=== PATIENT | female | born 1970 | race Caucasian/White ===

== ENCOUNTER → 2020-07-20 09:09 | Outpatient (BNVA) | payer MEDICARE, MEDICAID, SELFPAY | PROVIDERS: PCP Internal Medicine; Referring Provider Internal Medicine; Visit Provider Internal Medicine Gastroenterology | DX: K58.0 Irritable bowel syndrome with diarrhea (principal); F80.4 Speech and language development delay due to hearing loss; Z79.899 Other long term (current) drug therapy | CPT/HCPCS: 99212; 99215 ==

== ENCOUNTER 2020-10-12 03:42 | Emergency (ER) | payer MEDICARE, MEDICAID, SELFPAY ==
[2020-10-12 04:07] VITALS: BP 161/82; PULSE 84; RESP 15; TEMP 37.2; O2SAT 98; BMI 19.5
--- NOTE | 2020-10-12 04:34 | PC.NURSE ---
at bedside for evaluation.
--- NOTE | 2020-10-12 04:44 | ED.ABDPAIN ---
HPI - Abdominal Pain General Chief Complaint: Abdominal Pain Stated Complaint: Constipated Time Seen by Provider: 10/12/20 04:28 Source: patient and american sign language interpreter Mode of arrival: ambulatory History of Present Illness HPI narrative: This is a 50-year-old female who presents with acute onset of abdominal discomfort approximately 2:00 a.m. this morning that she associated with likely constipation and states that this typically is resolved with Jell-O mixed with water, however when she looked she realized she was out of the Jell-O and so her and her decided to pursue ED to the emergency department for further evaluation. She states that since she has arrived she has had a large bowel movement and is no longer having abdominal discomfort. She states that the pain that she was having earlier as continue to happen frequently and she typically treats with Jell-O, but she was out. Otherwise, these have not been associated with any fevers, chills, nausea, vomiting, rectal bleeding. Patient reports that she did have a gynecologic procedure last week for vaginal bleeding, but states that she did not get started on any pain medication at that time. Related Data Home Medications Medication Instructions Recorded Confirmed [id number] 1 tab PO Q6H PRN 07/20/20 10/12/20 50 mg-325 mg-40 mg tablet hydroxyzine HCl 10 mg tablet 10 mg PO Q8H PRN 07/20/20 10/12/20 ketorolac 10 mg tablet 10 mg PO Q8H PRN 07/20/20 10/12/20 lorazepam 0.5 mg tablet 0.5 mg PO DAILY PRN 07/20/20 10/12/20 medroxyprogesterone 10 mg tablet 20 mg PO DAILY 07/20/20 10/12/20 montelukast 10 mg tablet 10 mg PO DAILY 07/20/20 10/12/20 famotidine 1 tab PO BEDTIME PRN 10/12/20 10/12/20 Allergies Allergy/AdvReac Type Severity Reaction Status Date / Time morphine [MORPHINE] Allergy Severe HEART RATE Unverified 06/11/20 15:27 ST WITH PALPATIONS AND RASH. acetaminophen [Tylenol] Allergy Unknown Verified 01/05/17 00:00 albuterol [Ventolin HFA] Allergy Unknown Verified 03/19/20 00:00 alprazolam Allergy Unknown Verified 03/19/20 00:00 aspirin [ASPIRIN] Allergy Unknown HOT IN BODY Unverified 06/11/20 15:27 atenolol [ATENOLOL] Allergy Unknown UNKNOWN Unverified 06/11/20 15:27 azithromycin [AZITHROMYCIN] Allergy Unknown DIZZY Unverified 06/11/20 15:27 caffeine [CAFFEINE] Allergy Unknown UNKNOWN Unverified 06/11/20 15:27 ciprofloxacin Allergy Unknown Verified 03/19/20 00:00 codeine [CODEINE] Allergy Unknown UNKNOWN Unverified 06/11/20 15:27 hydrochlorothiazide Allergy Unknown hypertensio Verified 01/05/17 00:00 n ibuprofen [From ADVIL] Allergy Unknown HOT INSIDE Unverified 06/11/20 15:27 BODY lisinopril [LISINOPRIL] Allergy Unknown HEART Unverified 06/11/20 15:27 POUNDING, palpitations Lonox Allergy Unknown Unverified 03/19/20 00:00 metoprolol Allergy Unknown Verified 03/19/20 00:00 naproxen [From ALEVE] Allergy Unknown HOT INSIDE Unverified 06/11/20 15:27 BODY oxycodone [OXYCODONE] Allergy Unknown HOT AND Unverified 06/11/20 15:27 DIZZY penicillin V Allergy Unknown Unverified 03/19/20 00:00 Penicillins [PENICILLINS] Allergy Unknown ITCHING Unverified 06/11/20 15:27 RASH prednisone Allergy Unknown Verified 03/19/20 00:00 prochlorperazine Allergy Unknown UNKNOWN Unverified 06/11/20 15:27 [From COMPAZINE] sumatriptan Allergy Unknown Verified 03/19/20 00:00 tramadol [TRAMADOL] Allergy Unknown DIZZINESS Unverified 06/11/20 15:27 Codeine Allergy Unknown Uncoded 01/05/17 00:00 Diphenoxylate-Atropine Allergy Unknown Uncoded 03/19/20 00:00 From LOMOTIL Allergy Unknown UNKNOWN Uncoded 06/11/20 15:27 garlic Allergy Unknown Uncoded 01/05/17 00:00 Metoprolol Succinate Allergy Unknown dizziness Uncoded 01/05/17 00:00 onion Allergy Unknown Uncoded 01/05/17 00:00 pepper Allergy Unknown Uncoded 01/05/17 00:00 Q-Tussin Allergy Unknown Uncoded 03/19/20 00:00 Review of Systems Review of Systems Pertinent positives and negatives as stated in HPI 10 point review of systems is otherwise negative. Physical Exam Vital Signs: Vital Signs: Last Vital Signs Temp 98.9 F 10/12/20 04:07 Pulse 92 10/12/20 06:00 Resp 15 10/12/20 06:00 BP 156/84 H 10/12/20 06:00 Pulse Ox 96 10/12/20 06:00 Body Mass Index 19.5 VITAL SIGNS: Reviewed. GENERAL: Well developed, well nourished, in no acute distress. NOSE: Nares patent bilateral OROPHARYNX: no oral lesions noted, posterior pharynx clear and non-erythematous without noted tonsillar enlargement/erythema/exudates NECK: Supple, no adenopathy LUNGS: Normal breath sounds. No adventitious sounds or accessory muscle use. SpO2<98> CARDIOVASCULAR: Regular rate and rhythm without noted murmurs, ABDOMEN: Soft, non-tender, non-distended with bowel sounds. NEUROLOGIC: Alert and oriented x 4. Strength and sensation to light touch were grossly intact x 4. Course Course Course Narrative: This is a 50-year-old female with history and clinical presentation consistent with likely constipation that has resolved as patient is asymptomatic at this time. However, will get labs and KUB to evaluate further. All investigations were reviewed with evidence of hypo kalemia which was likely contributing to patient's difficulty with constipation which was further demonstrated by a KUB that shows a large amount of stool in the left hemicolon. There is no evidence of infectious etiologies and patient will have potassium repleted with oral pills and given instructions for a bowel regimen other than Jell-O. MDM - Abdominal Pain Lab Data Result diagrams: 10/12/20 05:08 10/12/20 05:08 Labs: Lab Results 10/12/20 10/12/20 10/12/20 Range/Units 05:08 05:08 05:37 WBC 10.1 (4.8-10.8) X10*3/uL RBC 4.52 (4.20-5.50) X10*6/uL Hgb 12.7 (12.0-16.0) g/dl Hct 38.1 (37-47) % MCV 84.3 (80-98) fL MCH 28.1 (27.0-33.0) pg MCHC 33.3 (31.0-35.0) g/dl RDW 13.5 (11.0-16.0) % Plt Count 247 (160-400) X10*3/uL MPV 10.2 (9.4-12.3) fL Immature Gran % (Auto) 0.2 (0.0-0.4) % Neut % (Auto) 78.8 H (45-73) % Lymph % (Auto) 12.2 L (20-40) % Menard % (Auto) 7.7 (2-11) % Eos % (Auto) 0.4 (0-4) % Baso % (Auto) 0.7 (0-2) % Lymph # (Auto) 1.2 (1.2-4.9) X10*3/uL Menard # (Auto) 0.8 (0.1-1.2) X10*3/uL Eos # (Auto) 0.0 (0.0-0.4) X10*3/uL Baso # (Auto) 0.1 (0.0-0.2) X10*3/uL Abs Immat Gran (auto) 0.02 (0.00-0.03) X10*3/uL Absolute Neuts (auto) 7.9 (2.0-8.3) X10*3/uL Absolute Nucleated RBC 0.000 (0.0-0.012) X10*3/uL Nucleated RBC % (auto) 0.0 (0.0-0.2) /100WBC Sodium 136 (135-145) mmol/L Potassium 2.9 L (3.3-5.1) mmol/l Chloride 98 (96-108) mmol/L Carbon Dioxide 29 (22-29) mmol/L Anion Gap 12 (12-20) BUN 13 (9-16) mg/dL Creatinine 0.79 (0.5-1.4) mg/dL Estim Creat Clear Calc 59.6 Estimated GFR > 60 Random Glucose 96 (60-115) mg/dL Calcium 8.1 L (8.4-10.2) mg/dL Total Bilirubin 0.2 (0.0-1.0) mg/dL AST 22 (5-31) U/L ALT 12 (0-31) U/L Alkaline Phosphatase 51 (39-117) U/L Total Protein 7.5 (6.5-8.0) g/dL Albumin 3.8 (3.5-5.0) g/dL Urine Color STRAW Urine Appearance CLEAR Urine pH 6.5 (5.0-8.0) Ur Specific [place] 1.010 (1.005-1.025) Urine Protein NEG (NEG-TRACE) MG/DL Urine Glucose (UA) NEG (NEG) MG/DL Urine Ketones NEG (NEG) MG/DL Urine Blood 1+ H (NEG) Urine Nitrite NEG (NEG) Ur Leukocyte Esterase NEG (NEG) Urine RBC 0-2 (0) /HPF Urine WBC 0-2 (0-4) /HPF Ur Squamous Epith Cells 1+ /LPF Urine Bacteria NONE /LPF Discharge Plan Discharge Clinical Impression: Hypokalemia Constipation Qualifiers: Constipation type: unspecified constipation type Qualified Code(s): K59.00 - Constipation, unspecified Patient Disposition: Home, Self-Care Instructions: Constipation (ED), High Fiber Diet (ED), Irritable Bowel Syndrome (ED), Fleet Enema (ED), Hypokalemia (ED) Additional Instructions: 1. Having a low potassium level can contribute to constipation symptoms. 2. To assist in constipation symptoms: Increase fluid hydration especially with water, increase fresh fruits and vegetables, [id number] MiraLax as directed on the outside packaging, and follow-up with your primary care provider for re-evaluation and outpatient management should your constipation persist. You may also consider a Fleet's enema, these are available over the counter as well. 3. Please resume all home medications as prescribed. Return to the emergency department should you experience any acute worsening of her symptoms. Prescriptions: No Action famotidine 20 mg tablet 1 tab PO BEDTIME PRN (Reason: Gastric Reflux) RF: 0 PMFSH Past Medical History Source: nursing notes reviewed Medical History IBS (irritable colon syndrome) Screening for colon cancer Speech and language development delay due to hearing loss Surgical History History of esophagogastroduodenoscopy (EGD) (~2018) Hx of colonoscopy (~2018) Family History Family History Mother Breast cancer Maternal Aunt Breast cancer Social History Social History Household Members: Friend(s) Housing: House Alcohol intake: current Alcohol intake frequency: does not drink Smoking Status: Never smoker Use of substances other than those prescribed or required for medical reasons: No Advance Directives: No Advance Directives Information Provided: No
--- NOTE | 2020-10-12 04:48 | XR_ITS ---
EXAMINATION: XR ABDOMEN KUB CLINICAL INDICATION: Question constipation. COMPARISON: None TECHNIQUE: AP view of the abdomen. FINDINGS: A moderate to large volume of fecal material is present in the colon, primarily transverse, descending, and sigmoid colon. Nondilated bowel gas pattern. No pathologic calcifications. No air-fluid levels. Osseous structures are unremarkable. XR/XR KUB IMPRESSION: Moderate to large volume of fecal material in the left hemicolon.
[2020-10-12 05:13] LABS: Basophils Absolute Auto 0.1 X10*3/uL (0.0-0.2); Basophils Percent Auto 0.7 % (0-2); Eosinophils Percent Auto 0.4 % (0-4); Hematocrit 38.1 % (37-47); Hemoglobin 12.7 g/dl (12.0-16.0); Imm Gran Abs Auto 0.02 X10*3/uL (0.00-0.03); Imm Gran Pct Auto 0.2 % (0.0-0.4); Lymphocytes Absolute Auto 1.2 X10*3/uL (1.2-4.9); Lymphocytes Percent Auto 12.2 % (20-40); MANUAL DIFF FLAG NO; Mean Corpuscular HGB Conc 33.3 g/dl (31.0-35.0); Mean Corpuscular Hemoglobin 28.1 pg (27.0-33.0); Mean Corpuscular Volume 84.3 fL (80-98); Mean Platelet Volume 10.2 fL (9.4-12.3); Monocytes Absolute Auto 0.8 X10*3/uL (0.1-1.2); Monocytes Percent Auto 7.7 % (2-11); Neutrophils Absolute Auto 7.9 X10*3/uL (2.0-8.3); Neutrophils Percent Auto 78.8 % (45-73); Platelet Count 247 X10*3/uL (160-400); Red Blood Count 4.52 X10*6/uL (4.20-5.50); Red Cell Distribution Width 13.5 % (11.0-16.0); White Blood Count 10.1 X10*3/uL (4.8-10.8)
[2020-10-12 05:43] LABS: Glucose Urine UA NEG (NEG); Leukocyte Esterase Urine NEG (NEG); Nitrite Urine NEG (NEG); PH 6.5 (5.0-8.0); Urine Blood 1+ (NEG); Urine Ketones NEG (NEG); Urine Protein NEG (NEG-TRACE)
[2020-10-12 05:45] LABS: Appearance Urine CLEAR; Color Urine STRAW
[2020-10-12 05:52] LABS: RBC Urine 0-2 /HPF (0); Squamous Epithelial Cell Urine 1+ /LPF; WBC Urine 0-2 /HPF (0-4)
[2020-10-12 05:54] LABS: Alanine Aminotransferase 12 U/L (0-31); Albumin Level 3.8 g/dL (3.5-5.0); Alkaline Phosphatase 51 U/L (39-117); Anion Gap 12 (12-20); Aspartate Amino Transferase 22 U/L (5-31); Bilirubin Total 0.2 mg/dL (0.0-1.0); Blood Urea Nitrogen 13 mg/dL (9-16); Calcium 8.1 mg/dL (8.4-10.2); Carbon Dioxide 29 mmol/L (22-29); Chloride 98 mmol/L (96-108); Creatinine Clr Calc Pharmacy 59.6; Estimated Glomerular Filt Rate > 60; Glucose Random 96 mg/dL (60-115); Potassium 2.9 mmol/l (3.3-5.1); Sodium 136 mmol/L (135-145); Total Protein 7.5 g/dL (6.5-8.0)
[2020-10-12 06:00] VITALS: BP 156/84; PULSE 92; RESP 15; O2SAT 96
[2020-10-12] MEDS: Potassium Chloride ER 20 MEQ TAB.ER.PRT 60 MEQ PO (07:16)
== END 2020-10-12 07:17 | disposition home or self-care (01) ==
PROVIDERS: Emergency Provider Student in an Organized Health Care Education/Training Program
DX: E87.6 Hypokalemia (principal); K59.00 Constipation, unspecified
CPT/HCPCS: 36415; 74018; 80053; 81001; 85025; 99283; 99284

== ENCOUNTER → 2020-12-02 13:08 | Outpatient (BNVA) | payer MEDICARE, MEDICAID, SELFPAY | PROVIDERS: PCP Internal Medicine; Visit Provider Surgery | DX: K64.8 Other hemorrhoids (principal) | CPT/HCPCS: 46600; 99212 ==

== ENCOUNTER → 2020-12-30 13:38 | Outpatient (BNVA) | payer MEDICARE, MEDICAID, SELFPAY | PROVIDERS: PCP Internal Medicine; Referring Provider Internal Medicine; Visit Provider Student in an Organized Health Care Education/Training Program | DX: M54.2 Cervicalgia (principal); Z79.899 Other long term (current) drug therapy | CPT/HCPCS: 99212 ==

== ENCOUNTER 2021-01-15 13:54 | Outpatient (REF) | payer MEDICARE, MEDICAID, SELFPAY ==
[2021-01-15 14:25] LABS: MANUAL DIFF FLAG NO
[2021-01-15 14:27] LABS: Basophils Absolute Auto 0.1 X10*3/uL (0.0-0.2); Basophils Percent Auto 0.8 % (0-2); Eosinophils Absolute Auto 0.1 X10*3/uL (0.0-0.4); Eosinophils Percent Auto 1.1 % (0-4); Hematocrit 39.7 % (37-47); Hemoglobin 12.8 g/dl (12.0-16.0); Imm Gran Abs Auto 0.02 X10*3/uL (0.00-0.03); Imm Gran Pct Auto 0.3 % (0.0-0.4); Lymphocytes Absolute Auto 2.6 X10*3/uL (1.2-4.9); Lymphocytes Percent Auto 35.8 % (20-40); Mean Corpuscular HGB Conc 32.2 g/dl (31.0-35.0); Mean Corpuscular Hemoglobin 27.6 pg (27.0-33.0); Mean Corpuscular Volume 85.6 fL (80-98); Mean Platelet Volume 9.8 fL (9.4-12.3); Monocytes Absolute Auto 0.7 X10*3/uL (0.1-1.2); Monocytes Percent Auto 10.1 % (2-11); Neutrophils Absolute Auto 3.8 X10*3/uL (2.0-8.3); Neutrophils Percent Auto 51.9 % (45-73); Platelet Count 255 X10*3/uL (160-400); Red Blood Count 4.64 X10*6/uL (4.20-5.50); Red Cell Distribution Width 13.4 % (11.0-16.0); White Blood Count 7.4 X10*3/uL (4.8-10.8)
[2021-01-15 15:00] LABS: Alanine Aminotransferase 6 U/L (0-31); Albumin Level 3.8 g/dL (3.5-5.0); Alkaline Phosphatase 56 U/L (39-117); Anion Gap 10 (12-20); Aspartate Amino Transferase 18 U/L (5-31); Bilirubin Total 0.5 mg/dL (0.0-1.0); Blood Urea Nitrogen 11 mg/dL (9-16); C Reactive Protein 0.04 mg/dL (< or = 0.50); Calcium 8.6 mg/dL (8.4-10.2); Carbon Dioxide 28 mmol/L (22-29); Chloride 104 mmol/L (96-108); Estimated Glomerular Filt Rate > 60; Glucose Random 110 mg/dL (60-115); Potassium 3.4 mmol/L (3.3-5.1); Sodium 139 mmol/L (135-145); Total Protein 7.5 g/dL (6.5-8.0)
[2021-01-15 15:22] LABS: TSH reflex Free T4 1.17 uIU/mL (0.32-4.0); Vitamin D 25-OH Total 19.5 ng/mL (>30)
== END 2021-01-15 13:55 | disposition home or self-care (01) ==
LOC: HO.LAB 13:54
PROVIDERS: PCP Internal Medicine; Visit Provider Internal Medicine Gastroenterology
DX: Z00.00 Encounter for general adult medical examination without abnormal findings (principal)
CPT/HCPCS: 36415; 80053; 82306; 84443; 85025; 86140

== ENCOUNTER → 2021-01-18 11:11 | Outpatient (BNVA) | payer MEDICARE, MEDICAID, SELFPAY | PROVIDERS: PCP Internal Medicine; Visit Provider Internal Medicine Gastroenterology | DX: K58.0 Irritable bowel syndrome with diarrhea (principal); R79.89 Other specified abnormal findings of blood chemistry; R10.9 Unspecified abdominal pain | CPT/HCPCS: 99212 ==

== ENCOUNTER 2021-01-26 14:59 | Outpatient (REF) | payer MEDICARE, MEDICAID, SELFPAY ==
--- NOTE | ~2021-01-26 | CT_ITS ---
EXAMINATION: CT ABDOMEN AND PELVIS WITHOUT CONTRAST CLINICAL INFORMATION: Irritable bowel syndrome with diarrhea and abdominal pain. COMPARISON: Previous CT colonography August 2011. TECHNIQUE: Multidetector volumetric imaging was performed from the superior aspect of the liver through the pubic symphysis. Sagittal and coronal reformatted images were obtained on the technologist's workstation. This CT examination was performed using dose optimization techniques as appropriate, variously including the following: *Automated exposure control *Adjustment of mA and/or kV according to patient size (this includes techniques or standardized protocols for targeted exams where dose is matched to indication/reason for exam; i.e. extremities or head) *Use of iterative reconstruction technique DLP: 215 mGy-cm FINDINGS: LUNG BASES: There is a new subsolid or ground-glass attenuation area seen in the right middle lobe measuring 1.3 cm (axial image 4, series 3). The lung bases are otherwise clear. LIVER, GALLBLADDER, AND BILIARY TREE: The liver is normal in size, shape, and attenuation. No focal hepatic lesion or biliary ductal dilatation is present. The gallbladder is unremarkable with no evidence of radiopaque gallstones, gallbladder wall thickening, or obvious pericholecystic inflammatory changes. PANCREAS: Unremarkable. SPLEEN: Unremarkable. ADRENAL GLANDS: Unremarkable. KIDNEYS AND URETERS: Evaluation of the kidneys is limited due to motion artifact. There are several small left lower pole renal stones. BLADDER: Unremarkable. GASTROINTESTINAL TRACT: There is stool throughout the colon suggestive of constipation. The small and large bowel is otherwise unremarkable. The appendix is unremarkable. The stomach is unremarkable. ABDOMINAL WALL: No significant hernia is appreciated. LYMPH NODES: Normal. VASCULAR: Unremarkable. PELVIC VISCERA: Unremarkable. OSSEOUS STRUCTURES: There is ddegenerative disc disease at L5-S1. CT/CT abdomen pelvis wo con IMPRESSION: Left renal stones. Constipation. New 1.3 cm semisolid or groundglass attenuation right lower lobe nodule. This is a nonspecific finding. The patient is high risk i.e. smoking or known malignancy, chest CT follow-up should be considered.
== END 2021-01-26 15:00 | disposition home or self-care (01) ==
LOC: HO.CT 14:59
PROVIDERS: Visit Provider Internal Medicine Gastroenterology
DX: R10.9 Unspecified abdominal pain (principal); R19.7 Diarrhea, unspecified; K58.0 Irritable bowel syndrome with diarrhea
CPT/HCPCS: 74176

== ENCOUNTER 2021-02-23 10:22 | Outpatient (REF) | payer MEDICARE, MEDICAID, SELFPAY ==
[2021-02-23 12:29] LABS: MANUAL DIFF FLAG NO
[2021-02-23 12:39] LABS: Basophils Percent Auto 0.5 % (0-2); Eosinophils Absolute Auto 0.1 X10*3/uL (0.0-0.4); Eosinophils Percent Auto 0.7 % (0-4); Hematocrit 40.7 % (37-47); Imm Gran Abs Auto 0.03 X10*3/uL (0.00-0.03); Imm Gran Pct Auto 0.4 % (0.0-0.4); Lymphocytes Absolute Auto 2.1 X10*3/uL (1.2-4.9); Lymphocytes Percent Auto 25.5 % (20-40); Mean Corpuscular HGB Conc 31.9 g/dl (31.0-35.0); Mean Corpuscular Hemoglobin 27.7 pg (27.0-33.0); Mean Corpuscular Volume 86.6 fL (80-98); Mean Platelet Volume 9.7 fL (9.4-12.3); Monocytes Absolute Auto 0.6 X10*3/uL (0.1-1.2); Monocytes Percent Auto 7.2 % (2-11); Neutrophils Absolute Auto 5.5 X10*3/uL (2.0-8.3); Neutrophils Percent Auto 65.7 % (45-73); Platelet Count 338 X10*3/uL (160-400); Red Cell Distribution Width 13.6 % (11.0-16.0); White Blood Count 8.3 X10*3/uL (4.8-10.8)
[2021-02-23 13:22] LABS: Alanine Aminotransferase 16 U/L (0-31); Albumin Level 3.9 g/dL (3.5-5.0); Alkaline Phosphatase 58 U/L (39-117); Anion Gap 11 (12-20); Aspartate Amino Transferase 21 U/L (5-31); Bilirubin Total 0.4 mg/dL (0.0-1.0); Blood Urea Nitrogen 8 mg/dL (9-16); C Reactive Protein 0.06 mg/dL (< or = 0.50); Carbon Dioxide 31 mmol/L (22-29); Chloride 101 mmol/L (96-108); Estimated Glomerular Filt Rate > 60; Glucose Random 84 mg/dL (60-115); Potassium 3.1 mmol/L (3.3-5.1); Sodium 140 mmol/L (135-145); Total Protein 7.6 g/dL (6.5-8.0)
[2021-02-23 13:35] LABS: TSH reflex Free T4 0.73 uIU/mL (0.32-4.0)
== END 2021-02-23 10:23 | disposition home or self-care (01) ==
LOC: HO.LAB 10:22
PROVIDERS: Internal Medicine Gastroenterology; PCP Internal Medicine; Visit Provider Nurse Practitioner Family
DX: R79.89 Other specified abnormal findings of blood chemistry (principal); K58.0 Irritable bowel syndrome with diarrhea; K58.1 Irritable bowel syndrome with constipation
CPT/HCPCS: 36415; 80053; 82306; 84443; 85025; 86140; 99212

== ENCOUNTER 2021-02-24 14:53 | Emergency (ER) | payer MEDICARE, MEDICAID, SELFPAY ==
--- NOTE | ~2021-02-24 | US_ITS ---
EXAMINATION: US RETROPERITONEAL LIMITED CLINICAL INFORMATION: Question stones question hydronephrosis. COMPARISON: CT abdomen pelvis 01/26/2021 TECHNIQUE: Ultrasound of the kidneys was performed along with the bladder FINDINGS: RIGHT KIDNEY: 10.3 x 4.7 x 4.7 cm (SAG x AP x TRV). The kidney is normal in size, contour, and echogenicity. Renal cortical thickness is normal. No calculi or focal parenchymal lesions. No hydronephrosis. LEFT KIDNEY: 10.6 x 5.5 x 5.2 cm (SAG x AP x TRV). The kidney is normal in size, contour, and echogenicity. Renal cortical thickness is normal. Left-sided hydronephrosis is present which is new when compared to prior studies. 2 lower pole nonobstructing calculi present measuring 3 to 4 mm in size. These could be seen on the prior CT scan BLADDER: The bladder appeared unremarkable. Bilateral ureteral jets were noted. US/US renal BI IMPRESSION: New left-sided hydronephrosis with nonobstructing intrarenal left calculi. Possibly a ureteral stone is causing the obstruction, but this is not visualized. Bilateral ureteral jets were seen.
[2021-02-24 15:44] VITALS: BP 155/82; PULSE 85; RESP 16; TEMP 36.9; O2SAT 97; BMI 18.9
[2021-02-24 16:33] LABS: MANUAL DIFF FLAG NO
[2021-02-24 16:36] LABS: Basophils Absolute Auto 0.1 X10*3/uL (0.0-0.2); Basophils Percent Auto 0.6 % (0-2); Eosinophils Absolute Auto 0.1 X10*3/uL (0.0-0.4); Eosinophils Percent Auto 0.5 % (0-4); Glucose Urine UA NEG (NEG); Hemoglobin 12.3 g/dl (12.0-16.0); Imm Gran Abs Auto 0.03 X10*3/uL (0.00-0.03); Imm Gran Pct Auto 0.3 % (0.0-0.4); Leukocyte Esterase Urine NEG (NEG); Lymphocytes Absolute Auto 2.3 X10*3/uL (1.2-4.9); Lymphocytes Percent Auto 21.5 % (20-40); Mean Corpuscular HGB Conc 33.2 g/dl (31.0-35.0); Mean Corpuscular Volume 84.1 fL (80-98); Mean Platelet Volume 9.2 fL (9.4-12.3); Monocytes Absolute Auto 0.8 X10*3/uL (0.1-1.2); Monocytes Percent Auto 7.6 % (2-11); Neutrophils Absolute Auto 7.5 X10*3/uL (2.0-8.3); Neutrophils Percent Auto 69.5 % (45-73); Nitrite Urine NEG (NEG); Platelet Count 311 X10*3/uL (160-400); Red Cell Distribution Width 13.7 % (11.0-16.0); Urine Blood TRACE (NEG); Urine Ketones NEG (NEG); Urine Protein NEG (NEG-TRACE); White Blood Count 10.8 X10*3/uL (4.8-10.8)
[2021-02-24 16:37] LABS: Appearance Urine CLEAR; Color Urine YELLOW
[2021-02-24 16:38] LABS: UPreg QC Valid YES; Urine Pregnancy NEGATIVE (NEGATIVE)
[2021-02-24 16:49] LABS: Bacteria Urine TRACE /LPF; Squamous Epithelial Cell Urine 1+ /LPF; WBC Urine 0 /HPF (0-4)
[2021-02-24 17:07] LABS: Anion Gap 13 (12-20); Blood Urea Nitrogen 10 mg/dL (9-16); Calcium 8.6 mg/dL (8.4-10.2); Carbon Dioxide 28 mmol/L (22-29); Chloride 97 mmol/L (96-108); Creatinine Clr Calc Pharmacy 63.9; Estimated Glomerular Filt Rate > 60; Glucose Random 88 mg/dL (60-115); Potassium 3.3 mmol/L (3.3-5.1); Sodium 135 mmol/L (135-145)
--- NOTE | 2021-02-24 17:18 | ED_ITS ---
HPI - Abdominal Pain General Chief Complaint: Abdominal Pain Stated Complaint: Kidney Stones Time Seen by Provider: 02/24/21 17:09 Source: patient and family Limitations: language barrier (pt is deaf, mom is mozambican speaking, interpretor used) History of Present Illness HPI narrative: Patient is a 50 year old hearing impaired female with a past medical history of IBS, low vitamin-D, headaches and kidney stones with lithotripsy 7 yrs ago who presents with 2-3 weeks of left-sided flank pain. She states she is having subjective fevers, denies chills nausea vomiting or diarrhea. She was diagnosed with kidney stones approximately a month ago and thinks she passed those and these are new ones. She states her doctor told her to drink lots of water with lemon in it which she has been doing. She is also taking Fioricet for the pain but states it is not working. Pt is concerned about her elevated blood pressure, she states she does not have a diagnosis of hypertension and does not take hypertensive medications. Likely white coat s yndrome for her mother as it always goes up when she comes to the hospital and it always comes down when she takes Ativan. Abdominal CT scan from January 26 shows here are several small left lower pole renal stones. Related Data Home Medications Medication Instructions Recorded Confirmed ijokfsddab-ssbdwkczxjbvo-lmtfyroq 1 tab PO Q6H PRN 07/20/20 01/18/21 50 mg-325 mg-40 mg tablet hydroxyzine HCl 10 mg tablet 10 mg PO Q8H PRN 07/20/20 01/18/21 ketorolac 10 mg tablet 10 mg PO Q8H PRN 07/20/20 01/18/21 lorazepam 0.5 mg tablet 0.5 mg PO DAILY PRN 07/20/20 01/18/21 montelukast 10 mg tablet 10 mg PO DAILY 07/20/20 01/18/21 Previous Rx's Medication Instructions Recorded hydrocortisone 2.5 % topical cream 1 appl LA BID PRN #30 g 12/04/20 with perineal applicator hydrocortisone acetate 25 mg 25 mg LA BID PRN #24 ea 12/04/20 rectal suppository hydrocortisone 2.5 % topical cream 1 appl LA BID-QID PRN #30 g 12/31/20 with perineal applicator cholecalciferol (vitamin D3) 1,250 1,250 mcg PO QWEEK 28 Days #4 cap 01/18/21 mcg (50,000 unit) capsule cholecalciferol (vitamin D3) 50 50 mcg PO DAILY #30 cap 02/23/21 mcg (2,000 unit) capsule hydrocortisone acetate 25 mg 25 mg LA DAILY #24 ea 02/23/21 rectal suppository tamsulosin [Flomax] 0.4 mg PO DAILY #5 cap 02/24/21 Allergies Allergy/AdvReac Type Severity Reaction Status Date / Time morphine [MORPHINE] Allergy Severe HEART RATE Verified 02/24/21 18:38 ST WITH PALPATIONS AND RASH. acetaminophen [Tylenol] Allergy Unknown Unknown Verified 02/24/21 18:38 albuterol [Ventolin HFA] Allergy Unknown Unknown Verified 02/24/21 18:38 alprazolam Allergy Unknown Unknown Verified 02/24/21 18:38 aspirin [ASPIRIN] Allergy Unknown HOT IN BODY Verified 02/24/21 18:38 atenolol [ATENOLOL] Allergy Unknown UNKNOWN Verified 02/24/21 18:38 azithromycin [AZITHROMYCIN] Allergy Unknown DIZZY Verified 02/24/21 18:38 caffeine [CAFFEINE] Allergy Unknown UNKNOWN Verified 02/24/21 18:38 ciprofloxacin Allergy Unknown Unknown Verified 02/24/21 18:38 codeine [CODEINE] Allergy Unknown UNKNOWN Verified 02/24/21 18:38 hydrochlorothiazide Allergy Unknown hypertensio Verified 02/24/21 18:38 n lisinopril [LISINOPRIL] Allergy Unknown HEART Verified 02/24/21 18:38 POUNDING, palpitations Lonox Allergy Unknown Unknown Verified 02/24/21 18:38 metoprolol Allergy Unknown Unknown Verified 02/24/21 18:38 oxycodone [OXYCODONE] Allergy Unknown HOT AND Verified 02/24/21 18:38 DIZZY penicillin V Allergy Unknown Unknown Verified 02/24/21 18:38 Penicillins [PENICILLINS] Allergy Unknown ITCHING Verified 02/24/21 18:38 RASH prednisone Allergy Unknown Unknown Verified 02/24/21 18:38 prochlorperazine Allergy Unknown UNKNOWN Verified 02/24/21 18:38 [From COMPAZINE] sumatriptan Allergy Unknown Unknown Verified 02/24/21 18:38 tramadol [TRAMADOL] Allergy Unknown DIZZINESS Verified 02/24/21 18:38 ibuprofen [From ADVIL] AdvReac Unknown HOT INSIDE Verified 02/24/21 18:38 BODY naproxen [From ALEVE] AdvReac Unknown HOT INSIDE Verified 02/24/21 18:38 BODY Codeine Allergy Unknown Unknown Uncoded 02/24/21 18:37 Diphenoxylate-Atropine Allergy Unknown Unknown Uncoded 02/24/21 18:37 From LOMOTIL Allergy Unknown UNKNOWN Uncoded 06/11/20 15:27 garlic Allergy Unknown Unknown Uncoded 02/24/21 18:37 Metoprolol Succinate Allergy Unknown dizziness Uncoded 01/05/17 00:00 onion Allergy Unknown Unknown Uncoded 02/24/21 18:37 pepper Allergy Unknown Unknown Uncoded 02/24/21 18:37 Q-Tussin Allergy Unknown Unknown Uncoded 02/24/21 18:37 Review of Systems Review of Systems Yes all other systems are reviewed and are negative Physical Exam Vital Signs: Vital Signs: Last Vital Signs Temp 98.4 F 02/24/21 15:44 Pulse 96 02/24/21 18:22 Resp 18 02/24/21 18:22 BP 173/83 H 02/24/21 18:22 Pulse Ox 95 02/24/21 18:22 Body Mass Index 18.9 Const: General: cooperative, healthy appearing, comfortable, no acute distress and well developed Orientation/consciousness: patient oriented x3 Limitations: no limitations HENMT: Head: Yes normal to inspection Eyes: General: appearance normal, both eyes and all related structures Neck: Neck: Yes normal visual inspection and Yes full ROM Resp: Effort & Inspection: normal respiratory effort and able to speak in complete sentences Auscultation: clear to auscultation bilaterally Cardio: Rate: regular rate Rhythm: regular rhythm Heart sounds: normal S1 and S2 GI: Inspection: Yes normal to inspection Palpation (GI): Soft to palpation and nontender : General: Yes CVA tenderness (left side) Back/Spine/Pelvis: Back: CVA tenderness (left side) Skin: General skin exam: no rashes or lesions noted Neuro: General: patient oriented x3 Extrem: General: Yes normal to inspection Course Course Course Narrative: Patient is a 50 year old hearing impaired female with a past medical history of IBS, low vitamin-D and kidney stones who presents with 2 days of left-sided flank pain wtih fevers. VSS sans slightly elevated BP at 155/82, PE revealed left side +CVA. As patient just had a CT scan, I will get ultrasound to check for stones plus or minus hydronephrosis. Will give morphine for pain. Reevaluation(s) Reevaluation #1: Patient US showed left kidney normal, left-sided hydronephrosis with to lower pole nonobstructing calculi measuring 3-[address] [place], he advised Flomax and he will see in office in 2 days. Other labs WNL. Time: 19:08 MDM - Abdominal Pain Lab Data Result diagrams: 02/24/21 16:27 02/24/21 16:27 Labs: Lab Results 02/24/21 02/24/21 02/24/21 Range/Units 16:27 16:27 16:27 WBC 10.8 (4.8-10.8) X10*3/uL RBC 4.40 (4.20-5.50) X10*6/uL Hgb 12.3 (12.0-16.0) g/dl Hct 37.0 (37-47) % MCV 84.1 (80-98) fL MCH 28.0 (27.0-33.0) pg MCHC 33.2 (31.0-35.0) g/dl RDW 13.7 (11.0-16.0) % Plt Count 311 (160-400) X10*3/uL MPV 9.2 L (9.4-12.3) fL Immature Gran % (Auto) 0.3 (0.0-0.4) % Neut % (Auto) 69.5 (45-73) % Lymph % (Auto) 21.5 (20-40) % Lewis % (Auto) 7.6 (2-11) % Eos % (Auto) 0.5 (0-4) % Baso % (Auto) 0.6 (0-2) % Lymph # (Auto) 2.3 (1.2-4.9) X10*3/uL Lewis # (Auto) 0.8 (0.1-1.2) X10*3/uL Eos # (Auto) 0.1 (0.0-0.4) X10*3/uL Baso # (Auto) 0.1 (0.0-0.2) X10*3/uL Abs Immat Gran (auto) 0.03 (0.00-0.03) X10*3/uL Absolute Neuts (auto) 7.5 (2.0-8.3) X10*3/uL Absolute Nucleated RBC 0.000 (0.0-0.012) X10*3/uL Nucleated RBC % (auto) 0.0 (0.0-0.2) /100WBC Sodium 135 (135-145) mmol/L Potassium 3.3 (3.3-5.1) mmol/L Chloride 97 (96-108) mmol/L Carbon Dioxide 28 (22-29) mmol/L Anion Gap 13 (12-20) BUN 10 (9-16) mg/dL Creatinine 0.84 (0.5-1.4) mg/dL Estim Creat Clear Calc 63.9 Estimated GFR > 60 Random Glucose 88 (60-115) mg/dL Calcium 8.6 (8.4-10.2) mg/dL Urine Color YELLOW Urine Appearance CLEAR Urine pH 6.0 (5.0-8.0) Ur Specific [place] 1.020 (1.005-1.025) Urine Protein NEG (NEG-TRACE) MG/DL Urine Glucose (UA) NEG (NEG) MG/DL Urine Ketones NEG (NEG) MG/DL Urine Blood TRACE (NEG) Urine Nitrite NEG (NEG) Ur Leukocyte Esterase NEG (NEG) Urine RBC 1-4 (0) /HPF Urine WBC 0 (0-4) /HPF Ur Squamous Epith Cells 1+ /LPF Urine Bacteria TRACE /LPF Urine Test (NEGATIVE) 02/24/21 Range/Units 16:27 WBC (4.8-10.8) X10*3/uL RBC (4.20-5.50) X10*6/uL Hgb (12.0-16.0) g/dl Hct (37-47) % MCV (80-98) fL MCH (27.0-33.0) pg MCHC (31.0-35.0) g/dl RDW (11.0-16.0) % Plt Count (160-400) X10*3/uL MPV (9.4-12.3) fL Immature Gran % (Auto) (0.0-0.4) % Neut % (Auto) (45-73) % Lymph % (Auto) (20-40) % Lewis % (Auto) (2-11) % Eos % (Auto) (0-4) % Baso % (Auto) (0-2) % Lymph # (Auto) (1.2-4.9) X10*3/uL Lewis # (Auto) (0.1-1.2) X10*3/uL Eos # (Auto) (0.0-0.4) X10*3/uL Baso # (Auto) (0.0-0.2) X10*3/uL Abs Immat Gran (auto) (0.00-0.03) X10*3/uL Absolute Neuts (auto) (2.0-8.3) X10*3/uL Absolute Nucleated RBC (0.0-0.012) X10*3/uL Nucleated RBC % (auto) (0.0-0.2) /100WBC Sodium (135-145) mmol/L Potassium (3.3-5.1) mmol/L Chloride (96-108) mmol/L Carbon Dioxide (22-29) mmol/L Anion Gap (12-20) BUN (9-16) mg/dL Creatinine (0.5-1.4) mg/dL Estim Creat Clear Calc Estimated GFR Random Glucose (60-115) mg/dL Calcium (8.4-10.2) mg/dL Urine Color Urine Appearance Urine pH (5.0-8.0) Ur Specific [place] (1.005-1.025) Urine Protein (NEG-TRACE) MG/DL Urine Glucose (UA) (NEG) MG/DL Urine Ketones (NEG) MG/DL Urine Blood (NEG) Urine Nitrite (NEG) Ur Leukocyte Esterase (NEG) Urine RBC (0) /HPF Urine WBC (0-4) /HPF Ur Squamous Epith Cells /LPF Urine Bacteria /LPF Urine Test NEGATIVE (NEGATIVE) Imaging Data US renal: Attestation: I personally reviewed and interpreted this imaging study as follows: Radiologist's impression: [address] [id number] ReportSigned Patient: Bob SantosHiwotR#: [id number]: [id number]:[id number]/Sex: 50 / FADM Date: 02/24/21Loc: HO.EDAttending Dr: Ordering Physician: Luana Correa PA-C Date of Service: 02/24/21 Procedure(s): US renal BI Accession Number(s): [id number] cc: Luana Correa PA-C~ EXAMINATION: US RETROPERITONEAL LIMITED CLINICAL INFORMATION: Question stones question hydronephrosis. COMPARISON: CT abdomen pelvis 01/26/2021 TECHNIQUE: Ultrasound of the kidneys was performed along with the bladder FINDINGS: RIGHT KIDNEY: 10.3 x 4.7 x 4.7 cm (SAG x AP x TRV). The kidney is normal in size, contour, and echogenicity. Renal cortical thickness is normal. No calculi or focal parenchymal lesions. No hydronephrosis. LEFT KIDNEY: 10.6 x 5.5 x 5.2 cm (SAG x AP x TRV). The kidney is normal in size, contour, and echogenicity. Renal cortical thickness is normal. Left-sided hydronephrosis is present which is new when compared to prior studies. 2 lower pole nonobstructing calculi present measuring 3 to 4 mm in size. These could be seen on the prior CT scan BLADDER: The bladder appeared unremarkable. Bilateral ureteral jets were noted. US/US renal BI IMPRESSION: New left-sided hydronephrosis with nonobstructing intrarenal left calculi. Possibly a ureteral stone is causing the obstruction, but this is not visualized. Bilateral ureteral jets were seen. Dictated By:JESSICA RUIZ MDSigned By:<Electronically signed by JESSICA RUIZ MD in OV>02/24/21 1820 DD/ 1719TD/TT: [employer]ader: Discharge Plan Discharge Clinical Impression: Elevated BP without diagnosis of hypertension, Kidney stone on left side Patient Disposition: Home, Self-Care Instructions: Kidney Stones (ED), Hypertension (ED) Prescriptions: New tamsulosin [Flomax] 0.4 mg capsule 0.4 mg PO DAILY Qty: 5 RF: 0 No Action hydrocortisone 2.5 % cream with perineal applicator 1 appl LA BID PRN (Reason: hemorrhoids) Qty: 30 RF: 0 hydrocortisone [Anusol-HC] 2.5 % cream with perineal applicator 1 appl LA BID-QID PRN (Reason: hemorrhoids) Qty: 30 RF: 2 hydrocortisone acetate [Anusol-HC] 25 mg suppository 25 mg LA DAILY Qty: 24 RF: 2 hydroxyzine HCl 10 mg tablet 10 mg PO Q8H PRN (Reason: Itching) RF: 0 lorazepam 0.5 mg tablet 0.5 mg PO DAILY PRN (Reason: anxiety) RF: 0 montelukast 10 mg tablet 10 mg PO DAILY RF: 0 bydlcebwkq-fliidikyeejcg-gbwp 50-325-40 mg tablet 1 tab PO Q6H PRN (Reason: Pain (Scale Score 4-6)) RF: 0 ketorolac 10 mg tablet 10 mg PO Q8H PRN (Reason: Pain) RF: 0 cholecalciferol (vitamin D3) 1,250 mcg (50,000 unit) capsule 1,250 mcg PO QWEEK 28 Days Qty: 4 RF: 2 hydrocortisone acetate [Anusol-HC] 25 mg suppository 25 mg LA BID PRN (Reason: hemorrhoids) Qty: 24 RF: 3 cholecalciferol (vitamin D3) 50 mcg (2,000 unit) capsule 50 mcg PO DAILY Qty: 30 RF: 5 Referrals: Everton Rinaldi MD [Physician] - 2 days [facility] Past Medical History Medical History Abdominal pain IBS (irritable colon syndrome) Internal and external prolapsed hemorrhoids Low vitamin D level Screening for colon cancer Speech and language development delay due to hearing loss Surgical History History of esophagogastroduodenoscopy (EGD) (~2018) Hx of colonoscopy (~2018) Family History Family History Mother Breast cancer Maternal Aunt Breast cancer Social History Social History Household Members: Friend(s) Housing: House Are you a primary palliative care specialist to a significant other at home: No Alcohol intake: current Alcohol intake frequency: does not drink Advance Directives: No Advance Directives Information Provided: Yes Patient : No Current occupational status: retired
[2021-02-24 18:22] VITALS: BP 173/83; PULSE 96; RESP 18; O2SAT 95
--- NOTE | 2021-02-24 18:38 | PC.NURSE ---
Megha JOHNSTON spoke with pt about allergies and educated pt on alergy vs adverse reactio as well as the risks vs benefits of taking Toradol. The patient has never had toradol in the past. Pt agrees to try the medication to help with her abdominal pain.
[2021-02-24] MEDS: Ketorolac Tromethamine 30 MG/ML VIAL IM (18:44)
[2021-02-24] MEDS: Tamsulosin HCL 0.4 MG CAPSULE 0.8 MG PO (19:33)
== END 2021-02-24 19:37 | disposition home or self-care (01) ==
PROVIDERS: Emergency Provider Internal Medicine
DX: N13.2 Hydronephrosis with renal and ureteral calculous obstruction (principal); R03.0 Elevated blood-pressure reading, without diagnosis of hypertension; R10.9 Unspecified abdominal pain
CPT/HCPCS: 36415; 76775; 80048; 81001; 81025; 85025; 96372; 99284; J1885

== ENCOUNTER → 2021-03-02 14:16 | Outpatient (BNVA) | payer MEDICARE, MEDICAID, SELFPAY | PROVIDERS: Visit Provider Urology | DX: R10.9 Unspecified abdominal pain (principal); K58.9 Irritable bowel syndrome, unspecified; K64.8 Other hemorrhoids; E55.9 Vitamin D deficiency, unspecified; Z88.6 Allergy status to analgesic agent; Z88.5 Allergy status to narcotic agent; Z88.0 Allergy status to penicillin; Z88.8 Allergy status to other drugs, medicaments and biological substances; Z91.018 Allergy to other foods | CPT/HCPCS: 99202 ==

== ENCOUNTER 2021-03-11 15:03 | Outpatient (REF) | payer MEDICARE, MEDICAID, SELFPAY ==
[2021-03-11 15:46] LABS: Glucose Urine UA NEG (NEG); Leukocyte Esterase Urine 1+ (NEG); Nitrite Urine NEG (NEG); Specific Gravity - Urine >= 1.030 (1.005-1.025); Urine Blood 3+ (NEG); Urine Ketones NEG (NEG); Urine Protein TRACE MG/DL (NEG-TRACE)
[2021-03-11 15:55] LABS: Appearance Urine HAZY; Color Urine YELLOW
[2021-03-11 16:20] LABS: Bacteria Urine 2+ /LPF; Calcium Oxalate Crystals Urine 3+ /LPF; Squamous Epithelial Cell Urine 3+ /LPF
== END 2021-03-11 15:04 | disposition home or self-care (01) ==
LOC: HO.LAB 15:03
PROVIDERS: PCP Nurse Practitioner Family; Visit Provider Urology
DX: N39.0 Urinary tract infection, site not specified (principal)
CPT/HCPCS: 81001; 87086

== ENCOUNTER 2021-03-17 14:20 | Outpatient (REF) | payer MEDICARE, MEDICAID, SELFPAY ==
[2021-03-17 15:10] LABS: Appearance Urine HAZY; Color Urine YELLOW; Glucose Urine UA NEG (NEG); Leukocyte Esterase Urine 1+ (NEG); Nitrite Urine NEG (NEG); Specific Gravity - Urine 1.015 (1.005-1.025); Urine Blood NEG (NEG); Urine Ketones NEG (NEG); Urine Protein TRACE MG/DL (NEG-TRACE)
[2021-03-17 15:17] LABS: Bacteria Urine 1+ /LPF; Calcium Oxalate Crystals Urine 2+ /LPF; RBC Urine 0 /HPF (0); Squamous Epithelial Cell Urine 1+ /LPF; WBC Urine 0-2 /HPF (0-4)
== END 2021-03-17 14:21 | disposition home or self-care (01) ==
LOC: HO.LAB 14:20
PROVIDERS: PCP Internal Medicine; Visit Provider Urology
DX: N39.0 Urinary tract infection, site not specified (principal)
CPT/HCPCS: 81001; 87086

== ENCOUNTER 2021-03-31 07:32 | Day surgery (SDC) | payer MEDICARE, MEDICAID, SELFPAY ==
--- NOTE | 2021-03-30 09:17 | HO.ANESPROP2 ---
Documented by User: Mami Barrientos 03/30/21 09:20 HPI - Anesthesia Eval Consult details Narrative: 50yo F for Left ESWL Multiple Med Allergies Last ESWL on record 2008 chronic ketorolac PMFSH Active Problems Active Problems: All Active Problems (Updated 03/24/21 @ 11:56 by Mckenzie Rios) Neck pain (Acute) UTI (urinary tract infection) (Acute) Low vitamin D level (Acute) Abdominal pain (Acute) Internal and external prolapsed hemorrhoids (Acute) Speech and language development delay due to hearing loss (Acute) Screening for colon cancer (Acute) IBS (irritable colon syndrome) (Acute) Past Medical History Medical History Abdominal pain Asthma IBS (irritable colon syndrome) Internal and external prolapsed hemorrhoids Kidney stones Low vitamin D level Screening for colon cancer Speech and language development delay due to hearing loss Family History Family History Mother Breast cancer Maternal Aunt Breast cancer Surgical History Surgical History History of esophagogastroduodenoscopy (EGD) (~2018) History of lithotripsy Hx of colonoscopy (~2018) Social History Social History Household Members: Friend(s) Housing: House Are you a primary urgent care physician to a significant other at home: No Alcohol intake: current Alcohol intake frequency: does not drink Patient Tobacco Use Status: Never used Tobacco Use of substances other than those prescribed or required for medical reasons: No Are you DNR?: No Advance Directives: No Advance Directives Information Provided: Yes Current occupational status: retired Meds Allergies Allergy/AdvReac Type Severity Reaction Status Date / Time morphine [MORPHINE] Allergy Severe HEART RATE Verified 02/24/21 18:38 ST WITH PALPATIONS AND RASH. acetaminophen [Tylenol] Allergy Mild Fever Verified 03/31/21 08:18 alprazolam Allergy Unknown Cough, SOB Verified 03/31/21 08:18 aspirin [ASPIRIN] Allergy Unknown HOT IN BODY Verified 02/24/21 18:38 atenolol [ATENOLOL] Allergy Unknown Dizziness Verified 03/31/21 08:18 azithromycin [AZITHROMYCIN] Allergy Unknown DIZZY Verified 02/24/21 18:38 ciprofloxacin Allergy Unknown Dizziness Verified 03/31/21 08:18 codeine [CODEINE] Allergy Unknown UNKNOWN Verified 02/24/21 18:38 hydrochlorothiazide Allergy Unknown hypertensio Verified 02/24/21 18:38 n lisinopril [LISINOPRIL] Allergy Unknown HEART Verified 02/24/21 18:38 POUNDING, palpitations Lonox Allergy Unknown hot flash Verified 03/31/21 08:18 metoprolol Allergy Unknown Dizziness Verified 03/31/21 08:18 oxycodone [OXYCODONE] Allergy Unknown HOT AND Verified 02/24/21 18:38 DIZZY Penicillins [PENICILLINS] Allergy Unknown ITCHING Verified 02/24/21 18:38 RASH prednisone Allergy Unknown Headache Verified 03/31/21 08:18 prochlorperazine Allergy Unknown UNKNOWN Verified 02/24/21 18:38 [From COMPAZINE] sumatriptan Allergy Unknown Dizziness Verified 03/31/21 08:18 tramadol [TRAMADOL] Allergy Unknown DIZZINESS Verified 02/24/21 18:38 cyclobenzaprine Allergy increased Verified 03/31/21 08:18 BP barrett Allergy Unknown Verified 03/31/21 08:18 orange Allergy Unknown Verified 03/31/21 08:18 pantoprazole Allergy Diarrhea Verified 03/31/21 08:18 albuterol [Ventolin HFA] AdvReac Mild hot feeling Verified 03/31/21 09:24 ibuprofen [From ADVIL] AdvReac Unknown HOT INSIDE Verified 02/24/21 18:38 BODY naproxen [From ALEVE] AdvReac Unknown HOT INSIDE Verified 02/24/21 18:38 BODY Diphenoxylate-Atropine Allergy Unknown Unknown Uncoded 02/24/21 18:37 From LOMOTIL Allergy Unknown UNKNOWN Uncoded 06/11/20 15:27 garlic Allergy Unknown Unknown Uncoded 02/24/21 18:37 onion Allergy Unknown Unknown Uncoded 02/24/21 18:37 pepper Allergy Unknown Unknown Uncoded 02/24/21 18:37 Q-Tussin Allergy Unknown increased Uncoded 03/31/21 08:18 BP salt Allergy Unknown Uncoded 03/31/21 08:18 Home Medications Medication Instructions Recorded Confirmed Last Taken Type mivalmaplk-xftuhapvxswio-wyltnkjc 1 tab PO Q6H PRN 07/20/20 03/24/21 Unknown History 50 mg-325 mg-40 mg tablet hydroxyzine HCl 10 mg tablet 10 mg PO Q8H PRN 07/20/20 03/24/21 Unknown History ketorolac 10 mg tablet 10 mg PO Q8H PRN 07/20/20 03/24/21 Unknown History lorazepam 0.5 mg tablet 0.5 mg PO DAILY PRN 07/20/20 03/24/21 Unknown History montelukast 10 mg tablet 10 mg PO DAILY 07/20/20 03/24/21 Unknown History Exam Exam Date and Time: March 30, [id number] Pertinent Lab Results Pertinent Lab Results: Laboratory Tests 02/24/21 02/24/21 16:27 16:27 WBC 10.8 Hgb 12.3 Hct 37.0 Plt Count 311 Sodium 135 Potassium 3.3 Chloride 97 Carbon Dioxide 28 BUN 10 Creatinine 0.84 Assessment and Plan Assessment Anesthesia Assessment: Chart Reviewed Documented by User: Janet Nelson 03/31/21 09:33 PMFSH Past Medical History Medical History Abdominal pain Asthma IBS (irritable colon syndrome) Internal and external prolapsed hemorrhoids Kidney stones Low vitamin D level Screening for colon cancer Speech and language development delay due to hearing loss Family History Family History Mother Breast cancer Maternal Aunt Breast cancer Surgical History Surgical History History of esophagogastroduodenoscopy (EGD) (~2017) History of lithotripsy Hx of colonoscopy (~2018) Social History Social History Household Members: Friend(s) Housing: House Are you a primary urgent care physician to a significant other at home: No Alcohol intake: current Alcohol intake frequency: does not drink Patient Tobacco Use Status: Never used Tobacco Use of substances other than those prescribed or required for medical reasons: No Are you DNR?: No Advance Directives: No Advance Directives Information Provided: Yes Current occupational status: retired Meds Allergies Allergy/AdvReac Type Severity Reaction Status Date / Time morphine [MORPHINE] Allergy Severe HEART RATE Verified 02/24/21 18:38 ST WITH PALPATIONS AND RASH. acetaminophen [Tylenol] Allergy Mild Fever Verified 03/31/21 08:18 alprazolam Allergy Unknown Cough, SOB Verified 03/31/21 08:18 aspirin [ASPIRIN] Allergy Unknown HOT IN BODY Verified 02/24/21 18:38 atenolol [ATENOLOL] Allergy Unknown Dizziness Verified 03/31/21 08:18 azithromycin [AZITHROMYCIN] Allergy Unknown DIZZY Verified 02/24/21 18:38 ciprofloxacin Allergy Unknown Dizziness Verified 03/31/21 08:18 codeine [CODEINE] Allergy Unknown UNKNOWN Verified 02/24/21 18:38 hydrochlorothiazide Allergy Unknown hypertensio Verified 02/24/21 18:38 n lisinopril [LISINOPRIL] Allergy Unknown HEART Verified 02/24/21 18:38 POUNDING, palpitations Lonox Allergy Unknown hot flash Verified 03/31/21 08:18 metoprolol Allergy Unknown Dizziness Verified 03/31/21 08:18 oxycodone [OXYCODONE] Allergy Unknown HOT AND Verified 02/24/21 18:38 DIZZY Penicillins [PENICILLINS] Allergy Unknown ITCHING Verified 02/24/21 18:38 RASH prednisone Allergy Unknown Headache Verified 03/31/21 08:18 prochlorperazine Allergy Unknown UNKNOWN Verified 02/24/21 18:38 [From COMPAZINE] sumatriptan Allergy Unknown Dizziness Verified 03/31/21 08:18 tramadol [TRAMADOL] Allergy Unknown DIZZINESS Verified 02/24/21 18:38 cyclobenzaprine Allergy increased Verified 03/31/21 08:18 BP barrett Allergy Unknown Verified 03/31/21 08:18 orange Allergy Unknown Verified 03/31/21 08:18 pantoprazole Allergy Diarrhea Verified 03/31/21 08:18 albuterol [Ventolin HFA] AdvReac Mild hot feeling Verified 03/31/21 09:24 ibuprofen [From ADVIL] AdvReac Unknown HOT INSIDE Verified 02/24/21 18:38 BODY naproxen [From ALEVE] AdvReac Unknown HOT INSIDE Verified 02/24/21 18:38 BODY Diphenoxylate-Atropine Allergy Unknown Unknown Uncoded 02/24/21 18:37 From LOMOTIL Allergy Unknown UNKNOWN Uncoded 06/11/20 15:27 garlic Allergy Unknown Unknown Uncoded 02/24/21 18:37 onion Allergy Unknown Unknown Uncoded 02/24/21 18:37 pepper Allergy Unknown Unknown Uncoded 02/24/21 18:37 Q-Tussin Allergy Unknown increased Uncoded 03/31/21 08:18 BP salt Allergy Unknown Uncoded 03/31/21 08:18 Home Medications Medication Instructions Recorded Confirmed Last Taken Type pbnwfvhlfs-twikgfnzvifqj-wsydfhbf 1 tab PO Q6H PRN 07/20/20 03/24/21 Unknown History 50 mg-325 mg-40 mg tablet hydroxyzine HCl 10 mg tablet 10 mg PO Q8H PRN 07/20/20 03/24/21 Unknown History ketorolac 10 mg tablet 10 mg PO Q8H PRN 07/20/20 03/24/21 Unknown History lorazepam 0.5 mg tablet 0.5 mg PO DAILY PRN 07/20/20 03/24/21 Unknown History montelukast 10 mg tablet 10 mg PO DAILY 07/20/20 03/24/21 Unknown History Exam Airway Mallampati Class: II TM Dist: >3cm Neck ROM: Full Loose/Missing/Broken Teeth: No Heart: RRR Lungs: CTA Assessment and Plan Assessment Anesthesia Assessment: Anesthesia Plan Discussed and Chart Reviewed Final Anesthetic Review NPO: Yes ASA Class: II Final Preanesthetic Review: Meds/Allgs Chart Reviewed, Consent Obtained/Reviewed and Anes Risks/Benef Reviewed Patient Risk: Intermediate Procedure Risk: Low Anesthetic Plan Anesthetic Plan: MAC: Disposition: Standard PACU
--- NOTE | ~2021-03-31 | XR_ITS ---
EXAMINATION: XR ABDOMEN KUB CLINICAL INDICATION: Left renal stones COMPARISON: January 26, 2021 CT TECHNIQUE: AP view of the abdomen. FINDINGS: The bowel gas pattern is normal with no evidence of ileus or obstruction. About the lateral aspect location lower pole of the left kidney there is a 2 mm calcification seen. Psoas margins intact. No calcification seen along the expected path of the left ureter. The bones are unremarkable. XR/XR KUB IMPRESSION: 2 mm calculus overlying the lower pole of the left kidney.
[2021-03-31 08:22] VITALS: BP 144/72; PULSE 93; RESP 18; TEMP 37.1; O2SAT 97; BMI 17.8
--- NOTE | 2021-03-31 09:07 | PC.NURSE ---
Patient history of allergy to Tylenol. Spikes high fever & increased blood pressure. Ordered by Dr Rinaldi for ESWL procedures, discussed with Anesthesia Anti- patient not to be administered Tylenol.
[2021-03-31] MEDS: Albuterol/Iprat 2.5/0.5MG 3 ML AMPUL.NEB INHALE (09:30)
[2021-03-31 09:35] VITALS: PULSE 97
--- NOTE | 2021-03-31 09:39 | P.CONAN_ITS ---
[facility] Active Problems Active Problems: All Active Problems (Updated 03/31/21 @ 09:19 by Janet Nelson) Asthma (Acute) Nephrolithiasis (Acute) Neck pain (Acute) UTI (urinary tract infection) (Acute) Low vitamin D level (Acute) Abdominal pain (Acute) Internal and external prolapsed hemorrhoids (Acute) Speech and language development delay due to hearing loss (Acute) Screening for colon cancer (Acute) IBS (irritable colon syndrome) (Acute) Past Medical History Medical History Abdominal pain Asthma IBS (irritable colon syndrome) Internal and external prolapsed hemorrhoids Kidney stones Low vitamin D level Screening for colon cancer Speech and language development delay due to hearing loss Family History Family History Mother Breast cancer Maternal Aunt Breast cancer Surgical History Surgical History History of esophagogastroduodenoscopy (EGD) (~2017) History of lithotripsy Hx of colonoscopy (~2017) Social History Social History Household Members: Friend(s) Housing: House Are you a primary career services assistant to a significant other at home: No Alcohol intake: current Alcohol intake frequency: does not drink Patient Tobacco Use Status: Never used Tobacco Use of substances other than those prescribed or required for medical reasons: No Are you DNR?: No Advance Directives: No Advance Directives Information Provided: Yes Current occupational status: retired Meds Allergies Allergy/AdvReac Type Severity Reaction Status Date / Time morphine [MORPHINE] Allergy Severe HEART RATE Verified 02/24/21 18:38 ST WITH PALPATIONS AND RASH. acetaminophen [Tylenol] Allergy Mild Fever Verified 03/31/21 08:18 alprazolam Allergy Unknown Cough, SOB Verified 03/31/21 08:18 aspirin [ASPIRIN] Allergy Unknown HOT IN BODY Verified 02/24/21 18:38 atenolol [ATENOLOL] Allergy Unknown Dizziness Verified 03/31/21 08:18 azithromycin [AZITHROMYCIN] Allergy Unknown DIZZY Verified 02/24/21 18:38 ciprofloxacin Allergy Unknown Dizziness Verified 03/31/21 08:18 codeine [CODEINE] Allergy Unknown UNKNOWN Verified 02/24/21 18:38 hydrochlorothiazide Allergy Unknown hypertensio Verified 02/24/21 18:38 n lisinopril [LISINOPRIL] Allergy Unknown HEART Verified 02/24/21 18:38 POUNDING, palpitations Lonox Allergy Unknown hot flash Verified 03/31/21 08:18 metoprolol Allergy Unknown Dizziness Verified 03/31/21 08:18 oxycodone [OXYCODONE] Allergy Unknown HOT AND Verified 02/24/21 18:38 DIZZY Penicillins [PENICILLINS] Allergy Unknown ITCHING Verified 02/24/21 18:38 RASH prednisone Allergy Unknown Headache Verified 03/31/21 08:18 prochlorperazine Allergy Unknown UNKNOWN Verified 02/24/21 18:38 [From COMPAZINE] sumatriptan Allergy Unknown Dizziness Verified 03/31/21 08:18 tramadol [TRAMADOL] Allergy Unknown DIZZINESS Verified 02/24/21 18:38 cyclobenzaprine Allergy increased Verified 03/31/21 08:18 BP barrett Allergy Unknown Verified 03/31/21 08:18 orange Allergy Unknown Verified 03/31/21 08:18 pantoprazole Allergy Diarrhea Verified 03/31/21 08:18 albuterol [Ventolin HFA] AdvReac Mild hot feeling Verified 03/31/21 09:24 ibuprofen [From ADVIL] AdvReac Unknown HOT INSIDE Verified 02/24/21 18:38 BODY naproxen [From ALEVE] AdvReac Unknown HOT INSIDE Verified 02/24/21 18:38 BODY Diphenoxylate-Atropine Allergy Unknown Unknown Uncoded 02/24/21 18:37 From LOMOTIL Allergy Unknown UNKNOWN Uncoded 06/11/20 15:27 garlic Allergy Unknown Unknown Uncoded 02/24/21 18:37 onion Allergy Unknown Unknown Uncoded 02/24/21 18:37 pepper Allergy Unknown Unknown Uncoded 02/24/21 18:37 Q-Tussin Allergy Unknown increased Uncoded 03/31/21 08:18 BP salt Allergy Unknown Uncoded 03/31/21 08:18 Active Medications: Current Medications Generic Name Dose Route Start Last Admin Trade Name Freq PRN Reason Stop Dose Admin Lactated Ringer's 1,000 mls @ 100 mls/hr 03/31/21 06:00 Lr IVCONT .Q10H LYNDA Home Medications Medication Instructions Recorded Confirmed Last Taken Type iwurzwcaxx-kdrfqsfxitqcs-gydyrspj 1 tab PO Q6H PRN 07/20/20 03/24/21 Unknown History 50 mg-325 mg-40 mg tablet hydroxyzine HCl 10 mg tablet 10 mg PO Q8H PRN 07/20/20 03/24/21 Unknown History ketorolac 10 mg tablet 10 mg PO Q8H PRN 07/20/20 03/24/21 Unknown History lorazepam 0.5 mg tablet 0.5 mg PO DAILY PRN 07/20/20 03/24/21 Unknown History montelukast 10 mg tablet 10 mg PO DAILY 07/20/20 03/24/21 Unknown History Exam Exam Date and Time: March 31, 2021 0939 Height,Weight and Vital Signs: Height 5 ft 5 in Weight 48.534 kg Last Vital Signs Temp 98.7 F 03/31/21 08:22 Pulse 93 03/31/21 08:22 Resp 18 03/31/21 08:22 BP 144/72 H 03/31/21 08:22 Pulse Ox 97 03/31/21 08:22 Assessment and Plan Assessment Anesthesia Assessment: Anesthesia Plan Discussed and Chart Reviewed Final Anesthetic Review NPO: Yes
--- NOTE | 2021-03-31 09:51 | P.HPSUR_ITS ---
Pre-Procedural Eval Section A Date of Service: 03/31/21 Section B Chief Complaint: kidney stone Details of Present Illness: left renal stones Relevant Family History (Specify if Yes): No Relevant Social History: None Present Medications: see Short Stay Collaborative assessment Medical History: Significant History History of Previous Operations: No relevant previous surgery Allergies: Allergies Allergy/AdvReac Type Severity Reaction Status Date / Time morphine [MORPHINE] Allergy Severe HEART RATE Verified 02/24/21 18:38 ST WITH PALPATIONS AND RASH. acetaminophen [Tylenol] Allergy Mild Fever Verified 03/31/21 08:18 alprazolam Allergy Unknown Cough, SOB Verified 03/31/21 08:18 aspirin [ASPIRIN] Allergy Unknown HOT IN BODY Verified 02/24/21 18:38 atenolol [ATENOLOL] Allergy Unknown Dizziness Verified 03/31/21 08:18 azithromycin [AZITHROMYCIN] Allergy Unknown DIZZY Verified 02/24/21 18:38 ciprofloxacin Allergy Unknown Dizziness Verified 03/31/21 08:18 codeine [CODEINE] Allergy Unknown UNKNOWN Verified 02/24/21 18:38 hydrochlorothiazide Allergy Unknown hypertensio Verified 02/24/21 18:38 n lisinopril [LISINOPRIL] Allergy Unknown HEART Verified 02/24/21 18:38 POUNDING, palpitations Lonox Allergy Unknown hot flash Verified 03/31/21 08:18 metoprolol Allergy Unknown Dizziness Verified 03/31/21 08:18 oxycodone [OXYCODONE] Allergy Unknown HOT AND Verified 02/24/21 18:38 DIZZY Penicillins [PENICILLINS] Allergy Unknown ITCHING Verified 02/24/21 18:38 RASH prednisone Allergy Unknown Headache Verified 03/31/21 08:18 prochlorperazine Allergy Unknown UNKNOWN Verified 02/24/21 18:38 [From COMPAZINE] sumatriptan Allergy Unknown Dizziness Verified 03/31/21 08:18 tramadol [TRAMADOL] Allergy Unknown DIZZINESS Verified 02/24/21 18:38 cyclobenzaprine Allergy increased Verified 03/31/21 08:18 BP barrett Allergy Unknown Verified 03/31/21 08:18 orange Allergy Unknown Verified 03/31/21 08:18 pantoprazole Allergy Diarrhea Verified 03/31/21 08:18 albuterol [Ventolin HFA] AdvReac Mild hot feeling Verified 03/31/21 09:24 ibuprofen [From ADVIL] AdvReac Unknown HOT INSIDE Verified 02/24/21 18:38 BODY naproxen [From ALEVE] AdvReac Unknown HOT INSIDE Verified 02/24/21 18:38 BODY Diphenoxylate-Atropine Allergy Unknown Unknown Uncoded 02/24/21 18:37 From LOMOTIL Allergy Unknown UNKNOWN Uncoded 06/11/20 15:27 garlic Allergy Unknown Unknown Uncoded 02/24/21 18:37 onion Allergy Unknown Unknown Uncoded 02/24/21 18:37 pepper Allergy Unknown Unknown Uncoded 02/24/21 18:37 Q-Tussin Allergy Unknown increased Uncoded 03/31/21 08:18 BP salt Allergy Unknown Uncoded 03/31/21 08:18 Review of Systems Sugical H&P ROS: Negative: Constitution, Cardiovascular, Respiratory, Neur ological, Psychiatric, Hem-Onc, Allergic/Immunologic, Gastrointestinal, Genitourinary, Musculoskeletal, Integumentary, Endocrine and Eyes/Ears/Nose/Throat Exam Surgical H&P Exam: Normal: HEENT, Normal: Heart, Normal: Lungs, Normal: Extremities, Normal: Abdomen, Normal: Skin and Normal: Neurological Plan Diagnosis/Plan: Unchanged (left eswl) I have reviewed the history and physical and performed a pertinent physical examination on my patient. No changes have occurred unless specified.
--- NOTE | 2021-03-31 09:59 | W.PM.OPN ---
Operative Note Operative Note Date of Service: 03/31/21 Narrative: PreOperative Diagnosis: left stones Post Operative Diagnosis: Renal stones Procedure: left ESWL Surgeon: Dr Everton Rinaldi Anesthesia: mac/sedation Indications for procedure: They understand ESWL may be a staged procedure and subsequent intervention may be required based on imaging after ESWL. They also understand there is a risk of bleeding, infection, damage to adjacent organs. Procedure: After informed consent was verified the patient was brought to the operating room and placed in a supine position. Anesthesia was performed per protocol. Safety pause time-out was performed. Imaging was in the room and laterality confirmed. - left lower pole 5mm x 2 ESWL was performed. The 1st 500 shocks were performed at 60 hertz. These were performed with increasing power. Once maximum power was reached the rate was increased to 180 hertz. A total of 2500 shocks were given. Fluoroscopy showed stone disintegration. They tolerated procedure well and was transferred to the recovery area upon completion.
[2021-03-31 10:27] VITALS: BP 111/63; PULSE 86; RESP 12; TEMP 36.7; O2SAT 96
[2021-03-31 10:42] VITALS: BP 126/75; PULSE 96; RESP 18; O2SAT 96
[2021-03-31 10:52] VITALS: BP 129/74; PULSE 82; RESP 18; O2SAT 96
== END 2021-03-31 11:35 | disposition home or self-care (01) ==
PROVIDERS: PCP Internal Medicine; Visit Provider Urology
PROC: (CPT 50590; principal; 2021-03-31 09:40)
DX: N20.0 Calculus of kidney (principal); Z87.442 Personal history of urinary calculi; K58.9 Irritable bowel syndrome, unspecified; E55.9 Vitamin D deficiency, unspecified; F80.9 Developmental disorder of speech and language, unspecified; H91.90 Unspecified hearing loss, unspecified ear; Z79.899 Other long term (current) drug therapy; Z88.0 Allergy status to penicillin; Z88.8 Allergy status to other drugs, medicaments and biological substances
CPT/HCPCS: 50590; 74018; 94640; J1885; J2250; J2405; J3010

== ENCOUNTER → 2021-05-06 14:48 | Outpatient (BNVA) | payer MEDICARE, MEDICAID, SELFPAY | PROVIDERS: PCP Internal Medicine | DX: N20.0 Calculus of kidney (principal) | CPT/HCPCS: 99212 ==

== ENCOUNTER 2021-06-07 13:59 | Outpatient (REF) | payer MEDICARE, MEDICAID, SELFPAY ==
--- NOTE | ~2021-06-07 | US_ITS ---
EXAMINATION: US RETROPERITONEAL LIMITED (RENAL ONLY) CLINICAL INFORMATION: Calculus of kidney. COMPARISON: KUB dated 03/31/2021 and 10/12/2020. Bilateral renal ultrasound dated 02/24/2021. CT abdomen and pelvis without contrast dated 01/26/2021. Renals only ultrasound dated 11/13/2015. TECHNIQUE: Real-time imaging of the kidneys. FINDINGS: RIGHT KIDNEY: 10.2 x 4.5 x 4.9 cm (SAG x AP x TRV). The kidney is normal in size, contour, and echogenicity. Renal cortical thickness is normal. There is a 3 mm stone in the midpole. No focal parenchymal lesions or hydronephrosis. LEFT KIDNEY: 10.0 x 4.5 x 4.0 cm (SAG x AP x TRV). The kidney is normal in size, contour, and echogenicity. Renal cortical thickness is normal. There are small millimeter in size echogenic foci in the left kidney questionable for tiny stones. There is a 3 mm stone in the lower pole. No focal parenchymal lesions or hydronephrosis. US/US renal BI IMPRESSION: Small bilateral renal stones.
== END 2021-06-07 14:00 | disposition home or self-care (01) ==
LOC: HO.US 13:59
PROVIDERS: Visit Provider Urology
DX: N20.0 Calculus of kidney (principal)
CPT/HCPCS: 76775

== ENCOUNTER 2021-10-12 16:00 | Outpatient (REF) | payer MEDICARE, MEDICAID, SELFPAY ==
--- NOTE | ~2021-10-12 | US_ITS ---
EXAMINATION: US RETROPERITONEAL LIMITED (RENAL ONLY) CLINICAL INFORMATION: Calculus of kidney. COMPARISON: Renal ultrasound 06/07/2021 and 02/24/2021. X-ray KUB 03/31/2021 and 10/12/2020. CT abdomen and pelvis without contrast 01/26/2021. TECHNIQUE: Real-time imaging of the kidneys. FINDINGS: RIGHT KIDNEY: 10.3 x 4.6 x 4.8 cm (SAG x AP x TRV). The kidney is normal in size, contour, and echogenicity. Renal cortical thickness is normal. No focal parenchymal lesions or hydronephrosis. There is an echogenic stone in the mid pole measuring 0.3 x 0.2 cm. There are multiple punctate calcifications seen throughout the kidney cortex. LEFT KIDNEY: 9.0 x 4.5 x 3.9 cm (SAG x AP x TRV). The kidney is normal in size, contour, and echogenicity. Renal cortical thickness is normal. No focal parenchymal lesions or hydronephrosis. There are several echogenic stones; a 0.3 x 0.3 cm mid pole, 0.3 x 0.2 cm lower pole, 0.5 x 0.3 cm lower pole, 0.5 x 0.4 cm lower pole, 0.4 x 0.4 cm lower pole. In addition, there are multiple punctate echogenic calcifications. No caliectasis is seen. US/US renal BI IMPRESSION: Multiple nonobstructive echogenic bilateral renal calculi without caliectasis. In addition, there are multiple echogenic punctate calcifications throughout the kidney cortices bilaterally. There is no hydronephrosis.
== END 2021-10-12 16:01 | disposition home or self-care (01) ==
LOC: HO.US 16:00
PROVIDERS: Visit Provider Urology
DX: N20.0 Calculus of kidney (principal)
CPT/HCPCS: 76775

== ENCOUNTER → 2021-11-05 14:58 | Outpatient (BNVA) | payer OTHER, SELFPAY | PROVIDERS: PCP Internal Medicine; Visit Provider Urology | DX: N20.0 Calculus of kidney (principal) | CPT/HCPCS: 99212 ==

== ENCOUNTER → 2021-11-23 13:14 | Outpatient (BNVA) | payer OTHER, SELFPAY | PROVIDERS: PCP Internal Medicine; Referring Provider Internal Medicine; Visit Provider Nurse Practitioner Family | DX: Z12.11 Encounter for screening for malignant neoplasm of colon (principal); K58.0 Irritable bowel syndrome with diarrhea | CPT/HCPCS: 99212 ==

== ENCOUNTER → 2022-03-07 14:01 | Outpatient (BNVA) | payer OTHER, SELFPAY | PROVIDERS: PCP Internal Medicine; Visit Provider Surgery | DX: K64.8 Other hemorrhoids (principal); K64.4 Residual hemorrhoidal skin tags | CPT/HCPCS: 99212 ==

== ENCOUNTER 2022-04-11 15:23 | Outpatient (REF) | payer OTHER, SELFPAY ==
--- NOTE | ~2022-04-11 | US_ITS ---
EXAMINATION: US RETROPERITONEAL LIMITED (RENAL ONLY) CLINICAL INFORMATION: Calculus of kidney. COMPARISON: Ultrasound renal 10/12/2021 and 06/07/2021. X-ray KUB 03/31/2021. CT abdomen pelvis 01/26/2021. TECHNIQUE: Real-time imaging of the kidneys. FINDINGS: RIGHT KIDNEY: 9.3 x 4.9 x 4.7 cm (SAG x AP x TRV). The kidney is normal in size, contour, and echogenicity. Renal cortical thickness is normal. No focal parenchymal lesions or hydronephrosis. Redemonstration of multiple sub-3 mm echogenic foci. LEFT KIDNEY: 10.0 x 4.9 x 4.9 cm (SAG x AP x TRV). The kidney is normal in size, contour, and echogenicity. Renal cortical thickness is normal. No focal parenchymal lesions or hydronephrosis. Redemonstration of multiple sub-3 mm echogenic foci. US/US renal BI IMPRESSION: Redemonstration of multiple sub-3 mm bilateral renal calculi. No hydronephrosis.
== END 2022-04-11 15:24 | disposition home or self-care (01) ==
LOC: HO.US 15:23
PROVIDERS: Visit Provider Urology
DX: N20.0 Calculus of kidney (principal)
CPT/HCPCS: 76775

== ENCOUNTER → 2022-05-04 14:42 | Outpatient (BNVA) | payer OTHER, SELFPAY | PROVIDERS: PCP Internal Medicine; Visit Provider Urology | DX: N20.0 Calculus of kidney (principal) | CPT/HCPCS: 99212 ==

== ENCOUNTER 2022-09-30 16:25 | Outpatient (REF) | payer OTHER, SELFPAY ==
--- NOTE | ~2022-09-30 | US_ITS ---
EXAMINATION: US RETROPERITONEAL LIMITED (RENAL ONLY) CLINICAL INFORMATION: Calculus of kidney. COMPARISON: Renal ultrasound 04/11/2022 TECHNIQUE: Real-time imaging of the kidneys. FINDINGS: RIGHT KIDNEY: 9.8 x 5.1 x 4.0 cm (SAG x AP x TRV). The kidney is normal in size, contour, and echogenicity. Renal cortical thickness is normal. No calculi or focal parenchymal lesions. No hydronephrosis. LEFT KIDNEY: 9.7 x 4.6 x 4.5 cm (SAG x AP x TRV). The kidney is normal in size, contour, and echogenicity. Renal cortical thickness is normal. No focal parenchymal lesions or hydronephrosis. Multiple nonobstructing renal stones appear overall increased in size and number from prior measuring up to 0.8 cm, previously 0.3 cm or less. US/US renal BI IMPRESSION: Nonobstructing right renal stones appear increased in size and number from prior measuring up to 0.8 cm..
== END 2022-09-30 16:26 | disposition home or self-care (01) ==
LOC: HO.US 16:25
PROVIDERS: Visit Provider Urology
DX: N20.0 Calculus of kidney (principal)
CPT/HCPCS: 76775

== ENCOUNTER → 2022-11-30 14:48 | Outpatient (BNVA) | payer OTHER, SELFPAY | PROVIDERS: PCP Internal Medicine; Visit Provider Urology | DX: N20.0 Calculus of kidney (principal) | CPT/HCPCS: 99212 ==

== ENCOUNTER 2023-01-29 03:12 | Emergency (ER) | payer OTHER, SELFPAY ==
--- NOTE | ~2023-01-29 | XR_ITS ---
EXAMINATION: XR CHEST CLINICAL INFORMATION: Fever, rule out pneumonia COMPARISON: None available. TECHNIQUE: 2 views of the chest were obtained. FINDINGS: The lungs are clear with no focal consolidation. No evidence of pneumothorax, pulmonary edema, or pleural effusions. The cardiomediastinal silhouette is unremarkable. No acute osseous findings. XR/XR chest 2V IMPRESSION: No acute cardiopulmonary findings.
--- NOTE | ~2023-01-29 | CT_ITS ---
EXAMINATION: CT ABDOMEN AND PELVIS WITHOUT CONTRAST CLINICAL INFORMATION: Bilateral flank pain, rule out pyelonephritis COMPARISON: 01/26/2021 TECHNIQUE: Multidetector volumetric imaging was performed from the superior aspect of the liver through the pubic symphysis. Sagittal and coronal reformatted images were obtained on the technologist's workstation. This CT examination was performed using dose optimization techniques as appropriate, variously including the following: *Automated exposure control *Adjustment of mA and/or kV according to patient size (this includes techniques or standardized protocols for targeted exams where dose is matched to indication/reason for exam; i.e. extremities or head) *Use of iterative reconstruction technique DLP: 443 mGy-cm FINDINGS: Limited evaluation in some regions due to motion artifact. LUNG BASES: The visualized lung bases are unremarkable. LIVER, GALLBLADDER, AND BILIARY TREE: The liver is normal in size, shape, and attenuation. Lateral left hepatic lobe cyst redemonstrated. No biliary ductal dilatation is present. The gallbladder is unremarkable. PANCREAS: Unremarkable. SPLEEN: Unremarkable. ADRENAL GLANDS: Unremarkable. KIDNEYS AND URETERS: No hydronephrosis or obstructing calculus bilaterally. A few small calculi are noted in the lower left kidney. Small mid left renal cyst is suspected; no follow-up recommended. There is inadequate assessment of the renal parenchyma without intravenous contrast. No significant perinephric stranding. BLADDER: Mildly distended and grossly unremarkable. GASTROINTESTINAL TRACT: No evidence of bowel obstruction or significant wall thickening. The appendix is unremarkable. No free fluid or free air is seen. ABDOMINAL WALL: No significant hernia is appreciated. LYMPH NODES: Normal. VASCULAR: Unremarkable. PELVIC VISCERA: Unremarkable. OSSEOUS STRUCTURES: Unremarkable. CT/CT abdomen pelvis wo IV con IMPRESSION: Significantly limited assessment of the renal parenchyma for pyelonephritis without intravenous contrast. No hydronephrosis or obstructing calculus identified. Few small left lower pole renal calculi.
[2023-01-29 03:15] VITALS: BP 179/84; PULSE 137; RESP 19; TEMP 38.3; O2SAT 98; BMI 21.5
[2023-01-29 03:56] LABS: Basophils Percent Auto 0.5 % (0-2); Eosinophils Absolute Auto 0.2 X10*3/uL (0.0-0.4); Eosinophils Percent Auto 2.5 % (0-4); Hematocrit 39.1 % (37.0-47.0); Hemoglobin 12.6 g/dl (12.0-16.0); Imm Gran Abs Auto 0.02 X10*3/uL (0.00-0.03); Imm Gran Pct Auto 0.3 % (0.0-0.4); Lymphocytes Absolute Auto 0.6 X10*3/uL (1.2-4.9); Lymphocytes Percent Auto 9.7 % (20-40); MANUAL DIFF FLAG NO; Mean Corpuscular HGB Conc 32.2 g/dl (31.0-35.0); Mean Corpuscular Hemoglobin 26.8 pg (27.0-33.0); Monocytes Absolute Auto 0.9 X10*3/uL (0.1-1.2); Monocytes Percent Auto 13.3 % (2-11); Neutrophils Absolute Auto 4.7 x10*3/uL (2.0-8.3); Neutrophils Percent Auto 73.7 % (45-73); Platelet Count 248 X10*3/uL (160-400); Red Blood Count 4.71 X10*6/uL (4.20-5.50); Red Cell Distribution Width 13.8 % (11.0-16.0); White Blood Count 6.4 X10*3/uL (4.8-10.8)
[2023-01-29 04:05] LABS: Lactic Acid 0.7 mmol/L (0.5-2.0)
[2023-01-29 04:08] LABS: Anion Gap 13 (12-20); Blood Urea Nitrogen 10 mg/dL (9-16); Calcium 8.9 mg/dL (8.4-10.2); Carbon Dioxide 22 mmol/L (22-29); Chloride 103 mmol/L (96-108); Creatinine Clr Calc Pharmacy 62.9; Estimated Glomerular Filt Rate > 60; Glucose Random 108 mg/dL (60-115); Potassium 3.3 mmol/L (3.3-5.1); Sodium 135 mmol/L (135-145)
--- NOTE | 2023-01-29 04:10 | ED_ITS ---
HPI - General Adult General Chief complaint: General Medical Stated complaint: Swollen face? irritation/redness Time Seen by Provider: 01/29/23 04:09 Source: patient Mode of arrival: ambulatory Limitations: language barrier (Patient is deaf, she can read lips, steam meter reader used on the iPad) History of Present Illness HPI narrative: 52-year-old female who presents emergency department for evaluation facial flushing, bilateral lower extremity pain and bilateral lower flank pain. Patient states that she woke up at 01:00 in her face was flushed. She felt hot and cold. She states that she then developed pain in both sides of her flank. She denied dysuria but did note urinary frequency. She denied nausea or vomiting. She denied change in her bowel movements. Related Data Home Medications Medication Instructions Recorded Confirmed txyoxwrlrh-vkqnhumwtlydl-gvpvczdy 1 tab PO Q6H PRN Pain (Scale Score 07/20/20 50 mg-325 mg-40 mg tablet 4-6) hydroxyzine HCl 10 mg tablet 10 mg PO Q8H PRN Itching 07/20/20 03/24/21 ketorolac 10 mg tablet 10 mg PO Q8H PRN Pain 07/20/20 03/24/21 lorazepam 0.5 mg tablet 0.5 mg PO DAILY PRN anxiety 07/20/20 03/24/21 montelukast 10 mg tablet 10 mg PO DAILY 07/20/20 03/24/21 cholecalciferol (vitamin D3) 1,250 1,250 mcg PO QWEEK 11/05/21 mcg (50,000 unit) capsule Previous Rx's Medication Instructions Recorded hydrocortisone 2.5 % topical cream 1 appl WI BID-QID PRN hemorrhoids 12/31/20 with perineal applicator #30 grams (Anusol-HC) ascorbic acid (vitamin C) 1,000 mg 1 g PO DAILY 90 days #90 tabs 03/23/21 tablet doxazosin 2 mg tablet 2 mg PO BEDTIME 2 weeks #14 tabs 04/26/21 dicyclomine 10 mg capsule 10 mg PO TID 30 days #90 caps 09/08/21 cholecalciferol (vitamin D3) 50 50 mcg PO DAILY #30 caps 05/20/22 mcg (2,000 unit) capsule (Vitamin D3) pyridoxine (vitamin B6) 50 mg 50 mg PO DAILY 90 days #90 tabs 11/30/22 tablet methenamine hippurate 1 gram tablet 1 g PO DAILY 90 days #90 tabs 12/29/22 hydrocortisone acetate 25 mg 25 mg WI BID PRN hemorrhoids #24 ea 01/10/23 rectal suppository (Anusol-HC) ketorolac 10 mg tablet 10 mg PO Q6H PRN pain 5 days #20 01/29/23 tabs Allergies Allergy/AdvReac Type Severity Reaction Status Date / Time morphine [MORPHINE] Allergy Severe HEART RATE Verified 01/29/23 03:36 ST WITH PALPATIONS AND RASH. acetaminophen [From Tylenol] Allergy Mild Fever Verified 01/29/23 03:36 alprazolam Allergy Unknown Cough, SOB Verified 01/29/23 03:36 aspirin [ASPIRIN] Allergy Unknown HOT IN BODY Verified 01/29/23 03:36 atenolol [ATENOLOL] Allergy Unknown Dizziness Verified 01/29/23 03:36 atropine [From Lomotil] Allergy Unknown Unknown Verified 01/29/23 03:36 azithromycin [AZITHROMYCIN] Allergy Unknown DIZZY Verified 01/29/23 03:36 ciprofloxacin Allergy Unknown Dizziness Verified 01/29/23 03:36 codeine [CODEINE] Allergy Unknown UNKNOWN Verified 01/29/23 03:36 diphenoxylate [From Lomotil] Allergy Unknown Unknown Verified 01/29/23 03:36 garlic Allergy Unknown Unknown Verified 01/29/23 03:36 hydrochlorothiazide Allergy Unknown hypertensio Verified 01/29/23 03:36 n lisinopril [LISINOPRIL] Allergy Unknown HEART Verified 01/29/23 03:36 POUNDING, palpitations Lonox Allergy Unknown hot flash Verified 01/29/23 03:36 metoprolol Allergy Unknown Dizziness Verified 01/29/23 03:36 onion Allergy Unknown Unknown Verified 01/29/23 03:36 oxycodone [OXYCODONE] Allergy Unknown HOT AND Verified 01/29/23 03:36 DIZZY Penicillins [PENICILLINS] Allergy Unknown ITCHING Verified 01/29/23 03:36 RASH pepper (genus Capsicum) Allergy Unknown Unknown Verified 01/29/23 03:36 prednisone Allergy Unknown Headache Verified 01/29/23 03:36 prochlorperazine Allergy Unknown Unknown Verified 01/29/23 03:36 [From Compazine] sumatriptan Allergy Unknown Dizziness Verified 01/29/23 03:36 tramadol [TRAMADOL] Allergy Unknown DIZZINESS Verified 01/29/23 03:36 cyclobenzaprine Allergy increased Verified 01/29/23 03:36 BP barrett Allergy Unknown Verified 01/29/23 03:36 orange Allergy Unknown Verified 01/29/23 03:36 pantoprazole Allergy Diarrhea Verified 01/29/23 03:36 albuterol [From Ventolin HFA] AdvReac Mild Hot feeling Verified 01/29/23 03:36 ibuprofen [From Advil] AdvReac Unknown Hot inside Verified 01/29/23 03:36 body naproxen [From Aleve] AdvReac Unknown Hot inside Verified 01/29/23 03:36 body Diphenoxylate-Atropine Allergy Unknown Unknown Uncoded 11/30/22 15:35 Q-Tussin Allergy Unknown increased Uncoded 11/30/22 15:35 BP salt Allergy Unknown Uncoded 11/30/22 15:35 Review of Systems Review of Systems: Yes all other systems are reviewed and are negative PMFSH Past Medical History Medical History Abdominal pain Asthma IBS (irritable colon syndrome) Internal and external prolapsed hemorrhoids Kidney stones Low vitamin D level Screening for colon cancer Speech and language development delay due to hearing loss Surgical History History of esophagogastroduodenoscopy (EGD) (~2018) History of lithotripsy Hx of colonoscopy (~2018) Family History Family History Mother Breast cancer Maternal Aunt Breast cancer Social History Social History Household Members: Friend(s) Housing: House Are you a primary care information associate to a significant other at home: No Alcohol intake: never Patient Tobacco Use Status: Never used Tobacco Smoked in Last 30 Days: No Use of substances other than those prescribed or required for medical reasons: No Any prior treatment program specific to substance use: No Advance Directives: No Advance Directives Information Provided: Yes Patient : No Current occupational status: retired Physical Exam ED Vital Signs: Vital Signs - 24 hr 01/29/23 03:15 01/29/23 07:23 Temperature 100.9 F H 98.7 F Pulse Rate 137 H 111 H Respiratory Rate 19 18 Blood Pressure 179/84 H 132/76 Pulse Oximetry 98 95 Oxygen Delivery Method Room Air Room Air BMI result Body Mass Index 21.5 Vital signs revealed fever , elevated heart rate, elevated blood pressure General: Awake, alert, female patient, pleasant, cooperative does not appear to be in distress HEENT: Head was normal cephalic and atraumatic pupils were equal round reactive light, sclera contact however normal, mouth revealed moist membranes. Neck: Supple, no adenopathy Lungs: Clear to auscultation breath sounds symmetric bilateral Heart: Regular rate rhythm, normal S1-S2, no murmurs rubs or gallops Abdomen: Soft, nontender, nondistended with normoactive bowel sounds Back: Bilateral CVA tenderness Extremities: No erythema increased warmth to the lower extremities, no tenderness palpation of the muscles of her lower extremities, no lower extremities are intact Neuro: Nonfocal Medications Administered Discontinued Medications Generic Name Dose Route Start Last Admin Trade Name Freq PRN Reason Stop Dose Admin Sodium Chloride 1,000 mls @ 999 mls/hr 01/29/23 04:45 01/29/23 06:08 Ns IV 01/29/23 05:45 999 mls/hr .Q1H1M STA Administration Ketorolac Tromethamine 15 mg 01/29/23 04:45 01/29/23 06:07 Ketorolac Tromethamine 15 Mg/Ml Vial IVPUSH 01/29/23 04:46 15 mg ONCE STA Administration Medical Decision Making Medical Decision Making MDM Narrative: 52-year-old female with history of deafness, asthma, kidney stones, irritable bowel syndrome with multiple drug sensitivities who presents emergency department for evaluation of fever, bilateral flank pain and lower extremity pain that began at 01:00 hours. Patient did have a fever of 100.9 degrees F, elevated heart rate of 137 beats per minute an elevated blood pressure of 179/85. Patient's exam did reveal bilateral flank tenderness. Laboratory evaluation was ordered including CBC, BMP, liver panel, lipase, urinalysis, COVID-19 influenza. I ordered a two view chest x-ray and CT scan of the abdomen pelvis without IV contrast. 0456: CBC was normal. BMP was normal. LFTs were normal. Lipase was normal. COVID-19 influenza were negative. Urinalysis revealed trace leukocyte esterase. Microscopic revealed 0-2 RBCs, 0-5 WBCs, 0-2 squamous cells and no bacteria. 0757: CT scan of the abdomen pelvis without contrast revealed no obstructive process or kidney stone, limited and determining if the patient has pyelonephritis however the urinalysis is negative. The patient is feeling better after receiving the IV Toradol and IV fluid. Patient most likely has a viral syndrome. I did discuss this with her using the steam meter reader on the iPad. The patient will be started on Toradol 10 mg every 6 hours as needed for pain or fever. She will be discharged home with printed instructions. Differential Diagnosis Differential diagnosis includes was not limited to renal colic, pyelonephritis, urinary tract infection, viral syndrome, pancreatitis, gastritis Admission/Observation Consideration of admission/observation: Escalation of care including admission/observation considered Lab Data [facility] Lab Attestation statement: I reviewed the patient's lab results. See [facility] 01/29/23 03:46 01/29/23 03:46 Labs: Lab Results 01/29/23 01/29/23 01/29/23 Range/Units 03:46 03:46 03:46 WBC 6.4 (4.8-10.8) X10*3/uL RBC 4.71 (4.20-5.50) X10*6/uL Hgb 12.6 (12.0-16.0) g/dl Hct 39.1 (37.0-47.0) % MCV 83.0 (80.0-98.0) fL MCH 26.8 L (27.0-33.0) pg MCHC 32.2 (31.0-35.0) g/dl RDW 13.8 (11.0-16.0) % Plt Count 248 (160-400) X10*3/uL MPV 10.0 (9.4-12.3) fL Immature Gran % (Auto) 0.3 (0.0-0.4) % Neut % (Auto) 73.7 H (45-73) % Lymph % (Auto) 9.7 L (20-40) % [place] % (Auto) 13.3 H (2-11) % Eos % (Auto) 2.5 (0-4) % Baso % (Auto) 0.5 (0-2) % Lymph # (Auto) 0.6 L (1.2-4.9) X10*3/uL [place] # (Auto) 0.9 (0.1-1.2) X10*3/uL Eos # (Auto) 0.2 (0.0-0.4) X10*3/uL Baso # (Auto) 0.0 (0.0-0.2) X10*3/uL Abs Immat Gran (auto) 0.02 (0.00-0.03) X10*3/uL Absolute Neuts (auto) 4.7 (2.0-8.3) x10*3/uL Absolute Nucleated RBC 0.000 (0.0-0.012) X10*3/uL Nucleated RBC % (auto) 0.0 (0.0-0.2) /100WBC Sodium 135 (135-145) mmol/L Potassium 3.3 (3.3-5.1) mmol/L Chloride 103 (96-108) mmol/L Carbon Dioxide 22 (22-29) mmol/L Anion Gap 13 (12-20) BUN 10 (9-16) mg/dL Creatinine 0.92 (0.5-1.4) mg/dL Estim Creat Clear Calc 62.9 Estimated GFR > 60 Random Glucose 108 (60-115) mg/dL Lactic Acid 0.7 (0.5-2.0) mmol/L Calcium 8.9 (8.4-10.2) mg/dL Total Bilirubin 0.3 (0.0-1.0) mg/dL Direct Bilirubin 0.1 (0.0-0.5) mg/dL AST 21 (5-31) U/L ALT 14 (0-31) U/L Alkaline Phosphatase 44 (39-117) U/L Total Protein 7.2 (6.5-8.0) g/dL Albumin 3.9 (3.5-5.0) g/dL Lipase 10 (8-78) U/L Urine Color Urine Appearance Urine pH (5.0-9.0) Ur Specific [place] (1.005-1.025) Urine Protein (Neg-Trace) mg/dL Urine Glucose (UA) (Negative) mg/dL Urine Ketones (Negative) mg/dL Urine Blood (Negative) Urine Nitrite (Negative) Ur Leukocyte Esterase (Negative) Urine RBC (0-2) /HPF Urine WBC (0-5) /HPF Ur Squamous Epith Cells (0-2) /HPF Urine Bacteria (None Seen) Hyaline Casts (0-2) /LPF COVID-19 ([facility]A) (Negative) COVID-19 Clin Com Influenza Type A (DAPHNE) (Negative) Influenza Type B (DAPHNE) (Negative) Influenza A & B Note 01/29/23 01/29/23 01/29/23 Range/Units 03:46 03:46 05:28 WBC (4.8-10.8) X10*3/uL RBC (4.20-5.50) X10*6/uL Hgb (12.0-16.0) g/dl Hct (37.0-47.0) % MCV (80.0-98.0) fL MCH (27.0-33.0) pg MCHC (31.0-35.0) g/dl RDW (11.0-16.0) % Plt Count (160-400) X10*3/uL MPV (9.4-12.3) fL Immature Gran % (Auto) (0.0-0.4) % Neut % (Auto) (45-73) % Lymph % (Auto) (20-40) % [place] % (Auto) (2-11) % Eos % (Auto) (0-4) % Baso % (Auto) (0-2) % Lymph # (Auto) (1.2-4.9) X10*3/uL [place] # (Auto) (0.1-1.2) X10*3/uL Eos # (Auto) (0.0-0.4) X10*3/uL Baso # (Auto) (0.0-0.2) X10*3/uL Abs Immat Gran (auto) (0.00-0.03) X10*3/uL Absolute Neuts (auto) (2.0-8.3) x10*3/uL Absolute Nucleated RBC (0.0-0.012) X10*3/uL Nucleated RBC % (auto) (0.0-0.2) /100WBC Sodium (135-145) mmol/L Potassium (3.3-5.1) mmol/L Chloride (96-108) mmol/L Carbon Dioxide (22-29) mmol/L Anion Gap (12-20) BUN (9-16) mg/dL Creatinine (0.5-1.4) mg/dL Estim Creat Clear Calc Estimated GFR Random Glucose (60-115) mg/dL Lactic Acid (0.5-2.0) mmol/L Calcium (8.4-10.2) mg/dL Total Bilirubin (0.0-1.0) mg/dL Direct Bilirubin (0.0-0.5) mg/dL AST (5-31) U/L ALT (0-31) U/L Alkaline Phosphatase (39-117) U/L Total Protein (6.5-8.0) g/dL Albumin (3.5-5.0) g/dL Lipase (8-78) U/L Urine Color Yellow Urine Appearance Clear Urine pH 8.0 (5.0-9.0) Ur Specific [place] 1.010 (1.005-1.025) Urine Protein Negative (Neg-Trace) mg/dL Urine Glucose (UA) Negative (Negative) mg/dL Urine Ketones 15 (Negative) mg/dL Urine Blood Negative (Negative) Urine Nitrite Negative (Negative) Ur Leukocyte Esterase Trace H (Negative) Urine RBC 0-2 (0-2) /HPF Urine WBC 0-5 (0-5) /HPF Ur Squamous Epith Cells 0-2 (0-2) /HPF Urine Bacteria None Seen (None Seen) Hyaline Casts 0-2 (0-2) /LPF COVID-19 ([facility]A) Negative (Negative) COVID-19 Clin Com See Note Influenza Type A (DAPHNE) Negative (Negative) Influenza Type B (DAPHNE) Negative (Negative) Influenza A & B Note See Note Radiology Impression Discussion of test interpretation with radiology: I have reviewed the radiologist's reading. Radiologist Impression: CT abdomen pelvis wo IV con IMPRESSION: Significantly limited assessment of the renal parenchyma for pyelonephritis without intravenous contrast. No hydronephrosis or obstructing calculus identified. Few small left lower pole renal calculi. Dictated By:rBaeden Briggs MD Discharge Plan Discharge Clinical Impression: Fever, Abdominal pain Patient Disposition: Home, Self-Care Instructions: Viral Syndrome (ED) Additional Instructions: Your blood work was normal. Your kidney function was normal. Your urine was normal with no sign of a urine infection. The CT scan of your abdomen pelvis with IV contrast did not reveal a clear cause for your pain. Your symptoms are most likely caused by a viral infection You received Toradol (ketorolac) here in the emergency department for your pain and fever and you tolerated this medication. Therefore I am prescribing Toradol (ketorolac) 10 mg pills, you can take 1 pill every 6 hours as needed for pain or fever. Follow-up with your doctor in 2 days. Please return to the emergency department if your symptoms get worse or if you develop any symptoms that are concerning to you. Follow-up with your doctor in 2 days. Please return to the emergency department if your symptoms get worse or if you develop any symptoms that are concerning to you. Prescriptions: New ketorolac 10 mg tablet 10 mg PO Q6H PRN (Reason: pain) 5 Days Qty: 20 0RF No Action hydrocortisone [Anusol-HC] 2.5 % cream with perineal applicator 1 appl WI BID-QID PRN (Reason: hemorrhoids) Qty: 30 2RF ascorbic acid (vitamin C) 1,000 mg tablet 1 g PO DAILY 90 Days Qty: 90 1RF doxazosin 2 mg tablet 2 mg PO BEDTIME 14 Days Qty: 14 0RF dicyclomine 10 mg capsule 10 mg PO TID 30 Days Qty: 90 4RF Rx Instructions: Take one capsule by mouth three times a day cholecalciferol (vitamin D3) [Vitamin D3] 50 mcg (2,000 unit) capsule 50 mcg PO DAILY Qty: 30 5RF methenamine hippurate 1 gram tablet 1 g PO DAILY 90 Days Qty: 90 1RF hydrocortisone acetate [Anusol-HC] 25 mg suppository 25 mg WI BID PRN (Reason: hemorrhoids) Qty: 24 3RF hydroxyzine HCl 10 mg tablet 10 mg PO Q8H PRN (Reason: Itching) lorazepam 0.5 mg tablet 0.5 mg PO DAILY PRN (Reason: anxiety) montelukast 10 mg tablet 10 mg PO DAILY axubuwseer-kfwntabmvwhoe-hmbd 50-325-40 mg tablet 1 tab PO Q6H PRN (Reason: Pain (Scale Score 4-6)) ketorolac 10 mg tablet 10 mg PO Q8H PRN (Reason: Pain) cholecalciferol (vitamin D3) 1,250 mcg (50,000 unit) capsule 1,250 mcg PO QWEEK pyridoxine (vitamin B6) 50 mg tablet 50 mg PO DAILY 90 Days Qty: 90 1RF
[2023-01-29 04:12] LABS: COVID-19 Test Negative (Negative); IDNOW Serial# 08D9AD1C; IDNOW Serial# BCCEAD1C; Influenza A Negative (Negative); Influenza B2 Negative (Negative)
[2023-01-29 04:34] LABS: Alanine Aminotransferase 14 U/L (0-31); Albumin Level 3.9 g/dL (3.5-5.0); Alkaline Phosphatase 44 U/L (39-117); Aspartate Amino Transferase 21 U/L (5-31); Bilirubin Direct 0.1 mg/dL (0.0-0.5); Bilirubin Total 0.3 mg/dL (0.0-1.0); Lipase 10 U/L (8-78); Total Protein 7.2 g/dL (6.5-8.0)
[2023-01-29 05:35] LABS: Appearance Urine Clear; Color Urine Yellow; Glucose Urine UA Negative (Negative); Leukocyte Esterase Urine Trace (Negative); Nitrite Urine Negative (Negative); UMIC TRIGGER UACC YES; Urine Blood Negative (Negative); Urine Ketones 15 mg/dL (Negative); Urine Protein Negative (Neg-Trace)
[2023-01-29 05:40] LABS: Bacteria Urine None Seen (None Seen); Hyaline Casts Urine 0-2 /LPF (0-2); RBC Urine 0-2 /HPF (0-2); Squamous Epithelial Cell Urine 0-2 /HPF (0-2); WBC Urine 0-5 /HPF (0-5)
[2023-01-29] MEDS: Ketorolac Tromethamine 15 MG/ML VIAL IVPUSH (06:07)
[2023-01-29] MEDS: 0.9 % Sodium Chloride 1,000 ML 999 ML IV (06:08)
[2023-01-29 07:23] VITALS: BP 132/76; PULSE 111; RESP 18; TEMP 37.1; O2SAT 95
--- NOTE | 2023-01-29 08:13 | PC.NURSE ---
assumed care of this pt at 0700. iv fluid infusing at time of assuming care. pt denies pain at this time. vss.
--- NOTE | 2023-01-29 08:40 | PC.NURSE ---
pt cleared for discharge. 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 iv removed, pt's escorted to waiting room, boyfriend will pick her up.
== END 2023-01-29 08:30 | disposition home or self-care (01) ==
PROVIDERS: Emergency Provider Emergency Medicine Emergency Medical Services
DX: R50.9 Fever, unspecified (principal); R10.30 Lower abdominal pain, unspecified; R60.0 Localized edema; Z20.822 Contact with and (suspected) exposure to COVID-19; Z20.828 Contact with and (suspected) exposure to other viral communicable diseases; Z79.899 Other long term (current) drug therapy
CPT/HCPCS: 36415; 71046; 74176; 80048; 80076; 81001; 83605; 83690; 85025; 87040; 87502; 87635; 96361; 96374; 99284; 99285; J1885

== ENCOUNTER 2023-01-31 04:55 | Emergency (ER) | payer OTHER, SELFPAY ==
[2023-01-31 05:02] VITALS: BP 150/82; PULSE 123; RESP 18; TEMP 37.9; O2SAT 99; BMI 22.3
[2023-01-31 05:24] LABS: Basophils Percent Auto 0.2 % (0-2); Eosinophils Absolute Auto 0.3 X10*3/uL (0.0-0.4); Eosinophils Percent Auto 5.5 % (0-4); Hematocrit 37.4 % (37.0-47.0); Hemoglobin 12.4 g/dl (12.0-16.0); Imm Gran Abs Auto 0.04 X10*3/uL (0.00-0.03); Imm Gran Pct Auto 0.8 % (0.0-0.4); Lymphocytes Absolute Auto 0.4 X10*3/uL (1.2-4.9); Lymphocytes Percent Auto 8.5 % (20-40); MANUAL DIFF FLAG NO; Mean Corpuscular HGB Conc 33.2 g/dl (31.0-35.0); Mean Corpuscular Hemoglobin 27.5 pg (27.0-33.0); Mean Corpuscular Volume 82.9 fL (80.0-98.0); Monocytes Absolute Auto 0.7 X10*3/uL (0.1-1.2); Monocytes Percent Auto 13.7 % (2-11); Neutrophils Absolute Auto 3.5 x10*3/uL (2.0-8.3); Neutrophils Percent Auto 71.3 % (45-73); Platelet Count 182 X10*3/uL (160-400); Red Blood Count 4.51 X10*6/uL (4.20-5.50); Red Cell Distribution Width 13.9 % (11.0-16.0)
[2023-01-31 05:30] LABS: Appearance Urine Clear; Color Urine Yellow; Glucose Urine UA Negative (Negative); Leukocyte Esterase Urine Small (1+) (Negative); Nitrite Urine Negative (Negative); PH 5.5 (5.0-9.0); Specific Gravity - Urine 1.015 (1.005-1.025); UMIC TRIGGER UACC YES; Urine Blood Small (1+) (Negative); Urine Ketones 15 mg/dL (Negative); Urine Protein Trace mg/dL (Neg-Trace)
[2023-01-31 05:46] LABS: Bacteria Urine None Seen (None Seen); Calcium Oxalate Crystals Urine Present; Hyaline Casts Urine 0-2 /LPF (0-2); UACC Culture Trigger YES; WBC Urine 0-5 /HPF (0-5)
[2023-01-31 05:46] LABS: Alanine Aminotransferase 15 U/L (0-31); Albumin Level 3.8 g/dL (3.5-5.0); Alkaline Phosphatase 33 U/L (39-117); Anion Gap 11 (12-20); Aspartate Amino Transferase 24 U/L (5-31); Bilirubin Direct < 0.2 mg/dL (0.0-0.5); Bilirubin Total 0.2 mg/dL (0.0-1.0); Blood Urea Nitrogen 12 mg/dL (9-16); Calcium 8.5 mg/dL (8.4-10.2); Carbon Dioxide 26 mmol/L (22-29); Chloride 104 mmol/L (96-108); Estimated Glomerular Filt Rate 58; Glucose Random 109 mg/dL (60-115); Lipase 9 U/L (8-78); Potassium 3.5 mmol/L (3.3-5.1); Sodium 137 mmol/L (135-145); Total Protein 6.9 g/dL (6.5-8.0)
[2023-01-31 06:01] LABS: Influenza A PCR NEGATIVE (Negative); Influenza B PCR NEGATIVE (Negative); Resp Syncy Virus RNA Qual PCR NEGATIVE (Negative); SARS COV2 PCR INHOUSE NEGATIVE (Negative)
[2023-01-31 06:08] VITALS: BP 141/82; PULSE 110; RESP 17; TEMP 37.7; O2SAT 96
--- NOTE | 2023-01-31 06:11 | MHC.EDTECH ---
pt is relaxing vitals were taken and entered she was put on heart monitor
--- NOTE | 2023-01-31 06:39 | ED.GENADULT ---
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 Patient states that she has had this for 2 days and doesn't seem to be getting better. Patient states that she has not been taking her temperature at home. Patient denies any dizziness, lightheadedness, abdominal pain, nausea, vomiting, blurry vision, double vision, loss of vision, chest pain, difficulty breathing, shortness of breath, back pain, night sweats, pain with urination, increased urinary frequency, increased urinary urgency, blood in her urine or stool, syncope or a near syncopal episode, recent trauma or falls, bowel incontinence, bladder incontinence, bowel retention, bladder retention, or any other complaints at this time. Onset (ago): day(s) (2) Severity: mild Relieving factors: none Exacerbating factors: none Associated symptoms: fever/chills Treatments prior to arrival: none Related Data Home Medications Medication Instructions Recorded Confirmed [id number]-[id number]-rnoxlrui 1 tab PO Q6H PRN Pain (Scale Score 07/20/20 03/24/21 50 mg-325 mg-40 mg tablet 4-6) hydroxyzine HCl 10 mg tablet 10 mg PO Q8H PRN Itching 07/20/20 03/24/21 ketorolac 10 mg tablet 10 mg PO Q8H PRN Pain 07/20/20 03/24/21 lorazepam 0.5 mg tablet 0.5 mg PO DAILY PRN anxiety 07/20/20 03/24/21 montelukast 10 mg tablet 10 mg PO DAILY 07/20/20 03/24/21 cholecalciferol (vitamin D3) 1,250 1,250 mcg PO QWEEK 11/05/21 mcg (50,000 unit) capsule Previous Rx's Medication Instructions Recorded hydrocortisone 2.5 % topical cream 1 appl MO BID-QID PRN hemorrhoids 12/31/20 with perineal applicator #30 grams (Anusol-HC) ascorbic acid (vitamin C) 1,000 mg 1 g PO DAILY 90 days #90 tabs 03/23/21 tablet doxazosin 2 mg tablet 2 mg PO BEDTIME 2 weeks #14 tabs 04/26/21 dicyclomine 10 mg capsule 10 mg PO TID 30 days #90 caps 09/08/21 cholecalciferol (vitamin D3) 50 50 mcg PO DAILY #30 caps 05/20/22 mcg (2,000 unit) capsule (Vitamin D3) pyridoxine (vitamin B6) 50 mg 50 mg PO DAILY 90 days #90 tabs 11/30/22 tablet methenamine hippurate 1 gram tablet 1 g PO DAILY 90 days #90 tabs 12/29/22 hydrocortisone acetate 25 mg 25 mg MO BID PRN hemorrhoids #24 ea 01/10/23 rectal suppository (Anusol-HC) ketorolac 10 mg tablet 10 mg PO Q6H PRN pain 5 days #20 01/29/23 tabs acetaminophen 500 mg tablet 500 mg PO Q4-6H PRN fever #30 tabs 01/31/23 (Tylenol Extra Strength) Allergies Allergy/AdvReac Type Severity Reaction Status Date / Time morphine [MORPHINE] Allergy Severe HEART RATE Verified 01/29/23 03:36 ST WITH PALPATIONS AND RASH. alprazolam Allergy Unknown Cough, SOB Verified 01/29/23 03:36 aspirin [ASPIRIN] Allergy Unknown HOT IN BODY Verified 01/29/23 03:36 atenolol [ATENOLOL] Allergy Unknown Dizziness Verified 01/29/23 03:36 atropine [From Lomotil] Allergy Unknown Unknown Verified 01/29/23 03:36 azithromycin [AZITHROMYCIN] Allergy Unknown DIZZY Verified 01/29/23 03:36 ciprofloxacin Allergy Unknown Dizziness Verified 01/29/23 03:36 codeine [CODEINE] Allergy Unknown UNKNOWN Verified 01/29/23 03:36 diphenoxylate [From Lomotil] Allergy Unknown Unknown Verified 01/29/23 03:36 garlic Allergy Unknown Unknown Verified 01/29/23 03:36 hydrochlorothiazide Allergy Unknown hypertensio Verified 01/29/23 03:36 n lisinopril [LISINOPRIL] Allergy Unknown HEART Verified 01/29/23 03:36 POUNDING, palpitations Lonox Allergy Unknown hot flash Verified 01/29/23 03:36 metoprolol Allergy Unknown Dizziness Verified 01/29/23 03:36 onion Allergy Unknown Unknown Verified 01/29/23 03:36 oxycodone [OXYCODONE] Allergy Unknown HOT AND Verified 01/29/23 03:36 DIZZY Penicillins [PENICILLINS] Allergy Unknown ITCHING Verified 01/29/23 03:36 RASH pepper (genus Capsicum) Allergy Unknown Unknown Verified 01/29/23 03:36 prednisone Allergy Unknown Headache Verified 01/29/23 03:36 prochlorperazine Allergy Unknown Unknown Verified 01/29/23 03:36 [From Compazine] sumatriptan Allergy Unknown Dizziness Verified 01/29/23 03:36 tramadol [TRAMADOL] Allergy Unknown DIZZINESS Verified 01/29/23 03:36 cyclobenzaprine Allergy increased Verified 01/29/23 03:36 BP barrett Allergy Unknown Verified 01/29/23 03:36 orange Allergy Unknown Verified 01/29/23 03:36 pantoprazole Allergy Diarrhea Verified 01/29/23 03:36 albuterol [From Ventolin HFA] AdvReac Mild Hot feeling Verified 01/29/23 03:36 ibuprofen [From Advil] AdvReac Unknown Hot inside Verified 01/29/23 03:36 body naproxen [From Aleve] AdvReac Unknown Hot inside Verified 01/29/23 03:36 body Diphenoxylate-Atropine Allergy Unknown Unknown Uncoded 11/30/22 15:35 Q-Tussin Allergy Unknown increased Uncoded 11/30/22 15:35 BP salt Allergy Unknown Uncoded 11/30/22 15:35 Review of Systems Constitutional: Constitutional: Reports no additional constitutional complaints, Reports chills, Reports fever(s) and Denies night sweats Eyes: Eyes: Reports no additional eye complaints, Denies blurry vision, Denies change in vision, Denies diplopia, Denies eye discharge, Denies loss of vision and Denies eye pain ENT: Denies dizziness Cardiovascular: Cardiovascular: Reports no additional cardiovascular complaints, Denies chest pain, Denies lightheadedness, Denies Loss of Consciousness and Denies dyspnea Respiratory: Respiratory: Reports no additional respiratory complaints and Denies dyspnea Gastrointestinal: Gastrointestinal: Reports no additional gastrointestinal complaints, Denies abdominal pain, Denies melena, Denies hematochezia, Denies change in bowel habits and Denies change in stool character Genitourinary: Genitourinary: Denies hematuria, Denies urinary frequency, Denies dysuria, Denies urinary incontinence, Denies urinary hesitancy and Denies urinary urgency Musculoskeletal: Musculoskeletal: Reports no additional musculoskeletal complaints, Denies numbness and Denies tingling Neurologic: Denies dizziness, Denies loss of vision, Denies numbness and Denies tingling Psychiatric: Psychiatric: Reports no additional psychiatric complaints Endocrine: Endocrine: Reports no additional endocrine complaints Hematologic/Lymphatic: Hematologic/Lymphatic: Reports no additional hematologic/lymphatic complaints Allergic/Immunologic: Allergic/Immunologic: Reports no additional allergic/immunologic complaints PMFSH Past Medical History Attestation statement: The following information was validated with the patient. Source: old records reviewed and nursing notes reviewed Medical History Abdominal pain Asthma IBS (irritable colon syndrome) Internal and external prolapsed hemorrhoids Kidney stones Low vitamin D level Screening for colon cancer Speech and language development delay due to hearing loss Surgical History History of esophagogastroduodenoscopy (EGD) (~2017) History of lithotripsy Hx of colonoscopy (~2017) Family History Family History Mother Breast cancer Maternal Aunt Breast cancer Social History Social History Household Members: Friend(s) Housing: House Are you a primary customer care coordinator to a significant other at home: No Alcohol intake: never Patient Tobacco Use Status: Never used Tobacco Advance Directives: No Advance Directives Information Provided: Yes Current occupational status: retired Physical Exam ED Vital Signs: Vital Signs - 24 hr 01/31/23 05:02 01/31/23 06:08 01/31/23 07:01 Temperature 100.2 F 99.9 F Pulse Rate 123 H 110 H 111 H Respiratory Rate 18 17 13 Blood Pressure 150/82 H 141/82 H 147/78 H Pulse Oximetry 99 96 95 Oxygen Delivery Method Room Air Room Air Room Air BMI result Body Mass Index 22.3 Const General: cooperative, no acute distress, alert and awake Nutritional Appearance: well nourished Orientation/consciousness: patient oriented x3 Limitations: no limitations HENMT Head: Yes normal to inspection and Yes atraumatic Ears: hearing grossly normal bilaterally and external ears normal General nose exam: Normal external nose present, no nasal discharge noted and no epistaxis Face and sinus: Yes normal facial exam, No abrasion and No laceration Mouth: Normal oral and palatal mucosa present, no drooling and no muffled voice Eyes General: appearance normal, both eyes and all related structures Periorbital: periorbital findings normal Eyelids: Yes eyelids normal Conjunctivae: conjunctivae normal Pupils: Equal, round and reactive pupils present EOM: EOMs intact bilaterally Neck Neck: Yes normal visual inspection, Yes full ROM and Yes no lymphadenopathy Chest Chest palpation & inspection: normal inspection of the chest Resp Effort & Inspection: normal respiratory effort and able to speak in complete sentences Auscultation: clear to auscultation bilaterally Cardio Rate: tachycardic Rhythm: regular rhythm GI Inspection: Yes normal to inspection Neuro General: patient oriented x3 and moves all extremities Cranial nerves: Yes Equal, round and reactive pupils present Cognition (Neuro): normal cognition Motor exam (neuro): 5/5 motor strength present throughout Sensory Exam: Normal double simultaneous stimulation for sensation Coordination: [id number] test normal Extrem General: Yes normal to inspection, Yes full ROM and Yes capillary refill normal Psych Appearance: grossly normal Mental Status: mental status grossly normal Affect: normal affect Attitude: cooperative Thought process: Normal thought process present Thought content: Normal thought content present Insight: Good insight present (Psych) Medications Administered Generic Name Dose Route Start Last Admin Trade Name Freq PRN Reason Stop Dose Admin Sodium Chloride 1,000 mls @ 999 mls/hr 01/31/23 07:00 01/31/23 07:20 Ns IV 01/31/23 08:00 999 mls/hr .Q1H1M LYNDA Administration Discontinued Medications Generic Name Dose Route Start Last Admin Trade Name Freq PRN Reason Stop Dose Admin Acetaminophen 650 mg 01/31/23 06:58 01/31/23 07:19 Acetaminophen 325 Mg Tablet PO 01/31/23 06:59 650 mg ONCE ONE Administration Medical Decision Making Medical Decision Making MDM Narrative: Patient is a 52 year old assigned female at with a history of IBS presenting to the emergency department today with fever and chills. Patient's physical exam showed initial tachycardia however, that improved with fluids and tylenol. Patient's blood work was unremarkable. Patient's urine showed no acute process. Patient's abdomen/pelvis CT from 01/29/2023 showed no acute process. Patient's clinical presentation today is most consistent with a viral illness and lack of febrile control at home. I explained my physical exam findings as well as all test results to the patient. I answered all questions asked by the patient. Patient received IV fluids and PO Tylenol which she stated helped her symptoms significantly. I stressed the importance of the patient taking her medication as prescribed. I stressed the importance of the patient following up with her primary care provider. I stressed the importance of the patient returning to the emergency department immediately if her symptoms were to worsen or if she were to develop any dizziness, shortness of breath, difficulty breathing, chest pain, blurry vision, loss of vision, nausea, vomiting, abdominal pain, fever, chills, back pain, or any other complaints. Patient verbalized agreement and understanding with this treatment plan and discharge. Differential Diagnosis Differential Diagnoses: The differential diagnosis associated with the presentation includes fever, viral illness Lab Data MDM Lab Attestation statement: I reviewed the patient's lab results. 01/31/23 05:20 01/31/23 05:20 Labs: Lab Results 01/31/23 01/31/23 01/31/23 Range/Units 05:20 05:20 05:20 WBC 5.0 (4.8-10.8) X10*3/uL RBC 4.51 (4.20-5.50) X10*6/uL Hgb 12.4 (12.0-16.0) g/dl Hct 37.4 (37.0-47.0) % MCV 82.9 (80.0-98.0) fL MCH 27.5 (27.0-33.0) pg MCHC 33.2 (31.0-35.0) g/dl RDW 13.9 (11.0-16.0) % Plt Count 182 D (160-400) X10*3/uL MPV 10.0 (9.4-12.3) fL Immature Gran % (Auto) 0.8 H (0.0-0.4) % Neut % (Auto) 71.3 (45-73) % Lymph % (Auto) 8.5 L (20-40) % [place] % (Auto) 13.7 H (2-11) % Eos % (Auto) 5.5 H (0-4) % Baso % (Auto) 0.2 (0-2) % Lymph # (Auto) 0.4 L (1.2-4.9) X10*3/uL [place] # (Auto) 0.7 (0.1-1.2) X10*3/uL Eos # (Auto) 0.3 (0.0-0.4) X10*3/uL Baso # (Auto) 0.0 (0.0-0.2) X10*3/uL Abs Immat Gran (auto) 0.04 H (0.00-0.03) X10*3/uL Absolute Neuts (auto) 3.5 (2.0-8.3) x10*3/uL Absolute Nucleated RBC 0.000 (0.0-0.012) X10*3/uL Nucleated RBC % (auto) 0.0 (0.0-0.2) /100WBC Sodium 137 (135-145) mmol/L Potassium 3.5 (3.3-5.1) mmol/L Chloride 104 (96-108) mmol/L Carbon Dioxide 26 (22-29) mmol/L Anion Gap 11 L (12-20) BUN 12 (9-16) mg/dL Creatinine 0.99 (0.5-1.4) mg/dL Estim Creat Clear Calc 56.0 Estimated GFR 58 Random Glucose 109 (60-115) mg/dL Calcium 8.5 (8.4-10.2) mg/dL Total Bilirubin 0.2 (0.0-1.0) mg/dL Direct Bilirubin < 0.2 (0.0-0.5) mg/dL AST 24 (5-31) U/L ALT 15 (0-31) U/L Alkaline Phosphatase 33 L (39-117) U/L Total Protein 6.9 (6.5-8.0) g/dL Albumin 3.8 (3.5-5.0) g/dL Lipase 9 (8-78) U/L Urine Color Urine Appearance Urine pH (5.0-9.0) Ur Specific [place] (1.005-1.025) Urine Protein (Neg-Trace) mg/dL Urine Glucose (UA) (Negative) mg/dL Urine Ketones (Negative) mg/dL Urine Blood (Negative) Urine Nitrite (Negative) Ur Leukocyte Esterase (Negative) Urine RBC (0-2) /HPF Urine WBC (0-5) /HPF Ur Squamous Epith Cells (0-2) /HPF Calcium Oxalate Crystal Urine Bacteria (None Seen) Hyaline Casts (0-2) /LPF Influenza Type A (PCR) NEGATIVE (Negative) Influenza Type B (PCR) NEGATIVE (Negative) RSV RNA Qual (PCR) NEGATIVE (Negative) SARS-CoV-2 RNA (RT-PCR) NEGATIVE (Negative) 01/31/23 Range/Units 05:24 WBC (4.8-10.8) X10*3/uL RBC (4.20-5.50) X10*6/uL Hgb (12.0-16.0) g/dl Hct (37.0-47.0) % MCV (80.0-98.0) fL MCH (27.0-33.0) pg MCHC (31.0-35.0) g/dl RDW (11.0-16.0) % Plt Count (160-400) X10*3/uL MPV (9.4-12.3) fL Immature Gran % (Auto) (0.0-0.4) % Neut % (Auto) (45-73) % Lymph % (Auto) (20-40) % [place] % (Auto) (2-11) % Eos % (Auto) (0-4) % Baso % (Auto) (0-2) % Lymph # (Auto) (1.2-4.9) X10*3/uL [place] # (Auto) (0.1-1.2) X10*3/uL Eos # (Auto) (0.0-0.4) X10*3/uL Baso # (Auto) (0.0-0.2) X10*3/uL Abs Immat Gran (auto) (0.00-0.03) X10*3/uL Absolute Neuts (auto) (2.0-8.3) x10*3/uL Absolute Nucleated RBC (0.0-0.012) X10*3/uL Nucleated RBC % (auto) (0.0-0.2) /100WBC Sodium (135-145) mmol/L Potassium (3.3-5.1) mmol/L Chloride (96-108) mmol/L Carbon Dioxide (22-29) mmol/L Anion Gap (12-20) BUN (9-16) mg/dL Creatinine (0.5-1.4) mg/dL Estim Creat Clear Calc Estimated GFR Random Glucose (60-115) mg/dL Calcium (8.4-10.2) mg/dL Total Bilirubin (0.0-1.0) mg/dL Direct Bilirubin (0.0-0.5) mg/dL AST (5-31) U/L ALT (0-31) U/L Alkaline Phosphatase (39-117) U/L Total Protein (6.5-8.0) g/dL Albumin (3.5-5.0) g/dL Lipase (8-78) U/L Urine Color Yellow Urine Appearance Clear Urine pH 5.5 (5.0-9.0) Ur Specific [place] 1.015 (1.005-1.025) Urine Protein Trace (Neg-Trace) mg/dL Urine Glucose (UA) Negative (Negative) mg/dL Urine Ketones 15 (Negative) mg/dL Urine Blood Small (1+) H (Negative) Urine Nitrite Negative (Negative) Ur Leukocyte Esterase Small (1+) H (Negative) Urine RBC 6-10 H (0-2) /HPF Urine WBC 0-5 (0-5) /HPF Ur Squamous Epith Cells 3-5 (0-2) /HPF Calcium Oxalate Crystal Present Urine Bacteria None Seen (None Seen) Hyaline Casts 0-2 (0-2) /LPF Influenza Type A (PCR) (Negative) Influenza Type B (PCR) (Negative) RSV RNA Qual (PCR) (Negative) SARS-CoV-2 RNA (RT-PCR) (Negative) Discharge Plan Discharge Clinical Impression: Viral illness Patient Disposition: Home, Self-Care Instructions: Acetaminophen (By mouth), Ibuprofen (By mouth), Fever in Adults (ED), Viral Syndrome (ED) Additional Instructions: Continue to take Tylenol and Ibuprofen for your fever. Follow up with your primary care provider. Return to the emergency department immediately if your symptoms worsen or if you develop any dizziness, shortness of breath, difficulty breathing, chest pain, blurry vision, loss of vision, nausea, vomiting, abdominal pain, fever, chills, back pain, or any other complaints. Contin?e tomando Tylenol e ibuprofeno para la fiebre. Ashleigh un seguimiento con kidd proveedor de atenci?n primaria. Regrese al departamento de emergencias de inmediato si gay s?ntomas empeoran o si presenta mareos, falta de aire, dificultad para respirar, dolor de pecho, visi?n borrosa, p?rdida de la visi?n, n?useas, v?mitos, dolor abdominal, fiebre, escalofr?os, dolor de espalda o cualquier otras quejas. Prescriptions: New acetaminophen [Tylenol Extra Strength] 500 mg tablet 500 mg PO Q4-6H PRN (Reason: fever) Qty: 30 0RF No Action hydrocortisone [Anusol-HC] 2.5 % cream with perineal applicator 1 appl MO BID-QID PRN (Reason: hemorrhoids) Qty: 30 2RF ascorbic acid (vitamin C) 1,000 mg tablet 1 g PO DAILY 90 Days Qty: 90 1RF doxazosin 2 mg tablet 2 mg PO BEDTIME 14 Days Qty: 14 0RF dicyclomine 10 mg capsule 10 mg PO TID 30 Days Qty: 90 4RF Rx Instructions: Take one capsule by mouth three times a day cholecalciferol (vitamin D3) [Vitamin D3] 50 mcg (2,000 unit) capsule 50 mcg PO DAILY Qty: 30 5RF methenamine hippurate 1 gram tablet 1 g PO DAILY 90 Days Qty: 90 1RF hydrocortisone acetate [Anusol-HC] 25 mg suppository 25 mg MO BID PRN (Reason: hemorrhoids) Qty: 24 3RF ketorolac 10 mg tablet 10 mg PO Q6H PRN (Reason: pain) 5 Days Qty: 20 0RF hydroxyzine HCl 10 mg tablet 10 mg PO Q8H PRN (Reason: Itching) lorazepam 0.5 mg tablet 0.5 mg PO DAILY PRN (Reason: anxiety) montelukast 10 mg tablet 10 mg PO DAILY uuwjcwhomg-bqvtfqbbsewlf-[id number] 50-325-40 mg tablet 1 tab PO Q6H PRN (Reason: Pain (Scale Score 4-6)) ketorolac 10 mg tablet 10 mg PO Q8H PRN (Reason: Pain) cholecalciferol (vitamin D3) 1,250 mcg (50,000 unit) capsule 1,250 mcg PO QWEEK pyridoxine (vitamin B6) 50 mg tablet 50 mg PO DAILY 90 Days Qty: 90 1RF Referrals: [facility] Family Medicine [Provider Group] (Call to establish and follow up with a primary care provider. If you already have a primary care provider, please follow up with them. Llame para establecer y hacer un seguimiento con un proveedor de atenci?n primaria. Si ya tiene un proveedor de atenci?n primaria, ashleigh un seguimiento con ?l.) [facility] Primary Care, [place] [Provider Group] (Call to establish and follow up with a primary care provider. If you already have a primary care provider, please follow up with them. Llame para establecer y hacer un seguimiento con un proveedor de atenci?n primaria. Si ya tiene un proveedor de atenci?n primaria, ashleigh un seguimiento con ?l.) [facility] Primary CareI[facility] [Provider Group] (Call to establish and follow up with a primary care provider. If you already have a primary care provider, please follow up with them. Llame para establecer y hacer un seguimiento con un proveedor de atenci?n primaria. Si ya tiene un proveedor de atenci?n primaria, ashleigh un seguimiento con ?l.) Stand Alone Forms: Work/School Release Print Language: Swedish
[2023-01-31 07:01] VITALS: BP 147/78; PULSE 111; RESP 13; O2SAT 95
[2023-01-31] MEDS: Acetaminophen 325 MG TABLET 650 MG PO (07:19)
[2023-01-31] MEDS: 0.9 % Sodium Chloride 1,000 ML 999 ML IV (07:20)
== END 2023-01-31 08:11 | disposition home or self-care (01) ==
PROVIDERS: Emergency Provider Emergency Medicine Emergency Medical Services; PCP Neurological Surgery
DX: B34.9 Viral infection, unspecified (principal); R50.9 Fever, unspecified; R00.0 Tachycardia, unspecified; Z20.822 Contact with and (suspected) exposure to COVID-19; Z20.828 Contact with and (suspected) exposure to other viral communicable diseases; Z79.899 Other long term (current) drug therapy
CPT/HCPCS: 0241U; 36415; 80048; 80076; 81001; 83690; 85025; 87086; 99284

== ENCOUNTER → 2023-03-29 14:18 | Outpatient (BNVA) | payer OTHER, SELFPAY | PROVIDERS: PCP Neurological Surgery; Visit Provider Surgery | DX: K64.8 Other hemorrhoids (principal) | CPT/HCPCS: 46600; 99212 ==

== ENCOUNTER 2023-04-12 14:34 | Outpatient (AMB) | payer OTHER, SELFPAY ==
[2023-04-12 14:56] VITALS: BP 135/66; PULSE 81; BMI 21.0
--- NOTE | 2023-04-12 14:56 | A.OFFVIS_ITS ---
Intake Vital Signs 04/12/23 14:56 Height 5 ft 4 in Weight 122 lb 9.232 oz BMI 21.0 BP 135/66 Blood Pressure Location Lt brachial Position Sitting Pulse 81 Intake Visit Reasons: follow up Intake Note: Fredy presents in office as a est.patient for a f/u for IBS PT CC: pt reports having no concerns pt denies any other GI Issues Allergies morphine [MORPHINE] Allergy (Severe, Verified 04/12/23 14:58) HEART RATE ST WITH PALPATIONS AND RASH. alprazolam Allergy (Unknown, Verified 04/12/23 14:58) Cough, SOB aspirin [ASPIRIN] Allergy (Unknown, Verified 04/12/23 14:58) HOT IN BODY atenolol [ATENOLOL] Allergy (Unknown, Verified 04/12/23 14:58) Dizziness atropine [From Lomotil] Allergy (Unknown, Verified 04/12/23 14:58) Unknown azithromycin [AZITHROMYCIN] Allergy (Unknown, Verified 04/12/23 14:58) DIZZY ciprofloxacin Allergy (Unknown, Verified 04/12/23 14:58) Dizziness codeine [CODEINE] Allergy (Unknown, Verified 04/12/23 14:58) UNKNOWN diphenoxylate [From Lomotil] Allergy (Unknown, Verified 04/12/23 14:58) Unknown garlic Allergy (Unknown, Verified 04/12/23 14:58) Unknown hydrochlorothiazide Allergy (Unknown, Verified 04/12/23 14:58) hypertension lisinopril [LISINOPRIL] Allergy (Unknown, Verified 04/12/23 14:58) HEART POUNDING, palpitations Lonox Allergy (Unknown, Verified 04/12/23 14:58) hot flash metoprolol Allergy (Unknown, Verified 04/12/23 14:58) Dizziness onion Allergy (Unknown, Verified 04/12/23 14:58) Unknown oxycodone [OXYCODONE] Allergy (Unknown, Verified 04/12/23 14:58) HOT AND DIZZY Penicillins [PENICILLINS] Allergy (Unknown, Verified 04/12/23 14:58) ITCHING RASH pepper (genus Capsicum) Allergy (Unknown, Verified 04/12/23 14:58) Unknown prednisone Allergy (Unknown, Verified 04/12/23 14:58) Headache prochlorperazine [From Compazine] Allergy (Unknown, Verified 04/12/23 14:58) Unknown sumatriptan Allergy (Unknown, Verified 04/12/23 14:58) Dizziness tramadol [TRAMADOL] Allergy (Unknown, Verified 04/12/23 14:58) DIZZINESS cyclobenzaprine Allergy (Verified 04/12/23 14:58) increased BP barrett Allergy (Verified 04/12/23 14:58) Unknown orange Allergy (Verified 04/12/23 14:58) Unknown pantoprazole Allergy (Verified 04/12/23 14:58) Diarrhea albuterol [From Ventolin HFA] Adverse Reaction (Mild, Verified 04/12/23 14:58) Hot feeling ibuprofen [From Advil] Adverse Reaction (Unknown, Verified 04/12/23 14:58) Hot inside body naproxen [From Aleve] Adverse Reaction (Unknown, Verified 04/12/23 14:58) Hot inside body Diphenoxylate-Atropine Allergy (Unknown, Uncoded 04/12/23 14:58) Unknown Q-Tussin Allergy (Unknown, Uncoded 04/12/23 14:58) increased BP salt Allergy (Uncoded 04/12/23 14:58) Unknown HPI follow up HPI Details LAST VISIT: IBS (irritable colon syndrome) Discussed with patient FODMAP diet and avoiding dietary triggers. Patient reports that she has not been using dicyclomine as much. She only uses if she will have loose stools. Patient is trying to avoiding dietary triggers. Patient states that she staying away from lot of fruits stating that even up apples will cause her bloating and loose stools. Discussed with patient that her 2-3 lb weight loss or gain could be related to water distribution and her menstrual symptoms. Patient denies any melena, hematochezia, unintentional weight loss or ribbon like stools. Denies any dyspepsia, dysphagia or odynophagia. Screening for colon cancer Patient will be calling [facility] GI department for colorectal screening. Patient states that her doctor would like her to go there. As mentioned above in HPI patient did call acid end of April of last year stating that she would like to have her records to be moved to [facility]. Today seems like patient is here for me to make her appointment with that apartment. Patient was encouraged to call her PCP to help her schedule the appointments. Patient will follow-up with [facility], however she was encouraged to call our department if she will not be unable to make an appointment or if she will have any GI concerning symptoms. She is agreeable to this plan and verbalizes understanding of instructions. She was given the opportunity to ask questions and all questions answered. TODAY'S VISIT: Patient requested to be seen, had colonoscopy at [facility] and states that she did well. Patient denies any GI concerning symptoms. Here requesting dicyclomine states that is helping her. Patient denies any melena, hematochezia, unintentional weight loss or ribbon like stools. Patient denies dyspepsia, dysphagia or odynophagia. ? PFSH Medical History Abdominal pain Asthma IBS (irritable colon syndrome) Internal and external prolapsed hemorrhoids Kidney stones Low vitamin D level Screening for colon cancer Speech and language development delay due to hearing loss Surgical History History of esophagogastroduodenoscopy (EGD) (~2018) History of lithotripsy Hx of colonoscopy (~2018) Family History Mother Breast cancer Maternal Aunt Breast cancer Social History Household Members: Friend(s) Housing: House Are you a primary workforce investment act career manager to a significant other at home: No Alcohol intake: never Patient Tobacco Use Status: Never used Tobacco Current occupational status: retired Review of Systems Const Denies weight gain and Denies weight loss ENT Reports no additional complaints, Denies dysphagia and Denies odynophagia Card Reports no additional complaints Resp Reports no additional complaints GI Denies abdominal pain, Denies belching, Denies melena, Denies bloating, Denies change in bowel habits, Denies dysphagia, Denies excessive flatus, Denies dyspepsia, Denies heartburn, Denies diarrhea, Denies loose stools, Denies nausea, Denies odynophagia and Denies vomiting Musc Reports no additional complaints Neuro Reports no additional complaints Psych Reports no additional complaints Endo Reports no additional complaints Physical Exam Vital Signs: Last Vital Signs Pulse 81 04/12/23 14:56 BP 135/66 04/12/23 14:56 BMI result Body Mass Index 21.0 Const General: healthy appearing, no acute distress and well developed Nutritional Appearance: well nourished Orientation/consciousness: patient oriented x3 HEENT Head: Yes normal to inspection, Yes normocephalic and Yes atraumatic Face and sinus: Yes normal facial exam Mouth: Normal oral and palatal mucosa present Throat: Yes posterior oropharynx normal, Yes tonsils normal and Yes uvula mid line Eyes General: appearance normal, both eyes and all related structures Neck Neck: Yes normal visual inspection, Yes full ROM and Yes trachea midline Thyroid: Thyroid normal Resp Effort & Inspection: normal respiratory effort, able to speak in complete sentences, no tracheal deviation and symmetric chest movement Auscultation: clear to auscultation bilaterally Cardio Rate: regular rate Heart sounds: S1 normal heart sound present and S2 normal heart sound present GI Inspection: Yes normal to inspection and No distended Palpation (GI): Soft to palpation, not firm, nontender and No hepatosplenomegaly present Auscultation: normal bowel sounds General: Yes no CVA tenderness Back/Spine/Pelvis Back: no CVA tenderness Skin General skin exam: elasticity normal, turgor normal and dry skin Neuro General: patient oriented x3 Psych Appearance: grossly normal Mental Status: mental status grossly normal Speech and movement: Normal speech and movement present Affect: normal affect Assessment & Plan Assessment & Plan (1) IBS (irritable colon syndrome): Code(s): K58.9 - Irritable bowel syndrome without diarrhea Qualifiers: Irritable bowel syndrome type: with diarrhea Qualified Code(s): K58.0 - Irritable bowel syndrome with diarrhea Plan: Continue dicyclomine on as needed basis. Patient was encouraged to increase fluid intake and activity to promote better bowel motility. Patient will follow-up with of in 1 year, sooner on as needed basis. She is agreeable to this plan and verbalizes understanding of instructions. She was given the opportunity to ask questions and all questions answered. Thank you for allowing me to participate in her care Medications: Refilled dicyclomine Take one capsule by mouth three times a day 10 mg PO TID 90 caps 4RF 30 days cholecalciferol (vitamin D3) (Vitamin D3) 50 mcg PO DAILY 90 caps 5RF R79.89 - Other specified abnormal findings of blood chemistry Coding Level of Care Code Est Pt Level 3 (39805) Diagnoses IBS (irritable colon syndrome) K58.0 Irritable bowel syndrome type: with diarrhea Time Spent (min) 25 Comment 15 minutes spent with patient and additional 10 minutes spent reviewing her records
== END 2023-04-12 15:29 | disposition home or self-care (01) ==
PROVIDERS: PCP Neurological Surgery; Visit Provider Nurse Practitioner Family
DX: K58.0 Irritable bowel syndrome with diarrhea (principal)
CPT/HCPCS: 99213

== ENCOUNTER → 2023-04-12 14:34 | Outpatient (BNVA) | payer OTHER, SELFPAY | PROVIDERS: PCP Neurological Surgery; Visit Provider Nurse Practitioner Family | DX: K58.0 Irritable bowel syndrome with diarrhea (principal); R79.89 Other specified abnormal findings of blood chemistry | CPT/HCPCS: 99212 ==

== ENCOUNTER 2023-05-19 14:44 | Outpatient (REF) | payer OTHER, SELFPAY ==
--- NOTE | ~2023-05-19 | XR_ITS ---
EXAMINATION: XR ABDOMEN KUB CLINICAL INDICATION: Calculus of kidney COMPARISON: CT 01/29/2023, radiography 03/31/2021 TECHNIQUE: AP view of the abdomen. FINDINGS: There are calcific densities projected over the lower pole left kidney measuring less than 2 mm, consistent with intrarenal calculi as demonstrated previously. No suspicious calcification is seen along the expected course of the ureters. No mass or organomegaly is evident. The bowel gas pattern is unremarkable. XR/XR KUB IMPRESSION: Tiny left intrarenal calculi.
== END 2023-05-19 14:45 | disposition home or self-care (01) ==
LOC: HO.XRAY 14:44
PROVIDERS: Visit Provider Urology
DX: N20.0 Calculus of kidney (principal)
CPT/HCPCS: 74018

== ENCOUNTER 2023-06-06 14:29 | Outpatient (AMB) | payer OTHER, SELFPAY ==
--- NOTE | 2023-06-06 14:30 | A.OFFVIS_ITS ---
Intake Intake Visit Reasons: 6m/KUB(set) Intake Note: Patient is present for Follow Up KUB Urology Med: Methenamine, Vitamin b6 Antibiotic Allergy: Azithromycin, Cipro, Penicillins Blood Thinner: None Pharmacy: [facility] Allergies morphine [MORPHINE] Allergy (Severe, Verified 06/06/23 14:36) HEART RATE ST WITH PALPATIONS AND RASH. alprazolam Allergy (Unknown, Verified 06/06/23 14:36) Cough, SOB aspirin [ASPIRIN] Allergy (Unknown, Verified 06/06/23 14:36) HOT IN BODY atenolol [ATENOLOL] Allergy (Unknown, Verified 06/06/23 14:36) Dizziness atropine [From Lomotil] Allergy (Unknown, Verified 06/06/23 14:36) Unknown azithromycin [AZITHROMYCIN] Allergy (Unknown, Verified 06/06/23 14:36) DIZZY ciprofloxacin Allergy (Unknown, Verified 06/06/23 14:36) Dizziness codeine [CODEINE] Allergy (Unknown, Verified 06/06/23 14:36) UNKNOWN diphenoxylate [From Lomotil] Allergy (Unknown, Verified 06/06/23 14:36) Unknown garlic Allergy (Unknown, Verified 06/06/23 14:36) Unknown hydrochlorothiazide Allergy (Unknown, Verified 06/06/23 14:36) hypertension lisinopril [LISINOPRIL] Allergy (Unknown, Verified 06/06/23 14:36) HEART POUNDING, palpitations Lonox Allergy (Unknown, Verified 06/06/23 14:36) hot flash metoprolol Allergy (Unknown, Verified 06/06/23 14:36) Dizziness onion Allergy (Unknown, Verified 06/06/23 14:36) Unknown oxycodone [OXYCODONE] Allergy (Unknown, Verified 06/06/23 14:36) HOT AND DIZZY Penicillins [PENICILLINS] Allergy (Unknown, Verified 06/06/23 14:36) ITCHING RASH pepper (genus Capsicum) Allergy (Unknown, Verified 06/06/23 14:36) Unknown prednisone Allergy (Unknown, Verified 06/06/23 14:36) Headache prochlorperazine [From Compazine] Allergy (Unknown, Verified 06/06/23 14:36) Unknown sumatriptan Allergy (Unknown, Verified 06/06/23 14:36) Dizziness tramadol [TRAMADOL] Allergy (Unknown, Verified 06/06/23 14:36) DIZZINESS cyclobenzaprine Allergy (Verified 06/06/23 14:36) increased BP barrett Allergy (Verified 06/06/23 14:36) Unknown orange Allergy (Verified 06/06/23 14:36) Unknown pantoprazole Allergy (Verified 06/06/23 14:36) Diarrhea albuterol [From Ventolin HFA] Adverse Reaction (Mild, Verified 06/06/23 14:36) Hot feeling ibuprofen [From Advil] Adverse Reaction (Unknown, Verified 06/06/23 14:36) Hot inside body naproxen [From Aleve] Adverse Reaction (Unknown, Verified 06/06/23 14:36) Hot inside body Diphenoxylate-Atropine Allergy (Unknown, Uncoded 06/06/23 14:36) Unknown Q-Tussin Allergy (Unknown, Uncoded 06/06/23 14:36) increased BP salt Allergy (Uncoded 06/06/23 14:36) Unknown Medication List - Last Reconciled 06/06/23 by Everton Rinaldi MD acetaminophen (Tylenol Extra Strength) 500 mg PO Q4-6H PRN ascorbic acid (vitamin C) 1 g PO DAILY 90 days [id number] 50-325-40 mg 1 tab PO Q6H PRN cholecalciferol (vitamin D3) 1,250 mcg PO QWEEK cholecalciferol (vitamin D3) (Vitamin D3) 50 mcg PO DAILY dicyclomine 10 mg PO TID 30 days doxazosin 2 mg PO BEDTIME 2 weeks hydrocortisone 2.5% (Anusol-HC) 1 appl NV BID-QID PRN hydrocortisone acetate (Anusol-HC) 25 mg NV BID PRN hydroxyzine HCl 10 mg PO Q8H PRN ketorolac 10 mg PO Q6H PRN 5 days ketorolac 10 mg PO Q8H PRN lorazepam 0.5 mg PO DAILY PRN methenamine hippurate 1 g PO DAILY 90 days montelukast 10 mg PO DAILY pyridoxine (vitamin B6) 50 mg PO DAILY 90 days HPI HPI Comments History of Present Illness Details Fredy is a pleasant female. She is seen for the following urologic conditions - nephrolithiasis - recurrent UTI Deaf translation provided by portable iPad Needs remain on vitamin B6 Encourage fluid intake Lemon water Twelve month follow-up Nephrolithiasis Here for follow-up after ESWL Continued residual stones Stone intervention - 04/14 ESWL left side Imaging - 03/15 renal ultrasound [address] ones on left side - 04/14 KUB question of 2 mm stone on lef t - 10/16 renal ultrasound 3 mm right, smal l punctate stones left - 11/17 renal ultrasound multiple small s tones left side - 05/17 KUB small fragment left side Therapeutic plan - increase fluid intake - lemon juice therapy - vitamin B6 PFSH Medical History Abdominal pain Asthma IBS (irritable colon syndrome) Internal and external prolapsed hemorrhoids Kidney stones Low vitamin D level Screening for colon cancer Speech and language development delay due to hearing loss Surgical History History of esophagogastroduodenoscopy (EGD) (~2017) History of lithotripsy Hx of colonoscopy (~2017) Family History Mother Breast cancer Maternal Aunt Breast cancer Social History Household Members: Friend(s) Housing: House Are you a primary manager critical care to a significant other at home: No Alcohol intake: never Patient Tobacco Use Status: Never used Tobacco Current occupational status: retired Review of Systems Const Denies chills and Denies fever(s) Card Reports no additional complaints and Denies syncope Resp Denies cough GI Denies abdominal pain and Denies heartburn Reports as per HPI and Denies change in libido Neuro Denies syncope Psych Denies change in libido Endo Denies change in libido Physical Exam Const General: cooperative, healthy appearing, comfortable and no acute distress Orientation/consciousness: patient oriented x3 HEENT Face and sinus: Yes normal facial exam Mouth: moist mucous membranes Neck Neck: Yes normal visual inspection, Yes full ROM and Yes trachea midline Chest Chest palpation & inspection: normal inspection of the chest Resp Effort & Inspection: normal respiratory effort, able to speak in complete sentences and no respiratory distress GI Inspection: Yes normal to inspection Back/Spine/Pelvis Cervical Spine: normal cervical lordosis Thoracic/Lumbar Spine: thoracic and lumbar spine normal to inspection Skin General skin exam: no rashes or lesions noted Neuro General: patient oriented x3, gait normal, tone normal and moves all extremities Extrem General: Yes normal to inspection and Yes capillary refill normal Assessment & Plan Assessment & Plan (1) Nephrolithiasis: Code(s): N20.0 - Calculus of kidney Plan 12 month follow-up ultrasound Orders: Orders US renal BI 364 Days N20.0 - Calculus of kidney Medications: Refilled pyridoxine (vitamin B6) 50 mg PO DAILY 90 tabs 3RF 90 days N20.0 - Calculus of kidney Discontinued ketorolac Discontinued Reason: Patient Completed Course 10 mg PO Q6H 5 days PRN 20 tabs 0RF pain ascorbic acid (vitamin C) Discontinued Reason: Patient Completed Course 1 g PO DAILY 90 days 90 tabs 1RF doxazosin Discontinued Reason: Patient Completed Course 2 mg PO BEDTIME 2 weeks 14 tabs 0RF Patient Instructions: Imaging studies, laboratory and physical exam results were discussed and reviewed in detail. No major barriers to patient understanding were identified. An opportunity to ask questions regarding the treatment plan was provided. All questions were answered. The patient expressed understanding and agreement with the above treatment plan. The patient is aware they should contact our office by phone for worsening of their current condition or the appearance of new urologic symptoms. Compliance is encouraged with any medications and followup testing that is ordered. It is a privilege to participate in the urologic care of your patient. If you have any questions or concerns regarding treatment for the above conditions, or other urologic issues, please do not hesitate to contact me. The office telephone contact is [phone]. This note is constructed using voice recognition software. While every effort has been made to ensure accuracy concrete floor installer errors may have been included. Yours sincerely, Dr Everton Rinaldi MD, [facility] - Urology Providers of Expert, Compassionate Care for the Genitourinary Systems Coding Level of Care Code Est Pt Level 3 (47403) Diagnoses Nephrolithiasis N20.0
== END 2023-06-06 14:53 | disposition home or self-care (01) ==
LOC: HO.HUSH 14:29
PROVIDERS: PCP Neurological Surgery; Visit Provider Urology
DX: N20.0 Calculus of kidney (principal)
CPT/HCPCS: 99213

== ENCOUNTER → 2023-06-06 14:29 | Outpatient (BNVA) | payer OTHER, SELFPAY | PROVIDERS: PCP Neurological Surgery; Visit Provider Urology | DX: N20.0 Calculus of kidney (principal) | CPT/HCPCS: 99212 ==

== ENCOUNTER 2023-09-27 01:07 | Emergency (ER) | payer OTHER, SELFPAY ==
[2023-09-27 01:41] VITALS: BP 152/74; PULSE 124; RESP 20; TEMP 36.6; O2SAT 95; BMI 20.6
--- OUTSIDE RECORDS SUMMARY | 2023-09-27 02:02 | XMS_ITS | Patient Health Record ---
Author Name Unknown Organization [address] [address] Care Team Providers Care Aerial Photogrammetrist Name Role Phone STALIN RENNER Primary Care Provider ALO COUCH Unavailable [phone] INDIGO BRADSHAW Unavailable [phone] ALLERGIES Allergen (clinical drug ingredient) Drug/Non Drug Allergy documented on EMR Reaction Allergy Type Onset Date Status aspirin aspirin (uncoded) Unknown Allergy Ac tive atenolol atenolol (uncoded) Unknown Allergy A ctive azithromycin azthromycin (uncoded) Unknown Allergy Active codeine codeine (uncoded) Unknown Allergy Ac tive conpacih (uncoded) Unknown Allergy A ctive cyclobenzaprine cyclobenzaprine (uncoded) Unknown Allergy Active lonox (uncoded) Unknown Allergy Acti ve metoprolol metoprolol (uncoded) Unknown Allergy Active oxycodone oxycodone (uncoded) Unknown Allergy Active pcn (uncoded) Unknown Allergy Active predisone (uncoded) Unknown Allergy Active tramadol tramadol (uncoded) Unknown Allergy A ctive ciprofloxacin Cipro dizziness Drug Allergy Act samir RESULTS Component Value Reference Range Notes URINALYSIS Reviewed date:10/11/2022 03:45:39 PM Interpretation: Performing Lab: Notes/Report: Note Original Ordering Provider: CLEMENTINA MURPHY MD Domob, a member of [address] [address] Raise Miner - Rubina Ball MD GLUCOSE, (UA) NEGATIVE NEGATIVE mg/dL BILIRUBIN, URINE NEGATIVE NEGATIVE KETONE, URINE NEGATIVE NEGATIVE mg/dL SPECIFIC GRAVITY, URINE 1.025 1.003-1.030 BLOOD, URINE NEGATIVE NEGATIVE PH, URINE 7.0 5.0-8.0 PROTEIN, URINE TRACE <= TRACE mg/dl UROBILINOGEN, URINE 1.0 0.2-1.0 E.U./dL NITRITE, URINE NEGATIVE NEGATIVE LEUKOCYTE ESTERASE, URINE NEGATIVE NEGATIVE Note Original Ordering Provider: CLEMENTINA MURPHY MD Domob, [place] [address] Raise Miner - Rubina Ball MD URINE CULTURE Reviewed date:10/11/2022 03:45:39 PM Interpretation: Performing Lab: Notes/Report: URINE CULTURE No growth GLYCOHEMOGLOBIN PROFILE Reviewed date:12/02/2022 07:31:37 AM Interpretation: Performing Lab: Notes/Report: GLYCATED HEMOGLOBIN A1C 5.4 <6.5 % ESTIMATED AVERAGE GLUCOSE 108 COMPREHENSIVE METABOLIC PANE L Reviewed date:12/02/2022 07:31:37 AM Interpretation: Performing Lab: Notes/Report: Note Original Orderi ng Provider: ALO COUCH WASTE MANAGEMENT RECYCLING TECHNICIAN GLUCOSE 89 70-100 mg/dL Reference range applicable to fasting specimens only BUN 13 5-25 mg/dL CREAT 0.97 0.5-1.1 mg/dL GLOMERULAR FILTRATION RATE 69 >60 This eGFR result was calculated using the CKD-EPI 2020 Creatinine Equation SODIUM 139 135-145 mEq/L POTASSIUM 4.0 3.5-5.5 mmol/L CHLORIDE 103 96-110 mmol/L CO2 30 21-32 mmol/L ANION GAP 6 3-11 CALCIUM 8.9 8.5-10.5 mg/dL TOTAL PROTEIN 7.3 6.0-8.0 G/dL ALBUMIN 3.6 3.2-5.0 G/dL BILI,TOTAL 0.2 0.0-1.4 mg/dL SGOT 23 10-42 U/L SGPT 24 10-60 U/L ALK PHOS 43 42-121 U/L CBC WITH AUTO DIFF Reviewed date:12/02/2022 07:31:33 AM Interpretation: Performing Lab: Notes/Report: WBC 6.0 4.8-10.8 x10-3/uL RBC 4.5 3.8-4.8 x10-6/uL HEMOGLOBIN 12.0 11.5-16.0 g/dL HEMATOCRIT 39.3 35-47 % MCV 87.3 79-98 fL MCH 26.7 27-32 pg MCHC 30.5 32-37 g/dL RDW 13.8 11-15 % PLT COUNT 284 130-400 x10-3/uL MEAN PLATELET VOLUME 10.1 7-11 fL NRBC % AUTO 0.0 <1 % NEUT % 54.8 LYMPH % 33.9 MONO % 8.7 EOS % 1.7 BASO % 0.7 IMMATURE GRANULOCYTES % 0.2 NRBC # AUTO 0.00 <0.1 x10-3/uL ABSOLUTE NEUT 3.29 1.5-7.0 x10-3/uL LYMPH # 2.03 1-5.0 x10-3/uL MONO # 0.52 0.2-1.0 x10-3/uL EOS # 0.10 0-0.5 x10-3/uL BASO # 0.04 0-0.2 x10-3/uL IMMATURE GRANULOCYTES # 0.01 0-0.03 x10-3/uL LIPID PROFILE Reviewed date:12/02/2022 07:31:37 AM Interpretation: Performing Lab: Notes/Report: CHOLESTEROL 205 0-200 mg/dL TRIGLYCERIDES 185 0-150 mg/dL VITAMIN D, 25-HYDROXY Reviewed date:12/02/2022 07:31:37 AM Interpretation: Performing Lab: Notes/Report: VITAMIN D, 25-HYDROXY 29 30-80 ng/mL TSH CASCADE Reviewed date:12/02/2022 07:31:37 AM Interpretation: Performing Lab: Notes/Report: TSH CASCADE 2.52 0.40-4.00 uIU/ml URINE CULTURE Reviewed date:12/02/2022 02:05:57 PM Interpretation: Performing Lab: Notes/Report: URINE CULTURE 50,000 - 99,000 CFU/mL URINE CULTURE NORMAL SKIN/UROGENITAL HARRIET PRESENT. UA WITH CULTURE IF INDICATED Reviewed date:12/02/2022 07:31:02 AM Interpretation: Performing Lab: Notes/Report: GLUCOSE, (UA) NEGATIVE NEGATIVE mg/dL BILIRUBIN, URINE NEGATIVE NEGATIVE KETONE, URINE TRACE NEGATIVE mg/dL SPECIFIC GRAVITY, URINE 1.031 1.003-1.030 BLOOD, URINE NEGATIVE NEGATIVE PH, URINE 6.5 5.0-8.0 PROTEIN, URINE 30 <= TRACE mg/dl UROBILINOGEN, URINE 0.2 0.2-1.0 E.U./dL NITRITE, URINE NEGATIVE NEGATIVE LEUKOCYTE ESTERASE, URINE TRACE NEGATIVE URINALYSIS Reviewed date:12/28/2022 11:36:32 AM Interpretation: Performing Lab: Notes/Report: Note Original Ordering Provider: DR KACEY Florez [employer], [place] [address] Raise Miner - Annika Fishman MD GLUCOSE, (UA) NEGATIVE NEGATIVE mg/dL BILIRUBIN, URINE NEGATIVE NEGATIVE KETONE, URINE TRACE NEGATIVE mg/dL SPECIFIC GRAVITY, URINE 1.027 1.003-1.030 BLOOD, URINE NEGATIVE NEGATIVE PH, URINE 5.5 5.0-8.0 PROTEIN, URINE TRACE <= TRACE mg/dl UROBILINOGEN, URINE 1.0 0.2-1.0 E.U./dL NITRITE, URINE NEGATIVE NEGATIVE LEUKOCYTE ESTERASE, URINE NEGATIVE NEGATIVE Note Original Ordering Provider: DR KACEY Meade, [place] [address] Raise Miner - Annika Fishman MD CREATINE KINASE (CK) Reviewed date:12/26/2022 08:26:01 AM Interpretation: Performing Lab: Notes/Report: CREATINE KINASE (CK) 90 22-269 U/L Note Domob, a member of [address] [address] Raise Miner - Annika Fishman MD ANTI-NUCLEAR ANTIBODY Reviewed date:12/26/2022 02:14:02 PM Interpretation: Performing Lab: Notes/Report: Note Original Ordering Provider: DR KACEY Meade, a member of [address] [address] Raise Miner - Annika Fishman MD ANTI-NUCLEAR ANTIBODY SCREEN NEGATIVE NEGATIVE Note Original Ordering Provider: DR KACEY Meade, a member of [address] [address] Raise Miner - Annika Fishman MD LACTATE DEHYDROGENASE Reviewed date:12/26/2022 08:25:54 AM Interpretation: Performing Lab: Notes/Report: Note Original Orderi ng Provider: DR KACEY GARVEY LACTATE DEHYDROGENASE 155 120-246 U/L ALDOLASE, SERUM Reviewed date:01/03/2023 11:41:29 AM Interpretation: Performing Lab: Notes/Report: Note Original Ordering Provider: INDIGO BRADSHAW PA-C Domob, a member of [address] [address] Raise Miner - Annika Fishman MD ALDOLASE 4.0 1.2-7.6 U/L Test performed at [facility], [address] , [place] [address] Sophia Devries MD, PhD - Raise Miner Note Original Ordering Provider: INDIGO BRADSHAW PA-C Domob, a member of [address] [address] Raise Miner - Annika Fishman MD Girma Screening [employer] Reviewed date:06/01/2023 08:42:25 AM Interpretation: Performing Lab: Notes/Report: Original Ordering Provider: STALIN RENNER MD [facility] REASON FOR REFERRAL No Information MEDICATIONS Medication SIG (Take, Route, Frequency, Duration) Notes Start Date End Date Status Probiotic 250 MG 1 capsule Orally once a day for 30 days 11/10/2020 Active Anucort-HC 25 MG 1 suppository as needed Rectal Three times a day for 30 day(s) Active hydrOXYzine HCl 25 MG 1 tablet as needed Orally every 8 hrs for 30 day(s) Active Diclofenac Sodium 75 MG 1 tablet Orally Twice a day for 30 day(s) 11/24/2020 Active Montelukast Sodium 10 MG TAKE 1 TABLET B Y MOUTH EVERY DAY for 90 Active Famotidine 20 MG TAKE 1 TABLET BY MOUTH EVERY DAY AT BEDTIME NEEDED for 90 Active hydrOXYzine HCl 10 mg 1 tablet as needed Orally every 8 hrs for 30 Active Hydrocortisone 1 % 1 application to affected area Externally Twice a day for 30 day(s) undefined 02/28/2018 Not-Taking SOCIAL HISTORY Tobacco Use: Social History Observation Description Date Details (start date - stop date) Never Smoker NA - NA Sex Assigned At : Social History Observation Description Sex Assigned At Unknown Tobacco Use/Smoking Question Answer Notes Are you a nonsmoker PROBLEMS Problem Type ICD Code Onset Dates Problem Status W/U Status Risk SNOMED Code Notes Problem Vitamin D deficiency, unspecified (E55.9) Active confirmed Vitamin D deficiency (45111304) Problem Hyperlipidemia, unspecified (E78.5) Active confirmed Hyperlipidemia (43000850) Problem Generalized anxiety disorder (F41.1) Active confirmed Generalized anxiety disorder (06377239) Problem Other seasonal allergic rhinitis (J30.2) Active confirmed Seasonal allerg ic rhinitis (895614554) Problem Other asthma (J45.998) Active confirmed Asthma (712886415) Problem Left knee pain, unspecified chronicity (M25.562) Active confirmed Arthralgia of t he lower leg (898081263) Problem Kidney stones (N20.0) Active confirmed Kidney stone (14328971) Problem Nephrolithiasis (N20.0) Active confirmed Nephrolithiasis (86996723) VITAL SIGNS Heart Rate 88 /min 02/16/2023 Oximetry 97 % 02/16/2023 Blood pressure diastolic 70 mm Hg 02/16/2023 Height 63 in 02/16/2023 Blood pressure systolic 130 mm Hg 02/16/2023 Weight 130 lbs 02/16/2023 BMI 23.03 kg/m2 02/16/2023 Encounters Encounter Location Date Provider Diagnosis [address] [address] 08/09/2023 ALO COUCH Generalized anxiety disorder F41.1 ; Other seasonal allergic rhinitis J30.2 ; Nephrolithiasis N20.0 ; Vitamin D deficiency, unspecified E55.9 and Hyperlipidemia, unspecified E78.5 [address] [address] 12/01/2022 AOL COUCH Generalized anxiety disorder F41.1 ; Encounter for general adult medical examination without abnormal findings Z00.00 ; Other seasonal allergic rhinitis J30.2 ; Nephrolithiasis N20.0 ; Vitamin D deficiency, unspecified E55.9 ; Hyperlipidemia, unspecified E78.5 ; Encounter for screening for depression Z13.31 and Encounter for screening for other disorder Z13.89 [facility] [address] [place] [address] 12/14/2022 INDIGO LEEANN Muscle weakness M62. 81 and Muscle cramping R25.2 [address] [address] 02/16/2023 ALO COUCH Generalized anxiety disorder F41.1 ; Other seasonal allergic rhinitis J30.2 ; Nephrolithiasis N20.0 ; Vitamin D deficiency, unspecified E55.9 ; Hyperlipidemia, unspecified E78.5 and Muscle weakness M62.81 ASSESSMENTS Encounter Date Diagnosis Assessment Notes Treatment Notes Treatment Clinical Notes 12/01/2022 Generalized anxiety disorder (ICD-10 - F41.1) 12/01/2022 Encounter for genera l adult medical examination without abnormal findings (ICD-10 - Z00.00) 12/14/2022 Muscle weakness (ICD-10 - M62.81) 12/14/2022 Muscle cramping (ICD-10 - R25.2) 02/16/2023 Generalized anxiety disorder (ICD-10 - F41.1) 02/16/2023 Other seasonal allergic rhinitis (ICD-10 - J30.2) 08/09/2023 Generalized anxiety disorder (ICD-10 - F41.1) 08/09/2023 Other seasonal allergic rhinitis (ICD-10 - J30.2) 02/16/2023 Nephrolithiasis (ICD-10 - N20.0) 12/01/2022 Other seasonal allergic rhinitis (ICD-10 - J30.2) 02/16/2023 Vitamin D deficiency , unspecified (ICD-10 - E55.9) 12/01/2022 Nephrolithiasis (ICD-10 - N20.0) 08/09/2023 Nephrolithiasis (ICD-10 - N20.0) 08/09/2023 Vitamin D deficiency , unspecified (ICD-10 - E55.9) 02/16/2023 Hyperlipidemia, unspecified (ICD-10 - E78.5) 12/01/2022 Vitamin D deficiency , unspecified (ICD-10 - E55.9) 12/01/2022 Hyperlipidemia, unspecified (ICD-10 - E78.5) 08/09/2023 Hyperlipidemia, unspecified (ICD-10 - E78.5) 02/16/2023 Muscle weakness (ICD-10 - M62.81) 12/01/2022 Encounter for screening for depression (ICD-10 - Z13.31) 12/01/2022 Encounter for screening for other disorder (ICD-10 - Z13.89) PLAN OF TREATMENT Pending Test Test Name Order Date Lipid Panel 10/15/2019 Comp. Metabolic Panel (14) 10/15/2019 CBC 10/15/2019 Urine Culture and Sensitivity 01/01/2021 Urine Culture and Sensitivity 02/16/2021 Ultrasound : Kidneys and Bladder 021 Urinalysis 02/21/2019 XR Knee 1-2 Views LT 06/01/2022 CREATINE KINASE, TOTAL 12/14/2022 URINALYSIS, COMPLETE 12/14/2022 ALDOLASE 12/14/2022 COMPLETE URINALYSIS 02/16/2021 LACTATE DEHYDROGENASE 12/14/2022 ANTINUCLEAR ANTIBODIES TITER AND PATTERN 12/14/2022 Future Test Test Name Order Date 25OH VITAMIN D 11/05/2022 CBC (COMPLETE BLOOD COUNT) WITH DIFF 07/2023 COMPREHENSIVE METABOLIC PANEL 11/05/2022 HEMOGLOBIN A1C 11/05/2022 LIPID PANEL 11/05/2022 TSH WITH REFLEX TO FT4 11/05/2022 URINALYSIS W/REFLEX CULTURE 11/05/2022 Next Appt Details Provider Name:ALO COUCH, 12/13/2023 02:30:00 PM, [address] [place] [address], [phone], Insurance Providers Payer Name Payer Address Payer Phone Subscriber Number Group Number Insured Name Patient Relationship to Insured Coverage Start Date Coverage End Date [employer] or Options [address] [place] [address] [id number] MARIZOL Michael Self - patient is the insured MEDICAL (GENERAL) HISTORY Medical History History ICD Code anxiety Allergies Deafness Surgical History Surgery Date(Month/Year) nose surgery
[2023-09-27 02:39] LABS: Influenza A PCR NEGATIVE (Negative); Influenza B PCR NEGATIVE (Negative); Resp Syncy Virus RNA Qual PCR NEGATIVE (Negative); SARS COV2 PCR INHOUSE POSITIVE (Negative)
[2023-09-27 06:00] VITALS: BP 126/80; PULSE 100; RESP 16; TEMP 36.8; O2SAT 97
--- NOTE | 2023-09-27 07:09 | ED_ITS ---
HPI - Headache General Chief Complaint: Headache Stated Complaint: Vomiting and headache Time Seen by Provider: 09/27/23 06:28 Source: patient Mode of arrival: ambulatory History of Present Illness HPI Narrative: 53-year-old female with history of asthma, she is deaf and comes in with headache, nausea but denies any vomiting although it does state vomiting in the triage note, saw she may be having a migraine and so took Fioricet without resolution. Related Data Home Medications Medication Instructions Recorded Confirmed [id number] 1 tab PO Q6H PRN Pain (Scale Score 07/20/20 06/06/23 50 mg-325 mg-40 mg tablet 4-6) hydroxyzine HCl 10 mg tablet 10 mg PO Q8H PRN Itching 07/20/20 06/06/23 montelukast 10 mg tablet 10 mg PO DAILY 07/20/20 06/06/23 cholecalciferol (vitamin D3) 1,250 1,250 mcg PO QWEEK 11/05/21 06/06/23 mcg (50,000 unit) capsule Previous Rx's Medication Instructions Recorded hydrocortisone 2.5 % topical cream 1 appl OH BID-QID PRN hemorrhoids 12/31/20 with perineal applicator #30 grams (Anusol-HC) methenamine hippurate 1 gram tablet 1 g PO DAILY 90 days #90 tabs 12/29/22 hydrocortisone acetate 25 mg 25 mg OH BID PRN hemorrhoids #24 ea 01/10/23 rectal suppository (Anusol-HC) acetaminophen 500 mg tablet 500 mg PO Q4-6H PRN fever #30 tabs 01/31/23 (Tylenol Extra Strength) cholecalciferol (vitamin D3) 50 50 mcg PO DAILY #90 caps 04/12/23 mcg (2,000 unit) capsule (Vitamin D3) dicyclomine 10 mg capsule 10 mg PO TID 30 days #90 caps 04/12/23 pyridoxine (vitamin B6) 50 mg 50 mg PO DAILY 90 days #90 tabs 06/06/23 tablet sennosides 8.6 mg tablet (Natural 17.2 mg (2 x 8.6 mg) PO BEDTIME 07/25/23 Senna Laxative) constipation #60 tabs Allergies Allergy/AdvReac Type Severity Reaction Status Date / Time morphine [MORPHINE] Allergy Severe HEART RATE Verified 06/06/23 14:36 ST WITH PALPATIONS AND RASH. alprazolam Allergy Unknown Cough, SOB Verified 06/06/23 14:36 aspirin [ASPIRIN] Allergy Unknown HOT IN BODY Verified 06/06/23 14:36 atenolol [ATENOLOL] Allergy Unknown Dizziness Verified 06/06/23 14:36 atropine [From Lomotil] Allergy Unknown Unknown Verified 06/06/23 14:36 azithromycin [AZITHROMYCIN] Allergy Unknown DIZZY Verified 06/06/23 14:36 ciprofloxacin Allergy Unknown Dizziness Verified 06/06/23 14:36 codeine [CODEINE] Allergy Unknown UNKNOWN Verified 06/06/23 14:36 diphenoxylate [From Lomotil] Allergy Unknown Unknown Verified 06/06/23 14:36 garlic Allergy Unknown Unknown Verified 06/06/23 14:36 hydrochlorothiazide Allergy Unknown hypertensio Verified 06/06/23 14:36 n lisinopril [LISINOPRIL] Allergy Unknown HEART Verified 06/06/23 14:36 POUNDING, palpitations Lonox Allergy Unknown hot flash Verified 06/06/23 14:36 metoprolol Allergy Unknown Dizziness Verified 06/06/23 14:36 onion Allergy Unknown Unknown Verified 06/06/23 14:36 oxycodone [OXYCODONE] Allergy Unknown HOT AND Verified 06/06/23 14:36 DIZZY Penicillins [PENICILLINS] Allergy Unknown ITCHING Verified 06/06/23 14:36 RASH pepper (genus Capsicum) Allergy Unknown Unknown Verified 06/06/23 14:36 prednisone Allergy Unknown Headache Verified 06/06/23 14:36 prochlorperazine Allergy Unknown Unknown Verified 06/06/23 14:36 [From Compazine] sumatriptan Allergy Unknown Dizziness Verified 06/06/23 14:36 tramadol [TRAMADOL] Allergy Unknown DIZZINESS Verified 06/06/23 14:36 cyclobenzaprine Allergy increased Verified 06/06/23 14:36 BP barrett Allergy Unknown Verified 06/06/23 14:36 orange Allergy Unknown Verified 06/06/23 14:36 pantoprazole Allergy Diarrhea Verified 06/06/23 14:36 albuterol [From Ventolin HFA] AdvReac Mild Hot feeling Verified 06/06/23 14:36 ibuprofen [From Advil] AdvReac Unknown Hot inside Verified 06/06/23 14:36 body naproxen [From Aleve] AdvReac Unknown Hot inside Verified 06/06/23 14:36 body Diphenoxylate-Atropine Allergy Unknown Unknown Uncoded 06/06/23 14:36 Q-Tussin Allergy Unknown increased Uncoded 06/06/23 14:36 BP salt Allergy Unknown Uncoded 06/06/23 14:36 Review of Systems Review of Systems: Pertinent positives and negatives as stated in HPI [facility] Past Medical History Source: nursing notes reviewed Onset Date is defined in the Problem List Problems that require an onset date and time if occurred within 24 hrs of arrival to the ED Aortic Dissection and Rupture; Neurologic impairment; Cardiopulmonary Arrest; Endotracheal Intubation; Insertion or Replacement of Mechanical Circulatory Assist Device Medical History Asthma Kidney stones Low vitamin D level Abdominal pain Internal and external prolapsed hemorrhoids Speech and language development delay due to hearing loss Screening for colon cancer IBS (irritable colon syndrome) Surgical History History of lithotripsy History of esophagogastroduodenoscopy (EGD) (~2018) Hx of colonoscopy (~2018) Family History Family History Mother Breast cancer Maternal Aunt Breast cancer Social History Social History Household Members: Friend(s) Housing: House Are you a primary nursing care attendant to a significant other at home: No Alcohol intake: never Patient Tobacco Use Status: Never used Tobacco Advance Directives: No Advance Directives Information Provided: Yes Current occupational status: retired Physical Exam Vital Signs: Vital Signs: Last Vital Signs Temp 98.2 F 09/27/23 06:00 Pulse 100 09/27/23 06:00 Resp 16 09/27/23 06:00 BP 126/80 09/27/23 06:00 Pulse Ox 97 09/27/23 06:00 O2 Del Method Room Air 09/27/23 06:00 BMI result Body Mass Index 20.6 VITAL SIGNS: Reviewed. GENERAL: Well developed, well nourished, in no acute distress. HEAD: Normocephalic/atraumatic EYES: PERRLA, EOMI EARS: Ext canals without abnormality, TMs non-bulging and non-erythematous NOSE: Nares patent bilateral OROPHARYNX: no oral lesions noted, posterior pharynx clear and non-erythematous without noted tonsillar enlargement/erythema/exudates NECK: Supple, no adenopathy LUNGS: Normal breath sounds. No adventitious sounds or accessory muscle use. SpO2<97> CARDIOVASCULAR: Regular rate and rhythm without noted murmurs ABDOMEN: Soft, non-tender, non-distended with bowel sounds. MUSCULOSKELETAL: No tenderness, deformities, or effusions noted on gross inspection. EXTREMITIES: No cyanosis, clubbing or edema. SKIN: Inspection of the skin reveals no rashes NEUROLOGIC: Alert and oriented x 4. Strength and sensation to light touch were grossly intact x 4. Medical Decision Making Medical Decision Making [facility] Narrative: 53-year-old female with history and clinical presentation, DDX: Viral illness, headache I reviewed all investigations and patient is COVID positive. She received Tylenol and I discussed results with her. She is otherwise discharged home. Differential Diagnosis Differential Diagnoses: The differential diagnosis associated with the presentation includes Please see the discussion above Admission/Observation Consideration of admission/observation: Escalation of care including admission/observation considered Please see the discussion above Lab Data [facility] Lab Attestation statement: I reviewed the patient's lab results. Please see the discussion above Labs: Lab Results 09/27/23 Range/Units 01:58 Influenza Type A (PCR) NEGATIVE (Negative) Influenza Type B (PCR) NEGATIVE (Negative) RSV RNA Qual (PCR) NEGATIVE (Negative) SARS-CoV-2 RNA (RT-PCR) POSITIVE A (Negative) Discharge Plan Discharge Clinical Impression: Viral syndrome, Lab test positive for detection of COVID-19 virus Patient Disposition: Home, Self-Care Instructions: Viral Syndrome (ED), COVID-19 (Coronavirus Disease 2019) (ED) Additional Instructions: 1. You must isolate for the next 5 days according to CDC guidelines. 2. Recommend [id number] Tylenol as needed for body aches, headaches, sore throat and temperatures greater than 100.4. Drink plenty of fluids and get plenty of rest. 3. Follow-up with your primary care doctor via telemedicine appointment. Return to the ER for any worsening symptoms. Prescriptions: No Action hydrocortisone [Anusol-HC] 2.5 % cream with perineal applicator 1 appl OH BID-QID PRN (Reason: hemorrhoids) Qty: 30 2RF methenamine hippurate 1 gram tablet 1 g PO DAILY 90 Days Qty: 90 1RF hydrocortisone acetate [Anusol-HC] 25 mg suppository 25 mg OH BID PRN (Reason: hemorrhoids) Qty: 24 3RF sennosides [Natural Senna Laxative] 8.6 mg tablet 17.2 mg PO BEDTIME Qty: 60 1RF acetaminophen [Tylenol Extra Strength] 500 mg tablet 500 mg PO Q4-6H PRN (Reason: fever) Qty: 30 0RF hydroxyzine HCl 10 mg tablet 10 mg PO Q8H PRN (Reason: Itching) montelukast 10 mg tablet 10 mg PO DAILY [id number] 50-325-40 mg tablet 1 tab PO Q6H PRN (Reason: Pain (Scale Score 4-6)) cholecalciferol (vitamin D3) 1,250 mcg (50,000 unit) capsule 1,250 mcg PO QWEEK pyridoxine (vitamin B6) 50 mg tablet 50 mg PO DAILY 90 Days Qty: 90 3RF dicyclomine 10 mg capsule 10 mg PO TID 30 Days Qty: 90 4RF Rx Instructions: Take one capsule by mouth three times a day cholecalciferol (vitamin D3) [Vitamin D3] 50 mcg (2,000 unit) capsule 50 mcg PO DAILY Qty: 90 5RF Interventions: ED Discharge Assessment Last Done: 09/27/23 07:03 Discharge Date/Time: 09/27/23 07:03
== END 2023-09-27 07:03 | disposition home or self-care (01) ==
PROVIDERS: Emergency Provider Student in an Organized Health Care Education/Training Program
DX: U07.1 COVID-19 (principal); B34.9 Viral infection, unspecified; R51.9 Headache, unspecified; R11.0 Nausea
CPT/HCPCS: 0241U; 99283

== ENCOUNTER 2024-02-26 12:57 | Outpatient (AMB) | payer OTHER, SELFPAY ==
--- NOTE | 2024-02-26 12:59 | A.OFFVIS_ITS ---
Vital Signs 02/26/24 13:00 Height 5 ft 4 in Weight 128 lb BMI 22.0 BP 172/80 H Blood Pressure Location Rt brachial Position Sitting Pulse 80 Intake Visit Reasons: Follow up prolapsed hemorrhoids Intake Note: This patient presents for a follow-up assessment for prolapsed hemorrhoids. Patient c/o; reports no complaints at this time. Iphone Developer Required: No Iphone Developer Name: Erma Robles-educational interpreter Accompanied by: Self / Same As Patient Allergies doxycycline Allergy (Severe, Verified 02/26/24 13:18) Fever morphine [MORPHINE] Allergy (Severe, Verified 02/26/24 13:18) HEART RATE ST WITH PALPATIONS AND RASH. alprazolam Allergy (Unknown, Verified 02/26/24 13:18) Cough, SOB aspirin [ASPIRIN] Allergy (Unknown, Verified 02/26/24 13:18) HOT IN BODY atenolol [ATENOLOL] Allergy (Unknown, Verified 02/26/24 13:18) Dizziness atropine [From Lomotil] Allergy (Unknown, Verified 02/26/24 13:18) Unknown azithromycin [AZITHROMYCIN] Allergy (Unknown, Verified 02/26/24 13:18) DIZZY ciprofloxacin Allergy (Unknown, Verified 02/26/24 13:18) Dizziness codeine [CODEINE] Allergy (Unknown, Verified 02/26/24 13:18) UNKNOWN diphenoxylate [From Lomotil] Allergy (Unknown, Verified 02/26/24 13:18) Unknown garlic Allergy (Unknown, Verified 02/26/24 13:18) Unknown hydrochlorothiazide Allergy (Unknown, Verified 02/26/24 13:18) hypertension lisinopril [LISINOPRIL] Allergy (Unknown, Verified 02/26/24 13:18) HEART POUNDING, palpitations Lonox Allergy (Unknown, Verified 02/26/24 13:18) hot flash metoprolol Allergy (Unknown, Verified 02/26/24 13:18) Dizziness onion Allergy (Unknown, Verified 02/26/24 13:18) Unknown oxycodone [OXYCODONE] Allergy (Unknown, Verified 02/26/24 13:18) HOT AND DIZZY Penicillins [PENICILLINS] Allergy (Unknown, Verified 02/26/24 13:18) ITCHING RASH pepper (genus Capsicum) Allergy (Unknown, Verified 02/26/24 13:18) Unknown prednisone Allergy (Unknown, Verified 02/26/24 13:18) Headache prochlorperazine [From Compazine] Allergy (Unknown, Verified 02/26/24 13:18) Unknown sumatriptan Allergy (Unknown, Verified 02/26/24 13:18) Dizziness tramadol [TRAMADOL] Allergy (Unknown, Verified 02/26/24 13:18) DIZZINESS cyclobenzaprine Allergy (Verified 02/26/24 13:18) increased BP barrett Allergy (Verified 02/26/24 13:18) Unknown orange Allergy (Verified 02/26/24 13:18) Unknown pantoprazole Allergy (Verified 02/26/24 13:18) Diarrhea albuterol [From Ventolin HFA] Adverse Reaction (Mild, Verified 02/26/24 13:18) Hot feeling ibuprofen [From Advil] Adverse Reaction (Unknown, Verified 02/26/24 13:18) Hot inside body naproxen [From Aleve] Adverse Reaction (Unknown, Verified 02/26/24 13:18) Hot inside body Diphenoxylate-Atropine Allergy (Unknown, Uncoded 02/26/24 13:18) Unknown Q-Tussin Allergy (Unknown, Uncoded 02/26/24 13:18) increased BP salt Allergy (Uncoded 02/26/24 13:18) Unknown Medication List - Last Reconciled 02/26/24 by Aneudy Medrano MD acetaminophen (Tylenol Extra Strength) 500 mg PO Q4-6H PRN nvkrwdwjaw-kaotfnhcpbtzs-iabg 50-325-40 mg 1 tab PO Q6H PRN cholecalciferol (vitamin D3) 1,250 mcg PO QWEEK cholecalciferol (vitamin D3) (Vitamin D3) 50 mcg PO DAILY dicyclomine 10 mg PO TID 30 days hydrocortisone 2.5% (Anusol-HC) 1 appl [place] BID-QID PRN hydrocortisone acetate (Anusol-HC) 25 mg [place] BID PRN hydroxyzine HCl 10 mg PO Q8H PRN methenamine hippurate 1 g PO DAILY 90 days montelukast 10 mg PO DAILY pyridoxine (vitamin B6) 50 mg PO DAILY 90 days sennosides (Natural Senna Laxative) 17.2 mg (2 x 8.6 mg) PO BEDTIME HPI HPI Follow up prolapsed hemorrhoids: Details: She is here for follow-up for her hemorrhoids. She is known to me for internal external hemorrhoids. She currently says that she denies any significant problems with the hemorrhoids. She denies any swelling or pain. She says that she just wants this checked again. She does apply some cream on the area because of itching. [facility] Medical History Asthma Kidney stones Low vitamin D level Abdominal pain Internal and external prolapsed hemorrhoids Speech and language development delay due to hearing loss Screening for colon cancer IBS (irritable colon syndrome) Surgical History History of lithotripsy History of esophagogastroduodenoscopy (EGD) (~2018) Hx of colonoscopy (~2018) Family History Mother Breast cancer Maternal Aunt Breast cancer Social History Household Members: Friend(s) Housing: House Are you a primary child care team lead to a significant other at home: No Alcohol intake: never Patient Tobacco Use Status: Never used Tobacco Current occupational status: retired Review of Systems Const Denies chills and Denies fever(s) Card Denies chest pain, Denies dyspnea and Denies dyspnea on exertion Resp Denies cough, Denies dyspnea and Denies dyspnea on exertion GI Denies hematochezia and Denies change in bowel habits Denies hematuria Musc Denies back pain and Denies limited range of motion Neuro Denies focal weakness and Denies convulsions Psych Denies depression and Denies mood swings Physical Exam Vital Signs: Last Vital Signs Pulse 80 02/26/24 13:00 BP 172/80 H 02/26/24 13:00 BMI result Body Mass Index 22.0 Const General: comfortable and no acute distress Orientation/consciousness: patient oriented x3 Neck Neck: Yes no lymphadenopathy Resp Auscultation: clear to auscultation bilaterally Cardio Rhythm: regular rhythm GI Other: Small external hemorrhoids on rectal exam Palpation (GI): Soft to palpation, nontender and no guarding Neuro General: patient oriented x3 Office Procedures Anoscopy She was in sagar-knife position. The anoscope was gently inserted. A full exa mination of the anal canal was done. She did have small internal and hemorrhoidal columns on both the left and right side. This were non thrombosed, and noninflamed. There was no induration. There were no other lesions. There was no tenderness on digital exam. There was no bleeding. [id number] Assessment & Plan Assessment & Plan (1) Internal and external prolapsed hemorrhoids: Code(s): K64.8 - Other hemorrhoids Category: Medical Plan: She denies any complaints with her hemorrhoids. She denies any pain or recent bleeding. She she feels well overall I assured her that at this time, she does not seem to need any hemorrhoid surgery I did advise her on taking fiber supplements to help prevent straining and constipation. She understands this She can follow up with me on a p.r.n. basis. The visit was done in the presence of a floral design teacher. Coding Level of Care Code Est Pt Level 3 (78353) Diagnoses Internal and external prolapsed hemorrhoids K64.8 CPT Codes Details - CPT: 02932-Ojboozue ([id number])
[2024-02-26 13:00] VITALS: BP 172/80; PULSE 80; BMI 22.0
== END 2024-02-26 13:32 | disposition home or self-care (01) ==
PROVIDERS: PCP Neurological Surgery; Visit Provider Surgery
DX: K64.8 Other hemorrhoids (principal)
CPT/HCPCS: 46600; 99213

== ENCOUNTER → 2024-02-26 12:57 | Outpatient (BNVA) | payer OTHER, SELFPAY | PROVIDERS: Visit Provider Surgery | DX: K64.8 Other hemorrhoids (principal) | CPT/HCPCS: 46600; 99212 ==

== ENCOUNTER 2024-04-10 13:51 | Outpatient (AMB) | payer OTHER, SELFPAY ==
--- NOTE | 2024-04-10 14:07 | A.OFFVIS_ITS ---
Vital Signs 04/10/24 14:12 Height 5 ft 4 in Weight 127 lb 13.89 oz BMI 21.9 BP 148/74 H Blood Pressure Location Lt brachial Position Sitting Pulse 80 Pulse Source Pulse Oximeter Pulse Oximetry (%) 98 Oxygen Delivery Method Room Air Intake Visit Reasons: 1 yr follow up Intake Note: Fredy presents in office today for a scheduled 1 year FUV. CC; Pt denies any new sx or concerns at this time. Friction Paint Machine Tender Required: Yes Friction Paint Machine Tender Services: Friction Paint Machine Tender Present Friction Paint Machine Tender Name: [id number] Blanca Information Interpreted: non-clinical & clinical Allergies doxycycline Allergy (Severe, Verified 04/10/24 14:07) Fever morphine [MORPHINE] Allergy (Severe, Verified 04/10/24 14:07) HEART RATE ST WITH PALPATIONS AND RASH. alprazolam Allergy (Unknown, Verified 04/10/24 14:07) Cough, SOB aspirin [ASPIRIN] Allergy (Unknown, Verified 04/10/24 14:07) HOT IN BODY atenolol [ATENOLOL] Allergy (Unknown, Verified 04/10/24 14:07) Dizziness atropine [From Lomotil] Allergy (Unknown, Verified 04/10/24 14:07) Unknown azithromycin [AZITHROMYCIN] Allergy (Unknown, Verified 04/10/24 14:07) DIZZY ciprofloxacin Allergy (Unknown, Verified 04/10/24 14:07) Dizziness codeine [CODEINE] Allergy (Unknown, Verified 04/10/24 14:07) UNKNOWN diphenoxylate [From Lomotil] Allergy (Unknown, Verified 04/10/24 14:07) Unknown garlic Allergy (Unknown, Verified 04/10/24 14:07) Unknown hydrochlorothiazide Allergy (Unknown, Verified 04/10/24 14:07) hypertension lisinopril [LISINOPRIL] Allergy (Unknown, Verified 04/10/24 14:07) HEART POUNDING, palpitations Lonox Allergy (Unknown, Verified 04/10/24 14:07) hot flash metoprolol Allergy (Unknown, Verified 04/10/24 14:07) Dizziness onion Allergy (Unknown, Verified 04/10/24 14:07) Unknown oxycodone [OXYCODONE] Allergy (Unknown, Verified 04/10/24 14:07) HOT AND DIZZY Penicillins [PENICILLINS] Allergy (Unknown, Verified 04/10/24 14:07) ITCHING RASH pepper (genus Capsicum) Allergy (Unknown, Verified 04/10/24 14:07) Unknown prednisone Allergy (Unknown, Verified 04/10/24 14:07) Headache prochlorperazine [From Compazine] Allergy (Unknown, Verified 04/10/24 14:07) Unknown sumatriptan Allergy (Unknown, Verified 04/10/24 14:07) Dizziness tramadol [TRAMADOL] Allergy (Unknown, Verified 04/10/24 14:07) DIZZINESS cyclobenzaprine Allergy (Verified 04/10/24 14:07) increased BP barrett Allergy (Verified 04/10/24 14:07) Unknown orange Allergy (Verified 04/10/24 14:07) Unknown pantoprazole Allergy (Verified 04/10/24 14:07) Diarrhea albuterol [From Ventolin HFA] Adverse Reaction (Mild, Verified 04/10/24 14:07) Hot feeling ibuprofen [From Advil] Adverse Reaction (Unknown, Verified 04/10/24 14:07) Hot inside body naproxen [From Aleve] Adverse Reaction (Unknown, Verified 04/10/24 14:07) Hot inside body Diphenoxylate-Atropine Allergy (Unknown, Uncoded 02/26/24 13:18) Unknown Q-Tussin Allergy (Unknown, Uncoded 02/26/24 13:18) increased BP salt Allergy (Uncoded 02/26/24 13:18) Unknown HPI HPI 1 yr follow up: Details: LAST VISIT: IBS (irritable colon syndrome) Continue dicyclomine on as needed basis. Patient was encouraged to increase fluid intake and activity to promote better bowel motility. Patient will follow- up with of in 1 year, sooner on as needed basis. She is agreeable to this plan and verbalizes understanding of instructions. She was given the opportunity to a sk questions and all questions answered. ? Thank you for allowing me to participate in her care Plan Medications Refilled dicyclomine Take one capsule by mouth three times a day 10 mg PO TID 90 caps 4RF 30 days cholecalciferol (vitamin D3) (Vitamin D3) 50 mcg PO DAILY 90 caps 5RF R79.89 - Other specified abnormal findings of blood chemistry TODAY'S VISIT Patient is accompanied by her friend. SLI used during the entire appointment Patient is here today for follow-up. Patient reports that she has been feeling well. Takes dicyclomine once or twice a day as needed for cramping. Patient reports that she is moving her bowels well without any issues. Denies any dyspepsia, dysphagia or odynophagia. Denies melena, hematochezia, unintentional weight loss or ribbon like stools. Patient reports that she is using famotidine on as needed basis at bedtime. Patient had colonoscopy in 2019 in [facility] will be due to go for another colonoscopy. Patient denies any abdominal pain or discomfort. Patient reports to be feeling well. [facility] Medical History Asthma Kidney stones Low vitamin D level Abdominal pain Internal and external prolapsed hemorrhoids Speech and language development delay due to hearing loss Screening for colon cancer IBS (irritable colon syndrome) Surgical History History of lithotripsy History of esophagogastroduodenoscopy (EGD) (~2018) Hx of colonoscopy (~2018) Family History Mother Breast cancer Maternal Aunt Breast cancer Social History Household Members: Friend(s) Housing: House Are you a primary health care attorney to a significant other at home: No Alcohol intake: never Patient Tobacco Use Status: Never used Tobacco Current occupational status: retired Review of Systems Const Denies weight gain and Denies weight loss ENT Reports no additional complaints, Denies dysphagia and Denies odynophagia Card Reports no additional complaints Resp Reports no additional complaints GI Denies abdominal pain, Denies belching, Denies melena, Denies bloating, Denies change in bowel habits, Denies dysphagia, Denies excessive flatus, Denies d yspepsia, Denies heartburn, Denies diarrhea, Denies loose stools, Denies nausea, Denies odynophagia and Denies vomiting Musc Reports no additional complaints Neuro Reports no additional complaints Psych Reports no additional complaints Endo Reports no additional complaints Physical Exam Vital Signs: Last Vital Signs Pulse 80 04/10/24 14:12 BP 148/74 H 04/10/24 14:12 Pulse Ox 98 04/10/24 14:12 Oxygen Delivery Method Room Air 04/10/24 14:12 BMI result Body Mass Index 21.9 Const General: healthy appearing, no acute distress and well developed Nutritional Appearance: well nourished Orientation/consciousness: patient oriented x3 HEENT Head: Yes normal to inspection, Yes normocephalic and Yes atraumatic Face and sinus: Yes normal facial exam Mouth: Normal oral and palatal mucosa present Throat: Yes posterior oropharynx normal, Yes tonsils normal and Yes uvula midline Eyes General: appearance normal, both eyes and all related structures Neck Neck: Yes normal visual inspection, Yes full ROM and Yes trachea midline Thyroid: Thyroid normal Resp Effort & Inspection: normal respiratory effort, able to speak in complete sentences, no tracheal deviation and symmetric chest movement Auscultation: clear to auscultation bilaterally Cardio Rate: regular rate Heart sounds: S1 normal heart sound present and S2 normal heart sound present GI Inspection: Yes normal to inspection and No distended Palpation (GI): Soft to palpation, not firm, nontender and No hepatosplenomegaly present Auscultation: normal bowel sounds General: Yes no CVA tenderness Back/Spine/Pelvis Back: no CVA tenderness Skin General skin exam: elasticity normal, turgor normal and dry skin Neuro General: patient oriented x3 Psych Appearance: grossly normal Mental Status: mental status grossly normal Speech and movement: Normal speech and movement present Affect: normal affect Assessment & Plan Assessment & Plan (1) IBS (irritable colon syndrome): Code(s): K58.9 - Irritable bowel syndrome without diarrhea Category: Medical Qualifiers: Irritable bowel syndrome type: with diarrhea Qualified Code(s): K58.0 - Irritable bowel syndrome with diarrhea Plan Patient will continue dicyclomine. Continue famotidine on as needed basis. Avoid dietary triggers and late night snacking. Patient will return 6 months to discuss going for colonoscopy. She will call our office if she will have any GI concerning symptoms. Patient is agreeable to this plan and verbalizes understanding of instructions. She was given the opportunity to ask questions and all questions answered. Thank you for allowing me to participate in her care Medications: Refilled dicyclomine Take one capsule by mouth three times a day 10 mg PO TID 90 caps 4RF 30 days sennosides (Natural Senna Laxative) 17.2 mg (2 x 8.6 mg) PO BEDTIME 60 tabs 1RF constipation K59.00 - Constipation, unspecified Coding Level of Care Code Est Pt Level 3 (34247) Diagnoses Irritable bowel syndrome with diarrhea K58.0 Irritable bowel syndrome type: with diarrhea Time Spent (min) 25 Comment 15 minutes spent with patient and additional 10 minutes spent reviewing her records
[2024-04-10 14:12] VITALS: BP 148/74; PULSE 80; O2SAT 98; BMI 21.9
== END 2024-04-10 14:32 | disposition home or self-care (01) ==
PROVIDERS: PCP Neurological Surgery; Visit Provider Nurse Practitioner Family
DX: K58.0 Irritable bowel syndrome with diarrhea (principal)
CPT/HCPCS: 99213

== ENCOUNTER → 2024-04-10 13:51 | Outpatient (BNVA) | payer OTHER, SELFPAY | PROVIDERS: PCP Neurological Surgery; Visit Provider Nurse Practitioner Family | DX: K58.0 Irritable bowel syndrome with diarrhea (principal); K58.1 Irritable bowel syndrome with constipation; Z79.899 Other long term (current) drug therapy | CPT/HCPCS: 99212 ==

== ENCOUNTER 2024-05-28 12:25 | Outpatient (REF) | payer OTHER, SELFPAY ==
--- NOTE | ~2024-05-28 | US_ITS ---
EXAMINATION: US RETROPERITONEAL COMPLETE (RENAL) CLINICAL INFORMATION: Calculus of kidney. COMPARISON: Ultrasound 09/30/2022, CT scan 01/29/2023. TECHNIQUE: Real-time imaging of the kidneys and bladder. Limited visualization due to bowel gas. FINDINGS: RIGHT KIDNEY: 10.2 x 4.1 x 5.4 cm (SAG x AP x TRV). No hydronephrosis. A 3 mm lower pole calculus. Renal cortical thickness is normal. Limited visualization. LEFT KIDNEY: 9.9 x 4.4 x 5.3 cm (SAG x AP x TRV). Multiple renal calculi measuring 5 mm, 7 mm and 3 mm in the lower pole; a 2 mm mid pole calculus. No hydronephrosis. Renal cortical thickness is normal. US/US renal BI IMPRESSION: Bilateral nephrolithiasis. No hydronephrosis. Electronically signed by: Lyndsay Dunne MD 05/29/2024 04:51 PM EDT
== END 2024-05-28 12:26 | disposition home or self-care (01) ==
LOC: HO.US 12:25
PROVIDERS: PCP Neurological Surgery; Visit Provider Urology
DX: N20.0 Calculus of kidney (principal)
CPT/HCPCS: 76775

== ENCOUNTER 2024-06-04 14:11 | Outpatient (AMB) | payer OTHER, SELFPAY ==
--- NOTE | 2024-06-04 14:41 | MHC.OFFVIS ---
Intake Visit Reasons: 1y/US Intake Note: Patient is Present for Follow Up Urology Medication: Methenamine, Vitamin B6 Antibiotic Allergies: Doxycycline, Azithromycin, Cipro,Penicillin Blood Thinners: None Construction Checker Required: Yes Construction Checker Language: Air Cargo Specialist Supervisor Services: Construction Checker Present Accompanied by: Self / Same As Patient Allergies doxycycline Allergy (Severe, Verified 06/04/24 14:43) Fever morphine [MORPHINE] Allergy (Severe, Verified 06/04/24 14:43) HEART RATE ST WITH PALPATIONS AND RASH. alprazolam Allergy (Unknown, Verified 06/04/24 14:43) Cough, SOB aspirin [ASPIRIN] Allergy (Unknown, Verified 06/04/24 14:43) HOT IN BODY atenolol [ATENOLOL] Allergy (Unknown, Verified 06/04/24 14:43) Dizziness atropine [From Lomotil] Allergy (Unknown, Verified 06/04/24 14:43) Unknown azithromycin [AZITHROMYCIN] Allergy (Unknown, Verified 06/04/24 14:43) DIZZY ciprofloxacin Allergy (Unknown, Verified 06/04/24 14:43) Dizziness codeine [CODEINE] Allergy (Unknown, Verified 06/04/24 14:43) UNKNOWN diphenoxylate [From Lomotil] Allergy (Unknown, Verified 06/04/24 14:43) Unknown garlic Allergy (Unknown, Verified 06/04/24 14:43) Unknown hydrochlorothiazide Allergy (Unknown, Verified 06/04/24 14:43) hypertension lisinopril [LISINOPRIL] Allergy (Unknown, Verified 06/04/24 14:43) HEART POUNDING, palpitations Lonox Allergy (Unknown, Verified 06/04/24 14:43) hot flash metoprolol Allergy (Unknown, Verified 06/04/24 14:43) Dizziness onion Allergy (Unknown, Verified 06/04/24 14:43) Unknown oxycodone [OXYCODONE] Allergy (Unknown, Verified 06/04/24 14:43) HOT AND DIZZY Penicillins [PENICILLINS] Allergy (Unknown, Verified 06/04/24 14:43) ITCHING RASH pepper (genus Capsicum) Allergy (Unknown, Verified 06/04/24 14:43) Unknown prednisone Allergy (Unknown, Verified 06/04/24 14:43) Headache prochlorperazine [From Compazine] Allergy (Unknown, Verified 06/04/24 14:43) Unknown sumatriptan Allergy (Unknown, Verified 06/04/24 14:43) Dizziness tramadol [TRAMADOL] Allergy (Unknown, Verified 06/04/24 14:43) DIZZINESS cyclobenzaprine Allergy (Verified 06/04/24 14:43) increased BP barrett Allergy (Verified 06/04/24 14:43) Unknown orange Allergy (Verified 06/04/24 14:43) Unknown pantoprazole Allergy (Verified 06/04/24 14:43) Diarrhea albuterol [From Ventolin HFA] Adverse Reaction (Mild, Verified 06/04/24 14:43) Hot feeling ibuprofen [From Advil] Adverse Reaction (Unknown, Verified 06/04/24 14:43) Hot inside body naproxen [From Aleve] Adverse Reaction (Unknown, Verified 06/04/24 14:43) Hot inside body Diphenoxylate-Atropine Allergy (Unknown, Uncoded 06/04/24 14:43) Unknown Q-Tussin Allergy (Unknown, Uncoded 06/04/24 14:43) increased BP salt Allergy (Uncoded 06/04/24 14:43) Unknown Medication List - Last Reconciled 06/04/24 by Everton Rinaldi MD acetaminophen (Tylenol Extra Strength) 500 mg PO Q4-6H PRN vwaxmeklia-hmoinozfscylb-qdih 50-325-40 mg 1 tab PO Q6H PRN cholecalciferol (vitamin D3) 1,250 mcg PO QWEEK cholecalciferol (vitamin D3) (Vitamin D3) 50 mcg PO DAILY dicyclomine 10 mg PO TID 30 days famotidine 20 mg PO DAILY hydrocortisone 2.5% topical hydrocortisone acetate (Anusol-HC) 25 mg [place] BID PRN hydroxyzine HCl 10 mg PO Q8H PRN lorazepam mg PO DAILY montelukast 10 mg PO DAILY pyridoxine (vitamin B6) 50 mg PO DAILY 90 days sennosides (Natural Senna Laxative) 17.2 mg (2 x 8.6 mg) PO BEDTIME HPI Comments Details: Fredy is a pleasant female. She is seen for the following urologic conditions - nephrolithiasis - recurrent UTI Deaf translation provided by fuel efficient automobile designer Stable left-sided stone burden Remain on vitamin B6 Encourage fluid intake Lemon water Twelve month follow-up Discussed stone dietary advice Nephrolithiasis Here for follow-up after ESWL Continued residual stones Stone intervention - 04/14 ESWL left side Imaging - 03/15 renal ultrasound 2 times 4 mm stones on left side - 04/14 KUB question of 2 mm stone on left - 10/16 renal ultrasound 3 mm right, small punctate stones left - 11/17 renal ultrasound multiple small stones left side - 05/17 KUB small fragment left side - 06/18 renal ultrasound small stones left side Therapeutic plan - increase fluid intake - lemon juice therapy - vitamin B6 PFSH Medical History Asthma Kidney stones Low vitamin D level Abdominal pain Internal and external prolapsed hemorrhoids Speech and language development delay due to hearing loss Screening for colon cancer IBS (irritable colon syndrome) Surgical History History of lithotripsy History of esophagogastroduodenoscopy (EGD) (~2017) Hx of colonoscopy (~2017) Family History Mother Breast cancer Maternal Aunt Breast cancer Social History Household Members: Friend(s) Housing: House Are you a primary palliative care physician to a significant other at home: No Alcohol intake: never Patient Tobacco Use Status: Never used Tobacco Current occupational status: retired Assessment & Plan Assessment & Plan (1) Nephrolithiasis: Code(s): N20.0 - Calculus of kidney Category: Medical Plan 12 month follow-up ultrasound Orders: Orders US renal BI 12 Months N20.0 - Calculus of kidney Medications: Discontinued methenamine hippurate Discontinued Reason: Patient Completed Course 1 g PO DAILY 90 days 90 tabs 1RF Patient Instructions: Imaging studies, laboratory and physical exam results were discussed and reviewed in detail. No major barriers to patient understanding were identified. An opportunity to ask questions regarding the treatment plan was provided. All questions were answered. The patient expressed understanding and agreement with the above treatment plan. The patient is aware they should contact our office by phone for worsening of their current condition or the appearance of new urologic symptoms. Compliance is encouraged with any medications and followup testing that is ordered. It is a privilege to participate in the urologic care of your patient. If you have any questions or concerns regarding treatment for the above conditions, or other urologic issues, please do not hesitate to contact me. The office telephone contact is [phone]. This note is constructed using voice recognition software. While every effort has been made to ensure accuracy oil prospecting observer errors may have been included. Yours sincerely, Dr Everton Rinaldi MD, [facility] - Urology Providers of Expert, Compassionate Care for the Genitourinary System Coding Level of Care Code Est Pt Level 4 (33937) Diagnoses Nephrolithiasis N20.0
== END 2024-06-04 15:07 | disposition home or self-care (01) ==
PROVIDERS: PCP Neurological Surgery; Visit Provider Urology
DX: N20.0 Calculus of kidney (principal)
CPT/HCPCS: 99214

== ENCOUNTER → 2024-06-04 14:11 | Outpatient (BNVA) | payer OTHER, SELFPAY | PROVIDERS: PCP Neurological Surgery; Visit Provider Urology | DX: N20.0 Calculus of kidney (principal) | CPT/HCPCS: 99212 ==

== ENCOUNTER 2024-12-13 15:03 | Outpatient (AMB) | payer OTHER, SELFPAY ==
--- NOTE | 2024-12-13 15:05 | A.OFFVIS_ITS ---
Vital Signs 12/13/24 15:06 Height 5 ft 4 in BP 162/98 H Blood Pressure Location Rt brachial Position Sitting Pulse 72 Pulse Source Pulse Oximeter Pulse Oximetry (%) 98 Oxygen Delivery Method Room Air Intake Visit Reasons: f/u and discuss colo Intake Note: ESTABLISHED PATIENT - NEEDS ASL INT Reason; 6 mos. Discuss colo Changes/concerns? No GI concerns at this time. Last colo 2017. Quality Assurance Representative Required: Yes Quality Assurance Representative Services: Quality Assurance Representative Present Quality Assurance Representative Name: Diann [id number] Information Interpreted: clinical only Accompanied by: Self / Same As Patient Allergies doxycycline Allergy (Severe, Verified 12/13/24 15:05) Fever morphine [MORPHINE] Allergy (Severe, Verified 12/13/24 15:05) HEART RATE ST WITH PALPATIONS AND RASH. alprazolam Allergy (Unknown, Verified 12/13/24 15:05) Cough, SOB aspirin [ASPIRIN] Allergy (Unknown, Verified 12/13/24 15:05) HOT IN BODY atenolol [ATENOLOL] Allergy (Unknown, Verified 12/13/24 15:05) Dizziness atropine [From Lomotil] Allergy (Unknown, Verified 12/13/24 15:05) Unknown azithromycin [AZITHROMYCIN] Allergy (Unknown, Verified 12/13/24 15:05) DIZZY ciprofloxacin Allergy (Unknown, Verified 12/13/24 15:05) Dizziness codeine [CODEINE] Allergy (Unknown, Verified 12/13/24 15:05) UNKNOWN diphenoxylate [From Lomotil] Allergy (Unknown, Verified 12/13/24 15:05) Unknown garlic Allergy (Unknown, Verified 12/13/24 15:05) Unknown hydrochlorothiazide Allergy (Unknown, Verified 12/13/24 15:05) hypertension lisinopril [LISINOPRIL] Allergy (Unknown, Verified 12/13/24 15:05) HEART POUNDING, palpitations Lonox Allergy (Unknown, Verified 12/13/24 15:05) hot flash metoprolol Allergy (Unknown, Verified 12/13/24 15:05) Dizziness onion Allergy (Unknown, Verified 12/13/24 15:05) Unknown oxycodone [OXYCODONE] Allergy (Unknown, Verified 12/13/24 15:05) HOT AND DIZZY Penicillins [PENICILLINS] Allergy (Unknown, Verified 12/13/24 15:05) ITCHING RASH pepper (genus Capsicum) Allergy (Unknown, Verified 12/13/24 15:05) Unknown prednisone Allergy (Unknown, Verified 12/13/24 15:05) Headache prochlorperazine [From Compazine] Allergy (Unknown, Verified 12/13/24 15:05) Unknown sumatriptan Allergy (Unknown, Verified 12/13/24 15:05) Dizziness tramadol [TRAMADOL] Allergy (Unknown, Verified 12/13/24 15:05) DIZZINESS cyclobenzaprine Allergy (Verified 12/13/24 15:05) increased BP barrett Allergy (Verified 12/13/24 15:05) Unknown orange Allergy (Verified 12/13/24 15:05) Unknown pantoprazole Allergy (Verified 12/13/24 15:05) Diarrhea albuterol [From Ventolin HFA] Adverse Reaction (Mild, Verified 12/13/24 15:05) Hot feeling ibuprofen [From Advil] Adverse Reaction (Unknown, Verified 12/13/24 15:05) Hot inside body naproxen [From Aleve] Adverse Reaction (Unknown, Verified 12/13/24 15:05) Hot inside body Diphenoxylate-Atropine Allergy (Unknown, Uncoded 12/13/24 15:05) Unknown Q-Tussin Allergy (Unknown, Uncoded 12/13/24 15:05) increased BP salt Allergy (Uncoded 12/13/24 15:05) Unknown HPI HPI f/u and discuss colo: Details: LAST VISIT: IBS (irritable colon syndrome) Plan Patient will continue dicyclomine. Continue famotidine on as needed basis. Avoid dietary triggers and late night snacking. Patient will return 6 months to discuss going for colonoscopy. She will call our office if she will have any GI concerning symptoms. Patient is agreeable to this plan and verbalizes understanding of instructions. She was given the opportunity to ask questions and all questions answered. ? Thank you for allowing me to participate in her care Medications Refilled dicyclomine Take one capsule by mouth three times a day 10 mg PO TID 90 caps 4RF 30 days sennosides (Natural Senna Laxative) 17.2 mg (2 x 8.6 mg) PO BEDTIME 60 tabs 1RF constipation K59.00 TODAY'S VISIT: Patient is here today for follow-up. Patient reports that she has been feeling well since last visit. Her symptoms of abdominal cramping repair and diarrhea are controlled with dicyclomine. Patient reports that it happens infrequently. Maybe once or twice a week, however when she uses dicyclomine it helps. Patient otherwise is moving her bowels without any issues. Denies any abdominal pain or discomfort. Patient denies dyspepsia, dysphagia or odynophagia if denies melena, hematochezia, unintentional weight loss or ribbon like stools. Patient reports that she had colonoscopy in 2020 or 2021 in [place]. Will look to see where patient had the procedure unable to find it at [facility] Medical History Asthma Kidney stones Low vitamin D level Abdominal pain Internal and external prolapsed hemorrhoids Speech and language development delay due to hearing loss Screening for colon cancer IBS (irritable colon syndrome) Surgical History Hx of gynecological procedure History of lithotripsy History of esophagogastroduodenoscopy (EGD) (~2017) Hx of colonoscopy (~2017) Family History Mother Breast cancer Maternal Aunt Breast cancer Social History Household Members: Friend(s) Housing: House Are you a primary manager intensive care unit to a significant other at home: No Alcohol intake: never Patient Tobacco Use Status: Never used Tobacco Current occupational status: retired Review of Systems Const Denies weight gain and Denies weight loss ENT Reports no additional complaints, Denies dysphagia and Denies odynophagia Card Reports no additional complaints Resp Reports no additional complaints GI Reports abdominal pain (Occasional cramping), Denies belching, Denies melena, Denies bloating, Denies change in bowel habits, Denies dysphagia, Denies excessive flatus, Denies dyspepsia, Denies heartburn, Denies diarrhea, Reports loose stools (Occasional), Denies nausea, Denies odynophagia and Denies vomiting Reports no additional complaints Musc Reports no additional complaints Neuro Reports no additional complaints Psych Reports no additional complaints Endo Reports no additional complaints Physical Exam Vital Signs: Last Vital Signs Pulse 72 12/13/24 15:06 BP 162/98 H 12/13/24 15:06 Pulse Ox 98 12/13/24 15:06 Oxygen Delivery Method Room Air 12/13/24 15:06 Const General: healthy appearing, no acute distress and well developed Nutritional Appearance: well nourished Orientation/consciousness: patient oriented x3 HEENT Head: Yes normal to inspection, Yes normocephalic and Yes atraumatic Face and sinus: Yes normal facial exam Mouth: Normal oral and palatal mucosa present Throat: Yes posterior oropharynx normal, Yes tonsils normal and Yes uvula midline Eyes General: appearance normal, both eyes and all related structures Neck Neck: Yes normal visual inspection, Yes full ROM and Yes trachea midline Thyroid: Thyroid normal Resp Effort & Inspection: normal respiratory effort, able to speak in complete sentences, no tracheal deviation and symmetric chest movement Auscultation: clear to auscultation bilaterally Cardio Rate: regular rate Heart sounds: S1 normal heart sound present and S2 normal heart sound present GI Inspection: Yes normal to inspection and No distended Palpation (GI): Soft to palpation, not firm, nontender and No hepatosplenomegaly present Auscultation: normal bowel sounds General: Yes no CVA tenderness Back/Spine/Pelvis Back: no CVA tenderness Skin General skin exam: elasticity normal, turgor normal and dry skin Neuro General: patient oriented x3 Psych Appearance: grossly normal Mental Status: mental status grossly normal Speech and movement: Normal speech and movement present Affect: normal affect Assessment & Plan Assessment & Plan (1) IBS (irritable colon syndrome): Code(s): K58.9 - Irritable bowel syndrome, unspecified Category: Medical Qualifiers: Irritable bowel syndrome type: with diarrhea Qualified Code(s): K58.0 - Irritable bowel syndrome with diarrhea (2) Abdominal pain: Code(s): R10.9 - Unspecified abdominal pain Category: Medical Qualifiers: Abdominal location: lower abdomen, unspecified Qualified Code(s): R10.30 - Lower abdominal pain, unspecified Plan Patient reports that she had colonoscopy in [place]. Will call and get the records. Patient will continue taking dicyclomine as needed. Continue famotidine as needed. Avoid dietary triggers and late night snacking. Staying upright for minimum 3 hours after meals discussed with patient. Patient reports that she has been doing fairly well and her symptoms of IBS have been well controlled with diet and dicyclomine only as needed. Patient will follow-up in the office 6 months. She will call us if she will have any GI concerning symptoms. Patient is agreeable to plan of care and verbalizes understanding of instructions. She was given the opportunity to ask questions and all questions answered. Thank you for allowing me to participate in her care Coding Level of Care Code Est Pt Level 3 (28042) Diagnoses Irritable bowel syndrome with diarrhea K58.0 Irritable bowel syndrome type: with diarrhea Lower abdominal pain R10.30 Abdominal location: lower abdomen, unspecified Time Spent (min) 30 Comment 20 minutes spent with patient and additional 10 minutes spent reviewing her records
[2024-12-13 15:06] VITALS: BP 162/98; PULSE 72; O2SAT 98
== END 2024-12-13 15:35 | disposition home or self-care (01) ==
LOC: HO.HGI 15:03
PROVIDERS: PCP Neurological Surgery; Visit Provider Nurse Practitioner Family
DX: K58.0 Irritable bowel syndrome with diarrhea (principal); R10.30 Lower abdominal pain, unspecified
CPT/HCPCS: 99213

== ENCOUNTER → 2024-12-13 15:03 | Outpatient (BNVA) | payer OTHER, SELFPAY | PROVIDERS: PCP Neurological Surgery; Visit Provider Nurse Practitioner Family | DX: K58.0 Irritable bowel syndrome with diarrhea (principal); R10.30 Lower abdominal pain, unspecified | CPT/HCPCS: 99212 ==

== ENCOUNTER 2025-01-10 19:32 | Emergency (ER) | payer OTHER, SELFPAY ==
--- NOTE | 2025-01-10 19:43 | ED.GENADULT ---
HPI - General Adult General Chief complaint: Urogenital-Female Stated complaint: urinary retention; pain urinating Time Seen by Provider: 01/10/25 22:07 Source: websphere commerce architect Limitations: language barrier (SL websphere commerce architect through tablet) History of Present Illness ED Provider: Ravi Patton MD HPI narrative: This is a 54-year-old female with deafness no other significant medical history is presenting mainly with subjective sensation of urinary frequency with minimal urine passage. Earlier in the week she had what she felt was blood in the urine but she was unsure because she also developed her menses. No abdominal cramping no flank pain no fever chills no other symptoms at all . A 1 similar episode years ago no urologic history History obtained with financial sales representative through tablets Related Data Home Medications ?Medication ?Instructions ?Recorded ?Confirmed eopschnqen-ajeiwjkkcyaas-vjmnlglg 1 tab PO Q6H PRN Pain (Scale Score 07/20/20 06/04/24 50 mg-325 mg-40 mg tablet 4-6) hydroxyzine HCl 10 mg tablet 10 mg PO Q8H PRN Itching 07/20/20 06/04/24 montelukast 10 mg tablet 10 mg PO DAILY 07/20/20 06/04/24 cholecalciferol (vitamin D3) 1,250 1,250 mcg PO QWEEK 11/05/21 06/04/24 mcg (50,000 unit) capsule famotidine 20 mg tablet 20 mg PO DAILY 04/10/24 06/04/24 hydrocortisone 2.5 % topical cream topical 04/10/24 06/04/24 with perineal applicator lorazepam 0.5 mg tablet mg PO DAILY 04/10/24 06/04/24 Previous Rx's ?Medication ?Instructions ?Recorded acetaminophen 500 mg tablet 500 mg PO Q4-6H PRN fever #30 tabs 01/31/23 (Tylenol Extra Strength) cholecalciferol (vitamin D3) 50 50 mcg PO DAILY #90 caps 04/12/23 mcg (2,000 unit) capsule (Vitamin D3) hydrocortisone acetate 25 mg 25 mg ID BID PRN hemorrhoids #24 ea 03/01/24 rectal suppository (Anusol-HC) dicyclomine 10 mg capsule 10 mg PO TID 30 days #90 caps 04/10/24 sennosides 8.6 mg tablet (Natural 17.2 mg (2 x 8.6 mg) PO BEDTIME 04/10/24 Senna Laxative) constipation #60 tabs pyridoxine (vitamin B6) 50 mg 50 mg PO DAILY 90 days #90 tabs 06/04/24 tablet Allergies Allergy/AdvReac Type Severity Reaction Status Date / Time doxycycline Allergy Severe Fever Verified 01/10/25 19:49 morphine [MORPHINE] Allergy Severe HEART RATE Verified 01/10/25 19:49 ST WITH PALPATIONS AND RASH. alprazolam Allergy Unknown Cough, SOB Verified 01/10/25 19:49 aspirin [ASPIRIN] Allergy Unknown HOT IN BODY Verified 01/10/25 19:49 atenolol [ATENOLOL] Allergy Unknown Dizziness Verified 01/10/25 19:49 atropine [From Lomotil] Allergy Unknown Unknown Verified 01/10/25 19:49 azithromycin [AZITHROMYCIN] Allergy Unknown DIZZY Verified 01/10/25 19:49 ciprofloxacin Allergy Unknown Dizziness Verified 01/10/25 19:49 codeine [CODEINE] Allergy Unknown UNKNOWN Verified 01/10/25 19:49 diphenoxylate [From Lomotil] Allergy Unknown Unknown Verified 01/10/25 19:49 garlic Allergy Unknown Unknown Verified 01/10/25 19:49 hydrochlorothiazide Allergy Unknown hypertensio Verified 01/10/25 19:49 n lisinopril [LISINOPRIL] Allergy Unknown HEART Verified 01/10/25 19:49 POUNDING, palpitations Lonox Allergy Unknown hot flash Verified 01/10/25 19:49 metoprolol Allergy Unknown Dizziness Verified 01/10/25 19:49 onion Allergy Unknown Unknown Verified 01/10/25 19:49 oxycodone [OXYCODONE] Allergy Unknown HOT AND Verified 01/10/25 19:49 DIZZY Penicillins [PENICILLINS] Allergy Unknown ITCHING Verified 01/10/25 19:49 RASH pepper (genus Capsicum) Allergy Unknown Unknown Verified 01/10/25 19:49 prednisone Allergy Unknown Headache Verified 01/10/25 19:49 prochlorperazine Allergy Unknown Unknown Verified 01/10/25 19:49 [From Compazine] sumatriptan Allergy Unknown Dizziness Verified 01/10/25 19:49 tramadol [TRAMADOL] Allergy Unknown DIZZINESS Verified 01/10/25 19:49 cyclobenzaprine Allergy increased Verified 01/10/25 19:49 BP barrett Allergy Unknown Verified 01/10/25 19:49 orange Allergy Unknown Verified 01/10/25 19:49 pantoprazole Allergy Diarrhea Verified 01/10/25 19:49 albuterol [From Ventolin HFA] AdvReac Mild Hot feeling Verified 01/10/25 19:49 ibuprofen [From Advil] AdvReac Unknown Hot inside Verified 01/10/25 19:49 body naproxen [From Aleve] AdvReac Unknown Hot inside Verified 01/10/25 19:49 body Diphenoxylate-Atropine Allergy Unknown Unknown Uncoded 01/10/25 19:49 Q-Tussin Allergy Unknown increased Uncoded 01/10/25 19:49 BP salt Allergy Unknown Uncoded 01/10/25 19:49 PMFSH Past Medical History Medical History Asthma Kidney stones Low vitamin D level Abdominal pain Internal and external prolapsed hemorrhoids Speech and language development delay due to hearing loss Screening for colon cancer IBS (irritable colon syndrome) Surgical History Hx of gynecological procedure History of lithotripsy History of esophagogastroduodenoscopy (EGD) (~2017) Hx of colonoscopy (~2018) Family History Family History Mother Breast cancer Maternal Aunt Breast cancer Social History Social History Household Members: Friend(s) Housing: House Are you a primary resident care manager to a significant other at home: No Alcohol intake: never Patient Tobacco Use Status: Never used Tobacco Smoked in Last 30 Days: No Use of substances other than those prescribed or required for medical reasons: No Advance Directives: No Advance Directives Information Provided: Yes Patient : No Current occupational status: retired Physical Exam ED Vital Signs: Vital Signs - 24 hr 01/10/25 19:46 01/10/25 23:42 01/11/25 01:24 Temperature 98.5 F 98.1 F 98.1 F Pulse Rate 79 74 74 Respiratory Rate 18 14 14 Blood Pressure 171/85 H 162/78 H 162/78 H Pulse Oximetry 98 96 96 Oxygen Delivery Method Room Air Room Air Room Air BMI result Body Mass Index 19.7 Const Other: EXAM: Gen: Alert, awake, well appearing, well hydrated. Head: Atraumatic Eyes: Anicteric, Normal conjunctiva. ENT: Moist mucosa, no pallor. ? Neck: Supple. Respiratory: Breathing comfortably, No distress.Clear to auscultation bilaterally, symmetric chest expansion, No wheeze, rales, ronchi. Cardiovascular: Regular rate and rhythm. No murmurs or rub. Well perfused periphery, warm extremities. No edema. ? Abdominal: Soft, no objective distension. No palpable masses or obvious organomegaly. No focal tenderness, no guarding, no rebound tenderness or other peritoneal findings. : No flank tenderness. Neuro: Alert. Gross movement of all extremities intact. ? Vital signs: See flowsheet Course Course Course Narrative: This is a Rapid Medical Examination (RME) performed by Sia Garrison PA-C in triage. Full HPI, ROS, assessment and treatment plan per primary provider in the Main ED. 01/10/251942 VICKIE Wesley Hx: 54 yo female hx of asthma, IBS, nephrolithiasis presents to the ED today for evaluation of urinary urgency, urinating in small amounts since this morning. last voided this morning. Has been hydrating all day without further urination. had UA done at PCP - was told her results were abnormal however was not started on antibiotics. admits to vaginal bleeding 5 days ago. Believes she started her period at the time but is unsure if this came from the urine. Denies abdominal or back pain. PE/vitals: well-appearing Plan: labs, UA, bladder scan Procedures Procedure Narrative Procedure Narrative: EMERGENCY ULTRASOUND INTERPRETATION-Limited Retroperitoneal (Renal) [This study was ordered, performed, and interpreted by myself. The study reveals: Impression: NO EVIDENCE OF UROLOGIC OBSTRUCTION] [Indication: FLANK PAIN Bladder: ANECHOIC URINE Right Kidney: NO HYDRONEPHROSIS Left Kidney: NO HYDRONEPHROSIS Performed by: Ravi Patton MD CPT: 77647] Medical Decision Making Lab Data 01/10/25 20:11 01/10/25 20:11 Labs: Lab Results 01/10/25 01/10/25 Range/Units 20:11 23:45 WBC 9.1 (4.8-10.8) X10*3/uL RBC 4.46 (4.20-5.50) X10*6/uL Hgb 12.1 (12.0-16.0) g/dl Hct 37.8 (37.0-47.0) % MCV 84.8 (80.0-98.0) fL MCH 27.1 (27.0-33.0) pg MCHC 32.0 (31.0-35.0) g/dl RDW 14.0 (11.0-16.0) % Plt Count 241 D (160-400) X10*3/uL MPV 10.4 (9.4-12.3) fL Immature Gran % (Auto) 0.2 (0.0-0.4) % Neut % (Auto) 65.5 (45-73) % Lymph % (Auto) 22.9 (20-40) % [place] % (Auto) 6.2 (2-11) % Eos % (Auto) 4.2 H (0-4) % Baso % (Auto) 1.0 (0-2) % Lymph # (Auto) 2.1 (1.2-4.9) X10*3/uL [place] # (Auto) 0.6 (0.1-1.2) X10*3/uL Eos # (Auto) 0.4 (0.0-0.4) X10*3/uL Baso # (Auto) 0.1 (0.0-0.2) X10*3/uL Abs Immat Gran (auto) 0.02 (0.00-0.03) X10*3/uL Absolute Neuts (auto) 6.0 (2.0-8.3) x10*3/uL Absolute Nucleated RBC 0.000 (0.0-0.012) X10*3/uL Nucleated RBC % (auto) 0.0 (0.0-0.2) /100WBC Sodium 139 (135-145) mmol/L Potassium 4.1 (3.3-5.1) mmol/L Chloride 104 (96-108) mmol/L Carbon Dioxide 28 (22-29) mmol/L Anion Gap 11 L (12-20) BUN 12 (9-16) mg/dL Creatinine 0.99 (0.5-1.4) mg/dL Estim Creat Clear Calc 53.7 Estimated GFR 58 Random Glucose 107 (60-115) mg/dL Calcium 9.2 D (8.4-10.2) mg/dL Total Bilirubin 0.2 (0.0-1.0) mg/dL AST 26 (5-31) U/L ALT 16 (0-31) U/L Alkaline Phosphatase 40 (39-117) U/L Total Protein 7.4 (6.5-8.0) g/dL Albumin 3.9 (3.5-5.0) g/dL Urine Color Yellow Urine Appearance Clear Urine pH 7.0 (5.0-9.0) Ur Specific [place] 1.010 (1.005-1.025) Urine Protein Negative (Neg-Trace) mg/dL Urine Glucose (UA) Negative (Negative) mg/dL Urine Ketones Trace (Negative) mg/dL Urine Blood Trace H (Negative) Urine Nitrite Negative (Negative) Ur Leukocyte Esterase Negative (Negative) Urine RBC 11-20 H (0-2) /HPF Urine WBC 0-5 (0-5) /HPF Ur Squamous Epith Cells 0-2 (0-2) /HPF Urine Bacteria None Seen (None Seen) Hyaline Casts 0-2 (0-2) /LPF Discharge Plan Discharge Clinical Impression: Hematuria Patient Disposition: Home, Self-Care Instructions: Hematuria (ED) Additional Instructions: DISCHARGE DIAGNOSES: Blood in your urine of unclear significance HISTORY OF PRESENTATION: ?Intermittent sensation to urinate, blood in the urine EMERGENCY DEPARTMENT COURSE,TESTS, TREATMENTS: While in the ED today you had an ultrasound of your kidneys and bladder that was unremarkable and reassuring. You had lab work including kidney function electrolytes blood counts all normal. You had a urinalysis that showed a little bit of blood cells no sign of infection or other significant abnormalities DISCHARGE MEDICATIONS: ?[We have made no changes to your regular medication regimen] FOLLOW-UP: ?Call your primary or general physician soon as possible to discuss your symptoms, your ED visit and to discuss follow up plans Call your primary doctor for follow up to discuss further management or possible referral to Urology or additional outpatient advanced imaging INSTRUCTIONS ?& RETURN PRECAUTIONS: If any symptoms change first call your primary physician, if it is after-hours your primary doctors office should have a provider production lapping machine operator you can speak with. If the symptoms are severe or very concerning to you then call 911 or return to the ED. Return for severe pain with urination, high fevers pain in your back or lower abdomen Ravi Patton MD Emergency Physician [facility] Prescriptions: No Action hydrocortisone acetate [Anusol-HC] 25 mg suppository 25 mg ID BID PRN (Reason: hemorrhoids) Qty: 24 3RF acetaminophen [Tylenol Extra Strength] 500 mg tablet 500 mg PO Q4-6H PRN (Reason: fever) Qty: 30 0RF hydroxyzine HCl 10 mg tablet 10 mg PO Q8H PRN (Reason: Itching) montelukast 10 mg tablet 10 mg PO DAILY agssudqeai-ifioesnuixecu-ivdi 50-325-40 mg tablet 1 tab PO Q6H PRN (Reason: Pain (Scale Score 4-6)) cholecalciferol (vitamin D3) 1,250 mcg (50,000 unit) capsule 1,250 mcg PO QWEEK pyridoxine (vitamin B6) 50 mg tablet 50 mg PO DAILY 90 Days Qty: 90 3RF hydrocortisone 2.5 % cream with perineal applicator topical famotidine 20 mg tablet 20 mg PO DAILY lorazepam 0.5 mg tablet PO DAILY dicyclomine 10 mg capsule 10 mg PO TID 30 Days Qty: 90 4RF Rx Instructions: Take one capsule by mouth three times a day sennosides [Natural Senna Laxative] 8.6 mg tablet 17.2 mg PO BEDTIME Qty: 60 1RF cholecalciferol (vitamin D3) [Vitamin D3] 50 mcg (2,000 unit) capsule 50 mcg PO DAILY Qty: 90 5RF Interventions: ED Discharge Assessment Last Done: 01/11/25 01:24 Discharge Date/Time: 01/11/25 01:15 Print Language: Lao
[2025-01-10 19:46] VITALS: BP 171/85; PULSE 79; RESP 18; TEMP 36.9; O2SAT 98; BMI 19.7
[2025-01-10 20:15] LABS: MANUAL DIFF FLAG NO
[2025-01-10 20:19] LABS: Basophils Absolute Auto 0.1 X10*3/uL (0.0-0.2); Eosinophils Absolute Auto 0.4 X10*3/uL (0.0-0.4); Eosinophils Percent Auto 4.2 % (0-4); Hematocrit 37.8 % (37.0-47.0); Hemoglobin 12.1 g/dl (12.0-16.0); Imm Gran Abs Auto 0.02 X10*3/uL (0.00-0.03); Imm Gran Pct Auto 0.2 % (0.0-0.4); Lymphocytes Absolute Auto 2.1 X10*3/uL (1.2-4.9); Lymphocytes Percent Auto 22.9 % (20-40); Mean Corpuscular Hemoglobin 27.1 pg (27.0-33.0); Mean Corpuscular Volume 84.8 fL (80.0-98.0); Mean Platelet Volume 10.4 fL (9.4-12.3); Monocytes Absolute Auto 0.6 X10*3/uL (0.1-1.2); Monocytes Percent Auto 6.2 % (2-11); Neutrophils Percent Auto 65.5 % (45-73); Platelet Count 241 X10*3/uL (160-400); Red Blood Count 4.46 X10*6/uL (4.20-5.50); White Blood Count 9.1 X10*3/uL (4.8-10.8)
[2025-01-10 20:37] LABS: Alanine Aminotransferase 16 U/L (0-31); Albumin Level 3.9 g/dL (3.5-5.0); Alkaline Phosphatase 40 U/L (39-117); Anion Gap 11 (12-20); Aspartate Amino Transferase 26 U/L (5-31); Bilirubin Total 0.2 mg/dL (0.0-1.0); Blood Urea Nitrogen 12 mg/dL (9-16); Calcium 9.2 mg/dL (8.4-10.2); Carbon Dioxide 28 mmol/L (22-29); Chloride 104 mmol/L (96-108); Creatinine Clr Calc Pharmacy 53.7; Estimated Glomerular Filt Rate 58; Glucose Random 107 mg/dL (60-115); Potassium 4.1 mmol/L (3.3-5.1); Sodium 139 mmol/L (135-145); Total Protein 7.4 g/dL (6.5-8.0)
[2025-01-10 23:42] VITALS: BP 162/78; PULSE 74; RESP 14; TEMP 36.7; O2SAT 96
[2025-01-10 23:52] LABS: Appearance Urine Clear; Color Urine Yellow; Glucose Urine UA Negative (Negative); Leukocyte Esterase Urine Negative (Negative); Nitrite Urine Negative (Negative); UMIC TRIGGER UACC YES; Urine Blood Trace (Negative); Urine Ketones Trace mg/dL (Negative); Urine Protein Negative (Neg-Trace)
[2025-01-10 23:55] LABS: Bacteria Urine None Seen (None Seen); Hyaline Casts Urine 0-2 /LPF (0-2); Squamous Epithelial Cell Urine 0-2 /HPF (0-2); WBC Urine 0-5 /HPF (0-5)
[2025-01-11 01:24] VITALS: BP 162/78; PULSE 74; RESP 14; TEMP 36.7; O2SAT 96
== END 2025-01-11 01:15 | disposition home or self-care (01) ==
PROVIDERS: Physician Assistant Medical; Emergency Provider Emergency Medicine; PCP Internal Medicine
DX: R33.9 Retention of urine, unspecified (principal); R30.0 Dysuria; Z79.899 Other long term (current) drug therapy
CPT/HCPCS: 36415; 51798; 80053; 81001; 85025; 99283; 99284

== ENCOUNTER 2025-01-14 11:55 | Emergency (ER) | payer OTHER, SELFPAY ==
--- NOTE | ~2025-01-14 | CT_ITS ---
EXAMINATION: CT ABDOMEN AND PELVIS WITHOUT CONTRAST CLINICAL INFORMATION: Dysuria with blood in urine. COMPARISON: None available. TECHNIQUE: Multidetector volumetric imaging was performed from the superior aspect of the liver through the pubic symphysis. Sagittal and coronal reformatted images were obtained on the technologist's workstation. This CT examination was performed using dose optimization techniques as appropriate, variously including the following: *Automated exposure control *Adjustment of mA and/or kV according to patient size (this includes techniques or standardized protocols for targeted exams where dose is matched to indication/reason for exam; i.e. extremities or head) *Use of iterative reconstruction technique DLP: 334 mGy/cm. FINDINGS: LUNG BASES: The visualized lung bases are unremarkable. LIVER, GALLBLADDER, AND BILIARY TREE: The liver is normal in size, shape, and attenuation. There is a 2 cm cyst lateral segment left hepatic lobe. No additional lesions seen in the liver. No intrahepatic ductal dilatation.. The gallbladder is unremarkable with no evidence of radiopaque gallstones, gallbladder wall thickening, or obvious pericholecystic inflammatory changes. PANCREAS: Unremarkable. SPLEEN: Unremarkable. ADRENAL GLANDS: Unremarkable. KIDNEYS AND URETERS: Both kidneys are normal size, shape and position. There are punctate calcifications or small stones in mid and lower pole left kidney. No hydronephrosis seen. No perinephric stranding. BLADDER: Bladder is underdistended with questionable small stone in the dependent left posterior bladder. GASTROINTESTINAL TRACT: There is scattered stool and gas seen in colon without distention. There are scattered diverticuli in colon without diverticulitis. The small bowel loops are normal caliber. Stomach is nondistended. Appendix is not visualized. The ileocecal junction cecum lies in the mid to lower pelvis. ABDOMINAL WALL: There are small umbilical hernia containing fat is noted LYMPH NODES: Normal. VASCULAR: Unremarkable. PELVIC VISCERA: The uterus is anteverted and appears unremarkable. Few scattered punctate calcifications in the uterus and cervix. No adnexal mass or free fluid. No abnormal pelvic or inguinal lymph nodes seen. OSSEOUS STRUCTURES: Unremarkable. CT/CT abdomen pelvis wo IV con IMPRESSION: Punctate calcifications or calculi in the mid and lower pole left kidney with no hydroureteronephrosis. Question punctate dependent stone in the left posterior nondistended bladder. Scattered colonic diverticulosis without diverticulitis. Mild constipation. Fleischner guidelines were followed. Electronically signed by: Eric Weathers MD 01/14/2025 01:22 PM EDT RP
[2025-01-14 12:16] VITALS: BP 166/77; PULSE 85; RESP 16; TEMP 36.8; O2SAT 98; BMI 19.3
--- NOTE | 2025-01-14 12:22 | ED_ITS ---
HPI - General Adult General Chief complaint: Urogenital-Female Stated complaint: Abd pain. pain upon urination Time Seen by Provider: 01/14/25 18:14 Source: patient, RN notes reviewed and old records reviewed Mode of arrival: ambulatory Limitations: no limitations History of Present Illness ED Provider: David HPI narrative: 54-year-old female past medical history significant for IBS, asthma, history of UTI presents for evaluation of blood in her urine and left flank pain. Patient reports her symptoms started 3 days ago. She had intermittent left flank pain and blood in her urine. Her symptoms have improved but she still has mild pain that has radiated to her lower abdomen now. Denies any pelvic discharge or vaginal bleeding. She has some pain with urination She reports she had kidney stones about 3 years ago and follows with Dr. Rinaldi Denies any fevers, chills pain Denies any nausea vomiting, diarrhea or constipation Related Data Home Medications ?Medication ?Instructions ?Recorded ?Confirmed magrbtztbq-hchgufffxlmmu-rrlnjjwa 1 tab PO Q6H PRN Pain (Scale Score 07/20/20 06/04/24 50 mg-325 mg-40 mg tablet 4-6) hydroxyzine HCl 10 mg tablet 10 mg PO Q8H PRN Itching 07/20/20 06/04/24 montelukast 10 mg tablet 10 mg PO DAILY 07/20/20 06/04/24 cholecalciferol (vitamin D3) 1,250 1,250 mcg PO QWEEK 11/05/21 06/04/24 mcg (50,000 unit) capsule famotidine 20 mg tablet 20 mg PO DAILY 04/10/24 06/04/24 hydrocortisone 2.5 % topical cream topical 04/10/24 06/04/24 with perineal applicator lorazepam 0.5 mg tablet mg PO DAILY 04/10/24 06/04/24 Previous Rx's ?Medication ?Instructions ?Recorded acetaminophen 500 mg tablet 500 mg PO Q4-6H PRN fever #30 tabs 01/31/23 (Tylenol Extra Strength) cholecalciferol (vitamin D3) 50 50 mcg PO DAILY #90 caps 04/12/23 mcg (2,000 unit) capsule (Vitamin D3) hydrocortisone acetate 25 mg 25 mg WA BID PRN hemorrhoids #24 ea 03/01/24 rectal suppository (Anusol-HC) dicyclomine 10 mg capsule 10 mg PO TID 30 days #90 caps 04/10/24 sennosides 8.6 mg tablet (Natural 17.2 mg (2 x 8.6 mg) PO BEDTIME 04/10/24 Senna Laxative) constipation #60 tabs pyridoxine (vitamin B6) 50 mg 50 mg PO DAILY 90 days #90 tabs 06/04/24 tablet phenazopyridine 200 mg tablet 200 mg PO TID PRN pain 6 doses #6 01/14/25 (Pyridium) tabs tamsulosin 0.4 mg capsule 0.4 mg PO BEDTIME 14 days #14 caps 01/15/25 Allergies Allergy/AdvReac Type Severity Reaction Status Date / Time doxycycline Allergy Severe Fever Verified 01/14/25 12:20 morphine [MORPHINE] Allergy Severe HEART RATE Verified 01/14/25 12:20 ST WITH PALPATIONS AND RASH. alprazolam Allergy Unknown Cough, SOB Verified 01/14/25 12:20 aspirin [ASPIRIN] Allergy Unknown HOT IN BODY Verified 01/14/25 12:20 atenolol [ATENOLOL] Allergy Unknown Dizziness Verified 01/14/25 12:20 atropine [From Lomotil] Allergy Unknown Unknown Verified 01/14/25 12:20 azithromycin [AZITHROMYCIN] Allergy Unknown DIZZY Verified 01/14/25 12:20 ciprofloxacin Allergy Unknown Dizziness Verified 01/14/25 12:20 codeine [CODEINE] Allergy Unknown UNKNOWN Verified 01/14/25 12:20 diphenoxylate [From Lomotil] Allergy Unknown Unknown Verified 01/14/25 12:20 garlic Allergy Unknown Unknown Verified 01/14/25 12:20 hydrochlorothiazide Allergy Unknown hypertensio Verified 01/14/25 12:20 n lisinopril [LISINOPRIL] Allergy Unknown HEART Verified 01/14/25 12:20 POUNDING, palpitations Lonox Allergy Unknown hot flash Verified 01/14/25 12:20 metoprolol Allergy Unknown Dizziness Verified 01/14/25 12:20 onion Allergy Unknown Unknown Verified 01/14/25 12:20 oxycodone [OXYCODONE] Allergy Unknown HOT AND Verified 01/14/25 12:20 DIZZY Penicillins [PENICILLINS] Allergy Unknown ITCHING Verified 01/14/25 12:20 RASH pepper (genus Capsicum) Allergy Unknown Unknown Verified 01/14/25 12:20 prednisone Allergy Unknown Headache Verified 01/14/25 12:20 prochlorperazine Allergy Unknown Unknown Verified 01/14/25 12:20 [From Compazine] sumatriptan Allergy Unknown Dizziness Verified 01/14/25 12:20 tramadol [TRAMADOL] Allergy Unknown DIZZINESS Verified 01/14/25 12:20 cyclobenzaprine Allergy increased Verified 01/14/25 12:20 BP barrett Allergy Unknown Verified 01/14/25 12:20 orange Allergy Unknown Verified 01/14/25 12:20 pantoprazole Allergy Diarrhea Verified 01/14/25 12:20 albuterol [From Ventolin HFA] AdvReac Mild Hot feeling Verified 01/14/25 12:20 ibuprofen [From Advil] AdvReac Unknown Hot inside Verified 01/14/25 12:20 body naproxen [From Aleve] AdvReac Unknown Hot inside Verified 01/14/25 12:20 body Diphenoxylate-Atropine Allergy Unknown Unknown Uncoded 01/10/25 19:49 Q-Tussin Allergy Unknown increased Uncoded 01/10/25 19:49 BP salt Allergy Unknown Uncoded 01/10/25 19:49 Review of Systems 2 Constitutional: Constitutional: Denies body ache(s), Denies chills, Denies fever(s) and Denies headache(s) Eyes: Eyes: Denies blurry vision ENT: Denies vertigo, Denies dizziness and Denies headache(s) Cardiovascular: Cardiovascular: Denies chest pain and Denies dyspnea Respiratory: Respiratory: Denies cough and Denies dyspnea Gastrointestinal: Gastrointestinal: Reports abdominal pain, Denies nausea and Denies vomiting Genitourinary: Genitourinary: Reports hematuria, Reports dysuria, Reports flank pain and Denies vaginal discharge Integumentary/Breasts: Skin/Breast: Denies rash Neurologic: Denies vertigo, Denies dizziness and Denies headache(s) FORMERLY [facility], 1928–1983 Past Medical History Medical History Asthma Kidney stones Low vitamin D level Abdominal pain Internal and external prolapsed hemorrhoids Speech and language development delay due to hearing loss Screening for colon cancer IBS (irritable colon syndrome) Surgical History Hx of gynecological procedure History of lithotripsy History of esophagogastroduodenoscopy (EGD) (~2018) Hx of colonoscopy (~2018) Family History Family History Mother Breast cancer Maternal Aunt Breast cancer Social History Social History Household Members: Friend(s) Housing: House Are you a primary skin care technician to a significant other at home: No Alcohol intake: never Patient Tobacco Use Status: Never used Tobacco Advance Directives: No Advance Directives Information Provided: Yes Current occupational status: retired Physical Exam ED Vital Signs: Vital Signs - 24 hr 01/14/25 18:58 Temperature 98.1 F Pulse Rate 85 Respiratory Rate 14 Blood Pressure 183/84 H Pulse Oximetry 97 Oxygen Delivery Method Room Air BMI result Body Mass Index 19.3 Const General: healthy appearing, comfortable, no acute distress, alert and awake Nutritional Appearance: well nourished Orientation/consciousness: patient oriented x3 HENMT Head: Yes normocephalic and Yes atraumatic Eyes Eyelids: Yes eyelids normal Conjunctivae: conjunctivae normal Sclerae: sclerae normal Corneas: corneas normal Pupils: Equal, round and reactive pupils present EOM: EOMs intact bilaterally Neck Neck: Yes full ROM Resp Effort & Inspection: normal respiratory effort, able to speak in complete sentences and not labored Cardio Rate: regular rate Rhythm: regular rhythm GI Inspection: No distended Palpation (GI): Soft to palpation, not firm, nontender, no guarding and not rigid General: No CVA tenderness Back/Spine/Pelvis Back: No CVA tenderness Skin General skin exam: elasticity normal Neuro General: patient oriented x3 Cranial nerves: Yes Equal, round and reactive pupils present and Yes Bilaterally intact EOM present Cognition (Neuro): normal cognition Extrem Other: Moving all extremities well without any obvious deformities Course Course Course Narrative: [place]; 54-year-old female who is deaf presents to ED for pain urination with blood in urine. Patient was recently seen here on the at bedside ultrasound. Patient presents to ED for returning symptoms. Labs ordered Medications Administered Discontinued Medications Generic Name Dose Route Start Last Admin Trade Name Freq PRN Reason Stop Dose Admin Phenazopyridine HCl 200 mg 01/14/25 18:36 01/14/25 18:55 Phenazopyridine Hcl 200 Mg Tablet PO 01/14/25 18:37 200 mg ONCE ONE Administration Medical Decision Making Medical Decision Making [facility] Narrative: 54-year-old female presents for evaluation of left flank pain and hematuria. Has a history of kidney stones. She describes a sharp pain after urinating but denies burning pain. No vaginal bleeding or discharge. Denies any nausea vomiting, diarrhea or other GI symptoms. Her physical exam is reassuring, she has no CVA tenderness, no abdominal tenderness. She had labs that show no leukocytosis or anemia. Normal platelet count. No left shift. Chemistries are within normal limits. Renal function included. No evidence of TIMOTHY. Urinalysis is positive for calcium oxalate, hematuria but no evidence of UTI. No white blood cells, no bacteria, no esterase or nitrites. A CT scan was ordered in triage which shows a questionable punctate stone in the left posterior bladder. Clinically, this may have been causing her discomfort until it passed into the bladder. We will discharge the patient with Pyridium for dysuria and she will follow up with her urologist, Dr. Rinaldi. Differential Diagnosis Differential Diagnoses: The differential diagnosis associated with the presentation includes Diverticulitis UTI Cystitis Obstructive uropathy Flank pain Muscle strain Constipation Lab Data [facility] Lab Attestation statement: I reviewed the patient's lab results. As above 01/14/25 12:46 01/14/25 12:46 Labs: Lab Results 01/14/25 01/14/25 Range/Units 12:46 16:16 WBC 5.5 (4.8-10.8) X10*3/uL RBC 4.55 (4.20-5.50) X10*6/uL Hgb 12.3 (12.0-16.0) g/dl Hct 38.2 (37.0-47.0) % MCV 84.0 (80.0-98.0) fL MCH 27.0 (27.0-33.0) pg MCHC 32.2 (31.0-35.0) g/dl RDW 13.8 (11.0-16.0) % Plt Count 235 (160-400) X10*3/uL MPV 10.1 (9.4-12.3) fL Immature Gran % (Auto) 0.0 (0.0-0.4) % Neut % (Auto) 54.1 (45-73) % Lymph % (Auto) 32.1 (20-40) % Converse % (Auto) 8.1 (2-11) % Eos % (Auto) 4.2 H (0-4) % Baso % (Auto) 1.5 (0-2) % Lymph # (Auto) 1.8 (1.2-4.9) X10*3/uL [place] # (Auto) 0.4 (0.1-1.2) X10*3/uL Eos # (Auto) 0.2 (0.0-0.4) X10*3/uL Baso # (Auto) 0.1 (0.0-0.2) X10*3/uL Abs Immat Gran (auto) 0.00 (0.00-0.03) X10*3/uL Absolute Neuts (auto) 3.0 (2.0-8.3) x10*3/uL Absolute Nucleated RBC 0.000 (0.0-0.012) X10*3/uL Nucleated RBC % (auto) 0.0 (0.0-0.2) /100WBC Sodium 139 (135-145) mmol/L Potassium 4.3 (3.3-5.1) mmol/L Chloride 105 (96-108) mmol/L Carbon Dioxide 26 (22-29) mmol/L Anion Gap 12 (12-20) BUN 11 (9-16) mg/dL Creatinine 0.93 (0.5-1.4) mg/dL Estim Creat Clear Calc 56.2 Estimated GFR > 60 Random Glucose 97 (60-115) mg/dL Calcium 9.3 (8.4-10.2) mg/dL Total Bilirubin 0.4 (0.0-1.0) mg/dL AST 28 (5-31) U/L ALT 20 (0-31) U/L Alkaline Phosphatase 40 (39-117) U/L Total Protein 7.8 (6.5-8.0) g/dL Albumin 4.1 (3.5-5.0) g/dL Beta HCG, Quant < 2 mIU/mL Urine Color Yellow Urine Appearance Clear Urine pH 6.0 (5.0-9.0) Ur Specific [place] 1.020 (1.005-1.025) Urine Protein Trace (Neg-Trace) mg/dL Urine Glucose (UA) Negative (Negative) mg/dL Urine Ketones Trace (Negative) mg/dL Urine Blood Trace H (Negative) Urine Nitrite Negative (Negative) Ur Leukocyte Esterase Negative (Negative) Urine RBC 3-5 H (0-2) /HPF Urine WBC 0-5 (0-5) /HPF Ur Squamous Epith Cells 0-2 (0-2) /HPF Calcium Oxalate Crystal Present Urine Bacteria None Seen (None Seen) Hyaline Casts 0-2 (0-2) /LPF Urine Test NEGATIVE (NEGATIVE) Radiology Impression Discussion of test interpretation with radiology: I have reviewed the radiologist's reading. Radiologist Impression: CLINICAL INFORMATION: Dysuria with blood in urine. COMPARISON: None available. TECHNIQUE: Multidetector volumetric imaging was performed from the superior aspect of the liver through the pubic symphysis. Sagittal and coronal reformatted images were obtained on the technologist's workstation. This CT examination was performed using dose optimization techniques as appropriate, variously including the following: *Automated exposure control *Adjustment of mA and/or kV according to patient size (this includes techniques or standardized protocols for targeted exams where dose is matched to indication/reason for exam; i.e. extremities or head) *Use of iterative reconstruction technique DLP: 334 mGy/cm. FINDINGS: LUNG BASES: The visualized lung bases are unremarkable. LIVER, GALLBLADDER, AND BILIARY TREE: The liver is normal in size, shape, and attenuation. There is a 2 cm cyst lateral segment left hepatic lobe. No additional lesions seen in the liver. No intrahepatic ductal dilatation.. The gallbladder is unremarkable with no evidence of radiopaque gallstones, gallbladder wall thickening, or obvious pericholecystic inflammatory changes. PANCREAS: Unremarkable. SPLEEN: Unremarkable. ADRENAL GLANDS: Unremarkable. KIDNEYS AND URETERS: Both kidneys are normal size, shape and position. There are punctate calcifications or small stones in mid and lower pole left kidney. No hydronephrosis seen. No perinephric stranding. BLADDER: Bladder is underdistended with questionable small stone in the dependent left posterior bladder. GASTROINTESTINAL TRACT: There is scattered stool and gas seen in colon without distention. There are scattered diverticuli in colon without diverticulitis. The small bowel loops are normal caliber. Stomach is nondistended. Appendix is not visualized. The ileocecal junction cecum lies in the mid to lower pelvis. ABDOMINAL WALL: There are small umbilical hernia containing fat is noted LYMPH NODES: Normal. VASCULAR: Unremarkable. PELVIC VISCERA: The uterus is anteverted and appears unremarkable. Few scattered punctate calcifications in the uterus and cervix. No adnexal mass or free fluid. No abnormal pelvic or inguinal lymph nodes seen. OSSEOUS STRUCTURES: Unremarkable. CT/CT abdomen pelvis wo IV con IMPRESSION: Punctate calcifications or calculi in the mid and lower pole left kidney with no hydroureteronephrosis. Question punctate dependent stone in the left posterior nondistended bladder. Scattered colonic diverticulosis without diverticulitis. Mild constipation. Fleischner guidelines were followed. Electronically signed by: Eric Weathers MD 01/14/2025 01:22 PM EDT RP Discharge Plan Discharge Clinical Impression: Hematuria, Acute left flank pain Patient Disposition: Home, Self-Care Instructions: Flank Pain (ED) Additional Instructions: Your blood work today was reassuring including your kidney function tests. Your urinalysis showed a small amount of blood and calcium oxalate which is consistent with kidney stones Your CT scan did not show any blocked urine or obstructing kidney stones but did show a small stone that is in your bladder. Once the stone has passed into your bladder it rarely causes discomfort. It is likely that this recently passed in this was causing pain over the last few days You may use Pyridium for urinary discomfort Take the medication twice daily for 3 days This will turn your urine orange and will resolve once he stopped taking it You may continue to use ibuprofen or Tylenol You should follow up with Dr. Rinaldi and have somebody call to make an appointment for you Return for new or worsening symptoms Prescriptions: New phenazopyridine [Pyridium] 200 mg tablet 200 mg PO TID PRN (Reason: pain) Qty: 6 0RF No Action hydrocortisone acetate [Anusol-HC] 25 mg suppository 25 mg WA BID PRN (Reason: hemorrhoids) Qty: 24 3RF tamsulosin 0.4 mg capsule 0.4 mg PO BEDTIME 14 Days Qty: 14 0RF acetaminophen [Tylenol Extra Strength] 500 mg tablet 500 mg PO Q4-6H PRN (Reason: fever) Qty: 30 0RF hydroxyzine HCl 10 mg tablet 10 mg PO Q8H PRN (Reason: Itching) montelukast 10 mg tablet 10 mg PO DAILY [id number]-axirypcrvilyo-bfwx 50-325-40 mg tablet 1 tab PO Q6H PRN (Reason: Pain (Scale Score 4-6)) cholecalciferol (vitamin D3) 1,250 mcg (50,000 unit) capsule 1,250 mcg PO QWEEK pyridoxine (vitamin B6) 50 mg tablet 50 mg PO DAILY 90 Days Qty: 90 3RF hydrocortisone 2.5 % cream with perineal applicator topical famotidine 20 mg tablet 20 mg PO DAILY lorazepam 0.5 mg tablet PO DAILY dicyclomine 10 mg capsule 10 mg PO TID 30 Days Qty: 90 4RF Rx Instructions: Take one capsule by mouth three times a day sennosides [Natural Senna Laxative] 8.6 mg tablet 17.2 mg PO BEDTIME Qty: 60 1RF cholecalciferol (vitamin D3) [Vitamin D3] 50 mcg (2,000 unit) capsule 50 mcg PO DAILY Qty: 90 5RF Interventions: ED Discharge Assessment Last Done: 01/14/25 18:58 Discharge Date/Time: 01/14/25 19:00 Print Language: Georgian
[2025-01-14 12:50] LABS: MANUAL DIFF FLAG NO
[2025-01-14 12:52] LABS: Basophils Absolute Auto 0.1 X10*3/uL (0.0-0.2); Basophils Percent Auto 1.5 % (0-2); Eosinophils Absolute Auto 0.2 X10*3/uL (0.0-0.4); Eosinophils Percent Auto 4.2 % (0-4); Hematocrit 38.2 % (37.0-47.0); Hemoglobin 12.3 g/dl (12.0-16.0); Lymphocytes Absolute Auto 1.8 X10*3/uL (1.2-4.9); Lymphocytes Percent Auto 32.1 % (20-40); Mean Corpuscular HGB Conc 32.2 g/dl (31.0-35.0); Mean Platelet Volume 10.1 fL (9.4-12.3); Monocytes Absolute Auto 0.4 X10*3/uL (0.1-1.2); Monocytes Percent Auto 8.1 % (2-11); Neutrophils Percent Auto 54.1 % (45-73); Platelet Count 235 X10*3/uL (160-400); Red Blood Count 4.55 X10*6/uL (4.20-5.50); Red Cell Distribution Width 13.8 % (11.0-16.0); White Blood Count 5.5 X10*3/uL (4.8-10.8)
[2025-01-14 13:10] LABS: Alanine Aminotransferase 20 U/L (0-31); Albumin Level 4.1 g/dL (3.5-5.0); Anion Gap 12 (12-20); Aspartate Amino Transferase 28 U/L (5-31); Bilirubin Total 0.4 mg/dL (0.0-1.0); Blood Urea Nitrogen 11 mg/dL (9-16); Calcium 9.3 mg/dL (8.4-10.2); Carbon Dioxide 26 mmol/L (22-29); Chloride 105 mmol/L (96-108); Creatinine Clr Calc Pharmacy 56.2; Estimated Glomerular Filt Rate > 60; Glucose Random 97 mg/dL (60-115); Potassium 4.3 mmol/L (3.3-5.1); Sodium 139 mmol/L (135-145); Total Protein 7.8 g/dL (6.5-8.0)
[2025-01-14 13:18] LABS: Alkaline Phosphatase 40 U/L (39-117); HCG Quantitative < 2 mIU/mL
[2025-01-14 16:28] LABS: Appearance Urine Clear; Color Urine Yellow; Glucose Urine UA Negative (Negative); Leukocyte Esterase Urine Negative (Negative); Nitrite Urine Negative (Negative); UMIC TRIGGER UACC YES; Urine Blood Trace (Negative); Urine Ketones Trace mg/dL (Negative); Urine Protein Trace mg/dL (Neg-Trace)
[2025-01-14 16:29] LABS: UPreg QC Valid YES; Urine Pregnancy NEGATIVE (NEGATIVE)
[2025-01-14 16:35] LABS: Bacteria Urine None Seen (None Seen); Calcium Oxalate Crystals Urine Present; Hyaline Casts Urine 0-2 /LPF (0-2); Squamous Epithelial Cell Urine 0-2 /HPF (0-2); WBC Urine 0-5 /HPF (0-5)
[2025-01-14] MEDS: Phenazopyridine HCL 200 MG TABLET PO (18:55)
[2025-01-14 18:58] VITALS: BP 183/84; PULSE 85; RESP 14; TEMP 36.7; O2SAT 97
--- OUTSIDE RECORDS SUMMARY | 2025-01-14 19:13 | XMS_ITS | Encounter Summary ---
Author Organization [employer] Address [address] [facility] [facility] [address] [place] [address] Care Team Providers Care Acid Tank Cleaner Name Role Phone Unavailable Primary Care Provider Unavailabl e Reason for Visit * Reason Onset Date Comments medication 09/22/2023 medication 09/22/2023 Encounter Details Date Type Department Care Team ([facility] st Contact Info) Description 09/22/[address] [facility] ADULT D[facility]AL [address] [place] [address] Geovany Elder DMD [address] [place], [place] [phone] medication; medication Social History Tobacco Use Types Packs/Day Years Used Date Smoking Tobacco: Never Smokeless Tobacco: Never Comments Unknown Sex and Gender Information Value Date Recorded Sex Assigned at Female 07/25/2022 10:28 AM EDT Legal Sex Female 10:28 AM EDT Gender Identity Female 07/25/2022 10:28 AM EDT Sexual Orientation Straight 07/25/2022 10 :28 AM EDT documented as of this encounter Miscellaneous Notes * Telephone Encounter - Geovany Elder DMD - 10/06/2023 1:05 PM EST Before I prescribe the Abx for pt * Telephone Encounter - Geovany Elder DMD - 10/06/2023 1:03 PM EST Please schedule a limited exam appointment with me for this pt * Telephone Encounter - Michelle Georges 10/06/2023 10:16 AM EST Patient is looking fro another script of clindamyacin due to pain on front tooth up to nose * Telephone Encounter - Michelle Maddox - 09/22/2023 2:58 PM EST Patient is requesting a script for clindamyacin because she is having pain up to her nose. documented in this encounter Plan of Treatment Upcoming Encounters Date Type Department Care Team (Late st Contact Info) Description 03/10/2025 2:00 PM EDT Office Visit [facility] ADULT D[facility]AL [address] [place] [address] Dorothea Evangelista [address] [place] [address] documented as of this encounter Visit Diagnoses Not on filedocumented in this encounter
--- OUTSIDE RECORDS SUMMARY | 2025-01-14 19:13 | XMS_ITS | Encounter Summary ---
Author Organization [employer] Address [address] [facility] [address] [place] [address] Care Team Providers Care Electronic Gluing Machine Operator Name Role Phone Unavailable Primary Care Provider Unavailabl e Encounter Details Date Type Department Care Team (Latest Contact Info) Description 03/03/2021 Abstract [facility] CONVERSIONS Dental, Provider, DDS Social History Tobacco Use Types Packs/Day Years Used Date Smoking Tobacco: Never Assessed Comments Unknown Sex and Gender Information Value Date Recorded Sex Assigned at Female 07/25/2022 10:28 AM EDT Legal Sex Female 10:28 AM EDT Gender Identity Female 07/25/2022 10:28 AM EDT Sexual Orientation Straight 07/25/2022 10 :28 AM EDT documented as of this encounter Plan of Treatment Upcoming Encounters Date Type Department Care Team (Late st Contact Info) Description 03/10/2025 2:00 PM EDT Office Visit [facility] ADULT DENTAL [address] [place] [address] Tonja Dorothea [address] [place] [address] documented as of this encounter Visit Diagnoses Not on filedocumented in this encounter
--- OUTSIDE RECORDS SUMMARY | 2025-01-14 19:13 | XMS_ITS | Encounter Summary ---
Author Organization [employer] Address [address] [facility] [address] [place] [address] Care Team Providers Care Operations Team Leader Name Role Phone Unavailable Primary Care Provider Unavailabl e Reason for Visit * Reason Onset Date Comments script for pain infection 06/12/2023 Encounter Details Date Type Department Care Team ([facility] st Contact Info) Description 06/12/2023 Telephone [facility] ADULT DENTAL [address] [place], [place] [phone] Merrill Aguilar DDS [address] [place] [address] script for pain infection Social History Tobacco Use Types Packs/Day Years [...] encounter Miscellaneous Notes * Telephone Encounter - Michelle Maddox - 06/22/2023 9:01 AM EDT Patient called in requesting a script for clindamyacine. She was seen 05/[address] Aguilar. Has abscess and nothing scripted. She is having some pain and has appt on 06/[address] Garcia. Can you help with a script ? * Telephone Encounter - Michelle Maddox - 06/12/2023 4:05 PM EDT Patient is deaf and is checking in on appt for retreat 4 and 5. She stated if she didn't get a callin two days she will come in to office. Patient informed that at the time they called the office was already closed and message will not be received until tomorrow morning () documented in this encounter Plan of Treatment Upcoming Encounters Date Type Department Care Team (Late st Contact Info) Description 03/10/2025 2:00 PM EDT Office Visit [facility] ADULT DENTAL [address] [place] [address] Dorothea Evangelista [address] [place] [address] documented as of this encounter Visit Diagnoses Not on filedocumented in this encounter
--- OUTSIDE RECORDS SUMMARY | 2025-01-14 19:13 | XMS_ITS | Encounter Summary ---
Author Organization [employer] Address [address] [facility] [address] [place] [address] Care Team Providers Care Hadoop Administrator Name Role Phone Unavailable Primary Care Provider Unavailabl e Encounter Details Date Type Department Care Team (Late st Contact Info) Description 10/10/2023 Telephone [facility] [address] [place], [place] [phone] Geovany Elder DMD [address] [place], [place] [phone] Social History Tobacco Use Types Packs/Day Years [...] encounter Miscellaneous Notes * Telephone Encounter - Ethel Pinedo - 10/10/2023 10:41 AM EST Patient asking dr lazarus zhu to please send in medication she's in pain and very upset she says she's called a few times and still waiting for her meds documented in this encounter Plan of Treatment Upcoming Encounters Date Type Department Care Team (Late Contact Info) Description 03/10/2025 2:00 PM EDT Office Visit [facility] ADULT DENTAL [address] [place] [address] Dorothea Evangelista [address] [place] [address] documented as of this encounter Visit Diagnoses Not on filedocumented in this encounter
--- OUTSIDE RECORDS SUMMARY | 2025-01-14 19:13 | XMS_ITS | Patient Health Record ---
Author Organization [facility] Address [address] [place] [address] Care Team Providers Care Satellite Installer Name Role Phone TOLBERTSTALIN KEBEDE Primary Care Provider ALO COUCH Unavailable [phone] AXEL ALVARADO Unavailable [phone] ALLERGIES Allergen (clinical drug ingredient) Drug/Non Drug Allergy documented on EMR Reaction Allergy Type Onset Date Status aspirin aspirin (uncoded) Unknown Allergy Ac tive atenolol atenolol (uncoded) Unknown Allergy A ctive azthromycin (uncoded) Unknown Allergy Active codeine codeine [...] samir RESULTS Component Value Reference Range Notes GLYCOHEMOGLOBIN PROFILE Reviewed date:06/15/2024 08:35:49 AM Interpretation: Performing Lab: Notes/Report: GLYCATED HEMOGLOBIN A1C 5.3 <6.5 % ESTIMATED AVERAGE GLUCOSE 105 COMPREHENSIVE METABOLIC PANE L Reviewed date:06/14/2024 03:08:32 PM Interpretation: Performing Lab: Notes/Report: Note Original Orderi ng Provider: ALO COUCH NP GLUCOSE 89 70-100 mg/dL Reference range applicable to fasting specimens only BUN 14 5-25 mg/dL CREAT 1.03 0.5-1.1 mg/dL GLOMERULAR FILTRATION RATE 64 >60 This eGFR result was calculated using the CKD-EPI 2020 Creatinine Equation SODIUM 141 135-145 mEq/L POTASSIUM 3.8 3.5-5.5 mmol/L CHLORIDE 107 96-110 mmol/L CO2 29 21-32 mmol/L ANION GAP 5 3-11 CALCIUM 9.6 8.5-10.5 mg/dL TOTAL PROTEIN 7.5 6.0-8.0 G/dL ALBUMIN 3.6 3.2-5.0 G/dL BILI,TOTAL 0.4 0.0-1.4 mg/dL SGOT 25 10-42 U/L SGPT 18 10-60 U/L ALK PHOS 47 42-121 U/L CBC WITH AUTO DIFF Reviewed date:06/14/2024 03:08:41 PM Interpretation: Performing Lab: Notes/Report: WBC 6.3 4.8-10.8 x10-3/uL RBC 4.3 3.8-4.8 x10-6/uL HEMOGLOBIN 11.5 11.5-16.0 g/dL HEMATOCRIT 37.5 35-47 % MCV 87.0 79-98 fL MCH 26.7 27-32 pg MCHC 30.7 32-37 g/dL RDW 13.8 11-15 % PLT COUNT 250 130-400 x10-3/uL MEAN PLATELET VOLUME 9.6 7-11 fL NRBC % AUTO 0.0 <1 % NEUT % 47.9 LYMPH % 34.9 MONO % 8.1 EOS % 7.3 BASO % 1.6 IMMATURE GRANULOCYTES % 0.2 NRBC # AUTO 0.00 <0.1 x10-3/uL ABSOLUTE NEUT 3.00 1.5-7.0 x10-3/uL LYMPH # 2.19 1-5.0 x10-3/uL MONO # 0.51 0.2-1.0 x10-3/uL EOS # 0.46 0-0.5 x10-3/uL BASO # 0.10 0-0.2 x10-3/uL IMMATURE GRANULOCYTES # 0.01 0-0.03 x10-3/uL LIPID PROFILE Reviewed date:06/14/2024 03:08:32 PM Interpretation: Performing Lab: Notes/Report: CHOLESTEROL 195 0-200 mg/dL TRIGLYCERIDES 111 0-150 mg/dL VITAMIN D, 25-HYDROXY Reviewed date:06/14/2024 03:08:32 PM Interpretation: Performing Lab: Notes/Report: VITAMIN D, 25-HYDROXY 51 30-80 ng/mL TSH CASCADE Reviewed date:06/14/2024 03:08:32 PM Interpretation: Performing Lab: Notes/Report: TSH CASCADE 1.27 0.40-4.00 uIU/ml URINE CULTURE Reviewed date:06/15/2024 09:48:19 AM Interpretation: Performing Lab: Notes/Report: URINE CULTURE >100,000 CFU/mL URINE CULTURE NORMAL SKIN/UROGENITAL HARRIET PRESENT. UA WITH CULTURE IF INDICATED Reviewed date:06/14/2024 03:08:20 PM Interpretation: Performing Lab: Notes/Report: GLUCOSE, (UA) NEGATIVE NEGATIVE mg/dL BILIRUBIN, URINE NEGATIVE NEGATIVE KETONE, URINE NEGATIVE NEGATIVE mg/dL SPECIFIC GRAVITY, URINE 1.015 1.003-1.030 BLOOD, URINE NEGATIVE NEGATIVE PH, URINE 6.0 5.0-8.0 PROTEIN, URINE NEGATIVE <= TRACE mg/dl UROBILINOGEN, URINE 0.2 0.2-1.0 E.U./dL NITRITE, URINE NEGATIVE NEGATIVE LEUKOCYTE ESTERASE, URINE MODERATE NEGATIVE CR Hand RT Min 3 Views Reviewed date:06/21/2024 10:56:28 AM Interpretation: Performing Lab: Notes/Report: Original Ordering Provider: ALO COUCH NP [facility] [employer] Scre[employer] Digital Reviewed date:05/29/2024 11:56:30 AM Interpretation: Performing Lab: Notes/Report: Original Ordering Provider: STALIN TOLBERT MD [facility] URINALYSIS WITH REFLEX MICRO SCOPIC AND CULTURE Reviewed date:01/08/2025 12:25:40 PM Interpretation: Performing Lab: Notes/Report: Specific [place] Urine 1.023 1.003-1.030 pH, Urine 7.0 5.0-8.0 pH Leukocytes, Urine Negative Negative Nitrite, Urine Negative Negative Protein, Urine 30 <=Trace mg/dL Glucose, Urine Negative Negative mg/dL Ketones, Urine Trace Negative mg/dL Urobilinogen, Urine 1.0 0.2-1.0 mg/dL Bilirubin, Urine Negative Negative Blood, Urine Moderate Negative RBC, Urine 158.1 0-4 /HPF WBC, Urine 2.3 0-4 /HPF Squamous Epithelial, Urine 33 0-60 /LPF Bacteria, Urine Negative Negative /HPF Hyaline Casts, Urine 4.0 0-3 /LPF REASON FOR REFERRAL Reason Dr Bah Diagnosis 1 Pain in right hand ( M79.641) Referral Organization [place] [address] Referring Provider First Name ALO Referring Provider Last Name WICHOKELLEY Referring Provider Speciality Internal M edicine Referred Provider Specialty Hand Surgery General Notes LEXY RAMIREZ 06/19 02:08:37 PM > faxed referral to Dr. Verdugo -also gave pt phone # to call p: [phone] f: [phone] Clinical Notes Kt Darby 06/2024 03:22:18 PM > Seen on 07/02/2024 Referral Priority Routine MEDICATIONS Medication SIG (Take, Route, Frequency, Duration) Notes Start Date End Date Status Hydrocortisone Julio C-Pramoxine 2.5-1 % 1 application Externally Three times a day for 30 days Active Anucort-HC 25 MG 1 suppository as needed Rectal Three times a day for 30 day(s) Active Hydrocortisone 1 % 1 application to affected area Externally Twice a day for 30 day(s) undefined 02/28/2018 Not-Taking Clotrimazole 1 % APPLY TOPICALLY TO THE AFFECTED AREA TWICE DAILY for 30 Active Nitrofurantoin Monohyd Macro 100 MG 1 capsule with food Orally every 12 hrs for 7 days 11/30/2023 Not-Taking Diclofenac Sodium 75 MG 1 tablet Orally Twice a day for 30 day(s) 11/24/2020 Active Probiotic 250 MG 1 capsule Orally once a day for 30 days 11/10/2020 Active hydrOXYzine HCl 10 mg 1 tablet as needed Orally every 8 hrs for 30 Not-Taking hydrOXYzine HCl 25 MG 1 tablet as needed Orally every 8 hrs for 30 day(s) Not-Taking Montelukast Sodium 10 MG TAKE 1 TABLET B Y MOUTH EVERY DAY for 90 Active Famotidine 20 MG TAKE 1 TABLET BY MOUTH EVERY DAY AT BEDTIME NEEDED for 90 Active SOCIAL HISTORY Tobacco Use: Social History Observation [...] unspecified (E55.9) Active confirmed Vitamin D deficiency (16009031) Problem Hyperlipidemia, unspecified (E78.5) Active confirmed Hyperlipidemia (12661777) Problem Generalized anxiety disorder (F41.1) Active confirmed Generalized anxiety disorder (64322748) Problem Other seasonal allergic rhinitis (J30.2) Active confirmed Seasonal allerg ic rhinitis (162069386) Problem Other asthma (J45.998) Active confirmed Asthma (769766470) Problem Pain in right hand (M79.641) Active confirmed 230377166294511 Problem Encounter for screening for lipoid disorders (Z13.220) Active confirmed Lipid screening (473252659) Problem Left knee pain, unspecified chronicity (M25.562) Active confirmed Pain of left kn ee region (finding) (417220514063860) Problem Adult general medical exam (Z00.00) Active confirmed Adult health examination (847800077) Problem Kidney stone (N20.0) Active confirmed 32933197 Problem Kidney stones (N20.0) Active confirmed Kidney stone (42184715) Problem Diabetes mellitus screening (Z13.1) Active confirmed Diabetes m ellitus screening (574632606) Problem Nephrolithiasis (N20.0) Active confirmed Nephrolithiasis (11679855) Problem GERD without esophagitis (K21.9) Active confirmed 159928592 Problem Avitaminosis D (E55.9) Active confirmed Avitaminosis D (77416284) Problem Encounter for screening for endocrine disorder (Z13.29) Active confirmed Endocrine/metab ol ic screening (703897520) Problem External hemorrhoids (K64.4) Active confirmed 26798947 Problem Thrombosed external hemorrhoid (K64.5) Active confirmed 36475314 VITAL SIGNS Heart Rate 86 /min 01/07/2025 Blood pressure diastolic 84 mm Hg 01/07/2025 Oximetry 95 % 01/07/2025 Height 63 in 01/07/2025 Blood pressure systolic 128 mm Hg 01/07/2025 Weight 118 lbs 01/07/2025 BMI 20.9 kg/m2 01/07/2025 Encounters Encounter Location Date Provider Diagnosis [facility] [address] [facility] [address] [place] [address] 02/09/2024 ALO BORHOT Tinea corporis B35.4 and Cracked skin R23.[address] [facility] [address] [address] 06/19/2024 ALO COUCH Annual physical exam Z00.00 ; Encounter for screening for depression Z13.31 ; Encounter for screening for other disorder Z13.89 ; Generalized anxiety disorder F41.1 ; Other seasonal allergic rhinitis J30.2 ; Nephrolithiasis N20.0 ; Hyperlipidemia, unspecified E78.5 and Pain in right hand M79.641 [facility] [address] 10/21/2024 ALO COUCH Generalized anxiety disorder F41.1 ; Other seasonal allergic rhinitis J30.2 ; Nephrolithiasis N20.0 and External hemorrhoids K64.4 [facility] [address] 01/07/2025 AXEL ALVARADO Painless hematuria R 31.9 ; Generalized anxiety disorder F41.1 ; Kidney stones N20.0 ; Other seasonal allergic rhinitis J30.2 ; GERD without esophagitis K21.9 and External hemorrhoids K64.4 [facility] [address] [address] 01/13/2025 STALIN TOLBERT [facility] [address] [place] [address] 01/23/2024 ALO [facility] [address] [place] [address] 02/06/[address] [facility] [address] [address] [facility]/09[facility] [address] 06/19/2024 ALO COUCH [address] [address] 10/15/2024 ALO COUCH [address] 01/07/2025 ALO COUCH [address] [facility] [address] [address] 01/07/2025 ALO [facility] [address] 01/08/2025 ALO COUCH Kidney stone N20.0 ASSESSMENTS Encounter Date Diagnosis Assessment Notes Treatment Notes Treatment Clinical Notes Section Notes 01/08/2025 Kidney stone (ICD-10 - N20.0) 10/21/2024 Generalized anxiety disorder (ICD-10 - F41.1) Acute Concerns/Problem List: 10/21/2024 Will see the patient back in the fall with labs and MWV Of note, some information is being carried forward from prior records for informational purposes only and is being cited so that efficiency, safety and quality of the patient's care is not compromised This note was prepared using voice recognition software and direct typing Please excuse inadvertent compensator or typing errors, or uncorrected word substitutions Although every attempt has been made by the provider to proofread this document, occasional misspellings and typographical errors may still be present Due to the previous pandemic, and the use of personal protective equipment (PPE) This may decrease voice recognition accuracy Inadvertent compensator errors may occur 06/19/2024 Encounter for screening for depression (ICD-10 - Z13.31) Acute Concerns/Problem List: 06/19/2024 MAWV MOLST/HCP Discussed Referral to hand surgery Right hand films Labs reviewed and stable Of note, some information is being carried forward from prior records for informational purposes only and is being cited so that efficiency, safety and quality of the patient's care is not compromised This note was prepared using voice recognition software and direct typing Please excuse inadvertent compensator or typing errors, or uncorrected word substitutions Although every attempt has been made by the provider to proofread this document, occasional misspellings and typographical errors may still be present Due to the previous pandemic, and the use of personal protective equipment (PPE) This may decrease voice recognition accuracy Inadvertent compensator errors may occur 06/19/2024 Annual physical exam (ICD-10 - Z00.00) Acute Concerns/Problem List: 06/19/2024 MAWV MOLST/HCP Discussed Referral to hand surgery Right hand films Labs reviewed and stable Of note, some information is being carried forward from prior records for informational purposes only and is being cited so that efficiency, safety and quality of the patient's care is not compromised This note was prepared using voice recognition software and direct typing Please excuse inadvertent compensator or typing errors, or uncorrected word substitutions Although every attempt has been made by the provider to proofread this document, occasional misspellings and typographical errors may still be present Due to the previous pandemic, and the use of personal protective equipment (PPE) This may decrease voice recognition accuracy Inadvertent compensator errors may occur 01/07/2025 Generalized anxiety disorder (ICD-10 - F41.1) Fredy is a 54-year-old female with history of deafness, nephrolithiasis, anxiety, seasonal allergies, and hemorrhoids who presents today for urgent visit for hematuria that developed yesterday. Reports 1 episode of visible blood in her urine with associated abdominal cramping. Reports that the sensation felt like her menstrual cycle however is not currently on her menses. Reports no further evidence of blood in the urine and no longer experiencing abdominal pain. Reports no fevers however states that she did feel cold last night. Reports no flank pain or any further abdominal pain. Has been hydrating well. On exam patient is well-appearing and in no acute distress. Vital signs are stable and within normal limits. Cardiopulmonary exam is unremarkable. Abdomen is soft to palpation without tenderness in all 4 quadrants. Bowel sounds appreciated throughout. No CVA tenderness bilaterally. Based on clinical evaluation and examination we will get urinalysis with reflex culture to rule out UTI. Given history of nephrolithiasis, symptoms may also be due to kidney stone, may need to update renal ultrasound. Low suspicion for pyelonephritis given lack of CVA tenderness. Will tailor treatment based on lab results. Discussed red flag signs requiring ED evaluation. Patient understanding. All patient questions answered at this time. # Nephrolithiasis: Patient follows with [place] [facility]. Last office visit scanned in chart from 2022, renal ultrasound with findings of 4 mm stones x 2 on the left side and a 3 mm right small punctuate stone. Patient that time advised to increase her hydration and continue to monitor. # Hemorrhoids: Patient follows with gastroenterology in [place]. Also has had follow-up with surgery regarding hemorrhoids. Continue regular water intake as well as management of constipation with osmotic laxatives and stool softeners as needed. Continue daily probiotic. Will continue to monitor. # Seasonal allergies: Continue montelukast 10 mg once daily. # GERD: Continue famotidine 20 mg once daily at bedtime as needed for acid reflux. All questions have been answered to patient's satisfaction. Patient verbalized understanding of diagnosis and treatments explained. Advised to call sooner prior to next visit it any questions/concerns arise. Case discussed with collaborating physician Christina Tolbert who reviewed the assessment and plan. Chart, medications, labs, vital signs reviewed. Dictation was accomplished with the use of [employer] voice recognition software, which is prone to medical misidentifications and grammatical errors. This are unintentional and the practitioner does try to identify and correct these, but some could still be present. Please do not hesitate to contact practitioner for clarification. 01/07/2025 Painless hematuria (ICD-10 - R31.9) Fredy is a 54-year-old female with history of deafness, nephrolithiasis, anxiety, seasonal allergies, and hemorrhoids who presents today for urgent visit for hematuria that developed yesterday. Reports 1 episode of visible blood in her urine with associated abdominal cramping. Reports that the sensation felt like her menstrual cycle however is not currently on her menses. Reports no further evidence of blood in the urine and no longer experiencing abdominal pain. Reports no fevers however states that she did feel cold last night. Reports no flank pain or any further abdominal pain. Has been hydrating well. On exam patient is well-appearing and in no acute distress. Vital signs are stable and within normal limits. Cardiopulmonary exam is unremarkable. Abdomen is soft to palpation without tenderness in all 4 quadrants. Bowel sounds appreciated throughout. No CVA tenderness bilaterally. Based on clinical evaluation and examination we will get urinalysis with reflex culture to rule out UTI. Given history of nephrolithiasis, symptoms may also be due to kidney stone, may need to update renal ultrasound. Low suspicion for pyelonephritis given lack of CVA tenderness. Will tailor treatment based on lab results. Discussed red flag signs requiring ED evaluation. Patient understanding. All patient questions answered at this time. # Nephrolithiasis: Patient follows with [place] [facility]. Last office visit scanned in chart from 2022, renal ultrasound with findings of 4 mm stones x 2 on the left side and a 3 mm right small punctuate stone. Patient that time advised to increase her hydration and continue to monitor. # Hemorrhoids: Patient follows with gastroenterology in [place]. Also has had follow-up with surgery regarding hemorrhoids. Continue regular water intake as well as management of constipation with osmotic laxatives and stool softeners as needed. Continue daily probiotic. Will continue to monitor. # Seasonal allergies: Continue montelukast 10 mg once daily. # GERD: Continue famotidine 20 mg once daily at bedtime as needed for acid reflux. All questions have been answered to patient's satisfaction. Patient verbalized understanding of diagnosis and treatments explained. Advised to call sooner prior to next visit it any questions/concerns arise. Case discussed with collaborating physician Christina Tolbert who reviewed the assessment and plan. Chart, medications, labs, vital signs reviewed. Dictation was accomplished with the use of [employer] voice recognition software, which is prone to medical misidentifications and grammatical errors. This are unintentional and the practitioner does try to identify and correct these, but some could still be present. Please do not hesitate to contact practitioner for clarification. 02/09/2024 Tinea corporis (ICD-10 - B35.4) Antifungal cream Skin protectant Recontact us if not improving Of note, some information is being carried forward from prior records for informational purposes only and is being cited so that efficiency, safety and quality of the patient's care is not compromised This note was prepared using voice recognition software and direct typing Please excuse inadvertent compensator or typing errors, or uncorrected word substitutions Although every attempt has been made by the provider to proofread this document, occasional misspellings and typographical errors may still be present Due to the previous pandemic, and the use of personal protective equipment (PPE) This may decrease voice recognition accuracy Inadvertent compensator errors may occur 02/09/2024 Cracked skin (ICD-10 - R23.4) Antifungal cream Skin protectant Recontact us if not improving Of note, some information is being carried forward from prior records for informational purposes only and is being cited so that efficiency, safety and quality of the patient's care is not compromised This note was prepared using voice recognition software and direct typing Please excuse inadvertent compensator or typing errors, or uncorrected word substitutions Although every attempt has been made by the provider to proofread this document, occasional misspellings and typographical errors may still be present Due to the previous pandemic, and the use of personal protective equipment (PPE) This may decrease voice recognition accuracy Inadvertent compensator errors may occur 01/07/2025 Kidney stones (ICD-10 - N20.0) Fredy is a 54-year-old female with history of deafness, nephrolithiasis, anxiety, seasonal allergies, and hemorrhoids who presents today for urgent visit for hematuria that developed yesterday. Reports 1 episode of visible blood in her urine with associated abdominal cramping. Reports that the sensation felt like her menstrual cycle however is not currently on her menses. Reports no further evidence of blood in the urine and no longer experiencing abdominal pain. Reports no fevers however states that she did feel cold last night. Reports no flank pain or any further abdominal pain. Has been hydrating well. On exam patient is well-appearing and in no acute distress. Vital signs are stable and within normal limits. Cardiopulmonary exam is unremarkable. Abdomen is soft to palpation without tenderness in all 4 quadrants. Bowel sounds appreciated throughout. No CVA tenderness bilaterally. Based on clinical evaluation and examination we will get urinalysis with reflex culture to rule out UTI. Given history of nephrolithiasis, symptoms may also be due to kidney stone, may need to update renal ultrasound. Low suspicion for pyelonephritis given lack of CVA tenderness. Will tailor treatment based on lab results. Discussed red flag signs requiring ED evaluation. Patient understanding. All patient questions answered at this time. # Nephrolithiasis: Patient follows with [place] [facility]. Last office visit scanned in chart from 2022, renal ultrasound with findings of 4 mm stones x 2 on the left side and a 3 mm right small punctuate stone. Patient that time advised to increase her hydration and continue to monitor. # Hemorrhoids: Patient follows with gastroenterology in [place]. Also has had follow-up with surgery regarding hemorrhoids. Continue regular water intake as well as management of constipation with osmotic laxatives and stool softeners as needed. Continue daily probiotic. Will continue to monitor. # Seasonal allergies: Continue montelukast 10 mg once daily. # GERD: Continue famotidine 20 mg once daily at bedtime as needed for acid reflux. All questions have been answered to patient's satisfaction. Patient verbalized understanding of diagnosis and treatments explained. Advised to call sooner prior to next visit it any questions/concerns arise. Case discussed with collaborating physician Christina Tolbert who reviewed the assessment and plan. Chart, medications, labs, vital signs reviewed. Dictation was accomplished with the use of [employer] voice recognition software, which is prone to medical misidentifications and grammatical errors. This are unintentional and the practitioner does try to identify and correct these, but some could still be present. Please do not hesitate to contact practitioner for clarification. 06/19/2024 Encounter for screening for other disorder (ICD-10 - Z13.89) Acute Concerns/Problem List: 06/19/2024 MAWV MOLST/HCP Discussed Referral to hand surgery Right hand films Labs reviewed and stable Of note, some information is being carried forward from prior records for informational purposes only and is being cited so that efficiency, safety and quality of the patient's care is not compromised This note was prepared using voice recognition software and direct typing Please excuse inadvertent compensator or typing errors, or uncorrected word substitutions Although every attempt has been made by the provider to proofread this document, occasional misspellings and typographical errors may still be present Due to the previous pandemic, and the use of personal protective equipment (PPE) This may decrease voice recognition accuracy Inadvertent compensator errors may occur 10/21/2024 Other seasonal allergic rhinitis (ICD-10 - J30.2) Acute Concerns/Problem List: 10/21/2024 Will see the patient back in the fall with labs and MWV Of note, some information is being carried forward from prior records for informational purposes only and is being cited so that efficiency, safety and quality of the patient's care is not compromised This note was prepared using voice recognition software and direct typing Please excuse inadvertent compensator or typing errors, or uncorrected word substitutions Although every attempt has been made by the provider to proofread this document, occasional misspellings and typographical errors may still be present Due to the previous pandemic, and the use of personal protective equipment (PPE) This may decrease voice recognition accuracy Inadvertent compensator errors may occur 10/21/2024 Nephrolithiasis (ICD-10 - N20.0) Acute Concerns/Problem List: 10/21/2024 Will see the patient back in the fall with labs and MWV Of note, some information is being carried forward from prior records for informational purposes only and is being cited so that efficiency, safety and quality of the patient's care is not compromised This note was prepared using voice recognition software and direct typing Please excuse inadvertent compensator or typing errors, or uncorrected word substitutions Although every attempt has been made by the provider to proofread this document, occasional misspellings and typographical errors may still be present Due to the previous pandemic, and the use of personal protective equipment (PPE) This may decrease voice recognition accuracy Inadvertent compensator errors may occur 06/19/2024 Generalized anxiety disorder (ICD-10 - F41.1) Acute Concerns/Problem List: 06/19/2024 [facility] MOLST/HCP Discussed Referral to hand surgery Right hand films Labs reviewed and stable Of note, some information is being carried forward from prior records for informational purposes only and is being cited so that efficiency, safety and quality of the patient's care is not compromised This note was prepared using voice recognition software and direct typing Please excuse inadvertent compensator or typing errors, or uncorrected word substitutions Although every attempt has been made by the provider to proofread this document, occasional misspellings and typographical errors may still be present Due to the previous pandemic, and the use of personal protective equipment (PPE) This may decrease voice recognition accuracy Inadvertent compensator errors may occur 01/07/2025 Other seasonal allergic rhinitis (ICD-10 - J30.2) Fredy is a 54-year-old female with history of deafness, nephrolithiasis, anxiety, seasonal allergies, and hemorrhoids who presents today for urgent visit for hematuria that developed yesterday. Reports 1 episode of visible blood in her urine with associated abdominal cramping. Reports that the sensation felt like her menstrual cycle however is not currently on her menses. Reports no further evidence of blood in the urine and no longer experiencing abdominal pain. Reports no fevers however states that she did feel cold last night. Reports no flank pain or any further abdominal pain. Has been hydrating well. On exam patient is well-appearing and in no acute distress. Vital signs are stable and within normal limits. Cardiopulmonary exam is unremarkable. Abdomen is soft to palpation without tenderness in all 4 quadrants. Bowel sounds appreciated throughout. No CVA tenderness bilaterally. Based on clinical evaluation and examination we will get urinalysis with reflex culture to rule out UTI. Given history of nephrolithiasis, symptoms may also be due to kidney stone, may need to update renal ultrasound. Low suspicion for pyelonephritis given lack of CVA tenderness. Will tailor treatment based on lab results. Discussed red flag signs requiring ED evaluation. Patient understanding. All patient questions answered at this time. # Nephrolithiasis: Patient follows with [place] [facility]. Last office visit scanned in chart from 2022, renal ultrasound with findings of 4 mm stones x 2 on the left side and a 3 mm right small punctuate stone. Patient that time advised to increase her hydration and continue to monitor. # Hemorrhoids: Patient follows with gastroenterology in [place]. Also has had follow-up with surgery regarding hemorrhoids. Continue regular water intake as well as management of constipation with osmotic laxatives and stool softeners as needed. Continue daily probiotic. Will continue to monitor. # Seasonal allergies: Continue montelukast 10 mg once daily. # GERD: Continue famotidine 20 mg once daily at bedtime as needed for acid reflux. All questions have been answered to patient's satisfaction. Patient verbalized understanding of diagnosis and treatments explained. Advised to call sooner prior to next visit it any questions/concerns arise. Case discussed with collaborating physician Christina Tolbert who reviewed the assessment and plan. Chart, medications, labs, vital signs reviewed. Dictation was accomplished with the use of [employer] voice recognition software, which is prone to medical misidentifications and grammatical errors. This are unintentional and the practitioner does try to identify and correct these, but some could still be present. Please do not hesitate to contact practitioner for clarification. 01/07/2025 GERD without esophagitis (ICD-10 - K21.9) Fredy is a 54-year-old female with history of deafness, nephrolithiasis, anxiety, seasonal allergies, and hemorrhoids who presents today for urgent visit for hematuria that developed yesterday. Reports 1 episode of visible blood in her urine with associated abdominal cramping. Reports that the sensation felt like her menstrual cycle however is not currently on her menses. Reports no further evidence of blood in the urine and no longer experiencing abdominal pain. Reports no fevers however states that she did feel cold last night. Reports no flank pain or any further abdominal pain. Has been hydrating well. On exam patient is well-appearing and in no acute distress. Vital signs are stable and within normal limits. Cardiopulmonary exam is unremarkable. Abdomen is soft to palpation without tenderness in all 4 quadrants. Bowel sounds appreciated throughout. No CVA tenderness bilaterally. Based on clinical evaluation and examination we will get urinalysis with reflex culture to rule out UTI. Given history of nephrolithiasis, symptoms may also be due to kidney stone, may need to update renal ultrasound. Low suspicion for pyelonephritis given lack of CVA tenderness. Will tailor treatment based on lab results. Discussed red flag signs requiring ED evaluation. Patient understanding. All patient questions answered at this time. # Nephrolithiasis: Patient follows with [facility]. Last office visit scanned in chart from 2022, renal ultrasound with findings of 4 mm stones x 2 on the left side and a 3 mm right small punctuate stone. Patient that time advised to increase her hydration and continue to monitor. # Hemorrhoids: Patient follows with gastroenterology in [place]. Also has had follow-up with surgery regarding hemorrhoids. Continue regular water intake as well as management of constipation with osmotic laxatives and stool softeners as needed. Continue daily probiotic. Will continue to monitor. # Seasonal allergies: Continue montelukast 10 mg once daily. # GERD: Continue famotidine 20 mg once daily at bedtime as needed for acid reflux. All questions have been answered to patient's satisfaction. Patient verbalized understanding of diagnosis and treatments explained. Advised to call sooner prior to next visit it any questions/concerns arise. Case discussed with collaborating physician Christina Tolbert who reviewed the assessment and plan. Chart, medications, labs, vital signs reviewed. Dictation was accomplished with the use of [employer] voice recognition software, which is prone to medical misidentifications and grammatical errors. This are unintentional and the practitioner does try to identify and correct these, but some could still be present. Please do not hesitate to contact practitioner for clarification. 06/19/2024 Other seasonal allergic rhinitis (ICD-10 - J30.2) Acute Concerns/Problem List: 06/19/2024 [facility] MOLST/HCP Discussed Referral to hand surgery Right hand films Labs reviewed and stable Of note, some information is being carried forward from prior records for informational purposes only and is being cited so that efficiency, safety and quality of the patient's care is not compromised This note was prepared using voice recognition software and direct typing Please excuse inadvertent compensator or typing errors, or uncorrected word substitutions Although every attempt has been made by the provider to proofread this document, occasional misspellings and typographical errors may still be present Due to the previous pandemic, and the use of personal protective equipment (PPE) This may decrease voice recognition accuracy Inadvertent compensator errors may occur 10/21/2024 External hemorrhoids (ICD-10 - K64.4) Acute Concerns/Problem List: 10/21/2024 Will see the patient back in the fall with labs and MWV Of note, some information is being carried forward from prior records for informational purposes only and is being cited so that efficiency, safety and quality of the patient's care is not compromised This note was prepared using voice recognition software and direct typing Please excuse inadvertent compensator or typing errors, or uncorrected word substitutions Although every attempt has been made by the provider to proofread this document, occasional misspellings and typographical errors may still be present Due to the previous pandemic, and the use of personal protective equipment (PPE) This may decrease voice recognition accuracy Inadvertent compensator errors may occur 06/19/2024 Nephrolithiasis (ICD-10 - N20.0) Acute Concerns/Problem List: 06/19/2024 [facility] MOLST/HCP Discussed Referral to hand surgery Right hand films Labs reviewed and stable Of note, some information is being carried forward from prior records for informational purposes only and is being cited so that efficiency, safety and quality of the patient's care is not compromised This note was prepared using voice recognition software and direct typing Please excuse inadvertent compensator or typing errors, or uncorrected word substitutions Although every attempt has been made by the provider to proofread this document, occasional misspellings and typographical errors may still be present Due to the previous pandemic, and the use of personal protective equipment (PPE) This may decrease voice recognition accuracy Inadvertent compensator errors may occur 01/07/2025 External hemorrhoids (ICD-10 - K64.4) Fredy is a 54-year-old female with history of deafness, nephrolithiasis, anxiety, seasonal allergies, and hemorrhoids who presents today for urgent visit for hematuria that developed yesterday. Reports 1 episode of visible blood in her urine with associated abdominal cramping. Reports that the sensation felt like her menstrual cycle however is not currently on her menses. Reports no further evidence of blood in the urine and no longer experiencing abdominal pain. Reports no fevers however states that she did feel cold last night. Reports no flank pain or any further abdominal pain. Has been hydrating well. On exam patient is well-appearing and in no acute distress. Vital signs are stable and within normal limits. Cardiopulmonary exam is unremarkable. Abdomen is soft to palpation without tenderness in all 4 quadrants. Bowel sounds appreciated throughout. No CVA tenderness bilaterally. Based on clinical evaluation and examination we will get urinalysis with reflex culture to rule out UTI. Given history of nephrolithiasis, symptoms may also be due to kidney stone, may need to update renal ultrasound. Low suspicion for pyelonephritis given lack of CVA tenderness. Will tailor treatment based on lab results. Discussed red flag signs requiring ED evaluation. Patient understanding. All patient questions answered at this time. # Nephrolithiasis: Patient follows with [facility]. Last office visit scanned in chart from 2022, renal ultrasound with findings of 4 mm stones x 2 on the left side and a 3 mm right small punctuate stone. Patient that time advised to increase her hydration and continue to monitor. # Hemorrhoids: Patient follows with gastroenterology in [place]. Also has had follow-up with surgery regarding hemorrhoids. Continue regular water intake as well as management of constipation with osmotic laxatives and stool softeners as needed. Continue daily probiotic. Will continue to monitor. # Seasonal allergies: Continue montelukast 10 mg once daily. # GERD: Continue famotidine 20 mg once daily at bedtime as needed for acid reflux. All questions have been answered to patient's satisfaction. Patient verbalized understanding of diagnosis and treatments explained. Advised to call sooner prior to next visit it any questions/concerns arise. Case discussed with collaborating physician Christina Tolbert who reviewed the assessment and plan. Chart, medications, labs, vital signs reviewed. Dictation was accomplished with the use of [employer] voice recognition software, which is prone to medical misidentifications and grammatical errors. This are unintentional and the practitioner does try to identify and correct these, but some could still be present. Please do not hesitate to contact practitioner for clarification. 06/19/2024 Hyperlipidemia, unspecified (ICD-10 - E78.5) Acute Concerns/Problem List: 06/19/2024 [facility] MOLST/HCP Discussed Referral to hand surgery Right hand films Labs reviewed and stable Of note, some information is being carried forward from prior records for informational purposes only and is being cited so that efficiency, safety and quality of the patient's care is not compromised This note was prepared using voice recognition software and direct typing Please excuse inadvertent compensator or typing errors, or uncorrected word substitutions Although every attempt has been made by the provider to proofread this document, occasional misspellings and typographical errors may still be present Due to the previous pandemic, and the use of personal protective equipment (PPE) This may decrease voice recognition accuracy Inadvertent compensator errors may occur 06/19/2024 Pain in right hand (ICD-10 - M79.641) Acute Concerns/Problem List: 06/19/2024 [facility] MOLST/HCP Discussed Referral to hand surgery Right hand films Labs reviewed and stable Of note, some information is being carried forward from prior records for informational purposes only and is being cited so that efficiency, safety and quality of the patient's care is not compromised This note was prepared using voice recognition software and direct typing Please excuse inadvertent compensator or typing errors, or uncorrected word substitutions Although every attempt has been made by the provider to proofread this document, occasional misspellings and typographical errors may still be present Due to the previous pandemic, and the use of personal protective equipment (PPE) This may decrease voice recognition accuracy Inadvertent compensator errors may occur PLAN OF TREATMENT Pending Test Test Name Order Date X ray : Hand, right 06/19/2024 Lipid Panel 10/15/2019 Comp. Metabolic Panel (14) 10/15/2019 CBC 10/15/2019 Urine Culture and Sensitivity 02/16/2021 Urine Culture and Sensitivity 01/01/2021 Ultrasound : Kidneys and Bladder 021 Urinalysis 02/21/2019 25OH VITAMIN D 12/13/2023 CBC (COMPLETE BLOOD COUNT) WITH DIFF COMPREHENSIVE METABOLIC PANEL 12/13/2023 HEMOGLOBIN A1C 12/13/2023 LIPID PANEL 12/13/2023 TSH WITH REFLEX TO FT4 12/13/2023 URINALYSIS W/REFLEX CULTURE 12/13/2023 URINALYSIS W/REFLEX CULTURE 11/29/2023 CT Abd and Pelvis w/o Contrast XR Knee 1-2 Views LT 06/01/2022 LIPID PANEL, STANDARD 10/21/2024 COMPREHENSIVE METABOLIC PANEL 10/21/2024 CREATINE KINASE, TOTAL 12/14/2022 CBC (INCLUDES DIFF/PLT) 10/21/2024 URINALYSIS, COMPLETE 10/21/2024 URINALYSIS, COMPLETE 12/14/2022 URINALYSIS, COMPLETE W/REFLEX TO CULTURE 01/07/2025 HEMOGLOBIN A1c 10/21/2024 ALDOLASE 12/14/2022 TSH 10/21/2024 VITAMIN D,25-OH,TOTAL,IA 10/21/2024 COMPLETE URINALYSIS 02/16/2021 LACTATE DEHYDROGENASE 12/14/2022 ANTINUCLEAR ANTIBODIES TITER AND PATTERN 12/14/2022 Future Test Test Name Order Date 25OH VITAMIN D 11/05/2022 CBC (COMPLETE BLOOD COUNT) WITH DIFF 07/2023 COMPREHENSIVE METABOLIC PANEL 11/05/2022 HEMOGLOBIN A1C 11/05/2022 LIPID PANEL 11/05/2022 TSH WITH REFLEX TO FT4 11/05/2022 URINALYSIS W/REFLEX CULTURE 11/05/2022 Next Appt Details Provider Name:ALO COUCH, 05/27/2025 08:30:00 AM, [address] [place] [address], [facility], [place], [address], Insurance Providers Payer Name Payer Address Payer Phone Subscriber Number Group Number Insured Name Patient Relationship to Insured Coverage Start Date Coverage End Date [employer] or Options [address] [place] [id number] [phone] [id number] FREDY Michael Self - patient is the insured MEDICAL (GENERAL) HISTORY Medical History History ICD Code anxiety Allergies Deafness Surgical History Surgery Date(Month/Year) nose surgery
--- OUTSIDE RECORDS SUMMARY | 2025-01-14 19:13 | XMS_ITS | Encounter Summary ---
Author Organization [facility] Address [address] [place] [address] Care Team Providers Care Control Center Operator Name Role Phone Unavailable Primary Care Provider Unavailabl e Reason for Visit * Reason Onset Date Comments Appointment 01/16/2023 Encounter Details Date Type Department Care Team (Late st Contact Info) Description 01/16/2023 Telephone [facility]ULT D[facility] [address] [place] [address] Geovany Elder, LEIGH [address] [place] [address] Appointment Social History Tobacco Use Types Packs/Day Years Used Date Smoking Tobacco: Never Assessed Comments Unknown Sex and Gender Information Value Date Recorded Sex Assigned at Female 07/25/2022 10:28 AM EDT Legal Sex Female 10:28 AM EDT Gender Identity Female 07/25/2022 10:28 AM EDT Sexual Orientation Straight 07/25/2022 10 :28 AM EDT COVID-19 Exposure Response Date Recorded In the last 10 days, have yo u been in contact with someone who was confirmed or suspected to have Coronavirus/COVID-19? No / Unsure 01/03/2023 12:44 PM EDT documented as of this encounter Miscellaneous Notes * Telephone Encounter - Michelle Maddox - 01/17/2023 3:46 PM EDT Patient called in again today to see if medication has been changed to something else seeing that the medication scripted is giving her diarrhea and stomach pain and is not helping with the pain. * Telephone Encounter - Shari Gallego - 01/16/2023 9:13 AM EDT Fredy Michael 1970 Patient stated that she is allergic to the medication that was given to her on 01/03/2023 and that the medication is causing diarrhea and is not helping with the pain sheis asking if a new medication can be sent to the pharmacy patient is back in office on 01/24/2023 Please advise . documented in this encounter Plan of Treatment Upcoming Encounters Date Type Department Care Team (Late st Contact Info) Description 03/10/2025 2:00 PM EDT Office Visit [facility] [address] [place] [address] Dorothea Evangelista [address] [place] [address] documented as of this encounter Visit Diagnoses Not on filedocumented in this encounter
--- OUTSIDE RECORDS SUMMARY | 2025-01-14 19:13 | XMS_ITS | Clinical Summary ---
Author Organization [employer] Address [address] [facility] 7t [place] [address] Care Team Providers Care Marionette Performer Name Role Phone Unavailable Primary Care Provider Unavailabl e Allergies Active Allergy Reactions Criticality Noted Date Comments Acetaminophen 10/21/2016 Other reaction(s): HBP Aspirin Unknown 10/21/2016 Other reaction(s): HBP Atenolol Unknown 10/21/2016 Other reaction(s): dizzy Azithromycin Unknown 10/21/2016 Other reaction(s): dizzy Caffeine 08/04/2016 Ciprofloxacin Dizziness 11/06/2023 Codeine Unknown 07/28/2015 Cyclobenzaprine Unknown 11/06/2023 Doxycycline 03/06/2023 Epinephrine 07/28/2015 Garlic 10/21/2016 Sodium Chloride 10/21/2016 Ibuprofen 10/21/2016 Other reaction(s): HBP Lisinopril 10/21/2016 Other reaction(s): pound high till 4 hours/hot Metoprolol Unknown 10/21/2016 Other reaction(s): dizzy/diarrea Onion 10/21/2016 Oxycodone Unknown 10/21/2016 Other reaction(s): high blood pressure Penicillin G 07/28/2015 Piper 10/21/2016 Procaine 07/28/2015 Tramadol Unknown 07/28/2015 Medications gabapentin (Neurontin) 100 MG capsule Take 1 capsule by mouth every 8 (eight) hours. Active lisinopril powder Active doxycycline (Vibra-Tabs) 100 MG tablet TAKE 1 TABLET(100 MG) BY MOUTH TWICE DAILY WITH A FULL GLASS OF WATER FOR 7 DAYS. DO NOT LIE DOWN FOR AT LEAST 30 MINUTES AFTER 14 tablet 3 Active Acetaminophen Extra Strength 500 MG tablet 3 Active cholecalciferol (Vitamin D-3) 50 MCG (1999 UT) capsule 4 Active escitalopram (Lexapro) 5 MG tablet 3 Active famotidine (Pepcid) 20 MG tablet TAKE 1 TABLET BY MOUTH EVERY DAY AT BEDTIME NEEDED for 90 Active hydrocortisone (Anucort-HC) 25 MG suppository 1 suppository in the morning and 1 suppository at noon and 1 suppository in the evening. Active hydrOXYzine HCl (Atarax) 10 MG tablet 4 Active LORazepam (Ativan) 0.5 MG tablet 4 Active montelukast (Singulair) 10 MG tablet 4 Active pyridoxine (Vitamin B-6) 50 MG tablet 4 Active senna (Senokot) 8.6 MG tablet 3 Active clindamycin (Cleocin) 150 MG capsule TAKE 1 CAPSULE(150 MG) BY MOUTH THREE TIMES DAILY FOR 7 DAYS 21 capsule 4 Active Active Problems Problem Noted Date Diagnosed Date Dental plaque 11/01/2023 Social History Tobacco Use Types Packs/Day Years Used Date Smoking Tobacco: Never Smokeless Tobacco: Never Tobacco Cessation:Counseling Given: Not Answered Comments Unknown Sex and Gender Information Value Date Recorded Sex Assigned at Female 07/25/2022 10:28 AM EDT Legal Sex Female 10:28 AM EDT Gender Identity Female 07/25/2022 10:28 AM EDT Sexual Orientation Straight 07/25/2022 10 :28 AM EDT Last Filed Vital Signs Vital Sign Reading Time Taken Comments Blood Pressure 132/76 06/27/2024 8:02 AM EDT Pulse 69 11/17/2023 8:14 AM EST Temperature - - Respiratory Rate - - Oxygen Saturation - - Inhaled Oxygen Concentration - - Weight - - Height - - Body Mass Index - - Plan of Treatment Upcoming Encounters Date Type Department Care Team (Late st Contact Info) Description 03/10/2025 2:00 PM EDT Office Visit [facility] [address] [place] [address] Dorothea Evangelista [address] [place] [address] Health Maintenance Due Date Last Done Comments CT Colonography 1968 Colonoscopy 1968 Colorectal Cancer Screening 1968 Depression Screening 1968 FIT DNA/Cologuard 1968 FIT 1968 FOBT 1968 HIV Screening 1968 SDOH Screening 1968 Sigmoidoscopy 1968 Alcohol/Substance Use Screening 1980 Hepatitis C Screening 1986 DTaP/Tdap/Td Vaccines (1 - Tdap) 1987 Hepatitis B Vaccines (1 of 3 - 19+ 3-dose series) 1987 Pap Smear 1989 Cervical Cancer Screening 1998 HPV/Cotest 1998 Mammogram 2008 Pneumococcal Vaccine: 50+ Years (1 of 1 - PCV) 2018 Zoster Vaccines (1 of 2) 2018 Dental Oral Exam 05/04/2024 11/03/2023 Dental X-Ray: Bitewings 11/02/2024 11/01/2023, 02/23 Dental Prophylaxis 12/27/2024 06/27/2024, 11/01/2023 Tobacco Screening 06/27/2025 06/27/2024 Dental X-Ray: Full Mouth 11/02/2026 11/01/2023, 12/25 RSV Patients and Patients Aged 60 years or older (1 - 1-dose 75+ series) 2043 Influenza Vaccine Completed 07/03/2024, , 06/29/2022, Additional history exists COVID-19 Vaccine Completed 10/30/2024, 10/2023, 11/01/2022, Additional history exists HIB Vaccines Aged Out No longer eligi ble based on patient's age to complete this topic HPV Vaccines Aged Out No longer eligi ble based on patient's age to complete this topic Hepatitis A Vaccines Aged Out No long er eligible based on patient's age to complete this topic IPV Vaccines Aged Out No longer eligi ble based on patient's age to complete this topic Meningococcal Vaccine Aged Out No brady drew eligible based on patient's age to complete this topic RSV under 20 months Aged Out No longe r eligible based on patient's age to complete this topic Rotavirus Vaccines Aged Out No longer eligible based on patient's age to complete this topic Procedures Procedure Name Priority Date/Time Associated Diagnosis Comments PROPHYLAXIS - ADULT Routine 06/27/2024 8 :00 AM EDT Dental plaque PERIODIC ORAL EVALUATION - ESTABLISHED PATIENT Routine 11/03/2023 8:00 AM EST INTRAORAL - COMPLETE SERIES OF RADIOGRAPHIC IMAGES Routine 11/01/2023 8:00 AM EST Dental plaque from Last 3 Months or Most Recently Relevant to Health Maintenance Insurance DENTAL - [facility] * Guarantor: Fredy Michael Account Type Relation to Patient Date of Phone Billing Address Personal/[place] [address]
--- OUTSIDE RECORDS SUMMARY | 2025-01-14 19:13 | XMS_ITS | Encounter Summary ---
Author Organization [employer] [facility] Address [address] [facility] 7t [place] [address] Care Team Providers Care Senior Writer Name Role Phone Unavailable Primary Care Provider Unavailabl e Encounter Details Date Type Department Care Team (Late st Contact Info) Description 10/23/2023 Abstract [facility]ULT D[facility] [address] [place], [place] [phone] Geovany Elder DMD [address] [place], [place] [phone] Social History Tobacco Use Types Packs/Day Years [...] Description 03/10/2025 2:00 PM EDT Office Visit [facility] [address] [place] [address] Dorothea Evangelista [address] [place] [address] documented as of this encounter Visit Diagnoses Not on filedocumented in this encounter
--- OUTSIDE RECORDS SUMMARY | 2025-01-14 19:13 | XMS_ITS | Encounter Summary ---
Author Organization [employer] Address [address] [facility] 7[address] [place] [address] Care Team Providers Care Aircraft Seat Upholsterer Name Role Phone Unavailable Primary Care Provider Unavailabl e Reason for Visit * Reason Onset Date Comments medication 08/14/2023 Encounter Details Date Type Department Care Team ([facility] st Contact Info) Description 08/14/2023 Telephone [facility] ADULT D[facility]AL [address] [place] [address] Geovany Elder DMD [address] [place] [address] medication Social History Tobacco Use Types Packs/Day [...] * Telephone Encounter - Michelle Maddox - 08/15/2023 2:39 PM EST She is looking for clindamyacin to be sent to pharmacy * Telephone Encounter - Geovany Elder DMD - 08/14/2023 3:55 PM EST Can you ask pt any other kind of pain medication which she can take because she is allergic to Tylenol and Motrin ? Thanks * Telephone Encounter - Michelle Maddox - 08/14/2023 2:14 PM EST Kimberli gtz she forgot to ask for pain medication in her last visit because she dropped her last bottle of acetominophen on the floor. Would like a new script sent DR documented in this encounter Plan of Treatment Upcoming Encounters Date Type Department Care Team (Late st Contact Info) Description 03/10/2025 2:00 PM EDT Office Visit [facility] ADULT D[facility]AL [address] [place] [address] Dorothea Evangelista [address] [place] [address] documented as of this encounter Visit Diagnoses Not on filedocumented in this encounter
--- OUTSIDE RECORDS SUMMARY | 2025-01-14 19:13 | XMS_ITS | Clinical Summary ---
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; COMMENT: Needs vessel crew member HTN (hypertension) 02/02/2017 DX:HTN (hyper tension) Irritable bowel syndrome (IBS) 06/24/2018 D X:Irritable bowel syndrome (IBS) Lesion of liver 10/04/2017 DX:Lesion of brittney er Family History Medical History Relation Name Comments Hypertension Brother x 3 Lung cancer Father Lung cancer Mother Hypertension Sister Relation Name Status Comments Brother Father Mother Sister Social History Tobacco Use Types Packs/Day Years Used Date Smoking Tobacco: Never Alcohol Use Standard Drinks/Week Comments Not Asked 0 (1 standard drink = 0.6 oz pur e alcohol) Comments Unknown Sex and Gender Information Value Date Recorded Sex Assigned at Not on file Legal Sex Female 9:28 AM EST Gender Identity Not on file Sexual Orientation Not on file Obstetrics History Last Filed Vital Signs Vital Sign Reading Time Taken Comments Blood Pressure - - Pulse - - Temperature - - Respiratory Rate - - Oxygen Saturation - - Inhaled Oxygen Concentration - - Weight 54.4 kg (120 lb) 07/02/2024 10:46 AM EDT Height 165.1 cm (5' 5 ) 07/02/2024 10:46 AM EDT Body Mass Index 19.97 07/02/2024 10:46 AM EDT Plan of Treatment Upcoming Encounters Date Type Department Care Team (Late st Contact Info) Description 05/05/2025 2:00 PM EDT [facility]oint[facility] [address] [address] Health Maintenance Due Date Last Done Comments DTaP,Tdap,and Td Vaccines (1 - Tdap) 1987 Hepatitis A Vaccines (1 of 2 - Risk 2-dose series) 1987 Hepatitis B Vaccines (1 of 3 - 19+ 3-dose series) 1987 Pneumococcal Vaccine: 50+ Years (1 of 2 - PCV) 1987 Pneumococcal Vaccine: Pediatrics (0 to 5 Years) and At-Risk Patients (6 to 64 Years) (1 of 2 - PCV) 1987 Zoster Vaccines (1 of 2) 1987 Cervical Cancer Screening: Pap Smear 1989 Cholesterol Screening (Lipid Panel) 09/04/2022 Colorectal Cancer Screening: Colonoscopy 09/04/2022 Depression Screening 09/04/2022 HIV Screening 09/04/2022 Hepatitis C Screening 09/04/2022 Social Influencers of Health Screening 09/04/2022 Hypertension/CHF/CAD Annual BMP Blood Test 09/07/2022 COVID-19 Vaccine (8 - Pfizer risk 2023- season) 2025 10/30/2024, 10/27/2023, 11/01/2022, Additional history exists Breast Cancer Screening 05/28/2026 05/28/20 24, 05/23/2023, 05/20/2022, Additional history exists Influenza Vaccine Completed 07/03/2024, , 06/29/2022, Additional history exists HIB Vaccines Aged Out No longer eligi ble based on patient's age to complete this topic HPV Vaccines Aged Out No longer eligi ble based on patient's age to complete this topic IPV Vaccines Aged Out No longer eligi ble based on patient's age to complete this topic MMR Vaccines Aged Out No longer eligi ble based on patient's age to complete this topic Meningococcal ACWY Vaccine Aged Out N o longer eligible based on patient's age to complete this topic Meningococcal B Vaccine Aged Out No l onger eligible based on patient's age to complete this topic RSV Immunization Patients Under 20 months Aged Out No longer eligible based on patient's age to complete this topic Varicella Vaccines Aged Out No longer eligible based on patient's age to complete this topic Procedures Procedure Name Priority Date/Time Associated Diagnosis Comments WILLIAM URINE CULTURE TUBE Routine 01/07/2025 3:50 PM EDT Hematuria, unspecified URINALYSIS WITH REFLEX MICROSCOPIC AND CULTURE Routine 01/07/2025 3:50 PM EDT Hematuria, unspecified URINALYSIS WITH REFLEX MICROSCOPIC AND CULTURE Routine 01/07/2025 3:50 PM EDT Hematuria, unspecified GIRMA SCREENING DIGITAL Routine 05/28/2024 9:48 AM EDT Encounter for screening mammogram for malignant neoplasm of breast from Last 3 Months or Most Recently Relevant to Health Maintenance Results * (ABNORMAL) Urinalysis with reflex microscopic and culture (01/07/2025 3:50 PM EDT) Specific [place] Urine 1.023 1.003 - 1.030 LAB URINALYSIS - AUTOMATED METHOD 01/07/2025 4:43 PM [facility] pH, Urine 7.0 5.0 - 8.0 pH LAB URINALYSIS - AUTOMATED METHOD 01/07/2025 4:43 PM [facility] Leukocytes, Urine Negative Negative LAB URINALYSIS - AUTOMATED METHOD 01/07/2025 4:43 PM [facility] Nitrite, Urine Negative Negative LAB URINALYSIS - AUTOMATED METHOD 01/07/2025 4:43 PM [facility] Protein, Urine 30(A) <=Trace mg/dL LAB URINALYSIS - AUTOMATED METHOD 01/07/2025 4:43 PM [facility] Glucose, Urine Negative Negative mg/dL LAB URINALYSIS - AUTOMATED METHOD 01/07/2025 4:43 PM [facility] Ketones, Urine Trace(A) Negative mg/dL LAB URINALYSIS - AUTOMATED METHOD 01/07/2025 4:43 PM [facility] Urobilinogen , Urine 1.0 0.2 - 1.0 mg/dL LAB URINALYSIS - AUTOMATED METHOD 01/07/2025 4:43 PM EDT [facility] Bilirubin, Urine Negative Negative LAB URINALYSIS - AUTOMATED METHOD 01/07/2025 4:43 PM EDT [facility] Blood, Urine Moderate(A) Negative LAB URINALYSIS - AUTOMATED METHOD 01/07/2025 4:43 PM EDT [facility] RBC, Urine 158.1(H) 0 - 4 /HPF LAB URINALYSIS - AUTOMATED METHOD 01/07/2025 4:43 PM EDT [facility] WBC, Urine 2.3 0 - 4 /HPF LAB URINALYSIS - AUTOMATED METHOD 01/07/2025 4:43 PM EDT [facility] Squamous Epithelial, Urine 33 0 - 60 /LPF LAB URINALYSIS - AUTOMATED METHOD 01/07/2025 4:43 PM EDT [facility] Bacteria, Urine Negative Negative /HPF LAB URINALYSIS - AUTOMATED METHOD 01/07/2025 4:43 PM EDT [facility] Hyaline Casts, Urine 4.0(H) 0 - 3 /LPF LAB URINALYSIS - AUTOMATED METHOD 01/07/2025 4:43 PM T [facility] Urine Urine specimen obtained by clean catch procedure / Unknown Non-blood Collection / Unknown 01/07/2025 3:50 PM EDT 01/07/2025 3:59 PM EDT us Xin [facility] URINE ORDERABLES Hattie vu Result [facility] [address] [place] [address], * William urine culture tube (01/07/2025 3:50 PM EDT) Extra Tube Hold for add-ons. 01/07/2025 5:02 PM EDT [facility] Comment:Auto resulted. Urine Urine specimen obtained by clean catch procedure / Unknown Non-blood Collection / Unknown 01/07/2025 3:50 PM EDT 01/07/2025 3:59 PM EDT us Xin [facility] URINE ORDERABLES Hattie vu Result [facility] [address] [place] [address], * GIRMA SCREENING DIGITAL (05/28/2024 9:48 AM EDT) Anatomical Region Laterality Modality Mammography 05/24/2024 1:05 PM EDT Narrative 05/28/2024 9:48 AM EDT [facility] Diagnostic Imaging Department [address] [place] [address] Patient: ??FREDY TAVERAS ?/Age/Sex: 1970 - 53 - F Unit#: ??[id number] ? Location/Status: ??SPDIMAM/REG CLI ? Mnemonic/Ordering Site: ??DIGSC/SPMAM Ordering Physician: ??KELI TOLBERT MD Girma Screening Digital - 08/30/24 - 1331 Report Status:Signed HISTORY: The patient is a 53-year-old female presenting for routine screening mammography. ??The patient has a family history of breast cancer involving her mother at age 72. FINDINGS: ??Full-field digital mammography of the breasts bilaterally consisting of tomosynthesis in MLO and CC projection is performed in the [employer] 2000-D unit. ??Computer aided detection utilizing the iCAD system was utilized. The breasts are again seen to be composed of a combination of fatty and fibroglandular elements (scattered areas of fibroglandular density, category B density as calculated with GetO2para software), without significant change as compared to prior studies most recently 05/22/2023 and most remotely 01/17/2017. ??There is no cluster of microcalcifications, mass, or area of architectural distortion. There is no skin thickening or nipple retraction. IMPRESSION: No mammographic evidence of malignancy. A negative mammogram in the presence of a clinically suspicious palpable abnormality does not preclude the possibility of malignancy or alter the indications for biopsy. BIRADS Code Class 1: ??Negative PQRI CPT II 3341F Code 22948, 13109 PQRI 225 CPT II 7025F Dictating Physician: ??SHIRA SRIVASTAVA MD Electronically Signed by: ??SHIRA SRIVASTAVA MD Dic Date/Time: ??05/28/24939 Sign date/Time: ??05/28/24947 Procedure Note Shira Srivastava MD - 07/10/2024 [facility] Diagnostic Imaging Department [address] [place], [place] [id number] Patient: RAIZA TAVERASKhushbu JacobsB./Age/Sex: 1970 - 53 - F Unit#: [id number] Location/Status: [facility] CLI Mnemonic/Ordering Site: [facility] Ordering Physician: KELI TOLBERT MD Girma Screening Digital - 05/24/24 - 1331 Report Status:Signed HISTORY: The patient is a 53-year-old female presenting for routinescreening mammography. The patient has a family history of breast cancer involvingher mother at age 72. FINDINGS: Full-field digital mammography of the breasts bilaterallyconsisting of tomosynthesis in MLO and CC projection is performed in the [employer] 2000-D unit. Computer aided detection utilizing the iCAD system wasutilized. The breasts are again seen to be composed of a combination of fatty and fibroglandular elements (scattered areas of fibroglandular density,category B density as calculated with GetO2para software), without significantchange as compared to prior studies most recently 05/22/2023 and most remotely 01/17/2017. There is no cluster of microcalcifications, mass, or area of architectural distortion. There is no skin thickening or nippleretraction. IMPRESSION: No mammographic evidence of malignancy. A negative mammogram in the presence of a clinically suspicious palpable abnormality does not preclude the possibility of malignancy or alter the indications for biopsy. BIRADS Code Class 1: Negative PQRI CPT II 3341F Code 29312, 60289 PQRI 225 CPT II 7025F Dictating Physician: SHIRA SRIVASTAVA MD Electronically Signed by: SHIRA SRIVASTAVA MD Dic Date/Time: 05/28/2440 Sign date/Time: 05/28/24 0948 Keli Tolbert MD IMG BI PROCEDURES Final Result from Last 3 Months or Most Recently Relevant to Health Maintenance Insurance [facility] Member Subscriber Plan / Payer (Ef fective 2021-Present) Name:Fredy Taveras Relation to Subscriber:Self Name:Fredy Taveras Payer ID:[id number] Group ID:[id number] Type:Not on file Address: [facility] [address] [address] Care Teams Spooling Machine Operator Relationship Specialty Start Date End Date Derick Stern NP [address] [address] PCP - General Nurse Practitioner 01/07/25
--- OUTSIDE RECORDS SUMMARY | 2025-01-14 19:13 | XMS_ITS | Encounter Summary ---
Author Organization [employer] [facility] Address [address] [place] [address] 7t [place] [address] Care Team Providers Care Paper Hanger Name Role Phone Unavailable Primary Care Provider Unavailabl e Reason for Visit * Reason Comments Med Refill Encounter Details Date Type Department Care Team (Late st Contact Info) Description 11/13/2023 Refill [facility] ADULT DENTAL [address] [place] [address] Geovany Elder DMD [address] [place] [address] Social History Tobacco Use Types Packs/Day Years [...] Telephone Encounter - Geovany Elder DMD - 11/14/2023 8:05 AM EST Approving, but needs appt for additional refills. documented in this encounter Plan of Treatment Upcoming Encounters Date Type Department Care Team (Late st Contact Info) Description 03/10/2025 2:00 PM EDT Office Visit [facility] ADULT D[facility] [address] [place] [address] Dorothea Evangelista [address] [place] [address] documented as of this encounter Visit Diagnoses Not on filedocumented in this encounter
--- OUTSIDE RECORDS SUMMARY | 2025-01-14 19:13 | XMS_ITS | Encounter Summary ---
Author Organization [employer] Address [address] [facility] 7t [place] [address] Care Team Providers Care Health Professional Name Role Phone Unavailable Primary Care Provider Unavailabl e Encounter Details Date Type Department Care Team (Latest Contact Info) Description 02/19/2019 Abstract [facility] CON[facility] Dental, Provider, DDS Social History [...] Description 03/10/2025 2:00 PM EDT Office Visit [facility] ADULT DENTAL [address] [place] [address] Tonja Dorothea [address] [place] [address] documented as of this encounter Visit Diagnoses Not on filedocumented in this encounter
--- OUTSIDE RECORDS SUMMARY | 2025-01-14 19:13 | XMS_ITS ---
Author Organization [facility] Address [address] [place] [address] Care Team Providers Care Speaking Unit Assembler Name Role Phone STALIN RENNER Primary Care Provider [phone] REASON FOR VISIT ongoing symptoms Encounters Encounter Location Date Provider Diagnosis [address] [place] [address] 01/13/2025 STALIN RENNER PLAN OF TREATMENT Next Appt Details Provider Name:ALO COUCH, 05/27/2025 08:30:00 AM, [address], [address], [place], [address], Progress Notes * JESSIKA TAVERASOB:1970 (54 yo F)Acc No.[id number]:01/13/2025 Patient:??DARCY MARIZOL :1970?Age:54 Y?Sex:Fe male Address:[address], [place] [address] * * Date:??
--- OUTSIDE RECORDS SUMMARY | 2025-01-14 19:13 | XMS_ITS ---
Author Organization [facility] Address [address] [place] [address] Care Team Providers Care House Painter Name Role Phone STALIN TOLBERT Primary Care Provider AXEL ALVARADO Unavailable [phone] ALLERGIES Allergen (clinical drug ingredient) Drug/Non Drug [...] ciprofloxacin Cipro dizziness Drug Allergy Act samir REASON FOR VISIT hematuria MEDICATIONS Medication SIG (Take, Route, Frequency, Duration) Notes Start Date End Date Status Anucort-HC 25 MG 1 suppository as needed Rectal Three times a day for 30 day(s) Active Hydrocortisone 1 % 1 application to affected area Externally Twice a day for 30 day(s) undefined 02/28/2018 Not-Taking hydrOXYzine HCl 10 mg 1 tablet as needed Orally every 8 hrs for 30 Not-Taking hydrOXYzine HCl 25 MG 1 tablet as needed Orally every 8 hrs for 30 day(s) Not-Taking Montelukast Sodium 10 MG TAKE 1 TABLET B Y MOUTH EVERY DAY for 90 Active Clotrimazole 1 % APPLY TOPICALLY TO THE AFFECTED AREA TWICE DAILY for 30 Active Nitrofurantoin Monohyd Macro 100 MG 1 capsule with food Orally every 12 hrs for 7 days 11/30/2023 Not-Taking Diclofenac Sodium 75 MG 1 tablet Orally Twice a day for 30 day(s) 11/24/2020 Active Probiotic 250 MG 1 capsule Orally once a day for 30 days 11/10/2020 Active Famotidine 20 MG TAKE 1 TABLET BY MOUTH EVERY DAY AT BEDTIME NEEDED for 90 Active Hydrocortisone Julio C-Pramoxine 2.5-1 % 1 application Externally Three times a day for 30 days Active SOCIAL HISTORY Tobacco Use: Social History Observation Description Date Details (start date - stop date) Never Smoker NA - NA Sex Assigned At : Social History Observation Description Sex Assigned At Unknown Tobacco Use/Smoking Question Answer Notes Are you a nonsmoker PROBLEMS Problem Type ICD Code Onset Dates Problem Status W/U Status Risk SNOMED Code Notes Problem GERD without esophagitis (K21.9) Active confirmed 219600135 VITAL SIGNS Blood pressure systolic 128 mm Hg 01/08/20 25 Blood pressure diastolic 84 mm Hg 025 Heart Rate 86 /min 01/07/2025 Height 63 in 01/07/2025 Weight 118 lbs 01/07/2025 BMI 20.9 kg/m2 01/07/2025 Oximetry 95 % 01/07/2025 Encounters Encounter Location Date Provider Diagnosis [place] [id number] [address] 01/07/2025 AXEL ALVARADO Painless hematuria R31.9 ; Generalized anxiety disorder F41.1 ; Kidney stones N20.0 ; Other seasonal allergic rhinitis J30.2 ; GERD without esophagitis K21.9 and External hemorrhoids K64.4 ASSESSMENTS Encounter Date Diagnosis Assessment Notes Treatment Notes Treatment Clinical Notes Section Notes 01/07/2025 Painless hematuria (ICD-10 - R31.9) Fredy [...] this time. # Nephrolithiasis: Patient follows with [place]. Last office visit scanned in chart from 2022, renal ultrasound with findings of 4 mm stones x 2 on the left side and a 3 mm right small punctuate stone. Patient that time advised to increase her hydration and continue to monitor. # Hemorrhoids: Patient follows with gastroenterology in [place]. Also has had follow-up with surgery regarding [...] Dictation was accomplished with the use of [employer] voice recognition software, which is prone to medical misidentifications and grammatical errors. This are unintentional and the practitioner does try to identify and correct these, but some could still be present. Please do not hesitate to contact practitioner for clarification. 01/07/2025 Generalized anxiety disorder (ICD-10 - F41.1) [...] this time. # Nephrolithiasis: Patient follows with [facility]. Last office visit scanned in chart from 2022, renal ultrasound with findings of 4 mm stones x 2 on the left side and a 3 mm right small punctuate stone. Patient that time advised to increase her hydration and continue to monitor. # Hemorrhoids: Patient follows with gastroenterology in [place]. Also has had follow-up with surgery regarding [...] Dictation was accomplished with the use of [employer] voice recognition software, which is prone to medical misidentifications and grammatical errors. This are unintentional and the practitioner does try to identify and correct these, but some could still be present. Please do not hesitate to contact practitioner for clarification. 01/07/2025 Kidney stones (ICD-10 - N20.0) Fredy [...] this time. # Nephrolithiasis: Patient follows with [place]. Last office visit scanned in chart from 2022, renal ultrasound with findings of 4 mm stones x 2 on the left side and a 3 mm right small punctuate stone. Patient that time advised to increase her hydration and continue to monitor. # Hemorrhoids: Patient follows with gastroenterology in [place]. Also has had follow-up with surgery regarding [...] Dictation was accomplished with the use of [employer] voice recognition software, which is prone to medical misidentifications and grammatical errors. This are unintentional and the practitioner does try to identify and correct these, but some could still be present. Please do not hesitate to contact practitioner for clarification. 01/07/2025 Other seasonal allergic rhinitis (ICD-10 - [...] this time. # Nephrolithiasis: Patient follows with [place]. Last office visit scanned in chart from 2022, renal ultrasound with findings of 4 mm stones x 2 on the left side and a 3 mm right small punctuate stone. Patient that time advised to increase her hydration and continue to monitor. # Hemorrhoids: Patient follows with gastroenterology in [place]. Also has had follow-up with surgery regarding [...] Dictation was accomplished with the use of [employer] voice recognition software, which is prone to [...] this time. # Nephrolithiasis: Patient follows with [place]. Last office visit scanned in chart from 2022, renal ultrasound with findings of 4 mm stones x 2 on the left side and a 3 mm right small punctuate stone. Patient that time advised to increase her hydration and continue to monitor. # Hemorrhoids: Patient follows with gastroenterology in [place]. Also has had follow-up with surgery regarding [...] Dictation was accomplished with the use of [employer] voice recognition software, which is prone to medical misidentifications and grammatical errors. This are unintentional and the practitioner does try to identify and correct these, but some could still be present. Please do not hesitate to contact practitioner for clarification. 01/07/2025 External hemorrhoids (ICD-10 - K64.4) Fredy [...] this time. # Nephrolithiasis: Patient follows with [place]. Last office visit scanned in chart from 2022, renal ultrasound with findings of 4 mm stones x 2 on the left side and a 3 mm right small punctuate stone. Patient that time advised to increase her hydration and continue to monitor. # Hemorrhoids: Patient follows with gastroenterology in [place]. Also has had follow-up with surgery regarding [...] Dictation was accomplished with the use of [employer] voice recognition software, which is prone to medical misidentifications and grammatical errors. This are unintentional and the practitioner does try to identify and correct these, but some could still be present. Please do not hesitate to contact practitioner for clarification. PLAN OF TREATMENT Pending Test Test Name Order Date URINALYSIS, COMPLETE W/REFLEX TO CULTURE 01/07/2025 Next Appt Details Provider Name:ALO COUCH, 05/27/2025 08:30:00 AM, [address] [place] [address], [place], [address], Progress Notes * JESSIKA TAVERASOB:1970 (54 yo F)Acc No.[id number]:01/07/2025 Progress Notes Patient:??FREDY TAVERAS Provider:??AXEL ALVARADO :1970?Age:54 Y?Sex:Fe male Date:01/07/2025 Address: [address] [place] [id number] Pcp:STALIN TOLBERT Subjective: * Chief Complaints: * ?1. Hematuria. * HPI: ?Constitutional:? Fredy is a 54-year-old female with history of deafness, nephrolithiasis, anxiety, seasonal allergies, and hemorrhoids who presents today for urgent visit of hematuria. Patient communicates with pen and paper. She reports that yesterday at approximately 1 PM she felt pain in her abdomen, similar pains to her menses, then went to the bathroom and found blood in her urine. States that she then was using Tylenol for stomach pains which was helpful. Has been consuming lots of water. Reports no pain with urination. Reports no fevers however states that she felt cold last night. Reports no back pain and is currently no longer experiencing any abdominal pain. ?Of note the patient does follow-up with urology for nephrolithiasis. Renal ultrasound has revealed two 4 mm stones on the left side in 2020. On 10/16 renal ultrasound revealed a 3 mm right small punctuate stone. * ROS:?Constitutional: Patient denies any excessive fatigue with exercise, no weight loss, no fever, no night sweats, no changes in sleep. ???Eyes: No eye discharge, no itching, no redness, no vision changes. Advised the significance of regular eye exams to screen for glaucoma and other eye problems. ???Ear nose throat: No ear pain, No sore throat, no postnasal drip, no runny nose, no sneezing, no hearing changes ???Cardiovascular: No chest pain, no dyspnea on exertion, no PND, no orthopnea, no irregular pulse, no palpitations, no claudication, no diaphoresis, no claudication. ???Respiratory: No chronic cough, no hemoptysis, no sputum, no wheezing, no SOB, no pleuritic pain. ???GI: No diarrhea, no constipation, no blood in the stools, no pain associated with eating, no indigestion, no difficulty swallowing, no appetite change. ???Genitourinary: No painful urination, no hesitancy, + blood in the urine, no incontinence, no frequency, no urgency, no abnormal discharge. ???Musculoskeletal: No back pain, no joint pain, no limitations to walking and running, no joint deformity, no joint stiffness, no muscle weakness ???Integumentary: No new skin rash. No new changes in skin moles, no pruritis, no color change. ???Neurological: No history of seizures, no memory loss, no language dysfunction, no inability to concentrate, no localized weakness, no sensation loss, no confusion, no dizziness, no tremor, no numbness, no tingling. ???Psychiatric: no anxiety, no depression, no suicidal thoughts, feels safe at home. ???Endocrine: No polyuria, no polyphagia, no polydipsia. No heat/cold intolerance, no excesss thirst. ???Hematological: No easy bruising or bleeding, no lymph node swelling. * Medical History:??Anxiety, A llergies, Deafness. * Surgical History:??nose surg manohar . * Hospitalization/Major Diagno stic Procedure:??Denies Past Hospitalization. * Family History:??Father: dec eased.??Mother: alive.?? * Social History:?Tobacco Use:??Tobacco Use/Smoking??Are you a??nonsmoker.?? * Medications:??Taking Anucort -HC 25 MG Suppository 1 suppository as needed Rectal Three times a day , Taking Hydrocortisone Julio C-Pramoxine 2.5-1 % Cream 1 application Externally Three times a day , Taking Probiotic 250 MG Capsule 1 capsule Orally once a day , Taking Diclofenac Sodium 75 MG Tablet Delayed Release 1 tablet Orally Twice a day , Taking Clotrimazole 1 % Cream APPLY TOPICALLY TO THE AFFECTED AREA TWICE DAILY , Taking Famotidine 20 MG Tablet TAKE 1 TABLET BY MOUTH EVERY DAY AT BEDTIME NEEDED , Taking Montelukast Sodium 10 MG Tablet TAKE 1 TABLET BY MOUTH EVERY DAY , Not-Taking Nitrofurantoin Monohyd Macro 100 MG Capsule 1 capsule with food Orally every 12 hrs , Not-Taking hydrOXYzine HCl 25 MG Tablet 1 tablet as needed Orally every 8 hrs , Not-Taking hydrOXYzine HCl 10 mg Tablet 1 tablet as needed Orally every 8 hrs , Not-Taking Hydrocortisone 1 % Cream 1 application to affected area Externally Twice a day , Notes to Pharmacist: undefined, Medication List reviewed and reconciled with the patient * Allergies:??conpacih, pcn, c odeine, lonox, tramadol, metoprolol, atenolol, azthromycin, aspirin, oxycodone, cyclobenzaprine, predisone, Cipro: dizziness. Objective: * Vitals:??HR:86/min, BP:128/8 4mm Hg, Wt:118lbs, BMI:20.9Index, Ht: 63 in, Oxygen sat %:95%. * Physical Examination:?General: Age appropriate 54-year-old female, well appearing, no acute distress, speaking in full sentences without respiratory compromise. Well groomed, well developed. Alert, Interactive. ?Skin: Warm, dry and intact. No lesions/rashes/erythema. ?HEENT: Normocephalic/atraumatic. ?Neck/Thyroid: Supple, with no lymphadenopathy. Full ROM. ?Lung: Clear to auscultation bilaterally, no wheezes, rales or rhonchi. No barrel chest. Equal chest rise and fall bilaterally. ?Cardiac: S1 and S2 appreciated. No murmurs/rubs or gallops. DP pulses intact 2+ bilaterally. Capillary refill <2 seconds. ?Abdomen: Soft, nontender, normoactive bowel sounds. No rebound/guarding. No CVA tenderness. No Masses. ?Extremities: Bilateral lower extremities with no edema or rubor. No evidence of varicose veins. Equal tone bilaterally. ?Neuro: CN II-XI grossly intact. Steady gait with ambulation observed. Symmetric reflexes. ?Psych: Stable mood and affect. Assessment: * Assessment: 1.??Painless hematuria - R31 .9 (Primary)??2.??Generalized anxiety disorder - F41.1??3.??Kidney stones - N20.0??4.??Other seasonal allergic rhinitis - J30.2??5.??GERD without esophagitis - K21.9??6.??External hemorrhoids - K64.4?? Fredy is a 54-year-old fem clarke with history of deafness, nephrolithiasis, anxiety, seasonal [...] this time. # Nephrolithiasis: Patient follows with [facility]. Last office visit scanned in chart from 2022, renal ultrasound with findings of 4 mm stones x 2 on the left side and a 3 mm right small punctuate stone. Patient that time advised to increase her hydration and continue to monitor. # Hemorrhoids: Patient follows with gastroenterology in [place]. Also has had follow-up with surgery regarding [...] Dictation was accomplished with the use of [employer] voice recognition software, which is prone to medical misidentifications and grammatical errors. This are unintentional and the practitioner does try to identify and correct these, but some could still be present. Please do not hesitate to contact practitioner for clarification. Plan: * Treatment: Care Plan: * Problems:?? * Images: Billing Information: * Visit Code:?? 57496 Office Visit, Est Pt., Level 4. Modifiers: SA * Procedure Codes:?? Care Plan Details* * Sign off status: Completed true * Provider:??AXEL ALVARADO Date:?? 025 History and Physical Notes * HPI (History of Present Illness) Category Sub-Category Detail Notes Category Not es Constitutional Fredy is a 54-year-old female with history of deafness, nephrolithiasis, anxiety, seasonal allergies, and hemorrhoids who presents today for urgent visit of hematuria. Patient communicates with pen and paper. She reports that yesterday at approximately 1 PM she felt pain in her abdomen, similar pains to her menses, then went to the bathroom and found blood in her urine. States that she then was using Tylenol for stomach pains which was helpful. Has been consuming lots of water. Reports no pain with urination. Reports no fevers however states that she felt cold last night. Reports no back pain and is currently no longer experiencing any abdominal pain. Of note the patient does follow-up with urology for nephrolithiasis. Renal ultrasound has revealed two 4 mm stones on the left side in 2020. On 10/16 renal ultrasound revealed a 3 mm right small punctuate stone. Physical Examination Category Sub-Category Detail Notes Section Note s General: Age appropriate 54-year-old female, well appearing, no acute distress, speaking in full sentences without respiratory compromise. Well groomed, well developed. Alert, Interactive. Skin: Warm, dry and intact. No lesions/rashes/erythema. HEENT: Normocephalic/atraumatic. Neck/Thyroid: Supple, with no lymphadenopathy. Full ROM. Lung: Clear to auscultation bilaterally, no wheezes, rales or rhonchi. No barrel chest. Equal chest rise and fall bilaterally. Cardiac: S1 and S2 appreciated. No murmurs/rubs or gallops. DP pulses intact 2+ bilaterally. Capillary refill <2 seconds. Abdomen: Soft, nontender, normoactive bowel sounds. No rebound/guarding. No CVA tenderness. No Masses. Extremities: Bilateral lower extremities with no edema or rubor. No evidence of varicose veins. Equal tone bilaterally. Neuro: CN II-XI grossly intact. Steady gait with ambulation observed. Symmetric reflexes. Psych: Stable mood and affect
--- OUTSIDE RECORDS SUMMARY | 2025-01-14 19:14 | XMS_ITS ---
Author Organization [email or web address] Address [address] [place] [address] Care Team Providers Care Aboriginal Liaison Officer Name Role Phone STALIN RENNER Primary Care Provider OLIVIERJada ALO Unavailable [phone] REASON FOR VISIT Hematuria on UA, possible stone Encounters Encounter Location Date Provider Diagnosis [address] [place] [address] 01/08/2025 ALO COUCH Kidney stone N20.0 ASSESSMENTS Encounter Date Diagnosis Assessment Notes Treatment Notes Treatment Clinical Notes Section Notes 01/08/2025 Kidney stone (ICD-10 - N20.0) PLAN OF TREATMENT Pending Test Test Name Order Date CT Abd and Pelvis w/o Contrast Next Appt Details Provider Name:ALO COUCH, 05/27/2025 08:30:00 AM, [address], [address], [place], [address], Progress Notes * JESSIKA TAVERASOB:1970 (54 yo F)Acc No.[id number]:01/08/2025 Patient:??MARIZOL TAVERAS :1970?Age:54 Y?Sex:Fe male Address:[address] [place] [address] Subjective: * Chief Complaints: * ?Hematuria on UA, possi ble stone * Medical History:?? * Surgical History:?? * Hospitalization/Major Diagno stic Procedure:?? * Medications:?? Objective: Assessment: * Assessment: 1.??Kidney stone - N20.0?? Plan: * Treatment: * Procedure Codes:?? * true * Date:??
== END 2025-01-14 19:00 | disposition home or self-care (01) ==
PROVIDERS: Physician Assistant; Emergency Provider Emergency Medicine; PCP Internal Medicine
DX: R31.9 Hematuria, unspecified (principal); R10.2 Pelvic and perineal pain; R30.0 Dysuria; Z79.899 Other long term (current) drug therapy
CPT/HCPCS: 36415; 74176; 80053; 81001; 81025; 84702; 85025; 99283; 99284

== ENCOUNTER → 2025-01-14 12:26 | Outpatient (BNV) | payer OTHER, SELFPAY | PROVIDERS: PCP Internal Medicine; Visit Provider Radiology Diagnostic Radiology | DX: R30.0 Dysuria (principal) | CPT/HCPCS: 74176 ==

== ENCOUNTER 2025-06-04 15:00 | Outpatient (AMB) | payer OTHER, SELFPAY ==
--- OUTSIDE RECORDS SUMMARY | 2025-05-27 04:30 | XMS_ITS ---
Author Organization [facility] Address [address] [place] [address] Care Team Providers Care Sales Account Associate Name Role Phone STALIN RENNER Primary Care Provider [phone] ALO COUCH Unavailable [phone] Medications Medication SIG (Take, Route, Frequency, Duration) [...] Location Date Provider Diagnosis [facility] [address] [place] [phone] 05/27/2025 ALO AGUAYOJada Annual physical exam Z00.00 [...] software and direct typing Please excuse inadvertent trains service conductor or typing errors, or uncorrected word substitutions Although every attempt has been made by the provider to proofread this document, occasional misspellings and typographical errors may still be present Due to the previous pandemic, and the use of personal protective equipment (PPE) This may decrease voice recognition accuracy Inadvertent trains service conductor errors may occur 05/27/2025 Encounter for screening for depression (ICD-10 - Z13.31) Acute Concerns/Problem List: 05/27/2025 Of note, some information is being carried forward from prior records for informational purposes only and is being cited so that efficiency, safety and quality of the patient's care is not compromised This note was prepared using voice recognition software and direct typing Please excuse inadvertent trains service conductor or typing errors, or uncorrected word substitutions Although every attempt has been made by the provider to proofread this document, occasional misspellings and typographical errors may still be present Due to the previous pandemic, and the use of personal protective equipment (PPE) This may decrease voice recognition accuracy Inadvertent trains service conductor errors may occur 05/27/2025 Encounter for screening for other disorder (ICD-10 - Z13.89) Acute Concerns/Problem List: 05/27/2025 Of note, some information is being carried forward from prior records for informational purposes only and is being cited so that efficiency, safety and quality of the patient's care is not compromised This note was prepared using voice recognition software and direct typing Please excuse inadvertent trains service conductor or typing errors, or uncorrected word substitutions Although every attempt has been made by the provider to proofread this document, occasional misspellings and typographical errors may still be present Due to the previous pandemic, and the use of personal protective equipment (PPE) This may decrease voice recognition accuracy Inadvertent trains service conductor errors may occur 05/27/2025 Advanced directives, counseling/discussi on (ICD-10 - Z71.89) Acute Concerns/Problem List: 05/27/2025 Of note, some information is being carried forward from prior records for informational purposes only and is being cited so that efficiency, safety and quality of the patient's care is not compromised This note was prepared using voice recognition software and direct typing Please excuse inadvertent trains service conductor or typing errors, or uncorrected word substitutions Although every attempt has been made by the provider to proofread this document, occasional misspellings and typographical errors may still be present Due to the previous pandemic, and the use of personal protective equipment (PPE) This may decrease voice recognition accuracy Inadvertent trains service conductor errors may occur 05/27/2025 Generalized anxiety disorder (ICD-10 - F41.1) Acute Concerns/Problem List: 05/27/2025 Of note, some information is being carried forward from prior records for informational purposes only and is being cited so that efficiency, safety and quality of the patient's care is not compromised This note was prepared using voice recognition software and direct typing Please excuse inadvertent trains service conductor or typing errors, or uncorrected word substitutions Although every attempt has been made by the provider to proofread this document, occasional misspellings and typographical errors may still be present Due to the previous pandemic, and the use of personal protective equipment (PPE) This may decrease voice recognition accuracy Inadvertent trains service conductor errors may occur 05/27/2025 Other seasonal allergic rhinitis (ICD-10 - J30.2) Acute Concerns/Problem List: 05/27/2025 Of note, some information is being carried forward from prior records for informational purposes only and is being cited so that efficiency, safety and quality of the patient's care is not compromised This note was prepared using voice recognition software and direct typing Please excuse inadvertent trains service conductor or typing errors, or uncorrected word substitutions Although every attempt has been made by the provider to proofread this document, occasional misspellings and typographical errors may still be present Due to the previous pandemic, and the use of personal protective equipment (PPE) This may decrease voice recognition accuracy Inadvertent trains service conductor errors may occur 05/27/2025 Nephrolithiasis (ICD-10 - N20.0) Acute Concerns/Problem List: 05/27/2025 Of note, some information is being carried forward from prior records for informational purposes only and is being cited so that efficiency, safety and quality of the patient's care is not compromised This note was prepared using voice recognition software and direct typing Please excuse inadvertent trains service conductor or typing errors, or uncorrected word substitutions Although every attempt has been made by the provider to proofread this document, occasional misspellings and typographical errors may still be present Due to the previous pandemic, and the use of personal protective equipment (PPE) This may decrease voice recognition accuracy Inadvertent trains service conductor errors may occur 05/27/2025 Encounter for examination [...] software and direct typing Please excuse inadvertent trains service conductor or typing errors, or uncorrected word substitutions Although every attempt has been made by the provider to proofread this document, occasional misspellings and typographical errors may still be present Due to the previous pandemic, and the use of personal protective equipment (PPE) This may decrease voice recognition accuracy Inadvertent trains service conductor errors may occur Plan Of Treatment Medication Medication Name Sig Start Date Stop Date Notes Anucort-HC 25 MG 1 suppository as nee ded Rectal Three times a day; Duration: 30 day(s) Progress Notes * RAIZA TAVERASWMOB:1970 (54 yo F)Acc No.[id number]:05/27/2025 Progress Notes Patient: MARIZOL STOVALL Provider: Hubert COUCH NP :1970 A ge:54 Y S ex:Female Date:05/27/2025 Address: [address], [facility], [id number] Pcp:STALIN RENNER Subjective: * Chief Complaints: * [...] stratification screen completed. Discussed healthcare proxy. Discussed [place] order for life sustaining treatment, Comprehensive fasting [...] saw Dr. Aneudy Angelo [facility] Surgery from [place] who told her taking them out will [...] software and direct typing Please excuse inadvertent trains service conductor or typing errors, or uncorrected word substitutions Although every attempt has been made by the provider to proofread this document, occasional misspellings and typographical errors may still be present Due to the previous pandemic, and the use of personal protective equipment (PPE) This may decrease voice recognition accuracy Inadvertent trains service conductor errors may occur Plan: * Treatment: * Procedure Codes: 9 9199 NO SHOW OFFICE VISIT * Images: Billing Information: * Visit Code: * Procedure Codes: 08534 NO SHOW OFFICE VISIT. Care Plan Details* * Electronic signature of REVA MERCHANT KHOA on 06/04/2025 at 06:06 PM EDT Sign off status: Pending * Provider: Hubert COUCH HIGH LIFT DRIVER Date: 0 05/27/2025 Generated for Marcio rosario/Donnie/Darren on: 0 06/04/2025 06:06 PM EDT History and Physical Notes * [...] stratification screen completed. Discussed healthcare proxy. Discussed [place] order for life sustaining treatment, Comprehensive fasting [...] saw Dr. Aneudy Angelo General Surgery from [place] who told her taking them out will [...] General Examination GENERAL APPEARANCE: in no ac [place] distress, well developed, well nourished HEAD: normocephalic, [...]
--- NOTE | 2025-06-04 15:08 | A.OFFPC_ITS ---
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 alprazolam Allergy (Unknown, Verified 06/04/25 15:14) Cough, SOB aspirin (ASPIRIN) Allergy (Unknown, Verified 06/04/25 15:14) HOT IN BODY atenolol (ATENOLOL) Allergy (Unknown, Verified 06/04/25 15:14) Dizziness atropine (From Lomotil) Allergy (Unknown, Verified 06/04/25 15:14) Unknown azithromycin (AZITHROMYCIN) Allergy (Unknown, Verified 06/04/25 15:14) DIZZY ciprofloxacin Allergy (Unknown, Verified 06/04/25 15:14) Dizziness codeine (CODEINE) Allergy (Unknown, Verified 06/04/25 15:14) UNKNOWN diphenoxylate (From Lomotil) Allergy (Unknown, Verified 06/04/25 15:14) Unknown garlic Allergy (Unknown, Verified 06/04/25 15:14) Unknown hydrochlorothiazide Allergy (Unknown, Verified 06/04/25 15:14) hypertension lisinopril (LISINOPRIL) Allergy (Unknown, Verified 06/04/25 15:14) HEART POUNDING, palpitations Lonox Allergy (Unknown, Verified 06/04/25 15:14) hot flash metoprolol Allergy (Unknown, Verified 06/04/25 15:14) Dizziness onion Allergy (Unknown, Verified 06/04/25 15:14) Unknown oxycodone (OXYCODONE) Allergy (Unknown, Verified 06/04/25 15:14) HOT AND DIZZY Penicillins (PENICILLINS) Allergy (Unknown, Verified 06/04/25 15:14) ITCHING RASH pepper (genus Capsicum) Allergy (Unknown, Verified 06/04/25 15:14) Unknown prednisone Allergy (Unknown, Verified 06/04/25 15:14) Headache prochlorperazine (From Compazine) Allergy (Unknown, Verified 06/04/25 15:14) Unknown sumatriptan Allergy (Unknown, Verified 06/04/25 15:14) Dizziness tramadol (TRAMADOL) Allergy (Unknown, Verified 06/04/25 15:14) DIZZINESS cyclobenzaprine Allergy (Verified 06/04/25 15:14) increased BP barrett Allergy (Verified 06/04/25 15:14) Unknown orange Allergy (Verified 06/04/25 15:14) Unknown pantoprazole Allergy (Verified 06/04/25 15:14) Diarrhea albuterol (From Ventolin HFA) Adverse Reaction (Mild, Verified 06/04/25 15:14) Hot feeling ibuprofen (From Advil) Adverse Reaction (Unknown, Verified 06/04/25 15:14) Hot inside body naproxen (From Aleve) Adverse Reaction (Unknown, Verified 06/04/25 15:14) Hot inside body Diphenoxylate-Atropine Allergy (Unknown, Uncoded 06/04/25 15:14) Unknown Q-Tussin Allergy (Unknown, Uncoded 06/04/25 15:14) increased BP salt Allergy (Uncoded 06/04/25 15:14) Unknown Medication List - Last Reconciled 06/04/25 by Emmy Escalante MD acetaminophen (Tylenol Extra Strength) 500 mg PO Q4-6H PRN yuifqzzkbk-kopohwrmbmprr-yayq 50-325-40 mg 1 tab PO Q6H PRN cholecalciferol (vitamin D3) 1,250 mcg PO QWEEK cholecalciferol (vitamin D3) (Vitamin D3) 50 mcg PO DAILY dicyclomine 10 mg PO TID 30 days famotidine 20 mg PO DAILY hydrocortisone 2.5% topical hydrocortisone acetate (Anusol-HC) 25 mg TN BID PRN hydroxyzine HCl 10 mg PO Q8H PRN lorazepam mg PO DAILY montelukast 10 mg PO DAILY phenazopyridine (Pyridium) 200 mg PO TID PRN 6 doses pyridoxine (vitamin B6) 50 mg PO DAILY 90 days sennosides (Natural Senna Laxative) 17.2 mg (2 x 8.6 mg) PO BEDTIME tamsulosin 0.4 mg PO BEDTIME 14 days Tobacco use date assessed: 06/04/25 Dental Screening Dental Screen Date: 06/04/25 Did you have a dental visit in the last 12 months?: Yes Did you have a dental problem in the last 6 months where you did not have access to dental care?: No Was dental information given to patient?: Patient has dentist HPI HPI Comments History of Present Illness Details Patient is here to reestablish care. She had a colonoscopy 8 years ago which was normal. 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 She has low vitamin-D which will be checked as well as pure hypercholesterolemia that will be recheck. She has migraines follow by Neurology and nephrolithiasis follow by Urology. She also has anxiety on benzodiazepines as needed. Has irritable bowel syndrome that has been well control with dicyclomine and is follow by Gastroenterology. Montelukast works well for her asthma. Declines Tdap vaccine today. Had a mammogram last month which was normal. [facility] Medical History (Updated 06/04/25 @ 20:09 by Emmy Escalante MD) Asthma Kidney stones Low vitamin D level Abdominal pain Internal and external prolapsed hemorrhoids Speech and language development delay due to hearing loss Screening for colon cancer IBS (irritable colon syndrome) Surgical History Hx of gynecological procedure History of lithotripsy History of esophagogastroduodenoscopy (EGD) (~2018) Hx of colonoscopy (~2018) Family History (Updated 06/04/25 @ 15:27 by Emmy Escalante MD) Mother Breast cancer Maternal Aunt Breast cancer Father Lung cancer Social History Household Members: Friend(s) Housing: House Are you a primary care connector to a significant other at home: No Alcohol intake: never Patient Tobacco Use Status: Never used Tobacco e-Cigarette/Vaping Use: Never Used service: No Current occupational status: retired Cognitive needs: No Questionnaire PHQ-9 Over the last 2 weeks, how often have you been bothered by any of the following problems? 1. Little interest or pleasure in doing things: not at all 2. Feeling down, depressed, or hopeless: not at all 3. Trouble falling or staying asleep, or sleeping too much: not at all 4. Feeling tired or having little energy: not at all 5. Poor appetite or overeating: not at all 6. Feeling bad about yourself - or that you are a failure or have let yourself or your family down: not at all 7. Trouble concentrating on things, such as reading the newspaper or watching television: not at all 8. Moving or speaking so slowly that other people could have noticed. Or the opposite - being so fidgety or restless that you have been moving around a lot more than usual: not at all 9. Thoughts that you would be better off or of hurting yourself in some way: not at all Total score: 0 Depression Screening Interpretation: Negative Depression Screening Done: Yes 97031 - PHQ-9 Billing: Yes Source: Developed by Drs. Sincere Waggoner, Monica Marquis, Galileo Pollack and colleagues, with an educational ruperto from [employer]. Thrive Questionnaire Date Thrive assessed: 06/02/25 I am a: Patient What is your living situation today?: I have a steady place to live Within the past 12 months, did the food you bought not last and you didn't have the money to get more?: I choose not to answer this question Within the past 12 months, did you worry whether your food would run out before you got money to buy more?: I choose not to answer this question Do you have trouble paying for medicines?: No Do you have trouble getting transportation to medical appointments?: No Do you have trouble paying your heating and electricity bill?: No Do you have trouble taking care of your child, family member or friend?: No Do you have trouble with day-to-day activities such as bathing, preparing meals, shopping, managing finances, etc.?: No Are you currently unemployed and looking for a job?: No Are you interested in more education?: No Please select the resources that you would like help with: Housing/[facility] and Food Currently or been in a relationship where the following occur: I choose not to answer THRIVE Score: 0 AUDIT C Alcohol Use Questionnaire (AUDIT-C) 1. How often do you have a drink containing alcohol?: Never 3. How often do you have six or more drinks on one occasion?: Never Total Score: 0 Score Reviewed/Action Taken: No AKANKSHA-7 AMB Questionnaire AKANKSHA-7 Date AKANKSHA - 7 assessed: 06/04/25 Feeling nervous, anxious, or on edge: 0 = Not at all Not being able to stop or control worryin = Not at all Worrying too much about different things: 0 = Not at all Trouble relaxin = Not at all Being so restless that it is hard to sit still: 0 = Not at all Becoming easily annoyed or irritable: 0 = Not at all Feeling afraid as if something awful might happen: 0 = Not at all Total AKANKSHA-7 score (0-4 normal; 5-9 mild; 10-14 moderate; 15-21 severe): 0 Source: Developed by Drs. Sincere Waggoner, Monica Marquis, Galileo Pollack and colleagues, with an educational ruperto from [employer]. AKANKSHA-7 Assessment Billing AKANKSHA-7 Assessment Tool: AKANKSHA-7 Assessment 05785 Review of Systems Const All systems reviewed & are unremarkable except as noted in HPI and below Card Denies chest pain at rest, Denies chest pain with activity, Denies edema, Denies irregular heart rhythm, Denies claudication, Denies dyspnea, Denies dyspnea on exertion, Denies orthopnea, Denies paroxysmal nocturnal dyspnea and Denies slow heart rate Resp Denies cough, Denies dyspnea and Denies dyspnea on exertion Physical exam (Primary Care) Vital Signs: Last Vital Signs Pulse 95 06/04/25 15:09 BP 138/80 06/04/25 15:37 Pulse Ox 103 H 06/04/25 15:09 Oxygen Delivery Method Room Air 06/04/25 15:09 BMI result Body Mass Index 19.1 Tobacco/Smoking Status: Tobacco use Status Tobacco use date assessed 06/04/25 06/04/25 15:13 Patient Tobacco Use Status Never used Tobacco 06/04/25 15:13 e-Cigarette/Vaping Use Never Used 06/04/25 15:13 PHQ-9: PHQ-9 Score PHQ-9: Total score 0 06/04/25 15:19 Depression Screening Interpretation: Negative Thrive Assessment: Date of Thrive Assessment Date Thrive assessed 06/02/25 06/04/25 15:13 Currently or been in a relationship where the following occur: I choose not to answer Resp Effort & Inspection: normal respiratory effort Auscultation: clear to auscultation bilaterally Cardio Jugular venous distension: no JVD Rate: regular rate Rhythm: regular rhythm Heart sounds: S1 normal heart sound present and S2 normal heart sound present Extrem General: Yes full ROM Coding Level of Care Code Est Pt Level 4 (25213) Complex EM visit Add On G2211 Diagnoses Pure hypercholesterolemia E78.00 Low vitamin D level R79.89 Irritable bowel syndrome with diarrhea K58.0 Irritable bowel syndrome type: with diarrhea Anxiety F41.9 Nephrolithiasis N20.0 Migraine G43.909 Additional Codes AKANKSHA-7 Assessment Billing - AKANKSHA-7 Assessment Tool: AKANKSHA-7 Assessment 32461 ([id number]) PHQ-9 - 62670 - PHQ-9 Billing: Yes ([id number]) Time Spent (min) 24 Assessment & Plan Assessment & Plan (1) Pure hypercholesterolemia: Code(s): E78.00 - Pure hypercholesterolemia, unspecified Category: Medical (2) Low vitamin D level: Code(s): R79.89 - Other specified abnormal findings of blood chemistry Category: Medical (3) IBS (irritable colon syndrome): Code(s): K58.9 - Irritable bowel syndrome, unspecified Category: Medical Qualifiers: Irritable bowel syndrome type: with diarrhea Qualified Code(s): K58.0 - Irritable bowel syndrome with diarrhea (4) Anxiety: Code(s): F41.9 - Anxiety disorder, unspecified Category: Medical (5) Nephrolithiasis: Code(s): N20.0 - Calculus of kidney Category: Medical (6) Migraine: Code(s): G43.909 - Migraine, unspecified, not intractable, without status migrainosus Category: Medical Plan Continue current meds. Follow-up with Neurology for her migraines. Follow-up with urology for nephrolithiasis. Follow-up with IBS with Gastroenterology. Repeat lipid panel and vitamin-D levels. Orders: Orders Lipid Panel Today E78.5 - Hyperlipidemia, unspecified Vitamin D 25-OH Total Today E55.9 - Vitamin D deficiency, unspecified Comprehensive [employer]. Panel Fast Today E78.00 - Pure hypercholesterolemia, unspecified Medications: Changed From montelukast 10 mg PO DAILY To montelukast 10 mg PO DAILY 90 tabs 1RF 90 days
[2025-06-04 15:09] VITALS: BP 140/80; PULSE 95; O2SAT 103; BMI 19.1
[2025-06-04 15:37] VITALS: BP 138/80
--- OUTSIDE RECORDS SUMMARY | 2025-06-04 18:06 | XMS_ITS | Encounter Summary ---
Author Organization [employer] Address [address] [place] [address] [address] [place] [address] Care Team Providers Care Cruise Director Name Role Phone Unavailable Primary Care Provider Unavailabl e Encounter Details Date Type Department Care Team (Latest Contact Info) Description 02/19/2019 Abstract [facility] CONVERSIONS Dental, Provider, DDS Social History [...] Care Team (Late st Contact Info) Description 10/27/2025 8:00 AM EST Office Visit [facility] ADULT DENTAL [address] [place] [address] Larry Evangelistaaris [address] [place] [address] documented as of this encounter Visit Diagnoses Not on filedocumented in this encounter
--- OUTSIDE RECORDS SUMMARY | 2025-06-04 18:06 | XMS_ITS | Encounter Summary ---
Author Organization [employer] Address [address] [place] [address] [address] [place] [address] Care Team Providers Care Abstract Writer Name Role Phone Unavailable Primary Care Provider Unavailabl e Reason for Visit * Reason Onset Date Comments script for pain infection 06/12/2023 Encounter Details Date Type Department Care Team ([facility] st Contact Info) Description 06/12/2023 Telephone [facility] ADULT DENTAL [address] [place], [place] [phone] Merrill Aguilar DDS [address] [place] [address] script for pain infection Social History Tobacco [...] Description 10/27/2025 8:00 AM EST Office Visit [facility] ADULT DENTAL [address] [place] [address] Dorothea Evangelista [address] [place] [address] documented as of this encounter Visit Diagnoses Not on filedocumented in this encounter
--- OUTSIDE RECORDS SUMMARY | 2025-06-04 18:06 | XMS_ITS | Encounter Summary ---
Author Organization [employer] Address [address] [facility] [address] [place] [address] Care Team Providers Care Goodyear Stitcher Name Role Phone Unavailable Primary Care Provider Unavailabl e Reason for Visit * Reason Onset Date Comments medication 08/14/2023 Encounter Details Date Type Department Care Team ([facility] st Contact Info) Description 08/14/2023 Telephone [facility] ADULT DENTAL [address] [place] [address] Geovany Elder DMD [address] [place] [address] medication Social History Tobacco Use Types Packs/Day [...] Description 10/27/2025 8:00 AM EST Office Visit [facility] ADULT DENTAL [address] [place] [address] Dorothea Evangelista [address] [place] [address] documented as of this encounter Visit Diagnoses Not on filedocumented in this encounter
--- OUTSIDE RECORDS SUMMARY | 2025-06-04 18:06 | XMS_ITS | Encounter Summary ---
Author Organization [employer] Address [address] [place] [address] [address] [place] [address] Care Team Providers Care Medical Billing Coder Name Role Phone Unavailable Primary Care Provider Unavailabl e Encounter Details Date Type Department Care Team (Latest Contact Info) Description 03/03/2021 Abstract [facility] CONVERSIONS Dental, Provider, DDS Social History [...] Description 10/27/2025 8:00 AM EST Office Visit [facility] ADULT DENTAL [address] [place] [address] Larry Evangelistaaris [address] [place] [address] documented as of this encounter Visit Diagnoses Not on filedocumented in this encounter
--- OUTSIDE RECORDS SUMMARY | 2025-06-04 18:06 | XMS_ITS | Encounter Summary ---
Author Organization [email or web address] [facility] Address [address] [facility] 7[address] [place] [address] Care Team Providers Care Substation Operator Automatic Name Role Phone Unavailable Primary Care Provider Unavailabl e Reason for Visit * Reason Onset Date Comments Appointment 01/16/2023 Encounter Details Date Type Department Care Team (Late st Contact Info) Description 01/16/2023 Telephone [facility] ADULT DENTAL [address] [place] [address] Geovany Elder, LEIGH [address] [place] [address] Appointment Social History Tobacco Use Types Packs/Day [...] Description 10/27/2025 8:00 AM EST Office Visit [facility] ADULT DENTAL [address] [place] [address] Dorothea Evangelista [address] [place] [address] documented as of this encounter Visit Diagnoses Not on filedocumented in this encounter
--- OUTSIDE RECORDS SUMMARY | 2025-06-04 18:06 | XMS_ITS | Clinical Summary ---
Author Organization [employer] Address [address] [facility] 7 [place] [address] Care Team Providers Care Railroad Wheels And Axles Inspector Name Role Phone Unavailable Primary Care Provider [...] 30 MINUTES AFTER 14 tablet 3 Active cholecalciferol (Vitamin D-3) 50 [...] senna (Senokot) 8.6 MG tablet 3 Active Sodium Fluoride (PreviDent 5000 Booster Plus) 1.1 % paste Apply 1 Application. to teeth 2 times daily. 112 g 3 5 Active Active Problems Problem Noted Date Diagnosed Date Pain 04/14/2025 Dental plaque 11/01/2023 Encounters Date Type Department Care Team Description 05/22/2025 9:00 AM EDT Office Visit [facility] ADULT DENTAL [address] [place] [address] Geovany Elder DMD 05/15/2025 Travel 04/14/2025 1:00 PM EDT Office Visit [facility] ADULT DENTAL [address] [place] [address] Kennedy Zapata DDS Pain (Primary Dx) 04/14/2025 Travel 03/10/2025 2:00 PM EDT Office Visit [facility] ADULT DENTAL [address] [place] [address] Dorothea Evangelista Dental plaque (Primary Dx); Gingival bleeding; Dental calculus from Last 3 Months Social History Tobacco Use Types Packs/Day Years Used Date Smoking Tobacco: Never Smokeless Tobacco: Never Tobacco Cessation:Counseling Given: Not Answered Alcohol Use Standard Drinks/Week Comments Defer 0 (1 standard drink = 0.6 oz pur e alcohol) Comments Unknown Sex and Gender Information Value Date Recorded Sex Assigned at Female 07/25/2022 10:28 AM EDT Legal Sex Female 10:28 AM EDT Gender Identity Female 07/25/2022 10:28 AM EDT Sexual Orientation Straight 07/25/2022 10 :28 AM EDT Last Filed Vital Signs Vital Sign Reading Time Taken Comments Blood Pressure 118/68 04/14/2025 1:11 PM EDT Pulse 66 04/14/2025 1:11 PM EDT Temperature - - Respiratory Rate - - Oxygen Saturation - - Inhaled Oxygen Concentration - - Weight - - Height - - Body Mass Index - - Plan of Treatment Upcoming Encounters Date Type Department Care Team (Late st Contact Info) Description 10/27/2025 8:00 AM EST Office Visit [facility] ADULT DENTAL [address] [place], [place] [phone] Tonja, Dorothea [address] [place] [address] Health Maintenance Due Date Last Done Comments CT Colonography 1968 Colonoscopy 1968 Colorectal Cancer Screening 1968 Depression Screening 1968 FIT DNA/Cologuard 1968 FIT 1968 FOBT 1968 HIV Screening 1968 SDOH Screening 1968 Sigmoidoscopy 1968 Disability Screening 1968 Alcohol/Substance Use Screening 1980 Hepatitis C Screening 1986 DTaP/Tdap/Td Vaccines (1 - Tdap) 1987 Hepatitis B Vaccines (1 of 3 - 19+ 3-dose series) 1987 Pneumococcal Vaccine: 50+ Years (1 of 2 - PCV) 1987 Pap Smear 1989 Cervical Cancer Screening 1998 HPV/Cotest 1998 Zoster Vaccines (1 of 2) 2018 Influenza Vaccine (#1) 2025 4, 06/29/2023, 06/29/2022, Additional history exists Dental Oral Exam 09/10/2025 03/10/2025, 11/03/2023 Dental Prophylaxis 09/10/2025 03/10/2025, 1 , 11/01/2023 Dental X-Ray: Bitewings 03/11/2026 03/10/20 25, 11/01/2023, 02/23/2023 Tobacco Screening 05/22/2026 05/22/2025 Dental X-Ray: Full Mouth 11/02/2026 11/01/2023, 12/25 Mammogram 05/05/2027 05/05/2025, 05/05/2025 RSV Patients and Patients Aged 60 years or older (1 - 1-dose 75+ series) 2043 COVID-19 Vaccine Completed 10/30/2024, 10/2023, 11/01/2022, Additional [...] Procedure Name Priority Date/Time Associated Diagnosis Comments CASE PRESENTATION, DETAILED AND EXTENSIVE TREATMENT PLANNING Routine 05/22/2025 9:00 AM EDT LIMITED ORAL EVALUATION - PROBLEM FOCUSED Routine 05/22/2025 9:00 AM EDT LIMITED ORAL EVALUATION - PROBLEM FOCUSED Routine 04/14/2025 1:00 PM EDT INTRAORAL - PERIAPICAL FIRST RADIOGRAPHIC IMAGE Routine 04/14/2025 1:00 PM EDT CASE PRESENTATION, DETAILED AND EXTENSIVE TREATMENT PLANNING Routine 04/14/2025 1:00 PM EDT PERIODIC ORAL EVALUATION - ESTABLISHED PATIENT Routine 03/10/2025 2:00 PM EDT CASE PRESENTATION, DETAILED AND EXTENSIVE TREATMENT PLANNING Routine 03/10/2025 2:00 PM EDT Dental plaque Gingival bleeding Dental calculus ORAL HYGIENE INSTRUCTIONS Routine 03/10/2025 2:00 PM EDT Dental plaque Gingival bleeding Dental calculus INTRAORAL - PERIAPICAL EACH ADDITIONAL RADIOGRAPHIC IMAGE Routine 03/10/2025 2:00 PM EDT Dental plaque Gingival bleeding Dental calculus INTRAORAL - PERIAPICAL FIRST RADIOGRAPHIC IMAGE Routine 03/10/2025 2:00 PM EDT Dental plaque Gingival bleeding Dental calculus BITEWINGS - 4 RADIOGRAPHIC IMAGES Routine 03/10/2025 2:00 PM EDT Dental plaque Gingival bleeding Dental calculus PROPHYLAXIS - ADULT Routine 03/10/2025 2 :00 PM EDT Dental plaque Gingival bleeding Dental calculus INTRAORAL - COMPLETE SERIES OF RADIOGRAPHIC IMAGES Routine 11/01/2023 8:00 AM EST Dental plaque from Last 3 Months or Most Recently Relevant to Health Maintenance Insurance DENTAL - [facility]
--- OUTSIDE RECORDS SUMMARY | 2025-06-04 18:07 | XMS_ITS | Encounter Summary ---
Author Organization [facility] Address [address] [place] [address] 7 [place] [address] Care Team Providers Care Automobile Damage Appraiser Name Role Phone Unavailable Primary Care Provider Unavailabl e Encounter Details Date Type Department Care Team (Late st Contact Info) Description 10/23/2023 Abstract [facility] ADULT DENTAL [address] [place], [place] [phone] Geovany Elder DMD [address] [place], [place] [phone] Social History Tobacco Use Types Packs/Day Years [...] Description 10/27/2025 8:00 AM EST Office Visit [facility] ADULT DENTAL [address] [place] [address] Larry Evangelistaaris [address] [place] [address] documented as of this encounter Visit Diagnoses Not on filedocumented in this encounter
--- OUTSIDE RECORDS SUMMARY | 2025-06-04 18:07 | XMS_ITS | Encounter Summary ---
Author Organization [employer] [facility] Address [address] [place] [address] 7 [place] [address] Care Team Providers Care Powdered Sugar Supervisor Name Role Phone Unavailable Primary Care Provider Unavailabl e Reason for Visit * Reason Onset Date Comments medication 09/22/2023 medication 09/22/2023 Encounter Details Date Type Department Care Team ([facility] st Contact Info) Description 09/22/2023 Telephone [facility] ADULT DENTAL [address] [place] [address] Geovany Elder DMD [address] [place], [place] [phone] medication; medication Social History Tobacco Use Types [...] Description 10/27/2025 8:00 AM EST Office Visit [facility] ADULT DENTAL [address] [place] [address] Dorothea Evangelista [address] [place] [address] documented as of this encounter Visit Diagnoses Not on filedocumented in this encounter
--- OUTSIDE RECORDS SUMMARY | 2025-06-04 18:07 | XMS_ITS | Clinical Summary ---
Author Organization [facility] Address [address] [place] [address] Phone Care Team Providers Care Cold Mill Supervisor Name Role Phone Derick Stern MANAGER METROLOGY Primary Care Provider [phone] Allergies No known active allergies Medications butalbital-acet aminophen-caffe ine (FIORICET, ESGIC) 50-325-40 mg per tablet Take 1 tablet by mouth every 12 (twelve) hours if needed. 5 Active cholecalciferol (VITAMIN D-3) 50 mcg (2,000 unit) capsule Take 1 capsule (2,000 Units total) by mouth 1 (one) time each day. Active clindamycin (CLEOCIN) 150 mg capsule TAKE 1 CAPSULE(150 MG) BY MOUTH THREE TIMES DAILY FOR 7 DAYS 4 Active clotrimazole (LOTRIMIN) 1 % cream APPLY TOPICALLY TO THE AFFECTED AREA TWICE DAILY for 30 Active diclofenac (VOLTAREN) 75 mg EC tablet 1 tablet (75 mg total) every 12 hours. 1 Active dicyclomine (BENTYL) 10 mg capsule 4 Active famotidine (PEPCID) 20 mg tablet Take 1 tablet (20 mg total) by mouth at bedtime as needed. at bedtime Active PreviDent 5000 Booster Plus 1.1 % paste Apply 1 Application to teeth 2 times daily. 5 Active gabapentin (NEURONTIN) 100 mg capsule Take 1 capsule (100 mg total) by mouth every 8 hours. Active hydrocortisone 1 % topical cream every 12 hours. 8 Active hydrocortisone (ANUSOL-HC) 25 mg suppository every 8 hours. Active pramoxine-hydro cortisone cream 1 Application every 8 hours. Active hydrOXYzine HCL (ATARAX) 10 mg tablet 1 tablet (10 mg total) every 8 hours. 4 Active hydrOXYzine HCL (ATARAX) 25 mg tablet 1 tablet (25 mg total) every 8 hours. Active ketorolac (TORADOL) 10 mg tablet take 1 tablet by mouth every 8 hours with food or milk as needed 5 Active lisinopril 100 % powder Active LORazepam (ATIVAN) 0.5 mg tablet Take 1 tablet (0.5 mg total) by mouth 1 (one) time each day if needed. Max Daily Amount: 0.5 mg Active nitrofurantoin, macrocrystal-mo nohydrate, (MACROBID) 100 mg capsule 1 capsule (100 mg total) every 12 hours. 4 Active phenazopyridine (PYRIDIUM) 200 mg tablet Take 1 tablet (200 mg total) by mouth 3 (three) times a day if needed. for pain 5 Active pyridoxine (B-6) 50 mg tablet Take 1 tablet (50 mg total) by mouth 1 (one) time each day. Active saccharomyces boulardii (FLORASTOR) 250 mg capsule 1 capsule (250 mg total) 1 (one) time each day at the same time. 1 Active senna 8.6 mg tablet TAKE 2 TABLETS BY MOUTH AT BEDTIME FOR CONSTIPATION 4 Active tamsulosin (FLOMAX) 0.4 mg 24 hr capsule TAKE 1 CAPSULE BY MOUTH AT BEDTIME FOR 14 DAYS 5 Active Desitin 40 % paste APPLY TWICE DAILY TO THE AFFECTED AREA 4 Active Encounters Date Type Department Care Team Description 05/05/2025 1:17 PM EDT - 05/05/2025 11:59 PM EDT Hospital [facility] at [address] [place] [phone] Encounter for screening mammogram for breast cancer Discharge Disposition: Home or Self Care 03/31/2025 1:45 PM EDT Office Visit Orthopedic Surgery - [address] [phone] Dwight Verdugo MD Acquired trigger finger of right ring finger (Primary Dx) from Last 3 Months Medical History Medical History Date Comments Anxiety 02/02/2017 DX:Anxiety 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; COMMENT: Needs lounge car attendant HTN (hypertension) 02/02/2017 DX:HTN (hyper tension) Irritable bowel syndrome (IBS) 06/24/2018 D X:Irritable bowel syndrome (IBS) Lesion of liver 10/04/2017 DX:Lesion of brittney er Family History Medical History Relation Name Comments Hypertension Brother x 3 Lung cancer Father Lung cancer Mother Breast cancer Mother's Sister Hypertension Sister Relation Name Status Comments Brother Father Mother Mother's Sister Sister Social History Tobacco Use Types Packs/Day Years Used Date Smoking Tobacco: Never Alcohol Use Standard Drinks/Week Comments Not Asked 0 (1 standard drink = 0.6 oz pur e alcohol) Comments No Sex and Gender Information Value Date Recorded Sex Assigned at Female 05/05/2025 1:28 PM EDT Legal Sex Female 9:28 AM EST Gender Identity Female 05/05/2025 1:28 PM EDT Sexual Orientation Not on file Obstetrics History Last Filed Vital Signs Vital Sign Reading Time Taken Comments Blood Pressure - - Pulse - - Temperature - - Respiratory Rate - - Oxygen Saturation - - Inhaled Oxygen Concentration - - Weight 50.8 kg (112 lb) 05/05/2025 1:34 PM EDT Height 165.1 cm (5' 5 ) 05/05/2025 1:34 PM EDT Body Mass Index 18.64 05/05/2025 1:34 PM EDT Plan of Treatment Upcoming Encounters Date Type Department Care Team (Late st Contact Info) Description 04/06/2026 1:30 PM EDT Office Visit Orthopedic Surgery - [place] [address] [facility] [address] [place] [phone] Dwight Verdugo MD [address] [place] [address] Health Maintenance Due Date Last Done Comments DTaP,Tdap,and Td Vaccines (1 - Tdap) 1987 Hepatitis A Vaccines (1 of 2 - Risk 2-dose series) 1987 Hepatitis B Vaccines (1 of 3 - 19+ 3-dose series) 1987 Cervical Cancer Screening: Pap Smear 1989 Pneumococcal Vaccine: 50+ Years (1 of 1 - PCV) 2018 Zoster Vaccines (1 of 2) 2018 Cholesterol Screening (Lipid Panel) 09/04/2022 Colorectal Cancer Screening: Colonoscopy 09/04/2022 HIV Screening 09/04/2022 Hepatitis C Screening 09/04/2022 Social Influencers of Health Screening 09/04/2022 Hypertension/CHF/CAD Annual BMP Blood Test 09/07/2022 Depression Screening 09/25/2024 Influenza Vaccine (#1) 2025 , 06/29/2023, 06/29/2022, Additional history exists Breast Cancer Screening 05/05/2027 05/05/20 25, 05/28/2024, 05/23/2023, Additional history exists COVID-19 Vaccine Completed 10/30/2024, [...] Procedure Name Priority Date/Time Associated Diagnosis Comments MG MAMMO DIGITAL SCREENING W SEE BILAT Routine 05/05/2025 1:36 PM EDT Encounter for screening mammogram for breast cancer AL INJECTION SINGLE TENDON SHEATH OR LIGAMENT APONEUROSIS Routine 03/31/2025 1:45 PM EDT Acquired trigger finger of right ring finger from Last 3 Months Results * MG Mammo Digital Screening w See bilat (05/05/2025 1:36 PM EDT) Anatomical Region Laterality Modality Breast Bilateral Mammography 05/06/2025 7:26 AM EDT Impressions 05/06/2025 7:30 AM EDT No mammographic evidence of malignancy. TISSUE DENSITY: There are scattered areas of fibroglandular density. (BI-RADS category B) IMPRESSION: Benign. BI-RADS CATEGORY: 1 - NEGATIVE RECOMMENDATION: Screening bilateral mammogram is recommended in 1 year. [facility]ammo Location: [facility], [address] [place] [address] -------- FINAL REPORT -------- Dictated By: Tim Srivastava Dictated Date: 05/06/2025 07:26 ET Assigned Physician: Tim Srivastava Reviewed and Electronically Signed By: Tim Srivastava Signed Date: 05/06/2025 07:30 ET Workstation ID: [id number] Transcribed By: Self Edit Transcribed Date: 05/06/2025 07:26 ET Narrative 05/06/2025 7:30 AM EDT CLINICAL: The patient is a 54 years Female presenting for routine screening mammography. The patient has a family history of breast cancer involving her mother at age 72. COMPARISON: Most recently 05/24/2024 and most remotely 01/17/2017. TECHNIQUE: Full-field digital mammography of the breasts bilaterally consisting of tomosynthesis in MLO and CC projection is performed in the [employer] 2000-D unit. Computer aided detection utilizing the iCAD system was utilized. FINDINGS: The breasts are again seen to be composed of a combination of fatty and fibroglandular elements. There is no cluster of microcalcifications, mass, or area of architectural distortion. There is no skin thickening or nipple retraction. Procedure Note Tim Srivastava MD - 05/06/2025 CLINICAL: The patient is a 54 years Female presenting for routinescreening mammography. The patient has a family history of breast cancerinvolving her mother at age 72. COMPARISON: Most recently 05/24/2024 and most remotely 01/17/2017. TECHNIQUE: Full-field digital mammography of the breasts bilaterallyconsisting of tomosynthesis in MLO and CC projection is performed in theGE Sen[employer]he 2000-D unit. Computer aided detection utilizing the [employer]Dsystem was utilized. FINDINGS: The breasts are again seen to be composed of a combination offatty and fibroglandular elements. There is no cluster ofmicrocalcifications, mass, or area of architectural distortion. There isno skin thickening or nipple retraction. IMPRESSION: No mammographic evidence of malignancy. TISSUE DENSITY: There are scattered areas of fibroglandular density.(BI-RADS category B) IMPRESSION: Benign. BI-RADS CATEGORY: 1 - NEGATIVE RECOMMENDATION: Screening bilateral mammogram is recommended in 1 year. Mammo Location: , [facility], [address] [place] [id number] -------- FINAL REPORT -------- Dictated By: Tim Srivastaav Dictated Date: 05/06/2025 07:26 ET Assigned Physician: Tim Srivastava Reviewed and Electronically Signed By: Tim Srivastava Signed Date: 05/06/2025 07:30 ET Workstation ID: [id number] Transcribed By: Self Edit Transcribed Date: 05/06/2025 07:26 ET us Self Referral Sppl IMG BI PROCEDURES Final Resul t * AL INJECTION SINGLE TENDON SHEATH OR LIGAMENT APONEUROSIS (03/31/2025 1:45 PM EDT) Dwight Tabor MD - 03/31/2025 1:45 PM EDT Dwight Verdugo MD 03/31/2025 2:11 PM Hand / UE Inj/Asp: R ring A1 for trigger finger Indications: pain Details: 27 G needle, volar approach Medications: 40 mg triamcinolone acetonide 40 mg/mL Outcome: tolerated well, no immediate complications Site was prepped in standard fashion using alcohol swab, sterile technique was used to perform the injection, the patient tolerated the procedure well and a band-aid dressing was applied Informed Consent: Site: Right ring A1 Laterality: Right Relevant images/test results available and reviewed: yes Health status cleared: Yes Procedure/treatment, purpose, treatment alternatives, risks/potential complications and benefits explained: yes Risk/complications/benefits details: Risk/complications/benefits details: Risks and benefits of corticosteroid injection were discussed, including risk of pain, bleeding, infection, tissue attenuation, tendon rupture, changes in skin color, and injury to surrounding structures such as arteries, veins and nerves. We also discussed the patient may develop worsening pain for a few days before having improvement in their symptoms. Patient questions answered: yes Patient agrees, verbalizes understanding, and wants to proceed: yes Consent given by: Patient Informed consent discussion completed by Physician/AXEL with patient: Verbal Pre-procedure timeout performed: yes us Dwight Verdugo MD IN CLINIC/BEDSIDE ORDERABLES Fin al Result from Last 3 Months Insurance [facility] Member Subscriber Plan / Payer (Ef fective 2021-Present) Name:FREDY TAVERAS Relation to Subscriber:Self Name:Fredy Taveras Payer ID:[id number] Group ID:[id number] Type:Not on file Address: [facility] [address] [address] Care Teams Cold Mill Supervisor Relationship Specialty Start Date End Date Derick Stern NP [address] [place] [id number] PCP - General Nurse Practitioner 01/07/25
--- OUTSIDE RECORDS SUMMARY | 2025-06-04 18:07 | XMS_ITS | Encounter Summary ---
Author Organization [employer] Address [address] [facility] 7 [place] [address] Care Team Providers Care Comparative Sociology Professor Name Role Phone Unavailable Primary Care Provider Unavailabl e Encounter Details Date Type Department Care Team (Late st Contact Info) Description 10/10/2023 Telephone [facility] ADULT DENTAL [address] [place], [place] [phone] Geovany Elder, LEIGH [address] [place], [place] [phone] Social History Tobacco Use Types Packs/Day Years [...] Description 10/27/2025 8:00 AM EST Office Visit [facility] ADULT DENTAL [address] [place] [address] Dorothea Evangelista [address] [place] [address] documented as of this encounter Visit Diagnoses Not on filedocumented in this encounter
--- OUTSIDE RECORDS SUMMARY | 2025-06-04 18:07 | XMS_ITS | Patient Health Record ---
Author Organization [facility] [address] Address [address] [place] [address] Care Team Providers Care Engraver Name Role Phone STALIN TOLBERT Primary Care Provider [phone] ALO COUCH Unavailable [phone] AXEL ALVARADO Unavailable [phone] Allergies Allergen (clinical drug ingredient) Drug/Non Drug Allergy [...] ciprofloxacin Cipro dizziness Drug Allergy Act samir Results Component Value Reference Range Notes UA WITH CULTURE IF INDICATED Reviewed date:06/14/2024 03:08:20 PM Interpretation: Performing Lab: Notes/Report: Cuff Setter - Annika Fishman MD [address] [place] [id number] [employer], a member of [facility] Original Ordering Provider: ALO COUCH TICKETER GLUCOSE, (UA) NEGATIVE NEGATIVE mg/dL BILIRUBIN, URINE NEGATIVE NEGATIVE KETONE, URINE NEGATIVE NEGATIVE mg/dL SPECIFIC GRAVITY, URINE 1.015 1.003-1.030 BLOOD, URINE NEGATIVE NEGATIVE PH, URINE 6.0 5.0-8.0 PROTEIN, URINE NEGATIVE <= TRACE mg/dl UROBILINOGEN, URINE 0.2 0.2-1.0 E.U./dL NITRITE, URINE NEGATIVE NEGATIVE LEUKOCYTE ESTERASE, URINE MODERATE NEGATIVE RBC, URINE 3 0-4 /HPF WBC, URINE 4 0-4 /HPF EPITH CELLS, URINE > 150 0-60 /LPF RENAL AND TRANS CELLS URINE 10-20 TRANSITIONAL EPI BACTERIA, URINE NEGATIVE NEGATIVE URINE CULTURE Reviewed date:06/15/2024 09:48:19 AM Interpretation: Performing Lab: Notes/Report: Cuff Setter - Annika Fishman MD [address] [place] [address] [employer], a member of [facility] Original Ordering Provider: ALO COUCH NP URINE CULTURE >100,000 CFU/mL URINE CULTURE NORMAL SKIN/UROGENIT AL HARRIET PRESENT. TSH CASCADE Reviewed date:06/14/2024 03:08:32 PM Interpretation: Performing Lab: Notes/Report: Cuff Setter - Annika Fishman MD [address] [place] [address] [employer], a member of [facility] TSH CASCADE 1.27 0.40-4.00 uIU/ml VITAMIN D, 25-HYDROXY Reviewed date:06/14/2024 03:08:32 PM Interpretation: Performing Lab: Notes/Report: VITAMIN D, 25-HYDROXY 51 30-80 ng/mL LIPID PROFILE Reviewed date:06/14/2024 03:08:32 PM Interpretation: Performing Lab: Notes/Report: CHOLESTEROL 195 0-200 mg/dL TRIGLYCERIDES 111 0-150 mg/dL HDL CHOLESTEROL 65 >40 mg/dL LDL CALCULATED 108 0-100 mg/dL TC-HDLC RATIO 3.0 0-4.4 mg/dL CBC WITH AUTO DIFF Reviewed date:06/14/2024 03:08:41 PM Interpretation: Performing Lab: Notes/Report: Original Ordering Provider: LAO COUCH NP [employer], a member of [address] [address] Cuff Setter - Annika Fishman MD WBC 6.3 4.8-10.8 x10-3/uL RBC 4.3 3.8-4.8 [...] x10-3/uL IMMATURE GRANULOCYTES # 0.01 0-0.03 x10-3/uL COMPREHENSIVE METABOLIC PANE L Reviewed date:06/14/2024 03:08:32 PM Interpretation: Performing Lab: Notes/Report: Note Original Orderi ng Provider: ALO COUCH TICKETER GLUCOSE 89 70-100 mg/dL Reference range applicable [...] 10-60 U/L ALK PHOS 47 42-121 U/L GLYCOHEMOGLOBIN PROFILE Reviewed date:06/15/2024 08:35:49 AM Interpretation: Performing Lab: Notes/Report: Cuff Setter - Annika Fishman MD [address] [place] [id number] [employer], a member of [facility] Original Ordering Provider: ALO COUCH NP GLYCATED HEMOGLOBIN A1C 5.3 <6.5 % ESTIMATED AVERAGE GLUCOSE 105 URINALYSIS WITH REFLEX MICRO SCOPIC AND CULTURE Reviewed date:01/08/2025 12:25:40 PM Interpretation: Performing Lab: Notes/Report: Specific [place] Urine 1.023 1.003-1.030 pH, Urine 7.0 5.0-8.0 [...] /HPF Hyaline Casts, Urine 4.0 0-3 /LPF MG MAMMO DIGITAL SCREENING W PB BILAT Reviewed date:05/06/2025 07:45:09 AM Interpretation: Performing Lab: Notes/Report: Note See Note [facility], a member of Patient Name: FREDY TAVERAS Date of : 1970 Reason for Exam: Exam Date: 05/05/2025 [id number] EST Report Status: Final Ordering Provider: SELF REFERRAL SPPL PCP: ALO COUCH CLINICAL: The patien t is a 54 years Female presenting for routine screening mammography. The patient has a family history of breast cancer involving her mother at age 72. COMPARISON: Most recently 05/24/2024 and most remotely 01/17/2017. TECHNIQUE: Full-fiel d digital mammography of the breasts bilaterally consisting of tomosynthesis in MLO and CC projection is performed in the [employer] 2000-D unit. Computer aided detection utilizing the iCAD system was utilized. FINDINGS: The breast s are again seen to be composed of a combination of fatty and fibroglandular elements. There is no cluster of microcalcifications, mass, or area of architectural distortion. There is no skin thickening or nipple retraction. IMPRESSION: No mammographic evidence of malignancy. TISSUE DENSITY: Ther e are scattered areas of fibroglandular density. (BI-RADS category B) IMPRESSION: Benign. BI-RADS CATEGORY: 1 - NEGATIVE RECOMMENDATION: Screening bilateral mammogram is recommended in 1 year. Mammo Location: [facility], [address] [place] [id number] -------- FINAL REPOR T -------- Dictated By: Tim Srivastava Dictated Date: 05/06/2025 07:26 ET Assigned Physician: Tim Srivastava Reviewed and Electronically Signed By: Tim Srivastava Signed Date: 025 07:30 ET Workstation ID: [id number] Transcribed By: Self Edit Transcribed Date: 05/06/2025 07:26 ET CR Hand RT Min 3 Views Reviewed date:06/21/2024 10:56:28 AM Interpretation: Performing Lab: Notes/Report: Original Ordering Provider: ALO COUCH TICKETER [facility] Reason For Referral Reason Dr Bah Diagnosis 1 Pain in right hand ( M79.641) Referral Organization [facility] [address] Referring Provider First Name ALO Referring Provider Last Name KHOA Referring Provider Speciality Internal M edicine Referred Provider Specialty Hand Surgery General Notes LEXY RAMIREZ 06/19 02:08:37 PM > faxed referral to Dr. Verdugo -also gave pt phone # to call p: [phone] f: [phone] Clinical Notes Kt Darby 06/2024 03:22:18 PM > Seen on 07/02/2024 Referral Priority Routine Medications Medication SIG (Take, Route, Frequency, Duration) Notes Start Date End Date Status Montelukast Sodium 10 MG TAKE 1 TABLET B Y MOUTH EVERY DAY; Duration: 90 Active Clotrimazole 1 % APPLY TOPICALLY TO THE AFFECTED AREA TWICE DAILY; Duration: 30 Active hydrOXYzine HCl 10 mg 1 tablet as needed Orally every 8 hrs; Duration: 30 Not-Taking hydrOXYzine HCl 25 MG 1 tablet as needed Orally every 8 hrs; Duration: 30 day(s) Not-Taking Cholecalciferol 50 MCG (1999 UT) 1 capsule Orally Once a day; Duration: 30 days 01/27/2025 Active Hydrocortisone 1 % 1 application to affected area Externally Twice a day; Duration: 30 day(s) undefined 02/28/2018 Not-Taking Anucort-HC 25 MG 1 suppository as needed Rectal Three times a day; Duration: 30 day(s) Active Hydrocortisone Julio C-Pramoxine 2.5-1 % 1 application Externally Three times a day; Duration: 30 days Active Famotidine 20 MG TAKE 1 TABLET BY MOUTH EVERY DAY AT BEDTIME NEEDED; Duration: 90 Active Probiotic 250 MG 1 capsule Orally once a day; Duration: 30 days 11/10/2020 Active Nitrofurantoin Monohyd Macro 100 MG 1 capsule with food Orally every 12 hrs; Duration: 7 days 11/30/2023 Not-Taking Diclofenac Sodium 75 MG 1 tablet Orally Twice a day; Duration: 30 day(s) 11/24/2020 Active Social History Tobacco Use: Social History Observation Description Date Details (start date - stop date) Never Smoker NA - NA Tobacco Use/Smoking Question Answer Notes Are you a nonsmoker Problems Problem Type SNOMED Code ICD Code Onset Dates Problem Status W/U Status Risk Notes Problem Vitamin D deficiency (40130678) Vitamin D deficiency, unspecified (E55.9) Active confirmed Problem Hyperlipidemia (40079916) Hyperlipidemia, unspecified (E78.5) Active confirmed Problem Generalized anxiety disorder (45463231) Generalized anxiety disorder (F41.1) Active confirmed Problem Seasonal allergic rhinitis (776159289) Other seasonal allergic rhinitis (J30.2) Active confirmed Problem Asthma (860557828) Other asthma (J45.998) Active confirmed Problem Pain in right hand (406793142558851) Pain in right hand (M79.641) Active confirmed Problem Lipid screening (475577616) Encounter for screening for lipoid disorders (Z13.220) Active confirmed Problem Pain of left knee region (finding) (293405257552644) Left knee pain, unspecified chronicity (M25.562) Active confirmed Problem Adult health examination (231123440) Adult general medical exam (Z00.00) Active confirmed Problem Kidney stone (56201608) Kidney stone (N20.0) Active confirmed Problem Kidney stone (74866832) Kidney stones (N20.0) Active confirmed Problem Diabetes mellitus screening (032670425) Diabetes mellitus screening (Z13.1) Active confirmed Problem Nephrolithiasis (37357779) Nephrolithiasis (N20.0) Active confirmed Problem Gastroesophageal reflux disease (556552774) GERD without esophagitis (K21.9) Active confirmed Problem Avitaminosis D (21427349) Avitaminosis D (E55.9) Active confirmed Problem Endocrine/metabolic screening (983615485) Encounter for screening for endocrine disorder (Z13.29) Active confirmed Problem External hemorrhoids (58160259) External hemorrhoids (K64.4) Active confirmed Problem Thrombosed external hemorrhoid (30979444) Thrombosed external hemorrhoid (K64.5) Active confirmed Vital Signs Heart Rate 86 /min 01/07/2025 Oximetry 95 % 01/07/2025 Blood pressure diastolic 84 mm Hg 01/07/2025 Height 63 in 01/07/2025 Blood pressure systolic 128 mm Hg 01/07/2025 Weight 118 lbs 01/07/2025 BMI 20.9 kg/m2 01/07/2025 Encounters Encounter Location Date Provider Diagnosis [facility] [address] [address] [facility] Annual physical exam Z00.00 ; Encounter for screening for depression Z13.31 ; Encounter for screening for other disorder Z13.89 ; Advanced directives, counseling/discussion Z71.89 ; Generalized anxiety disorder F41.1 ; Other seasonal allergic rhinitis J30.2 ; Nephrolithiasis N20.0 and Encounter for examination of blood pressure without abnormal findings Z01.30 [facility] [address] [address] 06/19/2024 [facility] Annual physical exam Z00.00 ; Encounter for screening for depression Z13.31 ; Encounter for screening for other disorder Z13.89 ; Generalized anxiety disorder F41.1 ; Other seasonal allergic rhinitis J30.2 ; Nephrolithiasis N20.0 ; Hyperlipidemia, unspecified E78.5 and Pain in right hand M79.641 [facility] [address] [address] 10/21/2024 ALO BORJada Generalized anxiety disorder F41.1 ; Other seasonal allergic rhinitis J30.2 ; Nephrolithiasis N20.0 and External hemorrhoids K64.4 [facility] [address] [address] 01/07/2025 AXEL ALVARADO Painless hematuria R 31.9 ; Generalized anxiety disorder F41.1 ; Kidney stones N20.0 ; Other seasonal allergic rhinitis J30.2 ; GERD without esophagitis K21.9 and External hemorrhoids K64.4 [facility] [address] [address] 06/19/2024 ALO BORHOT [facility] [address] [address] 10/15/2024 ALO BORHOT [facility] [address] [address] 01/07/2025 ALO BORHOT [facility] [address] [address] 01/07/2025 ALO BORHOT [facility] [address] [address] 01/08/2025 ALO BORHOT Kidney stone N20.0 [facility] [address] [address] 01/13/2025 TALHEREMLINDO TOLBERT [facility] [address] [address] 01/24/2025 ALO BORHOT [facility] [address] [address] 02/19/2025 ALO BORHOT [facility] [address] [address] 05/28/2025 ALO BORHOT Assessments Encounter Date Diagnosis (ICD Code) Assessment Notes Treatment Notes Treatment Clinical Notes Section Notes 06/19/2024 Encounter for screening for depression (ICD-10 [...] software and direct typing Please excuse inadvertent reel cutter or typing errors, or uncorrected word substitutions Although every attempt has been made by the provider to proofread this document, occasional misspellings and typographical errors may still be present Due to the previous pandemic, and the use of personal protective equipment (PPE) This may decrease voice recognition accuracy Inadvertent reel cutter errors may occur 06/19/2024 Annual physical exam (ICD-10 - Z00.00) Acute Concerns/Problem List: 06/19/2024 MAWMariano MOLST/HCP Discussed Referral to hand surgery Right hand films Labs reviewed and stable Of note, some information is being carried forward from prior records for informational purposes only and is being cited so that efficiency, safety and quality of the patient's care is not compromised This note was prepared using voice recognition software and direct typing Please excuse inadvertent reel cutter or typing errors, or uncorrected word substitutions Although every attempt has been made by the provider to proofread this document, occasional misspellings and typographical errors may still be present Due to the previous pandemic, and the use of personal protective equipment (PPE) This may decrease voice recognition accuracy Inadvertent reel cutter errors may occur 10/21/2024 Generalized anxiety disorder (ICD-10 - F41.1) [...] software and direct typing Please excuse inadvertent reel cutter or typing errors, or uncorrected word substitutions Although every attempt has been made by the provider to proofread this document, occasional misspellings and typographical errors may still be present Due to the previous pandemic, and the use of personal protective equipment (PPE) This may decrease voice recognition accuracy Inadvertent reel cutter errors may occur 01/07/2025 Generalized anxiety disorder [...] this time. # Nephrolithiasis: Patient follows with [place] [facility]. Last office visit scanned in chart from 2022, renal ultrasound with findings of 4 mm stones x 2 on the left side and a 3 mm right small punctuate stone. Patient that time advised to increase her hydration and continue to monitor. # Hemorrhoids: Patient follows with gastroenterology in [place]. Also has had follow-up with surgery regarding [...] Dictation was accomplished with the use of [employer] voice recognition software, which is prone to [...] this time. # Nephrolithiasis: Patient follows with [place] [facility]. Last office visit scanned in chart from 2022, renal ultrasound with findings of 4 mm stones x 2 on the left side and a 3 mm right small punctuate stone. Patient that time advised to increase her hydration and continue to monitor. # Hemorrhoids: Patient follows with gastroenterology in [place]. Also has had follow-up with surgery regarding [...] Dictation was accomplished with the use of [employer] voice recognition software, which is prone to medical misidentifications and grammatical errors. This are unintentional and the practitioner does try to identify and correct these, but some could still be present. Please do not hesitate to contact practitioner for clarification. 01/08/2025 Kidney stone (ICD-10 - N20.0) 05/27/2025 Encounter for screening for depression (ICD-10 - Z13.31) Acute Concerns/Problem List: 05/27/2025 Of note, some information is being carried forward from prior records for informational purposes only and is being cited so that efficiency, safety and quality of the patient's care is not compromised This note was prepared using voice recognition software and direct typing Please excuse inadvertent reel cutter or typing errors, or uncorrected word substitutions Although every attempt has been made by the provider to proofread this document, occasional misspellings and typographical errors may still be present Due to the previous pandemic, and the use of personal protective equipment (PPE) This may decrease voice recognition accuracy Inadvertent reel cutter errors may occur 05/27/2025 Annual physical exam (ICD-10 - Z00.00) Acute Concerns/Problem List: 05/27/2025 Of note, some information is being carried forward from prior records for informational purposes only and is being cited so that efficiency, safety and quality of the patient's care is not compromised This note was prepared using voice recognition software and direct typing Please excuse inadvertent reel cutter or typing errors, or uncorrected word substitutions Although every attempt has been made by the provider to proofread this document, occasional misspellings and typographical errors may still be present Due to the previous pandemic, and the use of personal protective equipment (PPE) This may decrease voice recognition accuracy Inadvertent reel cutter errors may occur 06/19/2024 Encounter for screening for other disorder (ICD-10 - Z13.89) Acute Concerns/Problem List: 06/19/2024 MAWMariano MOLST/HCP Discussed Referral to hand surgery Right hand films Labs reviewed and stable Of note, some information is being carried forward from prior records for informational purposes only and is being cited so that efficiency, safety and quality of the patient's care is not compromised This note was prepared using voice recognition software and direct typing Please excuse inadvertent reel cutter or typing errors, or uncorrected word substitutions Although every attempt has been made by the provider to proofread this document, occasional misspellings and typographical errors may still be present Due to the previous pandemic, and the use of personal protective equipment (PPE) This may decrease voice recognition accuracy Inadvertent reel cutter errors may occur 05/27/2025 Encounter for screening for other disorder (ICD-10 - Z13.89) Acute Concerns/Problem List: 05/27/2025 Of note, some information is being carried forward from prior records for informational purposes only and is being cited so that efficiency, safety and quality of the patient's care is not compromised This note was prepared using voice recognition software and direct typing Please excuse inadvertent reel cutter or typing errors, or uncorrected word substitutions Although every attempt has been made by the provider to proofread this document, occasional misspellings and typographical errors may still be present Due to the previous pandemic, and the use of personal protective equipment (PPE) This may decrease voice recognition accuracy Inadvertent reel cutter errors may occur 01/07/2025 Kidney stones (ICD-10 [...] this time. # Nephrolithiasis: Patient follows with [place] [facility]. Last office visit scanned in chart from 2022, renal ultrasound with findings of 4 mm stones x 2 on the left side and a 3 mm right small punctuate stone. Patient that time advised to increase her hydration and continue to monitor. # Hemorrhoids: Patient follows with gastroenterology in [place]. Also has had follow-up with surgery regarding [...] Dictation was accomplished with the use of [employer] voice recognition software, which is prone to medical misidentifications and grammatical errors. This are unintentional and the practitioner does try to identify and correct these, but some could still be present. Please do not hesitate to contact practitioner for clarification. 10/21/2024 Other seasonal allergic rhinitis (ICD-10 - [...] software and direct typing Please excuse inadvertent reel cutter or typing errors, or uncorrected word substitutions Although every attempt has been made by the provider to proofread this document, occasional misspellings and typographical errors may still be present Due to the previous pandemic, and the use of personal protective equipment (PPE) This may decrease voice recognition accuracy Inadvertent reel cutter errors may occur 10/21/2024 Nephrolithiasis (ICD-10 - [...] software and direct typing Please excuse inadvertent reel cutter or typing errors, or uncorrected word substitutions Although every attempt has been made by the provider to proofread this document, occasional misspellings and typographical errors may still be present Due to the previous pandemic, and the use of personal protective equipment (PPE) This may decrease voice recognition accuracy Inadvertent reel cutter errors may occur 06/19/2024 Generalized anxiety disorder (ICD-10 - F41.1) Acute Concerns/Problem List: 06/19/2024 MAWMariano MOLST/HCP Discussed Referral to hand surgery Right hand films Labs reviewed and stable Of note, some information is being carried forward from prior records for informational purposes only and is being cited so that efficiency, safety and quality of the patient's care is not compromised This note was prepared using voice recognition software and direct typing Please excuse inadvertent reel cutter or typing errors, or uncorrected word substitutions Although every attempt has been made by the provider to proofread this document, occasional misspellings and typographical errors may still be present Due to the previous pandemic, and the use of personal protective equipment (PPE) This may decrease voice recognition accuracy Inadvertent reel cutter errors may occur 01/07/2025 Other seasonal allergic [...] this time. # Nephrolithiasis: Patient follows with [place] [facility]. Last office visit scanned in chart from 2022, renal ultrasound with findings of 4 mm stones x 2 on the left side and a 3 mm right small punctuate stone. Patient that time advised to increase her hydration and continue to monitor. # Hemorrhoids: Patient follows with gastroenterology in [place]. Also has had follow-up with surgery regarding [...] Dictation was accomplished with the use of [employer] voice recognition software, which is prone to medical misidentifications and grammatical errors. This are unintentional and the practitioner does try to identify and correct these, but some could still be present. Please do not hesitate to contact practitioner for clarification. 05/27/2025 Advanced directives, counseling/discuss ion (ICD-10 - Z71.89) Acute Concerns/Problem List: 05/27/2025 Of note, some information is being carried forward from prior records for informational purposes only and is being cited so that efficiency, safety and quality of the patient's care is not compromised This note was prepared using voice recognition software and direct typing Please excuse inadvertent reel cutter or typing errors, or uncorrected word substitutions Although every attempt has been made by the provider to proofread this document, occasional misspellings and typographical errors may still be present Due to the previous pandemic, and the use of personal protective equipment (PPE) This may decrease voice recognition accuracy Inadvertent reel cutter errors may occur 01/07/2025 GERD without esophagitis (ICD-10 - K21.9) [...] this time. # Nephrolithiasis: Patient follows with [place] [facility]. Last office visit scanned in chart from 2022, renal ultrasound with findings of 4 mm stones x 2 on the left side and a 3 mm right small punctuate stone. Patient that time advised to increase her hydration and continue to monitor. # Hemorrhoids: Patient follows with gastroenterology in [place]. Also has had follow-up with surgery regarding [...] Dictation was accomplished with the use of [employer] voice recognition software, which is prone to medical misidentifications and grammatical errors. This are unintentional and the practitioner does try to identify and correct these, but some could still be present. Please do not hesitate to contact practitioner for clarification. 05/27/2025 Generalized anxiety disorder (ICD-10 - F41.1) Acute Concerns/Problem List: 05/27/2025 Of note, some information is being carried forward from prior records for informational purposes only and is being cited so that efficiency, safety and quality of the patient's care is not compromised This note was prepared using voice recognition software and direct typing Please excuse inadvertent reel cutter or typing errors, or uncorrected word substitutions Although every attempt has been made by the provider to proofread this document, occasional misspellings and typographical errors may still be present Due to the previous pandemic, and the use of personal protective equipment (PPE) This may decrease voice recognition accuracy Inadvertent reel cutter errors may occur 06/19/2024 Other seasonal allergic rhinitis (ICD-10 - [...] software and direct typing Please excuse inadvertent reel cutter or typing errors, or uncorrected word substitutions Although every attempt has been made by the provider to proofread this document, occasional misspellings and typographical errors may still be present Due to the previous pandemic, and the use of personal protective equipment (PPE) This may decrease voice recognition accuracy Inadvertent reel cutter errors may occur 10/21/2024 External hemorrhoids (ICD-10 [...] software and direct typing Please excuse inadvertent reel cutter or typing errors, or uncorrected word substitutions Although every attempt has been made by the provider to proofread this document, occasional misspellings and typographical errors may still be present Due to the previous pandemic, and the use of personal protective equipment (PPE) This may decrease voice recognition accuracy Inadvertent reel cutter errors may occur 06/19/2024 Nephrolithiasis (ICD-10 - [...] software and direct typing Please excuse inadvertent reel cutter or typing errors, or uncorrected word substitutions Although every attempt has been made by the provider to proofread this document, occasional misspellings and typographical errors may still be present Due to the previous pandemic, and the use of personal protective equipment (PPE) This may decrease voice recognition accuracy Inadvertent reel cutter errors may occur 05/27/2025 Other seasonal allergic rhinitis (ICD-10 - J30.2) Acute Concerns/Problem List: 05/27/2025 Of note, some information is being carried forward from prior records for informational purposes only and is being cited so that efficiency, safety and quality of the patient's care is not compromised This note was prepared using voice recognition software and direct typing Please excuse inadvertent reel cutter or typing errors, or uncorrected word substitutions Although every attempt has been made by the provider to proofread this document, occasional misspellings and typographical errors may still be present Due to the previous pandemic, and the use of personal protective equipment (PPE) This may decrease voice recognition accuracy Inadvertent reel cutter errors may occur 01/07/2025 External hemorrhoids (ICD-10 [...] this time. # Nephrolithiasis: Patient follows with [place] [facility]. Last office visit scanned in chart from 2022, renal ultrasound with findings of 4 mm stones x 2 on the left side and a 3 mm right small punctuate stone. Patient that time advised to increase her hydration and continue to monitor. # Hemorrhoids: Patient follows with gastroenterology in [place]. Also has had follow-up with surgery regarding [...] Dictation was accomplished with the use of [employer] voice recognition software, which is prone to medical misidentifications and grammatical errors. This are unintentional and the practitioner does try to identify and correct these, but some could still be present. Please do not hesitate to contact practitioner for clarification. 05/27/2025 Nephrolithiasis (ICD-10 - N20.0) Acute Concerns/Problem List: 05/27/2025 Of note, some information is being carried forward from prior records for informational purposes only and is being cited so that efficiency, safety and quality of the patient's care is not compromised This note was prepared using voice recognition software and direct typing Please excuse inadvertent reel cutter or typing errors, or uncorrected word substitutions Although every attempt has been made by the provider to proofread this document, occasional misspellings and typographical errors may still be present Due to the previous pandemic, and the use of personal protective equipment (PPE) This may decrease voice recognition accuracy Inadvertent reel cutter errors may occur 06/19/2024 Hyperlipidemia, unspecified (ICD-10 - E78.5) Acute [...] software and direct typing Please excuse inadvertent reel cutter or typing errors, or uncorrected word substitutions Although every attempt has been made by the provider to proofread this document, occasional misspellings and typographical errors may still be present Due to the previous pandemic, and the use of personal protective equipment (PPE) This may decrease voice recognition accuracy Inadvertent reel cutter errors may occur 05/27/2025 Encounter for examination [...] software and direct typing Please excuse inadvertent reel cutter or typing errors, or uncorrected word substitutions Although every attempt has been made by the provider to proofread this document, occasional misspellings and typographical errors may still be present Due to the previous pandemic, and the use of personal protective equipment (PPE) This may decrease voice recognition accuracy Inadvertent reel cutter errors may occur 06/19/2024 Pain in right [...] software and direct typing Please excuse inadvertent reel cutter or typing errors, or uncorrected word substitutions Although every attempt has been made by the provider to proofread this document, occasional misspellings and typographical errors may still be present Due to the previous pandemic, and the use of personal protective equipment (PPE) This may decrease voice recognition accuracy Inadvertent reel cutter errors may occur Plan Of Treatment Pending Test Test Name Order Date X [...] REFLEX TO FT4 12/13/2023 URINALYSIS W/REFLEX CULTURE 11/29/2023 URINALYSIS W/REFLEX CULTURE 12/13/2023 CT Abd and Pelvis w/o Contrast XR Knee 1-2 Views LT 06/01/2022 LIPID PANEL, STANDARD 10/21/2024 COMPREHENSIVE METABOLIC PANEL 10/21/2024 CREATINE KINASE, TOTAL 12/14/2022 CBC (INCLUDES DIFF/PLT) 10/21/2024 URINALYSIS, COMPLETE 12/14/2022 URINALYSIS, COMPLETE 10/21/2024 URINALYSIS, COMPLETE W/REFLEX TO CULTURE 01/07/2025 HEMOGLOBIN [...] TO FT4 11/05/2022 URINALYSIS W/REFLEX CULTURE 11/05/2022 Insurance Providers Payer Name Payer Address Payer Phone Subscriber Number Group Number Insured Name Patient Relationship to Insured Coverage Start Date Coverage End Date [employer] or Options [address] [place] [id number] FREDY Taveras Self - patient is the insured Medical (General) History Medical History History ICD Code anxiety Allergies Deafness Surgical History Surgery Date(Month/Year) nose surgery
--- OUTSIDE RECORDS SUMMARY | 2025-06-04 18:07 | XMS_ITS | Encounter Summary ---
Author Organization [facility] Address [address] [place] [address] 7 [place] [address] Care Team Providers Care Foreign Legal Consultant Name Role Phone Unavailable Primary Care Provider Unavailabl e Reason for Visit * Reason Comments Med Refill Encounter Details Date Type Department Care Team (Late st Contact Info) Description 11/13/2023 Refill [facility] ADULT DENTAL [address] [place] [address] Geovany Elder DMD [address] [place] [address] Social History Tobacco Use Types Packs/Day Years [...] Visit [facility] ADULT DENTAL [address] [place] [address] Dorothea Evangelista [address] [place] [address] documented as of this encounter Visit Diagnoses Not on filedocumented in this encounter
== END 2025-06-04 15:39 | disposition home or self-care (01) ==
LOC: HO.HMCH 15:00
PROVIDERS: Absent Provider Internal Medicine; PCP Internal Medicine; Visit Provider Internal Medicine
DX: E78.00 Pure hypercholesterolemia, unspecified (principal); R79.89 Other specified abnormal findings of blood chemistry; K58.0 Irritable bowel syndrome with diarrhea; F41.9 Anxiety disorder, unspecified; N20.0 Calculus of kidney; G43.909 Migraine, unspecified, not intractable, without status migrainosus

== ENCOUNTER → 2025-06-04 15:00 | Outpatient (BNVA) | payer OTHER, SELFPAY | PROVIDERS: Absent Provider Internal Medicine; PCP Internal Medicine; Visit Provider Internal Medicine | DX: E78.00 Pure hypercholesterolemia, unspecified (principal); E55.9 Vitamin D deficiency, unspecified; K58.0 Irritable bowel syndrome with diarrhea; F41.9 Anxiety disorder, unspecified; N20.0 Calculus of kidney; G43.909 Migraine, unspecified, not intractable, without status migrainosus; Z13.31 Encounter for screening for depression; Z13.39 Encounter for screening examination for other mental health and behavioral disorders | CPT/HCPCS: 96127; 99212 ==

== ENCOUNTER 2025-06-10 15:06 | Outpatient (AMB) | payer OTHER, SELFPAY ==
--- OUTSIDE RECORDS SUMMARY | 2025-05-27 04:30 | XMS_ITS ---
Author Organization [facility] [address] Address [address] [place] [address] Care Team Providers Care Life Advisor Name Role Phone STALIN RENNER Primary Care Provider ALO COUCH Unavailable [phone] Medications Medication SIG (Take, Route, Frequency, Duration) Notes Start Date End Date Status Clotrimazole 1 % APPLY TOPICALLY TO THE AFFECTED AREA TWICE DAILY; Duration: 30 Active Hydrocortisone Julio C-Pramoxine 2.5-1 % 1 application Externally Three times a day; Duration: 30 days Active Probiotic 250 MG 1 capsule Orally once a day; Duration: 30 days 11/10/2020 Active Nitrofurantoin Monohyd Macro 100 MG 1 capsule with food Orally every 12 hrs; Duration: 7 days 11/30/2023 Not-Taking Diclofenac Sodium 75 MG 1 tablet Orally Twice a day; Duration: 30 day(s) 11/24/2020 Active hydrOXYzine HCl 10 mg 1 tablet as needed Orally every 8 hrs; Duration: 30 Not-Taking Cholecalciferol 50 MCG (2000 UT) 1 capsule Orally Once a day; Duration: 30 days 01/27/2025 Active Hydrocortisone 1 % 1 application to affected area Externally Twice a day; Duration: 30 day(s) undefined 02/28/2018 Not-Taking Anucort-HC 25 MG 1 suppository as needed Rectal Three times a day; Duration: 30 day(s) Active Famotidine 20 MG TAKE 1 TABLET BY MOUTH EVERY DAY AT BEDTIME NEEDED; Duration: 90 Active Montelukast Sodium 10 MG TAKE 1 TABLET B Y MOUTH EVERY DAY; Duration: 90 Active hydrOXYzine HCl 25 MG 1 tablet as needed Orally every 8 hrs; Duration: 30 day(s) Not-Taking Encounters Encounter Location Date Provider Diagnosis [facility] [address] [place] [id number] 05/27/2025 ALO AGUAYOJada Annual physical exam Z00.00 ; Encounter for screening for depression Z13.31 ; Encounter for screening for other disorder Z13.89 ; Advanced directives, counseling/discussion Z71.89 ; Generalized anxiety disorder F41.1 ; Other seasonal allergic rhinitis J30.2 ; Nephrolithiasis N20.0 and Encounter for examination of blood pressure without abnormal findings Z01.30 Assessments Encounter Date Diagnosis (ICD Code) Assessment Notes Treatment Notes Treatment Clinical Notes Section Notes 05/27/2025 Annual physical exam (ICD-10 - Z00.00) Acute Concerns/Problem List: 05/27/2025 Of note, some information is being carried forward from prior records for informational purposes only and is being cited so that efficiency, safety and quality of the patient's care is not compromised This note was prepared using voice recognition software and direct typing Please excuse inadvertent step finisher or typing errors, or uncorrected word substitutions Although every attempt has been made by the provider to proofread this document, occasional misspellings and typographical errors may still be present Due to the previous pandemic, and the use of personal protective equipment (PPE) This may decrease voice recognition accuracy Inadvertent step finisher errors may occur 05/27/2025 Encounter for screening for depression (ICD-10 - Z13.31) Acute Concerns/Problem List: 05/27/2025 Of note, some information is being carried forward from prior records for informational purposes only and is being cited so that efficiency, safety and quality of the patient's care is not compromised This note was prepared using voice recognition software and direct typing Please excuse inadvertent step finisher or typing errors, or uncorrected word substitutions Although every attempt has been made by the provider to proofread this document, occasional misspellings and typographical errors may still be present Due to the previous pandemic, and the use of personal protective equipment (PPE) This may decrease voice recognition accuracy Inadvertent step finisher errors may occur 05/27/2025 Encounter for screening for other disorder (ICD-10 - Z13.89) Acute Concerns/Problem List: 05/27/2025 Of note, some information is being carried forward from prior records for informational purposes only and is being cited so that efficiency, safety and quality of the patient's care is not compromised This note was prepared using voice recognition software and direct typing Please excuse inadvertent step finisher or typing errors, or uncorrected word substitutions Although every attempt has been made by the provider to proofread this document, occasional misspellings and typographical errors may still be present Due to the previous pandemic, and the use of personal protective equipment (PPE) This may decrease voice recognition accuracy Inadvertent step finisher errors may occur 05/27/2025 Advanced directives, counseling/discussi on (ICD-10 - Z71.89) Acute Concerns/Problem List: 05/27/2025 Of note, some information is being carried forward from prior records for informational purposes only and is being cited so that efficiency, safety and quality of the patient's care is not compromised This note was prepared using voice recognition software and direct typing Please excuse inadvertent step finisher or typing errors, or uncorrected word substitutions Although every attempt has been made by the provider to proofread this document, occasional misspellings and typographical errors may still be present Due to the previous pandemic, and the use of personal protective equipment (PPE) This may decrease voice recognition accuracy Inadvertent step finisher errors may occur 05/27/2025 Generalized anxiety disorder (ICD-10 - F41.1) Acute Concerns/Problem List: 05/27/2025 Of note, some information is being carried forward from prior records for informational purposes only and is being cited so that efficiency, safety and quality of the patient's care is not compromised This note was prepared using voice recognition software and direct typing Please excuse inadvertent step finisher or typing errors, or uncorrected word substitutions Although every attempt has been made by the provider to proofread this document, occasional misspellings and typographical errors may still be present Due to the previous pandemic, and the use of personal protective equipment (PPE) This may decrease voice recognition accuracy Inadvertent step finisher errors may occur 05/27/2025 Other seasonal allergic rhinitis (ICD-10 - J30.2) Acute Concerns/Problem List: 05/27/2025 Of note, some information is being carried forward from prior records for informational purposes only and is being cited so that efficiency, safety and quality of the patient's care is not compromised This note was prepared using voice recognition software and direct typing Please excuse inadvertent step finisher or typing errors, or uncorrected word substitutions Although every attempt has been made by the provider to proofread this document, occasional misspellings and typographical errors may still be present Due to the previous pandemic, and the use of personal protective equipment (PPE) This may decrease voice recognition accuracy Inadvertent step finisher errors may occur 05/27/2025 Nephrolithiasis (ICD-10 - N20.0) Acute Concerns/Problem List: 05/27/2025 Of note, some information is being carried forward from prior records for informational purposes only and is being cited so that efficiency, safety and quality of the patient's care is not compromised This note was prepared using voice recognition software and direct typing Please excuse inadvertent step finisher or typing errors, or uncorrected word substitutions Although every attempt has been made by the provider to proofread this document, occasional misspellings and typographical errors may still be present Due to the previous pandemic, and the use of personal protective equipment (PPE) This may decrease voice recognition accuracy Inadvertent step finisher errors may occur 05/27/2025 Encounter for examination of blood pressure without abnormal findings (ICD-10 - Z01.30) Acute Concerns/Problem List: 05/27/2025 Of note, some information is being carried forward from prior records for informational purposes only and is being cited so that efficiency, safety and quality of the patient's care is not compromised This note was prepared using voice recognition software and direct typing Please excuse inadvertent step finisher or typing errors, or uncorrected word substitutions Although every attempt has been made by the provider to proofread this document, occasional misspellings and typographical errors may still be present Due to the previous pandemic, and the use of personal protective equipment (PPE) This may decrease voice recognition accuracy Inadvertent step finisher errors may occur Plan Of Treatment Medication Medication Name Sig Start Date Stop Date Notes Anucort-HC 25 MG 1 suppository as nee ded Rectal Three times a day; Duration: 30 day(s) Progress Notes * RAIZA TAVERASWMOB:1970 (54 yo F)Acc No.[id number]:05/27/2025 Progress Notes Patient: MARIZOL STOVALL Provider: Hubert COUCH NP :1970 A ge:54 Y S ex:Female Date:05/27/2025 Address: [address], [facility], [id number] Pcp:STALIN RENNER Subjective: * Chief Complaints: * * HPI: C onstitutional: Patient is here for a Medicare Wellness Visit ([place]) Complete paperwork was reviewed and updated and has been filed and scan. Age appropriate screening measures reviewed Depression screen completed. PHQ-9: Alcohol audit screening completed. AUDIT: Cognition assessed MMSE/MOCA: Fall risk assessed Obesity screen completed. C ardiovascular risk stratification screen completed. Discussed healthcare proxy. Discussed [place] order for life sustaining treatment, Comprehensive fasting labs reviewed Patient seen and examined. F ull past medical history, social history, family history, allergies and current medications were reviewed and updated. Acute Concerns/Problem List: 05/27/2025 We were able to communicate during the visit today via talk to text on our cellular phones She is hard of hearing, hearing impaired She is overall well , No acute complaints today Her hemorrhoids have not improved with water and fiber She saw Dr. Aneudy Angelo [facility] from [place] who told her taking them out will be painful other Past history that includes IBS, venous insufficiency, right lower extremity varicosities, Cervicalgia, evaluated by rheumatology Comprehensive labs May 2024 Hemoglobin A1c 5.3 Renal function electrolytes and LFTs are stable CBC is stable Total cholesterol 195, triglycerides 111, HDL 65, LDL 108 Vitamin D 51 TSH 1.27 UA mostly unremarkable Social History: Non-smoker, never smoker no ETOH No illicit drug use. Lives with boyfriend at home Health maintenance Colonoscopy- 2018, 10-year surveillance Mammography: 04/2025, BI-Rads 1, Normal COVID MRNA x 4, 2021 + 1 booster (pfizer) Flu-2023, [facility] shingles- 1 TDaP- 2022. * ROS: A ll Other Systems: Review of Systems (ROS) A ll others negative except those mentioned in HPI. * Medical History: * Medications: T aking Anucort-HC 25 MG Suppository 1 suppository as needed [...] THE AFFECTED AREA TWICE DAILY , Taking Montelukast Sodium 10 MG Tablet TAKE 1 TABLET BY MOUTH EVERY DAY , Taking Cholecalciferol 50 MCG (1999) Capsule 1 capsule Orally Once a day , Taking Famotidine 20 MG Tablet TAKE 1 TABLET BY MOUTH EVERY DAY AT BEDTIME NEEDED , Not-Taking Nitrofurantoin Monohyd Macro 100 MG [...] Twice a day , Notes to Pharmacist: undefined Objective: * Vitals: * Examination: G eneral Examination: GENERAL APPEARANCE: i n no acute distress, well developed, well nourished. H EAD: n ormocephalic, atraumatic. E YES: e xtraocular movement intact (EOMI). E ARS: h earing impaired. O RAL CAVITY: m [place] moist. T HROAT: sweta devries. S KIN: n ormal. H EART: n o murmurs, regular rate and rhythm, S1, S2 normal.?LUNGS: c lear to auscultation bilaterally. A BDOMEN: n ormal, bowel sounds present, soft, nontender, nondistended. M USCULOSKELETAL: f ull range of motion. E XTREMITIES: normal , no edema. N EUROLOGIC: a lert and oriented ,gait normal. P SYCH: a lert, oriented ,thought process logical, goal directed. Assessment: * Assessment: 1. A nnual physical exam - Z00.00 (Primary) 2 . E ncounter for screening for depression - Z13.31 3 . E ncounter for screening for other disorder - Z13.89? 4. A dvanced directives, counseling/discussion - Z71.89 5 . G eneralized anxiety disorder - F41.1 6 . O ther seasonal allergic rhinitis - J30.2 7 . N ephrolithiasis - N20.0 8 . E ncounter for examination of blood pressure without abnormal findings - Z01.30 Acute Concerns/Problem List: 05/27/2025 Of note, some information is being carried forward from prior records for informational purposes only and is being cited so that efficiency, safety and quality of the patient's care is not compromised This note was prepared using voice recognition software and direct typing Please excuse inadvertent step finisher or typing errors, or uncorrected word substitutions Although every attempt has been made by the provider to proofread this document, occasional misspellings and typographical errors may still be present Due to the previous pandemic, and the use of personal protective equipment (PPE) This may decrease voice recognition accuracy Inadvertent step finisher errors may occur Plan: * Treatment: * Procedure Codes: 9 9199 NO SHOW OFFICE VISIT * Images: Billing Information: * Visit Code: * Procedure Codes: 30798 NO SHOW OFFICE VISIT. Care Plan Details* * Electronic signature of REVA MERCHANT KHOA on 06/10/2025 at 06:38 PM EDT Sign off status: Pending * Provider: Hubert COUCH DEHAIRER Date: 0 05/27/2025 Generated for Marcio rosario/Donnie/Darren on: 0 06/10/2025 06:38 PM EDT History and Physical Notes * HPI (History of Present Illness) Category Sub-Category Detail Notes Category Not es Constitutional Patient is here for a Medicare Wellness Visit ([facility]) Complete paperwork was reviewed and updated and has been filed and scan. Age appropriate screening measures reviewed Depression screen completed. PHQ-9: Alcohol audit screening completed. AUDIT: Cognition assessed MMSE/MOCA: Fall risk assessed Obesity screen completed. Cardiovascular risk stratification screen completed. Discussed healthcare proxy. Discussed [place] order for life sustaining treatment, Comprehensive fasting labs reviewed Patient seen and examined. Full past medical history, social history, family history, allergies and current medications were reviewed and updated. Acute Concerns/Problem List: 05/27/2025 We were able to communicate during the visit today via talk to text on our cellular phones She is hard of hearing, hearing impaired She is overall well , No acute complaints today Her hemorrhoids have not improved with water and fiber She saw Dr. Aneudy Angelo [facility] from [place] who told her taking them out will be painful other Past history that includes IBS, venous insufficiency, right lower extremity varicosities, Cervicalgia, evaluated by rheumatology Comprehensive labs May 2024 Hemoglobin A1c 5.3 Renal function electrolytes and LFTs are stable CBC is stable Total cholesterol 195, triglycerides 111, HDL 65, LDL 108 Vitamin D 51 TSH 1.27 UA mostly unremarkable Social History: Non-smoker, never smoker no ETOH No illicit drug use. Lives with boyfriend at home Health maintenance Colonoscopy- 2018, 10-year surveillance Mammography: 04/2025, BI-Rads 1, Normal COVID MRNA x 4, 2021 + 1 booster (pfizer) Flu-2023, [facility] shingles- 1 TDaP- 2022 Examination Category Sub-Category Detail Notes Category Not es General Examination GENERAL APPEARANCE: in no ac [place] distress, well developed, well nourished HEAD: normocephalic, atrau matic EYES: extraocular movement intact (EOMI) EARS: hearing impaired THROAT: clear HEART: no murmurs, regular rate and rhythm, S1, S2 normal LUNGS: clear to auscultatio n bilaterally ABDOMEN: normal, bowel sounds present, soft, nontender, nondistended NEUROLOGIC: alert and oriented , gait normal SKIN: normal EXTREMITIES: normal , no edema MUSCULOSKELETAL: full range of motion PSYCH: alert, oriented ,tho ught process logical, goal directed ORAL CAVITY: mucosa moist
--- NOTE | 2025-06-10 15:12 | MHC.OFFVIS ---
Vital Signs 06/10/25 15:12 Height 5 ft 5 in Intake Visit Reasons: 6m migraine Allergies doxycycline Allergy (Severe, Verified 06/10/25 15:18) Fever morphine (MORPHINE) Allergy (Severe, Verified 06/10/25 15:18) HEART RATE ST WITH PALPATIONS AND RASH. alprazolam Allergy (Unknown, Verified 06/10/25 15:18) Cough, SOB aspirin (ASPIRIN) Allergy (Unknown, Verified 06/10/25 15:18) HOT IN BODY atenolol (ATENOLOL) Allergy (Unknown, Verified 06/10/25 15:18) Dizziness atropine (From Lomotil) Allergy (Unknown, Verified 06/10/25 15:18) Unknown azithromycin (AZITHROMYCIN) Allergy (Unknown, Verified 06/10/25 15:18) DIZZY ciprofloxacin Allergy (Unknown, Verified 06/10/25 15:18) Dizziness codeine (CODEINE) Allergy (Unknown, Verified 06/10/25 15:18) UNKNOWN diphenoxylate (From Lomotil) Allergy (Unknown, Verified 06/10/25 15:18) Unknown garlic Allergy (Unknown, Verified 06/10/25 15:18) Unknown hydrochlorothiazide Allergy (Unknown, Verified 06/10/25 15:18) hypertension lisinopril (LISINOPRIL) Allergy (Unknown, Verified 06/10/25 15:18) HEART POUNDING, palpitations Lonox Allergy (Unknown, Verified 06/10/25 15:18) hot flash metoprolol Allergy (Unknown, Verified 06/10/25 15:18) Dizziness onion Allergy (Unknown, Verified 06/10/25 15:18) Unknown oxycodone (OXYCODONE) Allergy (Unknown, Verified 06/10/25 15:18) HOT AND DIZZY Penicillins (PENICILLINS) Allergy (Unknown, Verified 06/10/25 15:18) ITCHING RASH pepper (genus Capsicum) Allergy (Unknown, Verified 06/10/25 15:18) Unknown prednisone Allergy (Unknown, Verified 06/10/25 15:18) Headache prochlorperazine (From Compazine) Allergy (Unknown, Verified 06/10/25 15:18) Unknown sumatriptan Allergy (Unknown, Verified 06/10/25 15:18) Dizziness tramadol (TRAMADOL) Allergy (Unknown, Verified 06/10/25 15:18) DIZZINESS cyclobenzaprine Allergy (Verified 06/10/25 15:18) increased BP barrett Allergy (Verified 06/10/25 15:18) Unknown orange Allergy (Verified 06/10/25 15:18) Unknown pantoprazole Allergy (Verified 06/10/25 15:18) Diarrhea albuterol (From Ventolin HFA) Adverse Reaction (Mild, Verified 06/10/25 15:18) Hot feeling ibuprofen (From Advil) Adverse Reaction (Unknown, Verified 06/10/25 15:18) Hot inside body naproxen (From Aleve) Adverse Reaction (Unknown, Verified 06/10/25 15:18) Hot inside body Diphenoxylate-Atropine Allergy (Unknown, Uncoded 06/10/25 15:18) Unknown Q-Tussin Allergy (Unknown, Uncoded 06/10/25 15:18) increased BP salt Allergy (Uncoded 06/10/25 15:18) Unknown Medication List - Last Reconciled 06/10/25 by Leticia Zapata CNP acetaminophen (Tylenol Extra Strength) 500 mg PO Q4-6H PRN khdpqnrogq-hgafahhcniaog-mmkn 50-325-40 mg 1 tab PO Q6H PRN cholecalciferol (vitamin D3) 1,250 mcg PO QWEEK cholecalciferol (vitamin D3) (Vitamin D3) 50 mcg PO DAILY dicyclomine 10 mg PO TID 30 days famotidine 20 mg PO DAILY hydrocortisone 2.5% topical hydrocortisone acetate (Anusol-HC) 25 mg DC BID PRN hydroxyzine HCl 10 mg PO Q8H PRN ketorolac 10 mg PO Q8H lorazepam mg PO DAILY montelukast 10 mg PO DAILY 90 days phenazopyridine (Pyridium) 200 mg PO TID PRN 6 doses pyridoxine (vitamin B6) 50 mg PO DAILY 90 days sennosides (Natural Senna Laxative) 17.2 mg (2 x 8.6 mg) PO BEDTIME tamsulosin 0.4 mg PO BEDTIME 14 days HPI Comments Details: She was doing okay. Headaches were okay. She was using butalbital as needed which helped. Mood was okay. Sleep was okay. She needed refill of lorazepam. 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 She has had a negative CAT scan. She gets that episodic headache less than once a month relieved by meds. [facility] Medical History Asthma Kidney stones Low vitamin D level Abdominal pain Internal and external prolapsed hemorrhoids Speech and language development delay due to hearing loss Screening for colon cancer IBS (irritable colon syndrome) Surgical History Hx of gynecological procedure History of lithotripsy History of esophagogastroduodenoscopy (EGD) (~2018) Hx of colonoscopy (~2018) Family History (Updated 06/04/25 @ 15:27 by Emmy Escalante MD) Mother Breast cancer Maternal Aunt Breast cancer Father Lung cancer Social History Household Members: Friend(s) Housing: House Are you a primary resident care aide to a significant other at home: No Alcohol intake: never Patient Tobacco Use Status: Never used Tobacco e-Cigarette/Vaping Use: Never Used service: No Current occupational status: retired Cognitive needs: No Review of Systems Const Denies chills, Denies daytime sleepiness, Denies difficulty sleeping, Denies fatigue, Denies fever(s), Denies frequent falls, Reports headache(s), Denies increased appetite, Denies poor appetite, Denies snoring, Denies weakness, Denies weight gain and Denies weight loss Eyes Denies loss of vision ENT Denies vertigo, Denies dizziness, Reports headache(s) and Denies neck pain Card Denies chest pain at rest, Denies chest pain with activity, Denies syncope, Denies leg edema, Denies palpitations, Denies dyspnea and Denies dyspnea on exertion Resp Denies cough, Denies dyspnea, Denies dyspnea on exertion and Denies snoring GI Denies abdominal pain, Denies constipation, Denies heartburn, Denies diarrhea and Denies nausea Denies urinary frequency, Denies urinary incontinence and Denies urinary urgency Musc Denies abnormal gait, Denies back pain, Denies myalgias, Denies arthralgias, Denies neck pain, Denies numbness and Denies tingling Neuro Denies abnormal gait, Denies vertigo, Denies dizziness, Denies syncope, Denies frequent falls, Reports headache(s), Denies lack of coordination, Denies loss of vision, Denies memory loss, Denies numbness, Denies Other visual disturbances, Denies restless legs, Denies seizure-like activity, Denies tingling, Denies paresthesias, Denies tremor(s) and Denies weakness Psych Denies anxiety, Denies depression, Denies auditory hallucinations, Denies memory loss and Denies visual hallucinations Endo Denies fatigue and Denies palpitations Physical Exam Const Other: General Appearance:? normal, in no acute distress. Heart:? S1, S2 normal, no murmurs. Lungs:? clear anteriorly and posteriorly. Musculoskeletal:? normal. Extremities:? no edema. Psych:? alert, oriented, cognitive function intact, cooperative with exam. Neuro Other: Abnormal Neurological Findings:?none.? Mental Status: alert and oriented X 3. Normal attention, orientation, memory, and affect. Cranial Nerves: Pupils are equal, round, and reactive to light. External ocular muscles are intact. Visual layne are full, no ptosis. Face is symmetrical, no facial weakness or droop. Facial sensations are normal. Tongue protrudes in midline. Palate elevates symmetrically. Shoulder shrugging is normal Motor Examination: Normal muscle tone, bulk and strength. No atrophy or fasciculations. No drift of the extended upper extremities. DTR 2+. Plantars are flexor. Sensory Exam: Normal light touch, temperature, pinprick, vibration, and joint-position sensations. Rhomberg sign is absent. Coordination: No ataxia. No titubation. Okcbdv-og-nbqv, uwmz-xlkn-gypt test, and rapid alternating movements were normal. Gait Exam: Within normal limits. Cerebellar Signs: Irylin-wc-rqlt and dofb-ss-xuaz is normal. No dysdiadochokinesia. Extrapyramidal System: No tremor, rigidity with normal facial expressions. No bradykinesia. No bradyphrenia. Normal arm swing and posture. No propulsion or retropulsion. Speech: Normal. Assessment & Plan Assessment & Plan (1) Tension headache: Code(s): G44.209 - Tension-type headache, unspecified, not intractable Category: Medical Plan: Continue jclslftebu-ENNQ-ppsx 50-325-40mg 1 tablet as needed q12h for headache #30 for 30 days. Continue ketorolac tromethamine 10mg 1 tablet with food or milk as needed q8h for headache #10 for 30 days. (2) Anxiety: Code(s): F41.9 - Anxiety disorder, unspecified Category: Medical Plan: Continue lorazepam 0.5mg 1 tablet as needed daily for anxiety #30 for 30 days. Medications: Changed From lorazepam PO DAILY To lorazepam 0.5 mg PO DAILY 30 days PRN 30 tabs 5RF anxiety Refilled lorazepam 0.5 mg PO DAILY PRN 30 tabs 2RF anxiety 30 days Coding Level of Care Code Est Pt Level 4 (02359) Diagnoses Tension headache G44.209 Anxiety F41.9
--- OUTSIDE RECORDS SUMMARY | 2025-06-10 18:39 | XMS_ITS | Clinical Summary ---
Author Organization [facility] Address [address] [place] [address] Phone Care Team Providers Care Farm Tractor Mechanic Name Role Phone Derick Stern COMMUNITY FACILITATOR Primary Care Provider [phone] Allergies No known active allergies Medications butalbital-acet [...] EDT Hospital Encounter [facility] [address] [place] [phone] Encounter for screening mammogram for breast cancer Discharge Disposition: Home or Self Care 03/31/2025 1:45 PM EDT Office Visit Orthopedic Surgery - [address] [phone] Dwight Verdugo MD Acquired trigger finger of right ring finger (Primary Dx) from Last 3 Months Medical History Medical History Date Comments Anxiety 02/02/2017 DX:Anxiety 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; COMMENT: Needs natural resource officer HTN (hypertension) 02/02/2017 DX:HTN (hyper tension) Irritable [...] PM EDT Office Visit Orthopedic Surgery - [place] [address] [facility] [address] [place] [phone] Dwight Verdugo MD [address] [place] [address] Health Maintenance Due Date Last Done Comments [...] Encounter for screening mammogram for breast cancer [place] INJECTION SINGLE TENDON SHEATH OR LIGAMENT APONEUROSIS [...] is recommended in 1 year. Mammo Location: [facility], [address] [place] [address] -------- FINAL REPORT -------- Dictated By: Tim Srivastava Dictated Date: 05/06/2025 07:26 ET Assigned Physician: Tim Srivastava Reviewed and Electronically Signed By: Tim Srivastava Signed Date: 05/06/2025 07:30 ET Workstation ID: [id number] Transcribed By: Self Edit Transcribed Date: 05/06/2025 [...] and CC projection is performed in the madKaste 2000-D unit. Computer aided detection utilizing the [...] 2000-D unit. Computer aided detection utilizing the NeosensDsystem was utilized. FINDINGS: The breasts are again [...] is recommended in 1 year. Mammo Location: [facility], [facility], [address] [place] [id number] -------- FINAL REPORT -------- Dictated By: Tim Srivastava Dictated Date: 05/06/2025 07:26 ET Assigned Physician: Tim Srivastava Reviewed and Electronically Signed By: Tim Srivastava Signed Date: 05/06/2025 07:30 ET Workstation ID: [id number] Transcribed By: Self Edit Transcribed Date: 05/06/2025 07:26 ET us Self Referral Sppl IMG BI PROCEDURES Final Resul t * [place] INJECTION SINGLE TENDON SHEATH OR LIGAMENT APONEUROSIS [...] al Result from Last 3 Months Insurance [facility] Member Subscriber Plan / Payer (Ef fective 2021-Present) Name:FREDY TAVERAS Relation to Subscriber:Self Name:Fredy Taveras Payer ID:[id number] Group ID:[id number] Type:Not on file Address: [facility] [address] [phone] Care Teams Farm Tractor Mechanic Relationship Specialty Start Date End Date Derick Stern NP [address] [place] [phone] PCP - General Nurse Practitioner 01/07/25
--- OUTSIDE RECORDS SUMMARY | 2025-06-10 18:39 | XMS_ITS | Encounter Summary ---
Author Organization [facility] Address [address] [facility] [address] [place] [address] Care Team Providers Care Public Relations Counselor Name Role Phone Unavailable Primary Care Provider Unavailabl e Reason for Visit * Reason Onset Date Comments Dr. Elder medication 06/06/2025 Encounter Details Date Type Department Care Team ([facility] Contact Info) Description 06/06/2025 Telephone [facility] ADULT DENTAL [address] [place] [address] Geovany Elder, DMD [address] [place] [address] Dr. Elder medication Social History Tobacco Use Types Packs/Day Years Used Date Smoking Tobacco: Never Smokeless Tobacco: Never Alcohol Use Standard Drinks/Week Comments Defer 0 [...] * Telephone Encounter - Michelle Maddox - 06/06/2025 3:11 PM EDT Message for Dr. Elder Patient is coming in for nonemergency limited exam pain and would like medication sent to pharmacy in the meantime. She thought the pain was gone upper right but its back. DR documented in this encounter Plan of Treatment Upcoming Encounters Date Type Department Care Team ([facility] Contact Info) Description 06/23/2025 3:30 PM EDT Office Visit [facility] ADULT DENT[facility] [address] [place] [address] Geovany Elder DMD [address] [place] [address] 10/27/2025 8:00 AM EST Office Visit [facility] ADULT [facility] [address] [place] [address] Dorothea Evangelista [address] [place] [address] documented as of this encounter Visit Diagnoses Not on filedocumented in this encounter
--- OUTSIDE RECORDS SUMMARY | 2025-06-10 18:39 | XMS_ITS | Encounter Summary ---
Author Organization [employer] [facility] Address [address] [place] [address] [address] [place] [address] Care Team Providers Care Musician Instrumental Name Role Phone Unavailable Primary Care Provider Unavailabl e Encounter Details Date Type Department Care Team (Latest Contact Info) Description 02/19/2019 Abstract [facility] CONVERSIONS Dental, Provider, DDS Social History Tobacco [...] Care Team (Late st Contact Info) Description 06/23/2025 3:30 PM EDT Office Visit [facility] ADULT DENTAL [address] [place] [address] Geovany Elder, DMD [address] [place] [address] 10/27/2025 8:00 AM EST Office Visit [facility] ADULT DENTAL [address] [place] [address] Larry Evangelistaaris [address] [place] [address] documented as of this encounter Visit Diagnoses Not on filedocumented in this encounter
--- OUTSIDE RECORDS SUMMARY | 2025-06-10 18:39 | XMS_ITS | Encounter Summary ---
Author Organization [employer] Address [address] [place] [address] [address] [place] [address] Care Team Providers Care Cushion Mat Maker Name Role Phone Unavailable Primary Care Provider Unavailabl e Reason for Visit * Reason Onset Date Comments script for pain infection 06/12/2023 Encounter Details Date Type Department Care Team ([facility] st Contact Info) Description 06/12/2023 Telephone [facility] ADULT [facility] [address] [place], [place] [phone] Merrill Aguilar DDS [address] [place] [address] script for pain infection Social History Tobacco [...] not be received until tomorrow morning () DR documented in this encounter Plan of Treatment Upcoming Encounters Date Type Department Care Team (Late st Contact Info) Description 06/23/2025 3:30 PM EDT Office Visit [facility] ADULT DENTAL [address] [place] [address] Geovany Elder DMD [address] [place] [address] 10/27/2025 8:00 AM EST Office Visit [facility] ADULT DENTAL [address] [place] [address] Dorothea Evangelista [address] [place] [address] documented as of this encounter Visit Diagnoses Not on filedocumented in this encounter
--- OUTSIDE RECORDS SUMMARY | 2025-06-10 18:39 | XMS_ITS | Encounter Summary ---
Author Organization [facility] Address [address] [place] [address] [address] [place] [address] Care Team Providers Care Hazardous Waste Remover Name Role Phone Unavailable Primary Care Provider Unavailabl e Reason for Visit * Reason Comments Med Refill Encounter Details Date Type Department Care Team (Late st Contact Info) Description 06/06/[address] [facility] ADULT DENTAL [address] [place] [address] Kennedy Zapata DDS [address] [place] [address] Social History Tobacco Use Types Packs/Day Years [...] encounter Miscellaneous Notes * Telephone Encounter - Kennedy Zapata DDS - 06/09/2025 9:21 AM EDT Approving, but needs appt for additional refills. documented in this encounter Plan of Treatment Upcoming Encounters Date Type Department Care Team (Late st Contact Info) Description 06/23/2025 3:30 PM EDT Office Visit [facility] ADULT DENTAL [address] [place] [address] Geovany Elder, DMD [address] [place] [address] 10/27/2025 8:00 AM EST Office Visit [facility] ADULT DENT[facility] [address] [place] [address] Dorothea Evangelista [address] [place] [address] documented as of this encounter Visit Diagnoses Not on filedocumented in this encounter
--- OUTSIDE RECORDS SUMMARY | 2025-06-10 18:39 | XMS_ITS | Encounter Summary ---
Author Organization [email or web address] [facility] Address [address] [place] [address] [address] [place] [address] Care Team Providers Care Induction Coordination Engineer Name Role Phone Unavailable Primary Care Provider Unavailabl e Encounter Details Date Type Department Care Team (Latest Contact Info) Description 03/03/2021 Abstract [facility] CONVERSIONS Dental, Provider, DDS Social History [...] Description 06/23/2025 3:30 PM EDT Office Visit [facility] ADULT DENTAL [address] [place] [address] Geovany Elder, DMD [address] [place] [address] 10/27/2025 8:00 AM EST Office Visit [facility] ADULT DENTAL [address] [place] [address] Dorothea Evangelista [address] [place] [address] documented as of this encounter Visit Diagnoses Not on filedocumented in this encounter
--- OUTSIDE RECORDS SUMMARY | 2025-06-10 18:39 | XMS_ITS | Encounter Summary ---
Author Organization [facility] Address [address] [place] [address] 7 [place] [address] Care Team Providers Care Laborer/Grade Check Name Role Phone Unavailable Primary Care Provider Unavailabl e Reason for Visit * Reason Comments Med Refill Encounter Details Date Type Department Care Team (Late st Contact Info) Description 11/13/2023 Refill [facility] ADULT DENTAL [address] [place] [address] Geovany Elder DMD [address] [place] [address] Social History Tobacco Use Types Packs/Day Years [...] Description 06/23/2025 3:30 PM EDT Office Visit [facility] ADULT DENTAL [address] [place] [address] Geovany Elder DMD [address] [place] [address] 10/27/2025 8:00 AM EST Office Visit [facility] ADULT DENTAL [address] [place] [address] Dorothea Evangelista [address] [place] [address] documented as of this encounter Visit Diagnoses Not on filedocumented in this encounter
--- OUTSIDE RECORDS SUMMARY | 2025-06-10 18:39 | XMS_ITS | Patient Health Record ---
Author Organization [facility] [address] Address [address] [place] [address] Care Team Providers Care Equipment Service Associate Name Role Phone STALIN TOLBERT Primary Care Provider ALO COUCH Unavailable [phone] AXEL ALVARADO Unavailable [phone] Allergies Allergen (clinical drug ingredient) Drug/Non Drug [...] samir Results Component Value Reference Range Notes URINALYSIS WITH REFLEX MICRO SCOPIC AND CULTURE Reviewed date:01/08/2025 12:25:40 PM Interpretation: Performing Lab: Notes/Report: Specific [place] Urine 1.023 1.003-1.030 pH, Urine 7.0 5.0-8.0 [...] /LPF MG MAMMO DIGITAL SCREENING W PB GUMSAN Reviewed date:05/06/2025 07:45:09 AM Interpretation: Performing Lab: Notes/Report: Note See Note [facility], a member of Audience Patient Name: FREDY ATVERAS Date of : 1970 Reason for Exam: Exam Date: 05/05/2025 [id number] EST Report Status: Final Ordering Provider: SELF REFERRAL SPPL PCP: ALO COUCH CLINICAL: The patien bhargav is a 54 years Female presenting for routine screening mammography. The patient has a family history of breast cancer involving her mother at age 72. COMPARISON: Most recently 05/24/2024 and most remotely 01/17/2017. TECHNIQUE: Full-fiel d digital mammography of the breasts bilaterally consisting of tomosynthesis in MLO and CC projection is performed in the [employer] 2000-D unit. Computer aided detection utilizing the Sis[employer] system was utilized. FINDINGS: The breast s [...] is recommended in 1 year. Mammo Location: [facility], [address] [place] [address] -------- FINAL REPOR T -------- Dictated By: Tim Srivastava Dictated Date: 05/06/2025 07:26 ET Assigned Physician: Tim Srivastava Reviewed and Electronically Signed By: Tim Srivastava Signed Date: 025 07:30 ET Workstation ID: [id number] Transcribed By: Self Edit Transcribed Date: 05/06/2025 07:26 ET GLYCOHEMOGLOBIN PROFILE Reviewed date:06/15/2024 08:35:49 AM Interpretation: Performing Lab: Notes/Report: Original Ordering Provider: ALO COUCH NP [facility], a member of [address] [address] [employer] - Annika Fishman MD GLYCATED HEMOGLOBIN A1C 5.3 <6.5 % ESTIMATED AVERAGE GLUCOSE 105 UA WITH CULTURE IF INDICATED Reviewed date:06/14/2024 03:08:20 PM Interpretation: Performing Lab: Notes/Report: Original Ordering Provider: ALO COUCH NP [facility], a member of [address] [address] [employer] - Annika Fishman MD GLUCOSE, (UA) NEGATIVE [...] date:06/15/2024 09:48:19 AM Interpretation: Performing Lab: Notes/Report: Original Ordering Provider: ALO COUCH NP [facility], a member of [address] [address] [employer] - Annika Fishman MD URINE CULTURE >100,000 CFU/mL URINE CULTURE NORMAL SKIN/UROGENIT AL HARRIET PRESENT. TSH CASCADE Reviewed date:06/14/2024 03:08:32 PM Interpretation: Performing Lab: Notes/Report: Vikki Meade, a member of [address] [address] [employer] - Annika Fishman MD TSH CASCADE 1.27 0.40-4.00 uIU/ml VITAMIN D, [...] Notes/Report: Original Ordering Provider: ALO COUCH NP [employer] [address] [employer] - Annika Fishman MD WBC 6.3 4.8-10.8 [...] 10-60 U/L ALK PHOS 47 42-121 U/L CR Hand RT Min 3 Views Reviewed date:06/21/2024 10:56:28 AM Interpretation: Performing Lab: Notes/Report: Original Ordering Provider: ALO COUCH NP [facility] Reason For Referral Reason Dr Bah Diagnosis 1 Pain in right hand ( M79.641) Referral Organization [facility] [address] Referring Provider First Name ALO Referring Provider Last Name KHOA Referring Provider Speciality Internal M edicine Referred Provider Specialty Hand Surgery General Notes LEXY RAMIREZ 06/19 02:08:37 PM > faxed referral to Dr. Verdugo -also gave pt phone # to call p: [phone] f: [phone] Clinical Notes Wilner Jay Jayalfonso 06/2024 03:22:18 PM > Seen on 07/02/2024 [...] Status Risk Notes Problem Vitamin D deficiency (88543563) Vitamin D deficiency, unspecified (E55.9) Active confirmed Problem Hyperlipidemia (01012988) Hyperlipidemia, unspecified (E78.5) Active confirmed Problem Generalized anxiety disorder (83904647) Generalized anxiety disorder (F41.1) Active confirmed Problem Seasonal allergic rhinitis (818368470) Other seasonal allergic rhinitis (J30.2) Active confirmed Problem Asthma (889606327) Other asthma (J45.998) Active confirmed Problem Pain in right hand (756864503647072) Pain in right hand (M79.641) Active confirmed Problem Lipid screening (010586263) Encounter for screening for lipoid disorders (Z13.220) Active confirmed Problem Pain of left knee region (finding) (260593281858211) Left knee pain, unspecified chronicity (M25.562) Active confirmed Problem Adult health examination (915726068) Adult general medical exam (Z00.00) Active confirmed Problem Kidney stone (64173336) Kidney stone (N20.0) Active confirmed Problem Kidney stone (63707537) Kidney stones (N20.0) Active confirmed Problem Diabetes mellitus screening (078623409) Diabetes mellitus screening (Z13.1) Active confirmed Problem Nephrolithiasis (31066545) Nephrolithiasis (N20.0) Active confirmed Problem Gastroesophageal reflux disease (277809989) GERD without esophagitis (K21.9) Active confirmed Problem Avitaminosis D (72102341) Avitaminosis D (E55.9) Active confirmed Problem Endocrine/metabolic screening (956832025) Encounter for screening for endocrine disorder (Z13.29) Active confirmed Problem External hemorrhoids (41089596) External hemorrhoids (K64.4) Active confirmed Problem Thrombosed external hemorrhoid (67326817) Thrombosed external hemorrhoid (K64.5) Active confirmed Vital Signs Heart Rate 86 /min 01/07/2025 Oximetry 95 % 01/07/2025 Blood pressure diastolic 84 mm Hg 01/07/2025 Height 63 in 01/07/2025 Blood pressure systolic 128 mm Hg 01/07/2025 Weight 118 lbs 01/07/2025 BMI 20.9 kg/m2 01/07/2025 Encounters Encounter Location Date Provider Diagnosis [facility] [address] [address] [facility] physical exam Z00.00 ; Encounter for screening for depression Z13.31 ; Encounter for screening for other disorder Z13.89 ; Advanced directives, counseling/discussion Z71.89 ; Generalized anxiety disorder F41.1 ; Other seasonal allergic rhinitis J30.2 ; Nephrolithiasis N20.0 and Encounter for examination of blood pressure without abnormal findings Z01.30 [facility] [address] [address] 06/19/2024 [facility] Annual physical exam Z00.00 ; Encounter for screening for depression Z13.31 ; Encounter for screening for other disorder Z13.89 ; Generalized anxiety disorder F41.1 ; Other seasonal allergic rhinitis J30.2 ; Nephrolithiasis N20.0 ; Hyperlipidemia, unspecified E78.5 and Pain in right hand M79.641 [facility] [address] [address] 10/21/2024 ALO BORBhargav Generalized anxiety disorder F41.1 ; Other seasonal allergic rhinitis J30.2 ; Nephrolithiasis N20.0 and External hemorrhoids K64.4 [facility] [address] [address] 01/07/2025 AXEL ALVARADO Painless hematuria R 31.9 ; Generalized anxiety disorder F41.1 ; Kidney stones N20.0 ; Other seasonal allergic rhinitis J30.2 ; GERD without esophagitis K21.9 and External hemorrhoids K64.4 [facility] [address] [address] 06/19/2024 ALO BORHOT [facility] [address] [address] 10/15/2024 ALO BORHOT [facility] [address] [address] 01/07/2025 ALO BORHOT [facility] [address] [address] 01/07/2025 ALO BORHOT [facility] [address] [address] 01/08/2025 ALO BORHOT Kidney stone N20.0 [facility] [address] [address] 01/13/2025 TALHERMELINDO TOLBERT [facility] [address] [address] 01/24/2025 ALO BORHOT [facility] [address] [address] 02/19/2025 ALO BORHOT [facility] [address] [address] 05/28/2025 ALO BORHOT Assessments Encounter Date Diagnosis [...] software and direct typing Please excuse inadvertent laboratory chemist or typing errors, or uncorrected word substitutions Although every attempt has been made by the provider to proofread this document, occasional misspellings and typographical errors may still be present Due to the previous pandemic, and the use of personal protective equipment (PPE) This may decrease voice recognition accuracy Inadvertent laboratory chemist errors may occur 06/19/2024 Annual physical exam [...] software and direct typing Please excuse inadvertent laboratory chemist or typing errors, or uncorrected word substitutions Although every attempt has been made by the provider to proofread this document, occasional misspellings and typographical errors may still be present Due to the previous pandemic, and the use of personal protective equipment (PPE) This may decrease voice recognition accuracy Inadvertent laboratory chemist errors may occur 10/21/2024 Generalized anxiety disorder [...] software and direct typing Please excuse inadvertent laboratory chemist or typing errors, or uncorrected word substitutions Although every attempt has been made by the provider to proofread this document, occasional misspellings and typographical errors may still be present Due to the previous pandemic, and the use of personal protective equipment (PPE) This may decrease voice recognition accuracy Inadvertent laboratory chemist errors may occur 01/07/2025 Generalized anxiety disorder [...] this time. # Nephrolithiasis: Patient follows with [facility]. Last office visit scanned in chart from 2022, renal ultrasound with findings of 4 mm stones x 2 on the left side and a 3 mm right small punctuate stone. Patient that time advised to increase her hydration and continue to monitor. # Hemorrhoids: Patient follows with gastroenterology in [place]. Also has had follow-up with surgery regarding [...] Dictation was accomplished with the use of [email or web address] voice recognition software, which is prone to [...] this time. # Nephrolithiasis: Patient follows with [facility]. Last office visit scanned in chart from 2022, renal ultrasound with findings of 4 mm stones x 2 on the left side and a 3 mm right small punctuate stone. Patient that time advised to increase her hydration and continue to monitor. # Hemorrhoids: Patient follows with gastroenterology in [place]. Also has had follow-up with surgery regarding [...] Dictation was accomplished with the use of [email or web address] voice recognition software, which is prone to [...] software and direct typing Please excuse inadvertent laboratory chemist or typing errors, or uncorrected word substitutions Although every attempt has been made by the provider to proofread this document, occasional misspellings and typographical errors may still be present Due to the previous pandemic, and the use of personal protective equipment (PPE) This may decrease voice recognition accuracy Inadvertent laboratory chemist errors may occur 05/27/2025 Annual physical exam (ICD-10 - Z00.00) Acute Concerns/Problem List: 05/27/2025 Of note, some information is being carried forward from prior records for informational purposes only and is being cited so that efficiency, safety and quality of the patient's care is not compromised This note was prepared using voice recognition software and direct typing Please excuse inadvertent laboratory chemist or typing errors, or uncorrected word substitutions Although every attempt has been made by the provider to proofread this document, occasional misspellings and typographical errors may still be present Due to the previous pandemic, and the use of personal protective equipment (PPE) This may decrease voice recognition accuracy Inadvertent laboratory chemist errors may occur 06/19/2024 Encounter for screening [...] software and direct typing Please excuse inadvertent laboratory chemist or typing errors, or uncorrected word substitutions Although every attempt has been made by the provider to proofread this document, occasional misspellings and typographical errors may still be present Due to the previous pandemic, and the use of personal protective equipment (PPE) This may decrease voice recognition accuracy Inadvertent laboratory chemist errors may occur 05/27/2025 Encounter for screening for other disorder (ICD-10 - Z13.89) Acute Concerns/Problem List: 05/27/2025 Of note, some information is being carried forward from prior records for informational purposes only and is being cited so that efficiency, safety and quality of the patient's care is not compromised This note was prepared using voice recognition software and direct typing Please excuse inadvertent laboratory chemist or typing errors, or uncorrected word substitutions Although every attempt has been made by the provider to proofread this document, occasional misspellings and typographical errors may still be present Due to the previous pandemic, and the use of personal protective equipment (PPE) This may decrease voice recognition accuracy Inadvertent laboratory chemist errors may occur 01/07/2025 Kidney stones (ICD-10 [...] this time. # Nephrolithiasis: Patient follows with [facility]. Last office visit scanned in chart from 2022, renal ultrasound with findings of 4 mm stones x 2 on the left side and a 3 mm right small punctuate stone. Patient that time advised to increase her hydration and continue to monitor. # Hemorrhoids: Patient follows with gastroenterology in [place]. Also has had follow-up with surgery regarding [...] Dictation was accomplished with the use of [email or web address] voice recognition software, which is prone to [...] software and direct typing Please excuse inadvertent laboratory chemist or typing errors, or uncorrected word substitutions Although every attempt has been made by the provider to proofread this document, occasional misspellings and typographical errors may still be present Due to the previous pandemic, and the use of personal protective equipment (PPE) This may decrease voice recognition accuracy Inadvertent laboratory chemist errors may occur 10/21/2024 Nephrolithiasis (ICD-10 - [...] software and direct typing Please excuse inadvertent laboratory chemist or typing errors, or uncorrected word substitutions Although every attempt has been made by the provider to proofread this document, occasional misspellings and typographical errors may still be present Due to the previous pandemic, and the use of personal protective equipment (PPE) This may decrease voice recognition accuracy Inadvertent laboratory chemist errors may occur 06/19/2024 Generalized anxiety disorder [...] software and direct typing Please excuse inadvertent laboratory chemist or typing errors, or uncorrected word substitutions Although every attempt has been made by the provider to proofread this document, occasional misspellings and typographical errors may still be present Due to the previous pandemic, and the use of personal protective equipment (PPE) This may decrease voice recognition accuracy Inadvertent laboratory chemist errors may occur 01/07/2025 Other seasonal allergic [...] this time. # Nephrolithiasis: Patient follows with [facility]. Last office visit scanned in chart from 2022, renal ultrasound with findings of 4 mm stones x 2 on the left side and a 3 mm right small punctuate stone. Patient that time advised to increase her hydration and continue to monitor. # Hemorrhoids: Patient follows with gastroenterology in [place]. Also has had follow-up with surgery regarding [...] Dictation was accomplished with the use of [email or web address] voice recognition software, which is prone to [...] software and direct typing Please excuse inadvertent laboratory chemist or typing errors, or uncorrected word substitutions Although every attempt has been made by the provider to proofread this document, occasional misspellings and typographical errors may still be present Due to the previous pandemic, and the use of personal protective equipment (PPE) This may decrease voice recognition accuracy Inadvertent laboratory chemist errors may occur 01/07/2025 GERD without esophagitis [...] this time. # Nephrolithiasis: Patient follows with [facility]. Last office visit scanned in chart from 2022, renal ultrasound with findings of 4 mm stones x 2 on the left side and a 3 mm right small punctuate stone. Patient that time advised to increase her hydration and continue to monitor. # Hemorrhoids: Patient follows with gastroenterology in [place]. Also has had follow-up with surgery regarding [...] Dictation was accomplished with the use of [email or web address] voice recognition software, which is prone to [...] software and direct typing Please excuse inadvertent laboratory chemist or typing errors, or uncorrected word substitutions Although every attempt has been made by the provider to proofread this document, occasional misspellings and typographical errors may still be present Due to the previous pandemic, and the use of personal protective equipment (PPE) This may decrease voice recognition accuracy Inadvertent laboratory chemist errors may occur 06/19/2024 Other seasonal allergic [...] software and direct typing Please excuse inadvertent laboratory chemist or typing errors, or uncorrected word substitutions Although every attempt has been made by the provider to proofread this document, occasional misspellings and typographical errors may still be present Due to the previous pandemic, and the use of personal protective equipment (PPE) This may decrease voice recognition accuracy Inadvertent laboratory chemist errors may occur 10/21/2024 External hemorrhoids (ICD-10 [...] software and direct typing Please excuse inadvertent laboratory chemist or typing errors, or uncorrected word substitutions Although every attempt has been made by the provider to proofread this document, occasional misspellings and typographical errors may still be present Due to the previous pandemic, and the use of personal protective equipment (PPE) This may decrease voice recognition accuracy Inadvertent laboratory chemist errors may occur 06/19/2024 Nephrolithiasis (ICD-10 - [...] software and direct typing Please excuse inadvertent laboratory chemist or typing errors, or uncorrected word substitutions Although every attempt has been made by the provider to proofread this document, occasional misspellings and typographical errors may still be present Due to the previous pandemic, and the use of personal protective equipment (PPE) This may decrease voice recognition accuracy Inadvertent laboratory chemist errors may occur 05/27/2025 Other seasonal allergic rhinitis (ICD-10 - J30.2) Acute Concerns/Problem List: 05/27/2025 Of note, some information is being carried forward from prior records for informational purposes only and is being cited so that efficiency, safety and quality of the patient's care is not compromised This note was prepared using voice recognition software and direct typing Please excuse inadvertent laboratory chemist or typing errors, or uncorrected word substitutions Although every attempt has been made by the provider to proofread this document, occasional misspellings and typographical errors may still be present Due to the previous pandemic, and the use of personal protective equipment (PPE) This may decrease voice recognition accuracy Inadvertent laboratory chemist errors may occur 01/07/2025 External hemorrhoids (ICD-10 [...] this time. # Nephrolithiasis: Patient follows with [facility]. Last office visit scanned in chart from 2022, renal ultrasound with findings of 4 mm stones x 2 on the left side and a 3 mm right small punctuate stone. Patient that time advised to increase her hydration and continue to monitor. # Hemorrhoids: Patient follows with gastroenterology in [place]. Also has had follow-up with surgery regarding [...] Dictation was accomplished with the use of [email or web address] voice recognition software, which is prone to [...] software and direct typing Please excuse inadvertent laboratory chemist or typing errors, or uncorrected word substitutions Although every attempt has been made by the provider to proofread this document, occasional misspellings and typographical errors may still be present Due to the previous pandemic, and the use of personal protective equipment (PPE) This may decrease voice recognition accuracy Inadvertent laboratory chemist errors may occur 06/19/2024 Hyperlipidemia, unspecified (ICD-10 [...] software and direct typing Please excuse inadvertent laboratory chemist or typing errors, or uncorrected word substitutions Although every attempt has been made by the provider to proofread this document, occasional misspellings and typographical errors may still be present Due to the previous pandemic, and the use of personal protective equipment (PPE) This may decrease voice recognition accuracy Inadvertent laboratory chemist errors may occur 05/27/2025 Encounter for examination [...] software and direct typing Please excuse inadvertent laboratory chemist or typing errors, or uncorrected word substitutions Although every attempt has been made by the provider to proofread this document, occasional misspellings and typographical errors may still be present Due to the previous pandemic, and the use of personal protective equipment (PPE) This may decrease voice recognition accuracy Inadvertent laboratory chemist errors may occur 06/19/2024 Pain in right [...] software and direct typing Please excuse inadvertent laboratory chemist or typing errors, or uncorrected word substitutions Although every attempt has been made by the provider to proofread this document, occasional misspellings and typographical errors may still be present Due to the previous pandemic, and the use of personal protective equipment (PPE) This may decrease voice recognition accuracy Inadvertent laboratory chemist errors may occur Plan Of Treatment Pending [...] [employer] [address] [place] [address] [phone] FREDY Taveras Self - patient is the insured Medical (General) History Medical History History ICD Code anxiety Allergies Deafness Surgical History Surgery Date(Month/Year) nose surgery
--- OUTSIDE RECORDS SUMMARY | 2025-06-10 18:39 | XMS_ITS | Encounter Summary ---
Author Organization [employer] Address [address] [facility] 7 [place] [address] Care Team Providers Care English Teacher Name Role Phone Unavailable Primary Care Provider Unavailabl e Encounter Details Date Type Department Care Team (Late Contact Info) Description 10/10/2023 Telephone [facility] [address] [place], [place] [phone] Geovany Elder DMD [address], [place] [phone] Social History Tobacco Use Types Packs/Day Years [...] Department Care Team (Late Contact Info) Description 06/23/2025 3:30 PM EDT Office Visit [facility] [address] [place] [address] Geovany Elder, LEIGH [address] [place] [address] 10/27/2025 8:00 AM EST Office Visit [facility] [address] [place] [address] Dorothea Evangelista [address] [place] [address] documented as of this encounter Visit Diagnoses Not on filedocumented in this encounter
--- OUTSIDE RECORDS SUMMARY | 2025-06-10 18:39 | XMS_ITS | Encounter Summary ---
Author Organization [facility] Address [address] [place] [address] [address] [place] [address] Care Team Providers Care Rocket Scientist Name Role Phone Unavailable Primary Care Provider Unavailabl e Encounter Details Date Type Department Care Team (Late st Contact Info) Description 10/23/2023 Abstract [facility]ULT [facility] [address] [place] [address] Geovany Elder, DMD [address] [place] [address] Social History Tobacco Use Types Packs/Day Years [...] Description 06/23/2025 3:30 PM EDT Office Visit [facility] [address] [place] [address] Geovany Elder, DMD [address] [place] [address] 10/27/2025 8:00 AM EST Office Visit [facility] [address] [place] [address] Dorothea Evangelista [address] [place] [address] documented as of this encounter Visit Diagnoses Not on filedocumented in this encounter
--- OUTSIDE RECORDS SUMMARY | 2025-06-10 18:39 | XMS_ITS | Encounter Summary ---
Author Organization [facility] Address [address] [place] [address] 7 [place] [address] Care Team Providers Care Cook Mayonnaise Name Role Phone Unavailable Primary Care Provider Unavailabl e Reason for Visit * Reason Onset Date Comments medication 09/22/2023 medication 09/22/2023 Encounter Details Date Type Department Care Team ([facility] st Contact Info) Description 09/22/2023 Telephone [facility] [address] [place] [address] Geovany Elder DMD [address] [place], [place] [phone] medication; medication Social History Tobacco Use Types [...] Description 06/23/2025 3:30 PM EDT Office Visit [facility] ADULT [facility] [address] [place] [address] Geovany Elder, LEIGH [address] [place] [address] 10/27/2025 8:00 AM EST Office Visit [facility] ADULT [facility] [address] [place] [address] Dorothea Evangelista [address] [place] [address] documented as of this encounter Visit Diagnoses Not on filedocumented in this encounter
--- OUTSIDE RECORDS SUMMARY | 2025-06-10 18:39 | XMS_ITS | Encounter Summary ---
Author Organization [employer] Address [address] [facility] 7 [place] [address] Care Team Providers Care Mailroom Messenger Name Role Phone Unavailable Primary Care Provider Unavailabl e Reason for Visit * Reason Onset Date Comments medication 08/14/2023 Encounter Details Date Type Department Care Team ([facility] st Contact Info) Description 08/14/2023 Telephone [facility] ADULT [facility] [address] [place] [address] Geovany Elder DMD [address] [place] [address] medication Social History Tobacco Use Types Packs/Day [...] Description 06/23/2025 3:30 PM EDT Office Visit [facility]ULT [facility] [address] [place] [address] Geovany Elder DMD [address] [place] [address] 10/27/2025 8:00 AM EST Office Visit [facility] [address] [place] [address] Dorothea Evangelista [address] [place] [address] documented as of this encounter Visit Diagnoses Not on filedocumented in this encounter
--- OUTSIDE RECORDS SUMMARY | 2025-06-10 18:39 | XMS_ITS | Clinical Summary ---
Author Organization [employer] Address [address] [facility] 7 [place] [address] Care Team Providers Care Wheel Alignment Mechanic Name Role Phone Unavailable Primary Care Provider [...] AT LEAST 30 MINUTES AFTER 14 tablet 02/29/20 23 Active cholecalciferol (Vitamin D-3) 50 MCG (1999 UT) capsule 10/28/19 24 Active escitalopram (Lexapro) 5 MG tablet 11/07/19 23 Active famotidine (Pepcid) 20 MG tablet TAKE 1 TABLET BY MOUTH EVERY DAY AT BEDTIME NEEDED for 90 Active hydrocortisone (Anucort-HC) 25 MG suppository 1 suppository in the morning and 1 suppository at noon and 1 suppository in the evening. Active hydrOXYzine HCl (Atarax) 10 MG tablet 10/05/19 24 Active LORazepam (Ativan) 0.5 MG tablet 10/28/19 24 Active montelukast (Singulair) 10 MG tablet 10/30/19 24 Active pyridoxine (Vitamin B-6) 50 MG tablet 10/28/19 24 Active senna (Senokot) 8.6 MG tablet 07/25/20 23 Active Sodium Fluoride (PreviDent 5000 Booster Plus) 1.1 % paste Apply 1 Application. to teeth 2 times daily. 112 g 3 03/10/20 25 Active clindamycin (Cleocin) 300 MG capsule TAKE 1 CAPSULE(300 MG) BY MOUTH FOUR TIMES DAILY FOR 7 DAYS 28 capsule 06/09/20 25 025 Active clindamycin (Cleocin) 300 MG capsule Take 1 capsule (300 mg) by mouth 4 times daily for 7 days. 28 capsule 04/14/20 25 025 Discontinued Active Problems Problem Noted Date Diagnosed Date Pain 04/14/2025 Dental plaque 11/01/2023 Encounters Date Type Department Care Team Description 06/06/2025 Refill [facility] ADULT D[facility] [address] [place] [address] Kennedy Zapata DDS 06/06/2025 Telephone [facility] [address] [place] [address] Geovany Elder, LEIGH Elder medication 05/22/2025 9:00 AM EDT Office Visit [facility] [address] [place] [address] Geovany Elder DMD 05/15/2025 Travel 04/14/2025 1:00 PM EDT Office Visit [facility] [address] [place] [address] Kennedy Zapata DDS Pain (Primary Dx) 04/14/2025 Travel 03/10/2025 2:00 PM EDT Office Visit [facility] [address] [place] [address] Tonja, Dorothea Dental plaque (Primary Dx); Gingival bleeding; Dental [...] Description 06/23/2025 3:30 PM EDT Office Visit [facility] [address] [place] [address] Geovany Elder DMD [address] [place] [address] 10/27/2025 8:00 AM EST Office Visit [facility] [address] [place] [address] Tonja, Dorothea [address] [place] [address] Health Maintenance Due Date Last Done Comments [...] of 2) 2018 Influenza Vaccine (#1) 2025 , 06/29/2023, 06/29/2022, Additional history exists Dental Oral [...] Relevant to Health Maintenance Insurance DENTAL - [facility]
--- OUTSIDE RECORDS SUMMARY | 2025-06-10 18:39 | XMS_ITS | Encounter Summary ---
Author Organization [facility] Address [address] [facility] 7 [place] [address] Care Team Providers Care Application Helper Name Role Phone Unavailable Primary Care Provider Unavailabl e Reason for Visit * Reason Onset Date Comments Appointment 01/16/2023 Encounter Details Date Type Department Care Team (Late st Contact Info) Description 01/16/2023 Telephone [facility] ADULT D[facility] [address] [place] [address] Geovany Elder, LEIGH [address] [place] [address] Appointment Social History Tobacco Use Types Packs/Day [...] Description 06/23/2025 3:30 PM EDT Office Visit [facility]ULT [facility] [address] [place] [address] Geovany Elder, LEIGH [address] [place] [address] 10/27/2025 8:00 AM EST Office Visit [facility] ADULT D[facility] [address] [place] [address] Dorothea Evangelista [address] [place] [address] documented as of this encounter Visit Diagnoses Not on filedocumented in this encounter
== END 2025-06-10 15:25 | disposition home or self-care (01) ==
LOC: HO.HSM 15:06
PROVIDERS: PCP Internal Medicine; Referring Provider Psychiatry & Neurology Neurology; Visit Provider Registered Nurse
DX: G44.209 Tension-type headache, unspecified, not intractable (principal); F41.9 Anxiety disorder, unspecified
CPT/HCPCS: 99214

== ENCOUNTER → 2025-06-10 15:06 | Outpatient (BNVA) | payer OTHER, SELFPAY | PROVIDERS: PCP Internal Medicine; Referring Provider Psychiatry & Neurology Neurology; Visit Provider Registered Nurse | DX: G44.209 Tension-type headache, unspecified, not intractable (principal); F41.9 Anxiety disorder, unspecified | CPT/HCPCS: 99212 ==

== ENCOUNTER 2025-06-16 15:23 | Outpatient (AMB) | payer OTHER, SELFPAY ==
[2025-06-16 15:24] VITALS: BP 144/66; PULSE 80; O2SAT 97; BMI 19.0
--- NOTE | 2025-06-16 15:24 | MHC.OFFVIS ---
Vital Signs 06/16/25 15:24 Height 5 ft 5 in Weight 114 lb BMI 19.0 BP 144/66 H Blood Pressure Location Lt brachial Position Sitting Pulse 80 Pulse Source Pulse Oximeter Pulse Oximetry (%) 97 Oxygen Delivery Method Room Air Intake Visit Reasons: 6 mo follow up Intake Note: ESTABLISHED PATIENT - NEEDS ASL INT. IBS mgmt. CC; Pt denies any GI changes or new sx since last visit. Pt confirms that she is still taking her Rx as instructed and without complication. Press Assistant Required: Yes Press Assistant Services: Press Assistant Present Press Assistant Name: Sean [phone] Information Interpreted: clinical only Accompanied by: Self / Same As Patient Allergies doxycycline Allergy (Severe, Verified 06/16/25 15:25) Fever morphine (MORPHINE) Allergy (Severe, Verified 06/16/25 15:25) HEART RATE ST WITH PALPATIONS AND RASH. alprazolam Allergy (Unknown, Verified 06/16/25 15:25) Cough, SOB aspirin (ASPIRIN) Allergy (Unknown, Verified 06/16/25 15:25) HOT IN BODY atenolol (ATENOLOL) Allergy (Unknown, Verified 06/16/25 15:25) Dizziness atropine (From Lomotil) Allergy (Unknown, Verified 06/16/25 15:25) Unknown azithromycin (AZITHROMYCIN) Allergy (Unknown, Verified 06/16/25 15:25) DIZZY ciprofloxacin Allergy (Unknown, Verified 06/16/25 15:25) Dizziness codeine (CODEINE) Allergy (Unknown, Verified 06/16/25 15:25) UNKNOWN diphenoxylate (From Lomotil) Allergy (Unknown, Verified 06/16/25 15:25) Unknown garlic Allergy (Unknown, Verified 06/16/25 15:25) Unknown hydrochlorothiazide Allergy (Unknown, Verified 06/16/25 15:25) hypertension lisinopril (LISINOPRIL) Allergy (Unknown, Verified 06/16/25 15:25) HEART POUNDING, palpitations Lonox Allergy (Unknown, Verified 06/16/25 15:25) hot flash metoprolol Allergy (Unknown, Verified 06/16/25 15:25) Dizziness onion Allergy (Unknown, Verified 06/16/25 15:25) Unknown oxycodone (OXYCODONE) Allergy (Unknown, Verified 06/16/25 15:25) HOT AND DIZZY Penicillins (PENICILLINS) Allergy (Unknown, Verified 06/16/25 15:25) ITCHING RASH pepper (genus Capsicum) Allergy (Unknown, Verified 06/16/25 15:25) Unknown prednisone Allergy (Unknown, Verified 06/16/25 15:25) Headache prochlorperazine (From Compazine) Allergy (Unknown, Verified 06/16/25 15:25) Unknown sumatriptan Allergy (Unknown, Verified 06/16/25 15:25) Dizziness tramadol (TRAMADOL) Allergy (Unknown, Verified 06/16/25 15:25) DIZZINESS cyclobenzaprine Allergy (Verified 06/16/25 15:25) increased BP barrett Allergy (Verified 06/16/25 15:25) Unknown orange Allergy (Verified 06/16/25 15:25) Unknown pantoprazole Allergy (Verified 06/16/25 15:25) Diarrhea albuterol (From Ventolin HFA) Adverse Reaction (Mild, Verified 06/16/25 15:25) Hot feeling ibuprofen (From Advil) Adverse Reaction (Unknown, Verified 06/16/25 15:25) Hot inside body naproxen (From Aleve) Adverse Reaction (Unknown, Verified 06/16/25 15:25) Hot inside body Diphenoxylate-Atropine Allergy (Unknown, Uncoded 06/16/25 15:25) Unknown Q-Tussin Allergy (Unknown, Uncoded 06/16/25 15:25) increased BP salt Allergy (Uncoded 06/16/25 15:25) Unknown HPI HPI 6 mo follow up: Details: LAST VISIT: IBS (irritable colon syndrome) Abdominal pain Plan Patient reports that she had colonoscopy in [place]. Will call and get the records. Patient will continue taking dicyclomine as needed. Continue famotidine as needed. Avoid dietary triggers and late night snacking. Staying upright for minimum 3 hours after meals discussed with patient. Patient reports that she has been doing fairly well and her symptoms of IBS have been well controlled with diet and dicyclomine only as needed. Patient will follow-up in the office 6 months. She will call us if she will have any GI concerning symptoms. Patient is agreeable to plan of care and verbalizes understanding of instructions. She was given the opportunity to ask questions and all questions answered. TODAY'S VISIT Patient is here today for follow-up. Patient reports that she has been doing well since last seen. She reports that she takes famotidine, needs new script. Patient denies any dyspepsia, dysphagia or odynophagia. She continues to take dicyclomine as needed for abdominal cramping. Patient reports she is eating better and her cramps and bloating improved. Patient denies melena, hematochezia, unintentional weight loss or ribbon like stools. Patient denies any GI concerning the today ? [facility] Medical History Asthma Kidney stones Low vitamin D level Abdominal pain Internal and external prolapsed hemorrhoids Speech and language development delay due to hearing loss Screening for colon cancer IBS (irritable colon syndrome) Surgical History Hx of gynecological procedure History of lithotripsy History of esophagogastroduodenoscopy (EGD) (~2018) Hx of colonoscopy (~2018) Family History Mother Breast cancer Maternal Aunt Breast cancer Father Lung cancer Social History Household Members: Friend(s) Housing: House Are you a primary primary health care nurse to a significant other at home: No Alcohol intake: never Patient Tobacco Use Status: Never used Tobacco e-Cigarette/Vaping Use: Never Used service: No Current occupational status: retired Cognitive needs: No Review of Systems Const Denies weight gain and Denies weight loss ENT Reports no additional complaints, Denies dysphagia and Denies odynophagia Card Reports no additional complaints Resp Reports no additional complaints GI Reports abdominal pain (Occasional cramping), Denies belching, Denies melena, Denies bloating, Denies change in bowel habits, Denies dysphagia, Denies excessive flatus, Denies dyspepsia, Denies heartburn, Denies diarrhea, Reports loose stools (Occasional), Denies nausea, Denies odynophagia and Denies vomiting Reports no additional complaints Musc Reports no additional complaints Neuro Reports no additional complaints Psych Reports no additional complaints Endo Reports no additional complaints Physical Exam Vital Signs: Last Vital Signs Pulse 80 06/16/25 15:24 BP 144/66 H 06/16/25 15:24 Pulse Ox 97 06/16/25 15:24 Oxygen Delivery Method Room Air 06/16/25 15:24 BMI result Body Mass Index 19.0 Const General: healthy appearing, no acute distress and well developed Nutritional Appearance: well nourished Orientation/consciousness: patient oriented x3 HEENT Head: Yes normal to inspection, Yes normocephalic and Yes atraumatic Face and sinus: Yes normal facial exam Mouth: Normal oral and palatal mucosa present Throat: Yes posterior oropharynx normal, Yes tonsils normal and Yes uvula midline Eyes General: appearance normal, both eyes and all related structures Neck Neck: Yes normal visual inspection, Yes full ROM and Yes trachea midline Thyroid: Thyroid normal Resp Effort & Inspection: normal respiratory effort, able to speak in complete sentences, no tracheal deviation and symmetric chest movement Auscultation: clear to auscultation bilaterally Cardio Rate: regular rate Heart sounds: S1 normal heart sound present and S2 normal heart sound present GI Inspection: Yes normal to inspection and No distended Palpation (GI): Soft to palpation, not firm, nontender and No hepatosplenomegaly present Auscultation: normal bowel sounds General: Yes no CVA tenderness Back/Spine/Pelvis Back: no CVA tenderness Skin General skin exam: elasticity normal, turgor normal and dry skin Neuro General: patient oriented x3 Psych Appearance: grossly normal Mental Status: mental status grossly normal Speech and movement: Normal speech and movement present Affect: normal affect Assessment & Plan Assessment & Plan (1) IBS (irritable colon syndrome): Code(s): K58.9 - Irritable bowel syndrome, unspecified Category: Medical Qualifiers: Irritable bowel syndrome type: with diarrhea Qualified Code(s): K58.0 - Irritable bowel syndrome with diarrhea (2) Abdominal pain: Code(s): R10.9 - Unspecified abdominal pain Category: Medical Qualifiers: Abdominal location: lower abdomen, unspecified Qualified Code(s): R10.30 - Lower abdominal pain, unspecified (3) Postprandial epigastric pain: Code(s): R10.13 - Epigastric pain Plan Patient will continue taking famotidine daily. Avoid dietary triggers and late night snacking. Staying upright for minimum 3 hours after meals discussed with patient. Patient will take dicyclomine as needed. Increase fluid intake and activity to promote better bowel motility. Continue with low FODMAP diet as recommended before. Patient will follow-up in 1 year, sooner on as needed basis. She is agreeable to this plan and verbalizes understanding of instructions. She was given the opportunity to ask questions and all questions answered. Thank you for allowing me to participate in her care Medications: New famotidine 20 mg PO DAILY 90 tabs 4RF Refilled dicyclomine Take one capsule by mouth three times a day 10 mg PO TID 90 caps 4RF 30 days Discontinued sennosides Discontinued Reason: Patient no longer taking 17.2 mg (2 x 8.6 mg) PO BEDTIME 60 tabs 1RF constipation K59.00 - Constipation, unspecified Coding Level of Care Code Est Pt Level 3 (29974) Diagnoses Irritable bowel syndrome with diarrhea K58.0 Irritable bowel syndrome type: with diarrhea Lower abdominal pain R10.30 Abdominal location: lower abdomen, unspecified Postprandial epigastric pain R10.13 Time Spent (min) 25 Comment 15 minutes spent with patient and additional 10 minutes spent reviewing her records
== END 2025-06-16 15:43 | disposition home or self-care (01) ==
LOC: HO.HGI 15:24
PROVIDERS: PCP Neurological Surgery; Visit Provider Nurse Practitioner Family
DX: K58.0 Irritable bowel syndrome with diarrhea (principal); R10.30 Lower abdominal pain, unspecified; R10.13 Epigastric pain
CPT/HCPCS: 99213

== ENCOUNTER → 2025-06-16 15:23 | Outpatient (BNVA) | payer OTHER, SELFPAY | PROVIDERS: PCP Neurological Surgery; Visit Provider Nurse Practitioner Family | DX: K58.0 Irritable bowel syndrome with diarrhea (principal); R10.30 Lower abdominal pain, unspecified; R10.13 Epigastric pain; K64.8 Other hemorrhoids; K64.9 Unspecified hemorrhoids | CPT/HCPCS: 99212 ==

== ENCOUNTER 2025-06-18 14:27 | Outpatient (REF) | payer OTHER, SELFPAY ==
--- OUTSIDE RECORDS SUMMARY | 2025-05-27 04:30 | XMS_ITS ---
Author Organization [facility] [address] [address] Address [address] [place] [address] Care Team Providers Care Radio Interference Supervisor Name Role Phone STALIN RENNER Primary Care Provider [phone] ALO COUCH Unavailable [phone] Medications Medication SIG (Take, Route, Frequency, Duration) [...] Location Date Provider Diagnosis [facility] [address] [place] [phone] 05/27/2025 ALO AGUAYOJada Annual physical exam Z00.00 [...] software and direct typing Please excuse inadvertent reading interventionist or typing errors, or uncorrected word substitutions Although every attempt has been made by the provider to proofread this document, occasional misspellings and typographical errors may still be present Due to the previous pandemic, and the use of personal protective equipment (PPE) This may decrease voice recognition accuracy Inadvertent reading interventionist errors may occur 05/27/2025 Encounter for screening for depression (ICD-10 - Z13.31) Acute Concerns/Problem List: 05/27/2025 Of note, some information is being carried forward from prior records for informational purposes only and is being cited so that efficiency, safety and quality of the patient's care is not compromised This note was prepared using voice recognition software and direct typing Please excuse inadvertent reading interventionist or typing errors, or uncorrected word substitutions Although every attempt has been made by the provider to proofread this document, occasional misspellings and typographical errors may still be present Due to the previous pandemic, and the use of personal protective equipment (PPE) This may decrease voice recognition accuracy Inadvertent reading interventionist errors may occur 05/27/2025 Encounter for screening for other disorder (ICD-10 - Z13.89) Acute Concerns/Problem List: 05/27/2025 Of note, some information is being carried forward from prior records for informational purposes only and is being cited so that efficiency, safety and quality of the patient's care is not compromised This note was prepared using voice recognition software and direct typing Please excuse inadvertent reading interventionist or typing errors, or uncorrected word substitutions Although every attempt has been made by the provider to proofread this document, occasional misspellings and typographical errors may still be present Due to the previous pandemic, and the use of personal protective equipment (PPE) This may decrease voice recognition accuracy Inadvertent reading interventionist errors may occur 05/27/2025 Advanced directives, counseling/discussi on (ICD-10 - Z71.89) Acute Concerns/Problem List: 05/27/2025 Of note, some information is being carried forward from prior records for informational purposes only and is being cited so that efficiency, safety and quality of the patient's care is not compromised This note was prepared using voice recognition software and direct typing Please excuse inadvertent reading interventionist or typing errors, or uncorrected word substitutions Although every attempt has been made by the provider to proofread this document, occasional misspellings and typographical errors may still be present Due to the previous pandemic, and the use of personal protective equipment (PPE) This may decrease voice recognition accuracy Inadvertent reading interventionist errors may occur 05/27/2025 Generalized anxiety disorder (ICD-10 - F41.1) Acute Concerns/Problem List: 05/27/2025 Of note, some information is being carried forward from prior records for informational purposes only and is being cited so that efficiency, safety and quality of the patient's care is not compromised This note was prepared using voice recognition software and direct typing Please excuse inadvertent reading interventionist or typing errors, or uncorrected word substitutions Although every attempt has been made by the provider to proofread this document, occasional misspellings and typographical errors may still be present Due to the previous pandemic, and the use of personal protective equipment (PPE) This may decrease voice recognition accuracy Inadvertent reading interventionist errors may occur 05/27/2025 Other seasonal allergic rhinitis (ICD-10 - J30.2) Acute Concerns/Problem List: 05/27/2025 Of note, some information is being carried forward from prior records for informational purposes only and is being cited so that efficiency, safety and quality of the patient's care is not compromised This note was prepared using voice recognition software and direct typing Please excuse inadvertent reading interventionist or typing errors, or uncorrected word substitutions Although every attempt has been made by the provider to proofread this document, occasional misspellings and typographical errors may still be present Due to the previous pandemic, and the use of personal protective equipment (PPE) This may decrease voice recognition accuracy Inadvertent reading interventionist errors may occur 05/27/2025 Nephrolithiasis (ICD-10 - N20.0) Acute Concerns/Problem List: 05/27/2025 Of note, some information is being carried forward from prior records for informational purposes only and is being cited so that efficiency, safety and quality of the patient's care is not compromised This note was prepared using voice recognition software and direct typing Please excuse inadvertent reading interventionist or typing errors, or uncorrected word substitutions Although every attempt has been made by the provider to proofread this document, occasional misspellings and typographical errors may still be present Due to the previous pandemic, and the use of personal protective equipment (PPE) This may decrease voice recognition accuracy Inadvertent reading interventionist errors may occur 05/27/2025 Encounter for examination [...] software and direct typing Please excuse inadvertent reading interventionist or typing errors, or uncorrected word substitutions Although every attempt has been made by the provider to proofread this document, occasional misspellings and typographical errors may still be present Due to the previous pandemic, and the use of personal protective equipment (PPE) This may decrease voice recognition accuracy Inadvertent reading interventionist errors may occur Plan Of Treatment Medication Medication Name Sig Start Date Stop Date Notes Anucort-HC 25 MG 1 suppository as nee ded Rectal Three times a day; Duration: 30 day(s) Progress Notes * RAIZA TAVERASWMOB:1970 (54 yo F)Acc No.[id number]:05/27/2025 Progress Notes Patient: MARIZOL STOVALL Provider: Hubert COUCH NP :1970 A ge:54 Y S ex:Female Date:05/27/2025 Address: [address], [facility], [id number] Pcp:STALIN RENNER Subjective: * Chief Complaints: * [...] stratification screen completed. Discussed healthcare proxy. Discussed [place] order for life sustaining treatment, Comprehensive fasting [...] saw Dr. Aneudy Angelo General Surgery from [place] who told her taking them out will [...] RAL CAVITY: m [place] moist. T HROAT: sewta devries. S KIN: n ormal. H EART: [...] software and direct typing Please excuse inadvertent reading interventionist or typing errors, or uncorrected word substitutions Although every attempt has been made by the provider to proofread this document, occasional misspellings and typographical errors may still be present Due to the previous pandemic, and the use of personal protective equipment (PPE) This may decrease voice recognition accuracy Inadvertent reading interventionist errors may occur Plan: * Treatment: * Procedure Codes: 9 9199 NO SHOW OFFICE VISIT * Images: Billing Information: * Visit Code: * Procedure Codes: 38301 NO SHOW OFFICE VISIT. Care Plan Details* * Electronic signature of REVA MERCHANT KHOA on 06/18/2025 at 05:08 PM EDT Sign off status: Pending * Provider: Hubert COUCH HOTEL SUPPLIES SALESPERSON Date: 0 05/27/2025 Generated for Marcio rosario/Donnie/Darren on: 0 06/18/2025 05:08 PM EDT History and Physical Notes * [...] stratification screen completed. Discussed healthcare proxy. Discussed [place] order for life sustaining treatment, Comprehensive fasting [...] saw Dr. Aneudy Angelo General Surgery from [place] who told her taking them out will [...] General Examination GENERAL APPEARANCE: in no ac [place] distress, well developed, well nourished HEAD: normocephalic, [...]
--- NOTE | ~2025-06-18 | US_ITS ---
EXAMINATION: US RETROPERITONEAL LIMITED (RENAL ONLY) CLINICAL INFORMATION: N39.0 - Urinary tract infection, site not specified. COMPARISON: CT of abdomen/pelvis on January 14, 2025. TECHNIQUE: Real-time imaging of the kidneys. FINDINGS: RIGHT KIDNEY: 10.1 x 4.7 x 4.3 cm (SAG x AP x TRV). No shadowing stones, focal lesions or hydronephrosis. LEFT KIDNEY: 9.4 x 4.9 x 4.4 cm (SAG x AP x TRV). Multiple echogenic foci measuring up to 0.2 cm. No focal lesions or hydronephrosis. US/US renal BI IMPRESSION: Multiple nonobstructing left renal stones. Right kidney is unremarkable. Electronically signed by: Adriana Taveras MD 06/18/2025 05:55 PM EDT
--- OUTSIDE RECORDS SUMMARY | 2025-06-18 17:09 | XMS_ITS | Encounter Summary ---
Author Organization [facility] Address [address] [place] [address] 7 [place] [address] Care Team Providers Care Shuttle Operator Name Role Phone Unavailable Primary Care Provider Unavailabl e Reason for Visit * Reason Comments Med Refill Encounter Details Date Type Department Care Team (Late st Contact Info) Description 11/13/2023 Refill [facility] ADULT D[facility] [address] [place] [address] Geovany Elder DMD [address] [place] [address] Social History Tobacco Use Types Packs/Day Years [...] 3:30 PM EDT Office Visit [facility]ULT [facility] [address] [place] [address] Geovany Elder DMD [address] [place] [address] 10/27/2025 8:00 AM EST Office Visit [facility]ULT [facility] [address] [place] [address] Dorothea Evangelista [address] [place] [address] documented as of this encounter Visit Diagnoses Not on filedocumented in this encounter
--- OUTSIDE RECORDS SUMMARY | 2025-06-18 17:09 | XMS_ITS | Encounter Summary ---
Author Organization [employer] Address [address] [facility] 7 [place] [address] Care Team Providers Care Smalltalk Developer Name Role Phone Unavailable Primary Care Provider Unavailabl e Encounter Details Date Type Department Care Team (Late Contact Info) Description 10/10/2023 Telephone [facility] [address] [place], [place] [phone] Geovany Elder DMD [address] [place], [place] [phone] Social History Tobacco Use Types Packs/Day Years [...] Description 06/23/2025 3:30 PM EDT Office Visit [facility] [address] [place] [address] Geovany Elder, LEIGH [address] [place] [address] 10/27/2025 8:00 AM EST Office Visit [facility] [address] [place] [address] Dorothea Evangelista [address] [place] [address] documented as of this encounter Visit Diagnoses Not on filedocumented in this encounter
--- OUTSIDE RECORDS SUMMARY | 2025-06-18 17:09 | XMS_ITS | Clinical Summary ---
Author Organization [email or web address] Address [address] [facility] 7 [place] [address] Care Team Providers Care Dye Box Operator Name Role Phone Unavailable Primary Care [...] 25 Active clindamycin (Cleocin) 300 MG capsule Take 1 capsule (300 mg) by mouth 4 times daily for 7 days. 28 capsule 04/14/20 25 025 Discontinued clindamycin (Cleocin) 300 MG capsule TAKE 1 CAPSULE(300 MG) BY MOUTH FOUR TIMES DAILY FOR 7 DAYS 28 capsule 06/09/20 25 025 Active Problems Problem Noted Date Diagnosed Date Pain 04/14/2025 Dental plaque 11/01/2023 Encounters Date Type Department Care Team Description 06/06/2025 Refill [facility] ADULT D[facility] [address] [place] [address] Kennedy Zapata DDS 06/06/2025 Telephone [facility] ADULT D[facility] [address] [place] [address] Yen medication 05/22/2025 9:00 AM EDT Office Visit [facility] ADULT [facility] [address] [place] [address] Geovany Elder DMD 05/15/2025 Travel 04/14/2025 1:00 PM EDT Office Visit [facility] ADULT [facility] [address] [place] [address] Kennedy Zapata DDS Pain (Primary Dx) 04/14/2025 Travel from Last 3 Months Social History Tobacco [...] 3:30 PM EDT Office Visit [facility] ADULT [facility] [address] [place] [address] Geovany Elder, DMD [address] [place] [address] 10/27/2025 8:00 AM EST Office Visit [facility] ADULT [facility] [address] [place] [address] Dorothea Evangelista [address] [place] [address] Health Maintenance Due Date Last Done Comments [...] TREATMENT PLANNING Routine 04/14/2025 1:00 PM EDT PROPHYLAXIS - ADULT Routine 03/10/2025 2 :00 PM EDT Dental plaque Gingival bleeding Dental calculus BITEWINGS - 4 RADIOGRAPHIC IMAGES Routine 03/10/2025 2:00 PM EDT Dental plaque Gingival bleeding Dental calculus PERIODIC ORAL EVALUATION - ESTABLISHED PATIENT Routine 03/10/2025 2:00 PM EDT INTRAORAL - COMPLETE SERIES OF RADIOGRAPHIC IMAGES Routine 11/01/2023 8:00 AM EST Dental plaque from Last 3 Months or Most Recently Relevant to Health Maintenance Insurance DENTAL - [facility] * Guarantor: Fredy Michael Account Type Relation to Patient Date of Phone Billing Address [place] [address] * Guarantor: Fredy Michael Account Type Relation to Patient Date of Phone Billing Address Personal/[place] [address]
--- OUTSIDE RECORDS SUMMARY | 2025-06-18 17:09 | XMS_ITS | Patient Health Record ---
Author Organization [facility] [address] Address [address] [place] [address] Care Team Providers Care Business Applications Analyst Name Role Phone TOLBERTSTALIN KEBEDE Primary Care Provider ALO COUCH Unavailable [phone] AXEL ALVARADO Unavailable [phone] Allergies Allergen (clinical drug ingredient) Drug/Non Drug [...] samir Results Component Value Reference Range Notes MG MAMMO DIGITAL SCREENING W PB BILAT Reviewed date:05/06/2025 07:45:09 AM Interpretation: Performing Lab: Notes/Report: Note See Note [facility], a member of [employer] Patient Name: FREDY TAVERAS Date of : 1970 Reason for Exam: Exam Date: 05/05/2025 [id number] EST Report Status: Final Ordering Provider: SELF REFERRAL SPPL PCP: ALO COUCH CLINICAL: The patien t is a 54 years Female presenting for routine screening mammography. The patient has a family history of breast cancer involving her mother at age 72. COMPARISON: Most rec ently 05/24/2024 and most remotely 01/17/2017. TECHNIQUE: Full-fiel d digital mammography of the breasts bilaterally consisting of tomosynthesis in MLO and CC projection is performed in the [employer] 2000-D unit. Computer aided detection utilizing the [employer] system was utilized. FINDINGS: The breast s are again seen to be composed of a combination of fatty and fibroglandular elements. There is no cluster of microcalcifications, mass, or area of architectural distortion. There is no skin thickening or nipple retraction. IMPRESSION: No mammographic evid ence of malignancy. TISSUE DENSITY: Ther e are scattered areas of fibroglandular density. (BI-RADS category B) IMPRESSION: Benign. BI-RADS CATEGORY: 1 - NEGATIVE RECOMMENDATION: Screening bilateral mammogram is recommended in 1 year. Mammo Location: [facility], [address] [place] [id number] -------- FINAL REPOR T -------- Dictated By: Tim Srivastava Dictated Date: 05/06 07:26 ET Assigned Physician: Tim Srivastava Reviewed and Electronically Signed By: Tim Srivastava Signed Date: 07:30 ET Workstation ID: [id number] Transcribed By: Self Edit Transcribed Date: 05/06/2025 07:26 ET URINALYSIS WITH REFLEX MICRO SCOPIC AND CULTURE Reviewed date:01/08/2025 12:25:40 PM Interpretation: Performing Lab: Notes/Report: Specific [place] Urine 1.023 1.003-1.030 pH, Urine 7.0 5.0-8.0 [...] /HPF Hyaline Casts, Urine 4.0 0-3 /LPF CR Hand RT Min 3 Views Reviewed date:06/21/2024 10:56:28 AM Interpretation: Performing Lab: Notes/Report: Original Ordering Provider: ALO COUCH NP [facility] Reason For Referral Reason Dr Bah Diagnosis 1 Pain in right hand ( M79.641) Referral Organization [facility] [address] Referring Provider First Name ALO Referring Provider Last Name KHOA Referring Provider Speciality Internal M edicine Referred Provider Specialty Hand Surgery General Notes LEYDA RAMIREZIYA 06/19 02:08:37 PM > faxed referral to Dr. Verdugo -also gave pt phone # to call p: [phone] f: [phone] Clinical Notes Kt Darby 06/2024 03:22:18 PM [...] Duration: 30 day(s) Not-Taking Cholecalciferol 50 MCG (2000 UT) 1 [...] Status Risk Notes Problem Vitamin D deficiency (62365591) Vitamin D deficiency, unspecified (E55.9) Active confirmed Problem Hyperlipidemia (94598224) Hyperlipidemia, unspecified (E78.5) Active confirmed Problem Generalized anxiety disorder (40083571) Generalized anxiety disorder (F41.1) Active confirmed Problem Seasonal allergic rhinitis (282963557) Other seasonal allergic rhinitis (J30.2) Active confirmed Problem Asthma (685764502) Other asthma (J45.998) Active confirmed Problem Pain in right hand (254083048316377) Pain in right hand (M79.641) Active confirmed Problem Lipid screening (008096179) Encounter for screening for lipoid disorders (Z13.220) Active confirmed Problem Pain of left knee region (finding) (569864657176894) Left knee pain, unspecified chronicity (M25.562) Active confirmed Problem Adult health examination (562189365) Adult general medical exam (Z00.00) Active confirmed Problem Kidney stone (53587867) Kidney stone (N20.0) Active confirmed Problem Kidney stone (61142726) Kidney stones (N20.0) Active confirmed Problem Diabetes mellitus screening (079436488) Diabetes mellitus screening (Z13.1) Active confirmed Problem Nephrolithiasis (01643682) Nephrolithiasis (N20.0) Active confirmed Problem Gastroesophageal reflux disease (730635962) GERD without esophagitis (K21.9) Active confirmed Problem Avitaminosis D (21458582) Avitaminosis D (E55.9) Active confirmed Problem Endocrine/metabolic screening (282416538) Encounter for screening for endocrine disorder (Z13.29) Active confirmed Problem External hemorrhoids (96100761) External hemorrhoids (K64.4) Active confirmed Problem Thrombosed external hemorrhoid (02254103) Thrombosed external hemorrhoid (K64.5) Active confirmed Vital Signs Heart Rate 86 /min 01/07/2025 Oximetry 95 % 01/07/2025 Blood pressure diastolic 84 mm Hg 01/07/2025 Height 63 in 01/07/2025 Blood pressure systolic 128 mm Hg 01/07/2025 Weight 118 lbs 01/07/2025 BMI 20.9 kg/m2 01/07/2025 Encounters Encounter Location Date Provider Diagnosis [facility] [address] 05/27/2025 ALO COUCH Annual physical exam Z00.00 ; Encounter for screening for depression Z13.31 ; Encounter for screening for other disorder Z13.89 ; Advanced directives, counseling/discussion Z71.89 ; Generalized anxiety disorder F41.1 ; Other seasonal allergic rhinitis J30.2 ; Nephrolithiasis N20.0 and Encounter for examination of blood pressure without abnormal findings Z01.30 [facility] [address] [address] 06/19/2024 ALO COUCH Annual physical exam Z00.00 ; Encounter for screening for depression Z13.31 ; Encounter for screening for other disorder Z13.89 ; Generalized anxiety disorder F41.1 ; Other seasonal allergic rhinitis J30.2 ; Nephrolithiasis N20.0 ; Hyperlipidemia, unspecified E78.5 and Pain in right hand M79.641 [facility] [address] 10/21/2024 ALO COUCH Generalized anxiety disorder F41.1 ; Other seasonal allergic rhinitis J30.2 ; Nephrolithiasis N20.0 and External hemorrhoids K64.4 [facility] [address] 01/07/2025 AXEL TRUNGKS Painless hematuria R 31.9 ; Generalized anxiety disorder F41.1 ; Kidney stones N20.0 ; Other seasonal allergic rhinitis J30.2 ; GERD without esophagitis K21.9 and External hemorrhoids K64.4 [facility] [address] [address] 06/19/2024 ALO COUCH [facility] [address] [address] 10/15/2024 ALO SANDSHOJada [facility] [address] [address] 01/07/2025 ALO COUCH [facility] [address] [address] 01/07/2025 ALO COUCH [facility] [address] [address] 01/08/2025 ALO COUCH Kidney stone N20.0 [facility] [address] [address] 01/13/2025 STALIN TOLBERT [facility] [address] [address] 01/24/2025 ALO COUCH [facility] [address] [address] 02/19/2025 ALO COUCH [facility] [address] [address] 05/28/2025 ALO COUCH Assessments Encounter Date Diagnosis (ICD Code) Assessment [...] software and direct typing Please excuse inadvertent split and drum room supervisor or typing errors, or uncorrected word substitutions Although every attempt has been made by the provider to proofread this document, occasional misspellings and typographical errors may still be present Due to the previous pandemic, and the use of personal protective equipment (PPE) This may decrease voice recognition accuracy Inadvertent split and drum room supervisor errors may occur 06/19/2024 Annual physical exam [...] software and direct typing Please excuse inadvertent split and drum room supervisor or typing errors, or uncorrected word substitutions Although every attempt has been made by the provider to proofread this document, occasional misspellings and typographical errors may still be present Due to the previous pandemic, and the use of personal protective equipment (PPE) This may decrease voice recognition accuracy Inadvertent split and drum room supervisor errors may occur 10/21/2024 Generalized anxiety disorder [...] software and direct typing Please excuse inadvertent split and drum room supervisor or typing errors, or uncorrected word substitutions Although every attempt has been made by the provider to proofread this document, occasional misspellings and typographical errors may still be present Due to the previous pandemic, and the use of personal protective equipment (PPE) This may decrease voice recognition accuracy Inadvertent split and drum room supervisor errors may occur 01/07/2025 Generalized anxiety disorder [...] this time. # Nephrolithiasis: Patient follows with [place] [facility]. Last office visit scanned in chart from 2022, renal ultrasound with findings of 4 mm stones x 2 on the left side and a 3 mm right small punctuate stone. Patient that time advised to increase her hydration and continue to monitor. # Hemorrhoids: Patient follows with gastroenterology in [place]. Also has had follow-up with surgery regarding [...] Dictation was accomplished with the use of [employer] voice recognition software, which is prone to [...] this time. # Nephrolithiasis: Patient follows with [place] [facility]. Last office visit scanned in chart from 2022, renal ultrasound with findings of 4 mm stones x 2 on the left side and a 3 mm right small punctuate stone. Patient that time advised to increase her hydration and continue to monitor. # Hemorrhoids: Patient follows with gastroenterology in [place]. Also has had follow-up with surgery regarding [...] Dictation was accomplished with the use of [employer] voice recognition software, which is prone to [...] software and direct typing Please excuse inadvertent split and drum room supervisor or typing errors, or uncorrected word substitutions Although every attempt has been made by the provider to proofread this document, occasional misspellings and typographical errors may still be present Due to the previous pandemic, and the use of personal protective equipment (PPE) This may decrease voice recognition accuracy Inadvertent split and drum room supervisor errors may occur 05/27/2025 Annual physical exam (ICD-10 - Z00.00) Acute Concerns/Problem List: 05/27/2025 Of note, some information is being carried forward from prior records for informational purposes only and is being cited so that efficiency, safety and quality of the patient's care is not compromised This note was prepared using voice recognition software and direct typing Please excuse inadvertent split and drum room supervisor or typing errors, or uncorrected word substitutions Although every attempt has been made by the provider to proofread this document, occasional misspellings and typographical errors may still be present Due to the previous pandemic, and the use of personal protective equipment (PPE) This may decrease voice recognition accuracy Inadvertent split and drum room supervisor errors may occur 06/19/2024 Encounter for screening [...] software and direct typing Please excuse inadvertent split and drum room supervisor or typing errors, or uncorrected word substitutions Although every attempt has been made by the provider to proofread this document, occasional misspellings and typographical errors may still be present Due to the previous pandemic, and the use of personal protective equipment (PPE) This may decrease voice recognition accuracy Inadvertent split and drum room supervisor errors may occur 05/27/2025 Encounter for screening for other disorder (ICD-10 - Z13.89) Acute Concerns/Problem List: 05/27/2025 Of note, some information is being carried forward from prior records for informational purposes only and is being cited so that efficiency, safety and quality of the patient's care is not compromised This note was prepared using voice recognition software and direct typing Please excuse inadvertent split and drum room supervisor or typing errors, or uncorrected word substitutions Although every attempt has been made by the provider to proofread this document, occasional misspellings and typographical errors may still be present Due to the previous pandemic, and the use of personal protective equipment (PPE) This may decrease voice recognition accuracy Inadvertent split and drum room supervisor errors may occur 01/07/2025 Kidney stones (ICD-10 [...] this time. # Nephrolithiasis: Patient follows with [place] [facility]. Last office visit scanned in chart from 2022, renal ultrasound with findings of 4 mm stones x 2 on the left side and a 3 mm right small punctuate stone. Patient that time advised to increase her hydration and continue to monitor. # Hemorrhoids: Patient follows with gastroenterology in [place]. Also has had follow-up with surgery regarding [...] Dictation was accomplished with the use of [employer] voice recognition software, which is prone to [...] software and direct typing Please excuse inadvertent split and drum room supervisor or typing errors, or uncorrected word substitutions Although every attempt has been made by the provider to proofread this document, occasional misspellings and typographical errors may still be present Due to the previous pandemic, and the use of personal protective equipment (PPE) This may decrease voice recognition accuracy Inadvertent split and drum room supervisor errors may occur 10/21/2024 Nephrolithiasis (ICD-10 - [...] software and direct typing Please excuse inadvertent split and drum room supervisor or typing errors, or uncorrected word substitutions Although every attempt has been made by the provider to proofread this document, occasional misspellings and typographical errors may still be present Due to the previous pandemic, and the use of personal protective equipment (PPE) This may decrease voice recognition accuracy Inadvertent split and drum room supervisor errors may occur 01/07/2025 Other seasonal allergic [...] this time. # Nephrolithiasis: Patient follows with [place] [facility]. Last office visit scanned in chart from 2022, renal ultrasound with findings of 4 mm stones x 2 on the left side and a 3 mm right small punctuate stone. Patient that time advised to increase her hydration and continue to monitor. # Hemorrhoids: Patient follows with gastroenterology in [place]. Also has had follow-up with surgery regarding [...] Dictation was accomplished with the use of [employer] voice recognition software, which is prone to medical misidentifications and grammatical errors. This are unintentional and the practitioner does try to identify and correct these, but some could still be present. Please do not hesitate to contact practitioner for clarification. 06/19/2024 Generalized anxiety disorder (ICD-10 - F41.1) [...] software and direct typing Please excuse inadvertent split and drum room supervisor or typing errors, or uncorrected word substitutions Although every attempt has been made by the provider to proofread this document, occasional misspellings and typographical errors may still be present Due to the previous pandemic, and the use of personal protective equipment (PPE) This may decrease voice recognition accuracy Inadvertent split and drum room supervisor errors may occur 05/27/2025 Advanced directives, counseling/discuss ion (ICD-10 - Z71.89) Acute Concerns/Problem List: 05/27/2025 Of note, some information is being carried forward from prior records for informational purposes only and is being cited so that efficiency, safety and quality of the patient's care is not compromised This note was prepared using voice recognition software and direct typing Please excuse inadvertent split and drum room supervisor or typing errors, or uncorrected word substitutions Although every attempt has been made by the provider to proofread this document, occasional misspellings and typographical errors may still be present Due to the previous pandemic, and the use of personal protective equipment (PPE) This may decrease voice recognition accuracy Inadvertent split and drum room supervisor errors may occur 05/27/2025 Generalized anxiety disorder (ICD-10 - F41.1) Acute Concerns/Problem List: 05/27/2025 Of note, some information is being carried forward from prior records for informational purposes only and is being cited so that efficiency, safety and quality of the patient's care is not compromised This note was prepared using voice recognition software and direct typing Please excuse inadvertent split and drum room supervisor or typing errors, or uncorrected word substitutions Although every attempt has been made by the provider to proofread this document, occasional misspellings and typographical errors may still be present Due to the previous pandemic, and the use of personal protective equipment (PPE) This may decrease voice recognition accuracy Inadvertent split and drum room supervisor errors may occur 06/19/2024 Other seasonal allergic [...] software and direct typing Please excuse inadvertent split and drum room supervisor or typing errors, or uncorrected word substitutions Although every attempt has been made by the provider to proofread this document, occasional misspellings and typographical errors may still be present Due to the previous pandemic, and the use of personal protective equipment (PPE) This may decrease voice recognition accuracy Inadvertent split and drum room supervisor errors may occur 01/07/2025 GERD without esophagitis [...] this time. # Nephrolithiasis: Patient follows with [place] [facility]. Last office visit scanned in chart from 2022, renal ultrasound with findings of 4 mm stones x 2 on the left side and a 3 mm right small punctuate stone. Patient that time advised to increase her hydration and continue to monitor. # Hemorrhoids: Patient follows with gastroenterology in [place]. Also has had follow-up with surgery regarding [...] Dictation was accomplished with the use of [employer] voice recognition software, which is prone to medical misidentifications and grammatical errors. This are unintentional and the practitioner does try to identify and correct these, but some could still be present. Please do not hesitate to contact practitioner for clarification. 10/21/2024 External hemorrhoids (ICD-10 - K64.4) Acute [...] software and direct typing Please excuse inadvertent split and drum room supervisor or typing errors, or uncorrected word substitutions Although every attempt has been made by the provider to proofread this document, occasional misspellings and typographical errors may still be present Due to the previous pandemic, and the use of personal protective equipment (PPE) This may decrease voice recognition accuracy Inadvertent split and drum room supervisor errors may occur 01/07/2025 External hemorrhoids (ICD-10 [...] this time. # Nephrolithiasis: Patient follows with [place] [facility]. Last office visit scanned in chart from 2022, renal ultrasound with findings of 4 mm stones x 2 on the left side and a 3 mm right small punctuate stone. Patient that time advised to increase her hydration and continue to monitor. # Hemorrhoids: Patient follows with gastroenterology in [place]. Also has had follow-up with surgery regarding [...] Dictation was accomplished with the use of [employer] voice recognition software, which is prone to medical misidentifications and grammatical errors. This are unintentional and the practitioner does try to identify and correct these, but some could still be present. Please do not hesitate to contact practitioner for clarification. 06/19/2024 Nephrolithiasis (ICD-10 - N20.0) Acute Concerns/Problem List: 06/19/2024 MAWMariano MOLST/HCP Discussed [...] software and direct typing Please excuse inadvertent split and drum room supervisor or typing errors, or uncorrected word substitutions Although every attempt has been made by the provider to proofread this document, occasional misspellings and typographical errors may still be present Due to the previous pandemic, and the use of personal protective equipment (PPE) This may decrease voice recognition accuracy Inadvertent split and drum room supervisor errors may occur 05/27/2025 Other seasonal allergic rhinitis (ICD-10 - J30.2) Acute Concerns/Problem List: 05/27/2025 Of note, some information is being carried forward from prior records for informational purposes only and is being cited so that efficiency, safety and quality of the patient's care is not compromised This note was prepared using voice recognition software and direct typing Please excuse inadvertent split and drum room supervisor or typing errors, or uncorrected word substitutions Although every attempt has been made by the provider to proofread this document, occasional misspellings and typographical errors may still be present Due to the previous pandemic, and the use of personal protective equipment (PPE) This may decrease voice recognition accuracy Inadvertent split and drum room supervisor errors may occur 05/27/2025 Nephrolithiasis (ICD-10 - N20.0) Acute Concerns/Problem List: 05/27/2025 Of note, some information is being carried forward from prior records for informational purposes only and is being cited so that efficiency, safety and quality of the patient's care is not compromised This note was prepared using voice recognition software and direct typing Please excuse inadvertent split and drum room supervisor or typing errors, or uncorrected word substitutions Although every attempt has been made by the provider to proofread this document, occasional misspellings and typographical errors may still be present Due to the previous pandemic, and the use of personal protective equipment (PPE) This may decrease voice recognition accuracy Inadvertent split and drum room supervisor errors may occur 06/19/2024 Hyperlipidemia, unspecified (ICD-10 [...] software and direct typing Please excuse inadvertent split and drum room supervisor or typing errors, or uncorrected word substitutions Although every attempt has been made by the provider to proofread this document, occasional misspellings and typographical errors may still be present Due to the previous pandemic, and the use of personal protective equipment (PPE) This may decrease voice recognition accuracy Inadvertent split and drum room supervisor errors may occur 06/19/2024 Pain in right [...] software and direct typing Please excuse inadvertent split and drum room supervisor or typing errors, or uncorrected word substitutions Although every attempt has been made by the provider to proofread this document, occasional misspellings and typographical errors may still be present Due to the previous pandemic, and the use of personal protective equipment (PPE) This may decrease voice recognition accuracy Inadvertent split and drum room supervisor errors may occur 05/27/2025 Encounter for examination [...] software and direct typing Please excuse inadvertent split and drum room supervisor or typing errors, or uncorrected word substitutions Although every attempt has been made by the provider to proofread this document, occasional misspellings and typographical errors may still be present Due to the previous pandemic, and the use of personal protective equipment (PPE) This may decrease voice recognition accuracy Inadvertent split and drum room supervisor errors may occur Plan Of Treatment Pending [...] [employer] [address] [place] [address] [phone] FREDY Taveras Self - patient is the insured Medical (General) History Medical History History ICD Code anxiety Allergies Deafness Surgical History Surgery Date(Month/Year) nose surgery
--- OUTSIDE RECORDS SUMMARY | 2025-06-18 17:09 | XMS_ITS | Encounter Summary ---
Author Organization [employer] [facility] Address [address] [place] [address] 7 [place] [address] Care Team Providers Care Inventory Associate Name Role Phone Unavailable Primary Care Provider Unavailabl e Reason for Visit * Reason Comments Med Refill Encounter Details Date Type Department Care Team (Late st Contact Info) Description 06/06/[address] [facility] ADULT DENTAL [address] [place] [address] Kennedy Zapata DDS [address] [place] [address] Social History Tobacco Use Types Packs/Day Years [...] 06/23/2025 3:30 PM EDT Office Visit [facility] ADULT [facility] [address] [place] [address] Geovany Elder, DMD [address] [place] [address] 10/27/2025 8:00 AM EST Office Visit [facility] ADULT DENTAL 230 [facility] [place] [address] Dorothea Evangelista [address] [place] [address] documented as of this encounter Visit Diagnoses Not on filedocumented in this encounter
--- OUTSIDE RECORDS SUMMARY | 2025-06-18 17:09 | XMS_ITS | Clinical Summary ---
Author Organization [facility] Address [address] [place] [address] Phone Care Team Providers Care Technical Training Coordinator Name Role Phone Derick Stern VOCATIONAL REHABILITATION SPECIALIST Primary Care Provider [phone] Allergies No known active allergies Medications butalbital-acet [...] EDT Hospital Encounter [facility] [address] [place] [phone] Encounter for screening mammogram for breast cancer Discharge Disposition: Home or Self Care 03/31/2025 1:45 PM EDT Office Visit Orthopedic Surgery - [address] [phone] Dwight Verdugo MD Acquired trigger finger of right ring finger (Primary Dx) from Last 3 Months Medical History Medical History Date Comments Anxiety 02/02/2017 DX:Anxiety 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; COMMENT: Needs chemical handler HTN (hypertension) 02/02/2017 DX:HTN (hyper tension) Irritable [...] PM EDT Office Visit Orthopedic Surgery - [place] [address] [facility] [address] [place] [phone] Dwight Verdugo MD [address] [place] [address] Health Maintenance Due Date Last Done Comments [...] HIV Screening 09/04/2022 Hepatitis C Screening 09/04/2022 Medicare Annual Wellness Visit 09/04/2022 Social Influencers of Health Screening 09/04/2022 Hypertension/CHF/CAD Annual BMP Blood Test 09/07/2022 Depression Screening 09/25/2024 Influenza Vaccine (#1) 2025 , 06/29/2023, 06/29/2022, Additional history exists Breast Cancer Screening 05/05/2027 05/05/20 25, 05/28/2024, 05/23/2023, Additional history exists RSV Immunization Adult Patients (1 - 1-dose 75+ series) 2043 COVID-19 [...] Encounter for screening mammogram for breast cancer ME INJECTION SINGLE TENDON SHEATH OR LIGAMENT APONEUROSIS [...] is recommended in 1 year. Mammo Location: [facility], [address] [place] [address] -------- FINAL REPORT -------- Dictated By: Tim Srivastava Dictated Date: 05/06/2025 07:26 ET Assigned Physician: Tim Srivastava Reviewed and Electronically Signed By: Tim Srivastava Signed Date: 05/06/2025 07:30 ET Workstation ID: [id number] Transcribed By: Self Edit Transcribed Date: 05/06/2025 [...] and CC projection is performed in the Signal360 (formerly S[employer] Notify)e 2000-D unit. Computer aided detection utilizing the [...] MLO and CC projection is performed in the[employer] Senographe 2000-D unit. Computer aided detection utilizing the Bahouiystem was utilized. FINDINGS: The breasts are again [...] is recommended in 1 year. Mammo Location: [facility], [address] [place] [id number] -------- FINAL REPORT -------- Dictated By: Tim Srivastava Dictated Date: 05/06/2025 07:26 ET Assigned Physician: Tim Srivastava Reviewed and Electronically Signed By: Tim Srivastava Signed Date: 05/06/2025 07:30 ET Workstation ID: [id number] Transcribed By: Self Edit Transcribed Date: 05/06/2025 07:26 ET us Self Referral Sppl IMG BI PROCEDURES Final Resul t * ME INJECTION SINGLE TENDON SHEATH OR LIGAMENT APONEUROSIS [...] al Result from Last 3 Months Insurance [employer] MEDICARE Member Subscriber Plan / Payer (Ef fective 2021-Present) Name:FREDY TAVERAS Relation to Subscriber:Self Name:Fredy Taveras Payer ID:[id number] Group ID:[id number] Type:Not on file Address: [facility] [address] [address] Care Teams Technical Training Coordinator Relationship Specialty Start Date End Date Derick Stern NP [address] [address] PCP - General Nurse Practitioner 01/07/25
--- OUTSIDE RECORDS SUMMARY | 2025-06-18 17:09 | XMS_ITS | Encounter Summary ---
Author Organization [employer] [facility] Address [address] [facility] 7 [place] [address] Care Team Providers Care Order Make Up Clerk Name Role Phone Unavailable Primary Care Provider Unavailabl e Reason for Visit * Reason Onset Date Comments Dr. Elder medication 06/06/2025 Encounter Details Date Type Department Care Team ([facility] Contact Info) Description 06/06/2025 Telephone [facility] ADULT DENTAL [address] [place] [address] Geovany Elder, DMD [address] [place] [address] Dr. Elder medication Social History Tobacco Use [...] Upcoming Encounters Date Type Department Care Team ([facility] Contact Info) Description 06/23/2025 3:30 PM EDT Office Visit [facility] ADULT DENTAL [address] [place] [address] Geovany Elder DMD [address] [place] [address] 10/27/2025 8:00 AM EST Office Visit [facility] ADULT DENTAL [address] [place] [address] Dorothea Evangelista [address] [place] [address] documented as of this encounter Visit Diagnoses Not on filedocumented in this encounter
--- OUTSIDE RECORDS SUMMARY | 2025-06-18 17:09 | XMS_ITS | Encounter Summary ---
Author Organization [employer] [facility] Address [address] [facility] 7t [place] [address] Care Team Providers Care Logging Tractor Operator Swamp Name Role Phone Unavailable Primary Care Provider Unavailabl e Reason for Visit * Reason Onset Date Comments Appointment 01/16/2023 Encounter Details Date Type Department Care Team (Late st Contact Info) Description 01/16/2023 Telephone [facility] ADULT DENTAL [address] [place] [address] Geovany Elder, LEIGH [address] [place] [address] Appointment Social History Tobacco Use Types Packs/Day [...] Description 06/23/2025 3:30 PM EDT Office Visit [facility] ADULT DENTAL [address] [place] [address] Geovany Elder, LEIGH [address] [place] [address] 10/27/2025 8:00 AM EST Office Visit [facility] ADULT DENTAL [address] [place] [address] Dorothea Evangelista [address] [place] [address] documented as of this encounter Visit Diagnoses Not on filedocumented in this encounter
--- OUTSIDE RECORDS SUMMARY | 2025-06-18 17:09 | XMS_ITS | Encounter Summary ---
Author Organization [employer] Address [address] [place] [address] 7 [place] [address] Care Team Providers Care Fall Intern Name Role Phone Unavailable Primary Care Provider Unavailabl e Reason for Visit * Reason Onset Date Comments script for pain infection 06/12/2023 Encounter Details Date Type Department Care Team ([facility] st Contact Info) Description 06/12/2023 Telephone [facility] ADULT DENTAL [address] [place], [place] [phone] Merrill Aguilar DDS [address] [place] [address] script for pain infection Social History Tobacco [...] [facility] ADULT DENTAL [address] [place] [address] Geovany Elder DMD [address] [place] [address] 10/27/2025 8:00 AM EST Office Visit [facility] ADULT DENTAL [address] [place] [address] Dorothea Evangelista [address] [place] [address] documented as of this encounter Visit Diagnoses Not on filedocumented in this encounter
--- OUTSIDE RECORDS SUMMARY | 2025-06-18 17:09 | XMS_ITS | Encounter Summary ---
Author Organization [employer] [facility] Address [address] [place] [address] 7 [place] [address] Care Team Providers Care Plate Maker Zinc Name Role Phone Unavailable Primary Care Provider Unavailabl e Encounter Details Date Type Department Care Team (Latest Contact Info) Description 03/03/2021 Abstract [facility] CONVERSIONS Dental, Provider, DDS Social History Tobacco [...] Description 06/23/2025 3:30 PM EDT Office Visit [facility] ADULT DENTAL [address] [place] [address] Geovany Elder, DMD [address] [place] [address] 10/27/2025 8:00 AM EST Office Visit [facility] ADULT DENTAL [address] [place] [address] Dorothea Evangelista [address] [place] [address] documented as of this encounter Visit Diagnoses Not on filedocumented in this encounter
--- OUTSIDE RECORDS SUMMARY | 2025-06-18 17:09 | XMS_ITS | Encounter Summary ---
Author Organization [employer] [facility] Address [address] [place] [address] 7 [place] [address] Care Team Providers Care Plant Floor Automation Manager Name Role Phone Unavailable Primary Care Provider Unavailabl e Reason for Visit * Reason Onset Date Comments medication 09/22/2023 medication 09/22/2023 Encounter Details Date Type Department Care Team ([facility] st Contact Info) Description 09/22/2023 Telephone [facility] ADULT DENTAL [address] [place] [address] Geovany Elder DMD [address] [place], [place] [phone] medication; medication Social History Tobacco Use Types [...] Description 06/23/2025 3:30 PM EDT Office Visit [facility] ADULT DENTAL [address] [place] [address] Geovany Elder, LEIGH [address] [place] [address] 10/27/2025 8:00 AM EST Office Visit [facility] ADULT DENTAL [address] [place] [address] Dorothea Evangelista [address] [place] [address] documented as of this encounter Visit Diagnoses Not on filedocumented in this encounter
--- OUTSIDE RECORDS SUMMARY | 2025-06-18 17:09 | XMS_ITS | Encounter Summary ---
Author Organization [employer] [facility] Address [address] [place] [address] 7 [place] [address] Care Team Providers Care Enterprise Architect Name Role Phone Unavailable Primary Care Provider Unavailabl e Encounter Details Date Type Department Care Team (Latest Contact Info) Description 02/19/2019 Abstract [facility] CONVERSIONS Dental, Provider, DDS Social [...] Description 06/23/2025 3:30 PM EDT Office Visit [facility] ADULT DENTAL [address] [place] [address] Geovany Elder, DMD [address] [place] [address] 10/27/2025 8:00 AM EST Office Visit [facility] ADULT DENTAL [address] [place] [address] Larry Evangelistaaris [address] [place] [address] documented as of this encounter Visit Diagnoses Not on filedocumented in this encounter
--- OUTSIDE RECORDS SUMMARY | 2025-06-18 17:09 | XMS_ITS | Encounter Summary ---
Author Organization [employer] Address [address] [facility] 7 [place] [address] Care Team Providers Care Visual Specialist Name Role Phone Unavailable Primary Care Provider Unavailabl e Reason for Visit * Reason Onset Date Comments medication 08/14/2023 Encounter Details Date Type Department Care Team ([facility] st Contact Info) Description 08/14/2023 Telephone [facility] ADULT DENTAL [address] [place] [address] Geovany Elder DMD [address] [place] [address] medication Social History Tobacco Use Types Packs/Day [...] Description 06/23/2025 3:30 PM EDT Office Visit [facility] ADULT DENTAL [address] [place] [address] Geovany Elder DMD [address] [place] [address] 10/27/2025 8:00 AM EST Office Visit [facility] ADULT DENTAL [address] [place] [address] Dorothea Evangelista [address] [place] [address] documented as of this encounter Visit Diagnoses Not on filedocumented in this encounter
--- OUTSIDE RECORDS SUMMARY | 2025-06-18 17:09 | XMS_ITS | Encounter Summary ---
Author Organization [employer] [facility] Address [address] [place] [address] 7 [place] [address] Care Team Providers Care Spinner Hydraulic Name Role Phone Unavailable Primary Care Provider Unavailabl e Encounter Details Date Type Department Care Team (Late st Contact Info) Description 10/23/2023 Abstract [facility] ADULT DENTAL [address] [place] [address] Geovany Elder, DMD [address] [place] [address] Social History Tobacco Use Types Packs/Day Years [...] Description 06/23/2025 3:30 PM EDT Office Visit [facility] ADULT DENTAL [address] [place] [address] Geovany Elder, DMD [address] [place] [address] 10/27/2025 8:00 AM EST Office Visit [facility] ADULT DENTAL [address] [place] [address] Dorothea Evangelista [address] [place] [address] documented as of this encounter Visit Diagnoses Not on filedocumented in this encounter
== END 2025-06-18 14:28 | disposition home or self-care (01) ==
LOC: HO.US 14:27
PROVIDERS: PCP Internal Medicine; Visit Provider Urology
DX: N39.0 Urinary tract infection, site not specified (principal); N20.0 Calculus of kidney
CPT/HCPCS: 76775

== ENCOUNTER → 2025-06-18 14:29 | Outpatient (BNV) | payer OTHER, SELFPAY | PROVIDERS: PCP Internal Medicine; Visit Provider Radiology Body Imaging | DX: N20.0 Calculus of kidney (principal) | CPT/HCPCS: 76775 ==

== ENCOUNTER 2025-07-08 11:46 | Outpatient (REF) | payer OTHER, SELFPAY ==
--- OUTSIDE RECORDS SUMMARY | 2025-05-27 04:30 | XMS_ITS ---
Author Organization [facility] [address] Address [address] [place] [address] Care Team Providers Care Cyber Workforce Developer And Manager Name Role Phone STALIN RENNER Primary Care Provider ALO COUCH Unavailable [phone] Medications Medication SIG (Take, Route, Frequency, Duration) [...] Location Date Provider Diagnosis [facility] [address] [place] [id number] 05/27/2025 ALO AGUAYOJada Annual physical exam Z00.00 [...] software and direct typing Please excuse inadvertent technical marketing engineer or typing errors, or uncorrected word substitutions Although every attempt has been made by the provider to proofread this document, occasional misspellings and typographical errors may still be present Due to the previous pandemic, and the use of personal protective equipment (PPE) This may decrease voice recognition accuracy Inadvertent technical marketing engineer errors may occur 05/27/2025 Encounter for screening for depression (ICD-10 - Z13.31) Acute Concerns/Problem List: 05/27/2025 Of note, some information is being carried forward from prior records for informational purposes only and is being cited so that efficiency, safety and quality of the patient's care is not compromised This note was prepared using voice recognition software and direct typing Please excuse inadvertent technical marketing engineer or typing errors, or uncorrected word substitutions Although every attempt has been made by the provider to proofread this document, occasional misspellings and typographical errors may still be present Due to the previous pandemic, and the use of personal protective equipment (PPE) This may decrease voice recognition accuracy Inadvertent technical marketing engineer errors may occur 05/27/2025 Encounter for screening for other disorder (ICD-10 - Z13.89) Acute Concerns/Problem List: 05/27/2025 Of note, some information is being carried forward from prior records for informational purposes only and is being cited so that efficiency, safety and quality of the patient's care is not compromised This note was prepared using voice recognition software and direct typing Please excuse inadvertent technical marketing engineer or typing errors, or uncorrected word substitutions Although every attempt has been made by the provider to proofread this document, occasional misspellings and typographical errors may still be present Due to the previous pandemic, and the use of personal protective equipment (PPE) This may decrease voice recognition accuracy Inadvertent technical marketing engineer errors may occur 05/27/2025 Advanced directives, counseling/discussi on (ICD-10 - Z71.89) Acute Concerns/Problem List: 05/27/2025 Of note, some information is being carried forward from prior records for informational purposes only and is being cited so that efficiency, safety and quality of the patient's care is not compromised This note was prepared using voice recognition software and direct typing Please excuse inadvertent technical marketing engineer or typing errors, or uncorrected word substitutions Although every attempt has been made by the provider to proofread this document, occasional misspellings and typographical errors may still be present Due to the previous pandemic, and the use of personal protective equipment (PPE) This may decrease voice recognition accuracy Inadvertent technical marketing engineer errors may occur 05/27/2025 Generalized anxiety disorder (ICD-10 - F41.1) Acute Concerns/Problem List: 05/27/2025 Of note, some information is being carried forward from prior records for informational purposes only and is being cited so that efficiency, safety and quality of the patient's care is not compromised This note was prepared using voice recognition software and direct typing Please excuse inadvertent technical marketing engineer or typing errors, or uncorrected word substitutions Although every attempt has been made by the provider to proofread this document, occasional misspellings and typographical errors may still be present Due to the previous pandemic, and the use of personal protective equipment (PPE) This may decrease voice recognition accuracy Inadvertent technical marketing engineer errors may occur 05/27/2025 Other seasonal allergic rhinitis (ICD-10 - J30.2) Acute Concerns/Problem List: 05/27/2025 Of note, some information is being carried forward from prior records for informational purposes only and is being cited so that efficiency, safety and quality of the patient's care is not compromised This note was prepared using voice recognition software and direct typing Please excuse inadvertent technical marketing engineer or typing errors, or uncorrected word substitutions Although every attempt has been made by the provider to proofread this document, occasional misspellings and typographical errors may still be present Due to the previous pandemic, and the use of personal protective equipment (PPE) This may decrease voice recognition accuracy Inadvertent technical marketing engineer errors may occur 05/27/2025 Nephrolithiasis (ICD-10 - N20.0) Acute Concerns/Problem List: 05/27/2025 Of note, some information is being carried forward from prior records for informational purposes only and is being cited so that efficiency, safety and quality of the patient's care is not compromised This note was prepared using voice recognition software and direct typing Please excuse inadvertent technical marketing engineer or typing errors, or uncorrected word substitutions Although every attempt has been made by the provider to proofread this document, occasional misspellings and typographical errors may still be present Due to the previous pandemic, and the use of personal protective equipment (PPE) This may decrease voice recognition accuracy Inadvertent technical marketing engineer errors may occur 05/27/2025 Encounter for examination [...] software and direct typing Please excuse inadvertent technical marketing engineer or typing errors, or uncorrected word substitutions Although every attempt has been made by the provider to proofread this document, occasional misspellings and typographical errors may still be present Due to the previous pandemic, and the use of personal protective equipment (PPE) This may decrease voice recognition accuracy Inadvertent technical marketing engineer errors may occur Plan Of Treatment Medication Medication Name Sig Start Date Stop Date Notes Anucort-HC 25 MG 1 suppository as nee ded Rectal Three times a day; Duration: 30 day(s) Progress Notes * RAIZA TAVERASWMOB:1970 (54 yo F)Acc No.[id number]:05/27/2025 Progress Notes Patient: MARIZOL STOVALL Provider: Hubert COUCH NP :1970 A ge:54 Y S ex:Female Date:05/27/2025 Address: [address], [facility], [id number] Pcp:STALIN RENNER Subjective: * Chief Complaints: * [...] stratification screen completed. Discussed healthcare proxy. Discussed [place] order for life sustaining treatment, Comprehensive fasting [...] saw Dr. Aneudy Angelo General Surgery from [place] who told her taking them out will [...] software and direct typing Please excuse inadvertent technical marketing engineer or typing errors, or uncorrected word substitutions Although every attempt has been made by the provider to proofread this document, occasional misspellings and typographical errors may still be present Due to the previous pandemic, and the use of personal protective equipment (PPE) This may decrease voice recognition accuracy Inadvertent technical marketing engineer errors may occur Plan: * Treatment: * Procedure Codes: 9 9199 NO SHOW OFFICE VISIT * Images: Billing Information: * Visit Code: * Procedure Codes: 10938 NO SHOW OFFICE VISIT. Care Plan Details* * Electronic signature of REVA COUCH on 07/08/2025 at 02:26 PM EDT Sign off status: Pending * Provider: Hubert COUCH INTERNET CONSULTANT Date: 0 05/27/2025 Generated for Marcio rosario/Donnie/Darren on: 1 02:26 PM EDT History and Physical Notes * [...] stratification screen completed. Discussed healthcare proxy. Discussed [place] order for life sustaining treatment, Comprehensive fasting [...] saw Dr. Aneudy Angelo General Surgery from [place] who told her taking them out will [...] General Examination GENERAL APPEARANCE: in no ac chinik distress, well developed, well nourished HEAD: normocephalic, [...]
[2025-07-08 14:13] LABS: Alanine Aminotransferase 19 U/L (0-31); Albumin Level 4.2 g/dL (3.5-5.0); Alkaline Phosphatase 47 U/L (39-117); Anion Gap 9 (12-20); Aspartate Amino Transferase 29 U/L (5-31); Blood Urea Nitrogen 15 mg/dL (9-16); Calcium 9.5 mg/dL (8.4-10.2); Carbon Dioxide 32 mmol/L (22-29); Chloride 106 mmol/L (96-108); Cholesterol 204 mg/dL (<200); Estimated Glomerular Filt Rate > 60; HDL Cholesterol 50 mg/dL (>40); Potassium 3.9 mmol/L (3.3-5.1); Sodium 143 mmol/L (135-145); Total Protein 7.6 g/dL (6.5-8.0); Triglycerides 128 mg/dL (<150)
--- OUTSIDE RECORDS SUMMARY | 2025-07-08 14:26 | XMS_ITS | Encounter Summary ---
Author Organization [employer] Address [address] [place] [address] 7 [place] [address] Care Team Providers Care Core Oven Tender Name Role Phone Unavailable Primary Care Provider Unavailabl e Reason for Visit * Reason Onset Date Comments Appointment 01/16/2023 Encounter Details Date Type Department Care Team ([facility] st Contact Info) Description 01/16/2023 Telephone [facility] ADULT DENTAL [address] [place] [address] Geovany Elder, DMD [address] [place] [address] Appointment Social History Tobacco Use Types Packs/Day [...] Description 10/27/2025 8:00 AM EST Office Visit [facility] ADULT DENTAL [address] [place] [address] Dorothea Evangelista [address] [place] [address] documented as of this encounter Visit Diagnoses Not on filedocumented in this encounter
--- OUTSIDE RECORDS SUMMARY | 2025-07-08 14:26 | XMS_ITS | Encounter Summary ---
Author Organization [employer] Address [address] [place] [address] 7 [place] [address] Care Team Providers Care Depilatory Painter Name Role Phone Unavailable Primary Care Provider Unavailabl e Encounter Details Date Type Department Care Team (Latest Contact Info) Description 02/19/2019 Abstract [facility] CONVERSIONS Dental, Provider, DDS Social History [...] Description 10/27/2025 8:00 AM EST Office Visit [facility] ADULT DENTAL [address] [place] [address] Larry Evangelistaaris [address] [place] [address] documented as of this encounter Visit Diagnoses Not on filedocumented in this encounter
--- OUTSIDE RECORDS SUMMARY | 2025-07-08 14:26 | XMS_ITS | Encounter Summary ---
Author Organization [facility] [employer] Address [address] [place] [address] 7 [place] [address] Care Team Providers Care Hide Dropper Name Role Phone Unavailable Primary Care Provider Unavailabl e Encounter Details Date Type Department Care Team (Latest Contact Info) Description 03/03/2021 Abstract [facility] CONVERSIONS Dental, Provider, DDS Social History Tobacco [...] Description 10/27/2025 8:00 AM EST Office Visit [facility] ADULT DENTAL [address] [place] [address] Larry Evangelistaaris [address] [place] [address] documented as of this encounter Visit Diagnoses Not on filedocumented in this encounter
--- OUTSIDE RECORDS SUMMARY | 2025-07-08 14:26 | XMS_ITS | Clinical Summary ---
Author Organization [employer] Address [address] [place] [address] 7 [place] [address] Care Team Providers Care Medical Management Specialist Name Role Phone Unavailable Primary Care [...] 23 Active cholecalciferol (Vitamin D-3) 50 MCG (2000 UT) capsule 10/28/19 24 Active escitalopram (Lexapro) [...] 7 DAYS 28 capsule 06/09/20 25 025 chlorhexidine (Peridex) 0.12 % solution Use 15 mL in the mouth or throat if needed in the morning, at noon, and at bedtime (PROPHYLAXIS) for up to 5 days. 110 mL 06/23/20 25 025 Active Problems Problem Noted Date Diagnosed Date Pain 04/14/2025 Dental plaque 11/01/2023 Encounters Date Type Department Care Team Description 06/24/2025 Travel 06/23/2025 3:30 PM EDT Office Visit [facility] ADULT DENTAL [address] [place] [address] Geovany Elder DMD 06/22/2025 Travel 06/06/2025 Refill [facility] ADULT DENTAL [address] [place] [address] Kennedy Zapata DDS 06/06/2025 Telephone [facility] ADULT DENTAL [address] [place] [address] Geovany Elder, LEIGH Elder medication 05/22/2025 9:00 AM EDT Office Visit [facility] ADULT DENTAL [address] [place] [address] Geovany Elder DMD 05/15/2025 Travel 04/14/2025 1:00 PM EDT Office Visit [facility] ADULT DENTAL [address] [place] [address] Kennedy Zapata DDS Pain (Primary Dx) 04/14/2025 [...] Description 10/27/2025 8:00 AM EST Office Visit [facility] ADULT DENTAL [address] [place] [address] Dorothea Evangelista [address] [place] [address] Health Maintenance Due Date Last Done Comments [...] 1998 Zoster Vaccines (1 of 2) 2018 Dental Oral Exam 09/10/2025 03/10/2025, 11/03/2023 Dental Prophylaxis 09/10/2025 03/10/2025, 1 , 11/01/2023 Dental X-Ray: Bitewings 03/11/2026 03/10/20, 11/01/2023, 02/23/2023 Tobacco Screening 06/30/2026 06/30/2025 Dental X-Ray: Full Mouth 11/02/2026 11/01/2023, 12/25 Mammogram 05/05/2027 05/05/2025, 05/05/2025 RSV Patients and Patients Aged 60 years or older (1 - 1-dose 75+ series) 2043 COVID-19 Vaccine Completed 10/30/2024, 10/2023, 11/01/2022, Additional history exists Influenza Vaccine Completed 06/26/2025, , 06/29/2023, Additional history exists HIB Vaccines Aged Out [...] PRESENTATION, DETAILED AND EXTENSIVE TREATMENT PLANNING Routine 06/23/2025 3:30 PM EDT PALLIATIVE (EMERGENCY) TREATMENT OF DENTAL PAIN - MINOR PROCEDURE Routine 06/23/2025 3:30 PM EDT CASE PRESENTATION, DETAILED AND EXTENSIVE [...] Relevant to Health Maintenance Insurance DENTAL - [facility] [place] [address]
--- OUTSIDE RECORDS SUMMARY | 2025-07-08 14:26 | XMS_ITS | Encounter Summary ---
Author Organization [employer] Address [address] [place] [address] 7 [place] [address] Care Team Providers Care Dermatology Nurse Name Role Phone Unavailable Primary Care Provider Unavailabl e Reason for Visit * Reason Onset Date Comments medication 08/14/2023 Encounter Details Date Type Department Care Team ([facility] st Contact Info) Description 08/14/2023 Telephone [facility] ADULT DENTAL [address] [place] [address] Geovany Eldre DMD [address] [place] [address] medication Social History Tobacco Use Types Packs/Day [...] for clindamyacin to be sent to pharmacy DR * Telephone Encounter - Geovany Elder DMD [...] 8:00 AM EST Office Visit [facility] ADULT DENTAL [address] [place] [address] Dorothea Evangelista [address] [place] [address] documented as of this encounter Visit Diagnoses Not on filedocumented in this encounter
--- OUTSIDE RECORDS SUMMARY | 2025-07-08 14:26 | XMS_ITS | Encounter Summary ---
Author Organization [employer] Address [address] [place] [address] 7 [place] [address] Care Team Providers Care Interpersonal Communications Professor Name Role Phone Unavailable Primary Care Provider Unavailabl e Reason for Visit * Reason Onset Date Comments script for pain infection 06/12/2023 Encounter Details Date Type Department Care Team ([facility] st Contact Info) Description 06/12/[address] [facility] ADULT DENTAL [address] [place] [address] Merrill Aguilar, KUMARS [address] [place] [address] script for pain infection Social History Tobacco [...] Description 10/27/2025 8:00 AM EST Office Visit [facility] ADULT DENTAL [address] [place] [address] Dorothea Evangelista [address] [place] [address] documented as of this encounter Visit Diagnoses Not on filedocumented in this encounter
--- OUTSIDE RECORDS SUMMARY | 2025-07-08 14:27 | XMS_ITS | Encounter Summary ---
Author Organization [employer] Address [address] [place] [address] 7 [place] [address] Care Team Providers Care Physical Therapy Professor Name Role Phone Unavailable Primary Care Provider Unavailabl e Encounter Details Date Type Department Care Team (Late st Contact Info) Description 10/23/2023 Abstract [facility] ADULT DENTAL [address] [place], [place] [phone] Geovany Elder DMD [address] [place], [place] [phone] Social History Tobacco Use Types Packs/Day Years [...] Description 10/27/2025 8:00 AM EST Office Visit [facility] ADULT DENTAL [address] [place] [address] Dorothea Evangelista [address] [place], [place] [phone] documented as of this encounter Visit Diagnoses Not on filedocumented in this encounter
--- OUTSIDE RECORDS SUMMARY | 2025-07-08 14:27 | XMS_ITS | Encounter Summary ---
Author Organization [employer] Address [address] [place] [address] 7 [place] [address] Care Team Providers Care Passenger Representative Name Role Phone Unavailable Primary Care Provider Unavailabl e Reason for Visit * Reason Comments Med Refill Encounter Details Date Type Department Care Team (Late st Contact Info) Description 11/13/2023 Refill [facility] ADULT DENTAL [address] [place] [address] Geovany Elder DMD [address] [place] [address] Social History Tobacco Use Types Packs/Day Years [...] 8:00 AM EST Office Visit [facility] ADULT DENTAL [address] [place] [address] TonjaDorothea bragg [address] [place] [address] documented as of this encounter Visit Diagnoses Not on filedocumented in this encounter
--- OUTSIDE RECORDS SUMMARY | 2025-07-08 14:27 | XMS_ITS | Encounter Summary ---
Author Organization [employer] Address [address] [place] [address] 7 [place] [address] Care Team Providers Care Buyer Grain Name Role Phone Unavailable Primary Care Provider Unavailabl e Encounter Details Date Type Department Care Team (Late st Contact Info) Description 10/10/2023 Telephone [facility] ADULT DENTAL [address] [place], [place] [phone] Geovany Elder, DMD [address] [place], [place] [phone] Social History Tobacco Use Types Packs/Day Years [...] Department Care Team (Late Contact Info) Description 10/27/2025 8:00 AM EST Office Visit [facility] ADULT DENTAL [address] [place] [address] Dorothea Evangelista [address] [place] [address] documented as of this encounter Visit Diagnoses Not on filedocumented in this encounter
--- OUTSIDE RECORDS SUMMARY | 2025-07-08 14:27 | XMS_ITS | Clinical Summary ---
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; COMMENT: Needs jewel stripper HTN (hypertension) 02/02/2017 DX:HTN (hyper tension) Irritable [...] PM EDT Office Visit Orthopedic Surgery - [place] [address] [phone] Dwight Verdugo MD [address] [place] [address] Health Maintenance Due Date Last Done Comments Colorectal Cancer Screening: Colonoscopy 1968 DTaP,Tdap,and Td Vaccines (1 - Tdap) 1987 Hepatitis A Vaccines (1 of 2 - Risk 2-dose series) 1987 Hepatitis B Vaccines (1 of 3 - 19+ 3-dose series) 1987 Cervical Cancer Screening: Pap Smear 1989 Pneumococcal Vaccine: 50+ Years (1 of 1 - PCV) 2018 Zoster Vaccines (1 of 2) 2018 Cholesterol Screening (Lipid Panel) 09/04/2022 HIV Screening 09/04/2022 Hepatitis C Screening [...] Encounter for screening mammogram for breast cancer from Last 3 Months Results * MG [...] is recommended in 1 year. Mammo Location: [facility], [address] [place] [address] -------- FINAL REPORT -------- Dictated By: Tim Srivastava Dictated Date: 05/06/2025 07:26 ET Assigned Physician: Tim Srivastava Reviewed and Electronically Signed By: Tim Srivastava Signed Date: 05/06/2025 07:30 ET Workstation ID: [id number] Transcribed By: Self Edit Transcribed Date: 05/06/2025 [...] and CC projection is performed in the Uniquedue 2000-D unit. Computer aided detection utilizing the [...] MLO and CC projection is performed in theKlusterographe 2000-D unit. Computer aided detection utilizing the iCADsystem was utilized. FINDINGS: The breasts are again [...] is recommended in 1 year. Mammo Location: [facility], [address] [place] [address] -------- FINAL REPORT -------- Dictated By: Tim Srivastava Dictated Date: 05/06/2025 07:26 ET Assigned Physician: Tim Srivastava Reviewed and Electronically Signed By: Tim Srivastava Signed Date: 05/06/2025 07:30 ET Workstation ID: [id number] Transcribed By: Self Edit Transcribed Date: 05/06/2025 07:26 ET us Self Referral Sppl IMG BI PROCEDURES Final Resul t from Last 3 Months Insurance [facility] MEDICARE Member Subscriber Plan / Payer (Ef fective 2021-Present) Name:FREDY TAVERAS Relation to Subscriber:Self Name:Fredy Taveras Payer ID:[id number] Group ID:[id number] Type:Not on file Address: [address] [address] Care Teams Assembler Sandal Parts Relationship Specialty Start Date End Date Derick Stern NP [address] [facility] [address] [place] [address] PCP - General Nurse Practitioner 01/07/25
--- OUTSIDE RECORDS SUMMARY | 2025-07-08 14:27 | XMS_ITS | Encounter Summary ---
Author Organization [employer] Address [address] [place] [address] [address] [place] [address] Care Team Providers Care Information Technology Professor Name Role Phone Unavailable Primary Care Provider Unavailabl e Reason for Visit * Reason Onset Date Comments Dr. Elder medication 06/06/2025 Encounter Details Date Type Department Care Team (Late Contact Info) Description 06/06/[address] [facility] [address] [place] [address] Geovany Elder, DMD [address] [place] [address] Dr. Elder medication Social History Tobacco Use [...] was gone upper right but its back. documented in this encounter Plan of Treatment Upcoming Encounters Date Type Department Care Team (Late st Contact Info) Description 10/27/2025 8:00 AM EST Office Visit [facility] [address] [place] [address] Dorothea Evangelista [address] [place] [address] documented as of this encounter Visit Diagnoses Not on filedocumented in this encounter
--- OUTSIDE RECORDS SUMMARY | 2025-07-08 14:27 | XMS_ITS | Encounter Summary ---
Author Organization [employer] Address [address] [place] [address] 7 [place] [address] Care Team Providers Care Sales Program Manager Name Role Phone Unavailable Primary Care Provider Unavailabl e Reason for Visit * Reason Onset Date Comments medication 09/22/2023 medication 09/22/2023 Encounter Details Date Type Department Care Team ([facility] st Contact Info) Description 09/22/2023 Telephone [facility] [address] [place] [address] Geovany Elder DMD [address] [place] [address] medication; medication Social History Tobacco Use Types [...] this pt * Telephone Encounter - Michelle Maddox - 10/06/2023 10:16 AM EST Patient is looking [...] Description 10/27/2025 8:00 AM EST Office Visit [facility] [address] [place] [address] Tonja Dorothea [address] [place] [address] documented as of this encounter Visit Diagnoses Not on filedocumented in this encounter
--- OUTSIDE RECORDS SUMMARY | 2025-07-08 14:27 | XMS_ITS | Encounter Summary ---
Author Organization [employer] Address [address] [place] [address] 7 [place] [address] Care Team Providers Care Account Executive Metalworking Name Role Phone Unavailable Primary Care Provider Unavailabl e Reason for Visit * Reason Comments Med Refill Encounter Details Date Type Department Care Team (Late st Contact Info) Description 06/06/2025 Refill [facility] [address] [place], [place] [phone] Kennedy Zapata DDS [address] [place], [place] [phone] Social History Tobacco Use Types Packs/Day Years [...] Description 10/27/2025 8:00 AM EST Office Visit [facility] [address] [place] [address] Dorothea Evangelista [address] [place] [address] documented as of this encounter Visit Diagnoses Not on filedocumented in this encounter
--- OUTSIDE RECORDS SUMMARY | 2025-07-08 14:27 | XMS_ITS | Patient Health Record ---
Author Organization [facility] Address [address] [place] [address] Care Team Providers Care Industrial Fabric Cutter Name Role Phone TOLBERTSTALIN KEBEDE Primary Care Provider ALO COUCH Unavailable [phone] AXEL ALVARADO Unavailable [phone] Allergies Allergen (clinical drug ingredient) Drug/Non Drug [...] Range Notes MG MAMMO DIGITAL SCREENING W BP BILAT Reviewed date:05/06/2025 07:45:09 AM Interpretation: Performing Lab: Notes/Report: Note See Note [facility], a member of [employer] Patient Name: FREDY TAVERAS Date of : 1970 Reason for Exam: Exam Date: 05/05/2025 [id number] EST Report Status: Final Ordering Provider: SELF [...] and CC projection is performed in the PageFreezere 2000-D unit. Computer aided detection utilizing the A Fourth Act system was utilized. FINDINGS: The breast s [...] is recommended in 1 year. Mammo Location: [facility], [address] [place] [address] -------- FINAL REPOR T -------- Dictated By: Tim Srivastava Dictated Date: 05/06 07:26 ET Assigned Physician: Tim Srivastava Reviewed and Electronically Signed By: Tim Srivastava Signed Date: 025 07:30 ET Workstation ID: [id number] Transcribed By: Self Edit Transcribed Date: 05/06/2025 07:26 ET URINALYSIS WITH REFLEX MICRO SCOPIC AND CULTURE Reviewed date:01/08/2025 12:25:40 PM Interpretation: Performing Lab: Notes/Report: Specific [place] Urine 1.023 1.003-1.030 pH, Urine 7.0 5.0-8.0 [...] /HPF Hyaline Casts, Urine 4.0 0-3 /LPF Reason For Referral No Information Medications Medication SIG (Take, Route, Frequency, Duration) [...] Status Risk Notes Problem Vitamin D deficiency (84064349) Vitamin D deficiency, unspecified (E55.9) Active confirmed Problem Hyperlipidemia (99295291) Hyperlipidemia, unspecified (E78.5) Active confirmed Problem Generalized anxiety disorder (36522545) Generalized anxiety disorder (F41.1) Active confirmed Problem Seasonal allergic rhinitis (035717265) Other seasonal allergic rhinitis (J30.2) Active confirmed Problem Asthma (054083865) Other asthma (J45.998) Active confirmed Problem Pain in limb (85945981) Pain in right hand (M79.641) Active confirmed Problem Lipid screening (665950920) Encounter for screening for lipoid disorders (Z13.220) Active confirmed Problem Pain of left knee region (finding) (091977561235705) Left knee pain, unspecified chronicity (M25.562) Active confirmed Problem Adult health examination (164952625) Adult general medical exam (Z00.00) Active confirmed Problem Kidney stone (83248877) Kidney stone (N20.0) Active confirmed Problem Kidney stone (56227833) Kidney stones (N20.0) Active confirmed Problem Diabetes mellitus screening (953888829) Diabetes mellitus screening (Z13.1) Active confirmed Problem Nephrolithiasis (09325214) Nephrolithiasis (N20.0) Active confirmed Problem Gastroesophageal reflux disease (738867765) GERD without esophagitis (K21.9) Active confirmed Problem Avitaminosis D (94676991) Avitaminosis D (E55.9) Active confirmed Problem Endocrine/metabolic screening (141484679) Encounter for screening for endocrine disorder (Z13.29) Active confirmed Problem External hemorrhoids (52065860) External hemorrhoids (K64.4) Active confirmed Problem Thrombosed external hemorrhoid (09469229) Thrombosed external hemorrhoid (K64.5) Active confirmed Vital Signs Heart Rate 86 /min 01/07/2025 Oximetry 95 % 01/07/2025 Blood pressure diastolic 84 mm Hg 01/07/2025 Height 63 in 01/07/2025 Blood pressure systolic 128 mm Hg 01/07/2025 Weight 118 lbs 01/07/2025 BMI 20.9 kg/m2 01/07/2025 Encounters Encounter Location Date Provider Diagnosis [facility] [address] [address] 05/27/2025 ALO COUCH Annual physical exam Z00.00 ; Encounter for screening for depression Z13.31 ; Encounter for screening for other disorder Z13.89 ; Advanced directives, counseling/discussion Z71.89 ; Generalized anxiety disorder F41.1 ; Other seasonal allergic rhinitis J30.2 ; Nephrolithiasis N20.0 and Encounter for examination of blood pressure without abnormal findings Z01.30 [facility] [address] [address] 10/21/2024 ALO COUCH Generalized anxiety disorder F41.1 ; Other seasonal allergic rhinitis J30.2 ; Nephrolithiasis N20.0 and External hemorrhoids K64.4 [facility] [address] [address] 01/07/2025 AXEL ALVARADO Painless hematuria R 31.9 ; Generalized anxiety disorder F41.1 ; Kidney stones N20.0 ; Other seasonal allergic rhinitis J30.2 ; GERD without esophagitis K21.9 and External hemorrhoids K64.[address] [facility] [address] [address] 10/15/2024 ALO BORHOT [facility] [address] [address] 01/07/2025 ALO BORHOT [facility] [address] [address] 01/07/2025 ALO BORHOT [facility] [address] [address] 01/08/2025 ALO BORHOT Kidney stone N20.0 [facility] [address] [address] 01/13/2025 TALHERMELINDO PRESCOTTAN [facility] [address] [address] 01/24/2025 ALO BORHOT [facility] [address] [address] 02/19/2025 ALO BORHOT [facility] [address] [facility] [address] [address] 05/28/2025 ALO BORHOT Assessments Encounter Date Diagnosis (ICD Code) Assessment Notes Treatment Notes Treatment Clinical Notes Section Notes 10/21/2024 Generalized anxiety disorder (ICD-10 - F41.1) [...] software and direct typing Please excuse inadvertent underwear cutter or typing errors, or uncorrected word substitutions Although every attempt has been made by the provider to proofread this document, occasional misspellings and typographical errors may still be present Due to the previous pandemic, and the use of personal protective equipment (PPE) This may decrease voice recognition accuracy Inadvertent underwear cutter errors may occur 01/07/2025 Generalized anxiety [...] this time. # Nephrolithiasis: Patient follows with [place] [facility]. Last office visit scanned in chart from 2022, renal ultrasound with findings of 4 mm stones x 2 on the left side and a 3 mm right small punctuate stone. Patient that time advised to increase her hydration and continue to monitor. # Hemorrhoids: Patient follows with gastroenterology in [place]. Also has had follow-up with surgery regarding [...] Dictation was accomplished with the use of Equipboard voice recognition software, which is prone to [...] this time. # Nephrolithiasis: Patient follows with [place] [facility]. Last office visit scanned in chart from 2022, renal ultrasound with findings of 4 mm stones x 2 on the left side and a 3 mm right small punctuate stone. Patient that time advised to increase her hydration and continue to monitor. # Hemorrhoids: Patient follows with gastroenterology in [place]. Also has had follow-up with surgery regarding [...] Dictation was accomplished with the use of Equipboard voice recognition software, which is prone to [...] software and direct typing Please excuse inadvertent underwear cutter or typing errors, or uncorrected word substitutions Although every attempt has been made by the provider to proofread this document, occasional misspellings and typographical errors may still be present Due to the previous pandemic, and the use of personal protective equipment (PPE) This may decrease voice recognition accuracy Inadvertent underwear cutter errors may occur 05/27/2025 Annual physical exam (ICD-10 - Z00.00) Acute Concerns/Problem List: 05/27/2025 Of note, some information is being carried forward from prior records for informational purposes only and is being cited so that efficiency, safety and quality of the patient's care is not compromised This note was prepared using voice recognition software and direct typing Please excuse inadvertent underwear cutter or typing errors, or uncorrected word substitutions Although every attempt has been made by the provider to proofread this document, occasional misspellings and typographical errors may still be present Due to the previous pandemic, and the use of personal protective equipment (PPE) This may decrease voice recognition accuracy Inadvertent underwear cutter errors may occur 05/27/2025 Encounter for [...] software and direct typing Please excuse inadvertent underwear cutter or typing errors, or uncorrected word substitutions Although every attempt has been made by the provider to proofread this document, occasional misspellings and typographical errors may still be present Due to the previous pandemic, and the use of personal protective equipment (PPE) This may decrease voice recognition accuracy Inadvertent underwear cutter errors may occur 01/07/2025 Kidney stones [...] this time. # Nephrolithiasis: Patient follows with [place] [facility]. Last office visit scanned in chart from 2022, renal ultrasound with findings of 4 mm stones x 2 on the left side and a 3 mm right small punctuate stone. Patient that time advised to increase her hydration and continue to monitor. # Hemorrhoids: Patient follows with gastroenterology in [place]. Also has had follow-up with surgery regarding [...] Dictation was accomplished with the use of Equipboard voice recognition software, which is prone to [...] software and direct typing Please excuse inadvertent underwear cutter or typing errors, or uncorrected word substitutions Although every attempt has been made by the provider to proofread this document, occasional misspellings and typographical errors may still be present Due to the previous pandemic, and the use of personal protective equipment (PPE) This may decrease voice recognition accuracy Inadvertent underwear cutter errors may occur 10/21/2024 Nephrolithiasis (ICD-10 [...] software and direct typing Please excuse inadvertent underwear cutter or typing errors, or uncorrected word substitutions Although every attempt has been made by the provider to proofread this document, occasional misspellings and typographical errors may still be present Due to the previous pandemic, and the use of personal protective equipment (PPE) This may decrease voice recognition accuracy Inadvertent underwear cutter errors may occur 01/07/2025 Other seasonal [...] this time. # Nephrolithiasis: Patient follows with [facility]. Last office visit scanned in chart from 2022, renal ultrasound with findings of 4 mm stones x 2 on the left side and a 3 mm right small punctuate stone. Patient that time advised to increase her hydration and continue to monitor. # Hemorrhoids: Patient follows with gastroenterology in [place]. Also has had follow-up with surgery regarding [...] Dictation was accomplished with the use of Equipboard voice recognition software, which is prone to [...] software and direct typing Please excuse inadvertent underwear cutter or typing errors, or uncorrected word substitutions Although every attempt has been made by the provider to proofread this document, occasional misspellings and typographical errors may still be present Due to the previous pandemic, and the use of personal protective equipment (PPE) This may decrease voice recognition accuracy Inadvertent underwear cutter errors may occur 01/07/2025 GERD without [...] this time. # Nephrolithiasis: Patient follows with [place] [facility]. Last office visit scanned in chart from 2022, renal ultrasound with findings of 4 mm stones x 2 on the left side and a 3 mm right small punctuate stone. Patient that time advised to increase her hydration and continue to monitor. # Hemorrhoids: Patient follows with gastroenterology in [place]. Also has had follow-up with surgery regarding [...] Dictation was accomplished with the use of Equipboard voice recognition software, which is prone to [...] software and direct typing Please excuse inadvertent underwear cutter or typing errors, or uncorrected word substitutions Although every attempt has been made by the provider to proofread this document, occasional misspellings and typographical errors may still be present Due to the previous pandemic, and the use of personal protective equipment (PPE) This may decrease voice recognition accuracy Inadvertent underwear cutter errors may occur 10/21/2024 External hemorrhoids [...] software and direct typing Please excuse inadvertent underwear cutter or typing errors, or uncorrected word substitutions Although every attempt has been made by the provider to proofread this document, occasional misspellings and typographical errors may still be present Due to the previous pandemic, and the use of personal protective equipment (PPE) This may decrease voice recognition accuracy Inadvertent underwear cutter errors may occur 05/27/2025 Other seasonal allergic rhinitis (ICD-10 - J30.2) Acute Concerns/Problem List: 05/27/2025 Of note, some information is being carried forward from prior records for informational purposes only and is being cited so that efficiency, safety and quality of the patient's care is not compromised This note was prepared using voice recognition software and direct typing Please excuse inadvertent underwear cutter or typing errors, or uncorrected word substitutions Although every attempt has been made by the provider to proofread this document, occasional misspellings and typographical errors may still be present Due to the previous pandemic, and the use of personal protective equipment (PPE) This may decrease voice recognition accuracy Inadvertent underwear cutter errors may occur 01/07/2025 External hemorrhoids [...] this time. # Nephrolithiasis: Patient follows with [facility]. Last office visit scanned in chart from 2022, renal ultrasound with findings of 4 mm stones x 2 on the left side and a 3 mm right small punctuate stone. Patient that time advised to increase her hydration and continue to monitor. # Hemorrhoids: Patient follows with gastroenterology in [place]. Also has had follow-up with surgery regarding [...] Dictation was accomplished with the use of Equipboard voice recognition software, which is prone to [...] software and direct typing Please excuse inadvertent underwear cutter or typing errors, or uncorrected word substitutions Although every attempt has been made by the provider to proofread this document, occasional misspellings and typographical errors may still be present Due to the previous pandemic, and the use of personal protective equipment (PPE) This may decrease voice recognition accuracy Inadvertent underwear cutter errors may occur 05/27/2025 Encounter for [...] software and direct typing Please excuse inadvertent underwear cutter or typing errors, or uncorrected word substitutions Although every attempt has been made by the provider to proofread this document, occasional misspellings and typographical errors may still be present Due to the previous pandemic, and the use of personal protective equipment (PPE) This may decrease voice recognition accuracy Inadvertent underwear cutter errors may occur Plan Of Treatment [...] [employer] [address] [address] [phone] FREDY Taveras Self - patient is the insured Medical (General) History Medical History History ICD Code anxiety Allergies Deafness Surgical History Surgery Date(Month/Year) nose surgery
== END 2025-07-08 11:47 | disposition home or self-care (01) ==
LOC: HO.LAB 11:46
PROVIDERS: PCP Internal Medicine; Visit Provider Internal Medicine
DX: E55.9 Vitamin D deficiency, unspecified (principal); E78.00 Pure hypercholesterolemia, unspecified
CPT/HCPCS: 36415; 80053; 80061; 82306

== ENCOUNTER 2025-08-04 09:52 | Outpatient (AMB) | payer OTHER, SELFPAY ==
--- NOTE | 2025-08-04 10:01 | MHC.PC.OV ---
Vital Signs 08/04/25 10:02 Height 5 ft 5 in Weight 113 lb 4 oz BMI 18.8 BP 120/78 Blood Pressure Location Lt brachial Position Sitting Pulse 77 Pulse Source Pulse Oximeter Temp 97.0 F Temp Source Temporal Artery Scan Pulse Oximetry (%) 94 Oxygen Delivery Method Room Air Intake Visit Reasons: asking for Referrals Navigation Teacher Required: Yes Navigation Teacher Language: Security Operations Engineer Name: Nicolasa [id number] Accompanied by: Self / Same As Patient Allergies doxycycline Allergy (Severe, Verified 08/04/25 10:22) Fever morphine (MORPHINE) Allergy (Severe, Verified 08/04/25 10:22) HEART RATE ST WITH PALPATIONS AND RASH. alprazolam Allergy (Unknown, Verified 08/04/25 10:) Cough, SOB aspirin (ASPIRIN) Allergy (Unknown, Verified 08/04/25 10:) HOT IN BODY atenolol (ATENOLOL) Allergy (Unknown, Verified 08/04/25 10:) Dizziness atropine (From Lomotil) Allergy (Unknown, Verified 08/04/25 10:) Unknown azithromycin (AZITHROMYCIN) Allergy (Unknown, Verified 08/04/25 10:22) DIZZY ciprofloxacin Allergy (Unknown, Verified 08/04/25 10:22) Dizziness codeine (CODEINE) Allergy (Unknown, Verified 08/04/25 10:) UNKNOWN diphenoxylate (From Lomotil) Allergy (Unknown, Verified 08/04/25 10:) Unknown garlic Allergy (Unknown, Verified 08/04/25 10:22) Unknown hydrochlorothiazide Allergy (Unknown, Verified 08/04/25 10:22) hypertension lisinopril (LISINOPRIL) Allergy (Unknown, Verified 08/04/25 10:22) HEART POUNDING, palpitations Lonox Allergy (Unknown, Verified 08/04/25 10:22) hot flash metoprolol Allergy (Unknown, Verified 08/04/25 10:22) Dizziness onion Allergy (Unknown, Verified 08/04/25 10:) Unknown oxycodone (OXYCODONE) Allergy (Unknown, Verified 08/04/25 10:22) HOT AND DIZZY Penicillins (PENICILLINS) Allergy (Unknown, Verified 08/04/25 10:22) ITCHING RASH pepper (genus Capsicum) Allergy (Unknown, Verified 08/04/25 10:22) Unknown prednisone Allergy (Unknown, Verified 08/04/25 10:22) Headache prochlorperazine (From Compazine) Allergy (Unknown, Verified 08/04/25 10:22) Unknown sumatriptan Allergy (Unknown, Verified 08/04/25 10:22) Dizziness tramadol (TRAMADOL) Allergy (Unknown, Verified 08/04/25 10:22) DIZZINESS cyclobenzaprine Allergy (Verified 08/04/25 10:22) increased BP barrett Allergy (Verified 08/04/25 10:22) Unknown orange Allergy (Verified 08/04/25 10:22) Unknown pantoprazole Allergy (Verified 08/04/25 10:22) Diarrhea albuterol (From Ventolin HFA) Adverse Reaction (Mild, Verified 08/04/25 10:) Hot feeling ibuprofen (From Advil) Adverse Reaction (Unknown, Verified 08/04/25 10:22) Hot inside body naproxen (From Aleve) Adverse Reaction (Unknown, Verified 08/04/25 10:22) Hot inside body Diphenoxylate-Atropine Allergy (Unknown, Uncoded 08/04/25 10:22) Unknown Q-Tussin Allergy (Unknown, Uncoded 08/04/25 10:22) increased BP salt Allergy (Uncoded 08/04/25 10:22) Unknown Medication List - Last Reconciled 08/04/25 by Emmy Escalante MD acetaminophen (Tylenol Extra Strength) 500 mg PO Q4-6H PRN jmqcvsmfqm-uidztrcpticba-ffma 50-325-40 mg 1 tab PO Q6H PRN cholecalciferol (vitamin D3) (Vitamin D3) 50 mcg PO DAILY dicyclomine 10 mg PO TID 30 days famotidine 20 mg PO DAILY fluoride (sodium) 1.1% 1 appl dental BID hydrocortisone 2.5% topical hydroxyzine HCl 10 mg PO Q8H PRN ketorolac 10 mg PO Q8H PRN 30 days lorazepam 0.5 mg PO DAILY PRN 30 days montelukast 10 mg PO DAILY 90 days phenazopyridine (Pyridium) 200 mg PO TID PRN 6 doses pyridoxine (vitamin B6) 50 mg PO DAILY 90 days tamsulosin 0.4 mg PO BEDTIME 14 days Tobacco use date assessed: 08/04/25 Dental Screening Dental Screen Date: 08/04/25 Did you have a dental visit in the last 12 months?: Yes Did you have a dental problem in the last 6 months where you did not have access to dental care?: No Was dental information given to patient?: Patient has dentist HPI HPI Comments History of Present Illness Details The patient is a 55-year-old female who presented for a follow-up on her nephrolithiasis and recent labs. Has elevated cholesterol but does not require medication. 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 The patient has a history of kidney stones and is followed by urology. She underwent a procedure for her kidney stones two to three weeks ago at [facility] and another surgery at the [facility] about two years ago. She also had a lithotripsy in 2008. She takes Vitamin B6 for the prevention of kidney stones. Her medical history also includes a prior evaluation by gastroenterology for abdominal pain, for which she has had an endoscopy and colonoscopy. She was seen by neurology for tension headaches two months ago and previously took Fioricet, but she no longer experiences headaches. Her allergies include doxycycline, morphine, alprazolam, atropine, ciprofloxacin-codeine, Lomotil, garlic, hydrochlorothiazide, and penicillin. She previously had an allergy to aspirin, which resolved after her periods stopped. She is unsure if she is allergic to azithromycin. A review of recent blood work revealed high cholesterol, which she has managed with dietary changes, including stopping salt and beef, and eating more salads and avocado. Her blood sugar, kidney, and liver function were normal. She was also found to be low in vitamin D and currently takes a vitamin D3 supplement. [facility] Medical History Asthma Kidney stones Low vitamin D level Abdominal pain Internal and external prolapsed hemorrhoids Speech and language development delay due to hearing loss Screening for colon cancer IBS (irritable colon syndrome) Surgical History Hx of gynecological procedure History of lithotripsy History of esophagogastroduodenoscopy (EGD) (~2018) Hx of colonoscopy (~2018) Family History Mother Breast cancer Maternal Aunt Breast cancer Father Lung cancer Social History Household Members: Friend(s) Housing: House Are you a primary managed care specialist to a significant other at home: No Alcohol intake: never Patient Tobacco Use Status: Never used Tobacco e-Cigarette/Vaping Use: Never Used service: No Current occupational status: retired Cognitive needs: No Questionnaire PHQ-9 Over the last 2 weeks, how often have you been bothered by any of the following problems? 1. Little interest or pleasure in doing things: not at all 2. Feeling down, depressed, or hopeless: not at all 3. Trouble falling or staying asleep, or sleeping too much: not at all 4. Feeling tired or having little energy: not at all 5. Poor appetite or overeating: not at all 6. Feeling bad about yourself - or that you are a failure or have let yourself or your family down: not at all 7. Trouble concentrating on things, such as reading the newspaper or watching television: not at all 8. Moving or speaking so slowly that other people could have noticed. Or the opposite - being so fidgety or restless that you have been moving around a lot more than usual: not at all 9. Thoughts that you would be better off or of hurting yourself in some way: not at all Total score: 0 Depression Screening Interpretation: Negative Depression Screening Done: Yes 60220 - PHQ-9 Billing: Yes Source: Developed by Drs. Sincere Waggoner, Monica Marquis, Galileo Pollack and colleagues, with an educational ruperto from [employer]. Thrive Questionnaire Date Thrive assessed: 06/02/25 I am a: Patient What is your living situation today?: I have a steady place to live Within the past 12 months, did the food you bought not last and you didn't have the money to get more?: I choose not to answer this question Within the past 12 months, did you worry whether your food would run out before you got money to buy more?: I choose not to answer this question Do you have trouble paying for medicines?: No Do you have trouble getting transportation to medical appointments?: No Do you have trouble paying your heating and electricity bill?: No Do you have trouble taking care of your child, family member or friend?: No Do you have trouble with day-to-day activities such as bathing, preparing meals, shopping, managing finances, etc.?: No Are you currently unemployed and looking for a job?: No Are you interested in more education?: No Currently or been in a relationship where the following occur: I choose not to answer THRIVE Score: 0 AUDIT C Alcohol Use Questionnaire (AUDIT-C) 1. How often do you have a drink containing alcohol?: Never 3. How often do you have six or more drinks on one occasion?: Never Total Score: 0 Score Reviewed/Action Taken: No AKANKSHA-7 AMB Questionnaire AKANKSHA-7 Date AKANKSHA - 7 assessed: 06/04/25 Feeling nervous, anxious, or on edge: 0 = Not at all Not being able to stop or control worryin = Not at all Worrying too much about different things: 0 = Not at all Trouble relaxin = Not at all Being so restless that it is hard to sit still: 0 = Not at all Becoming easily annoyed or irritable: 0 = Not at all Feeling afraid as if something awful might happen: 0 = Not at all Total AKANKSHA-7 score (0-4 normal; 5-9 mild; 10-14 moderate; 15-21 severe): 0 Source: Developed by Drs. Sincere Waggoner, Monica Marquis, Galileo Pollack and colleagues, with an educational ruperto from [employer]. AKANKSHA-7 Assessment Billing AKANKSHA-7 Assessment Tool: AKANKSHA-7 Assessment 15833 Review of Systems Const All systems reviewed & are unremarkable except as noted in HPI and below Card Denies chest pain at rest, Denies chest pain with activity, Denies edema, Denies irregular heart rhythm, Denies claudication, Denies dyspnea, Denies dyspnea on exertion, Denies orthopnea, Denies paroxysmal nocturnal dyspnea and Denies slow heart rate Resp Denies cough, Denies dyspnea and Denies dyspnea on exertion GI Denies abdominal pain, Denies change in bowel habits, Denies excessive flatus, Denies nausea and Denies vomiting Physical exam (Primary Care) Vital Signs: Last Vital Signs Temp 97.0 F 08/04/25 10:02 Pulse 77 08/04/25 10:02 BP 120/78 08/04/25 10:02 Pulse Ox 94 08/04/25 10:02 Oxygen Delivery Method Room Air 08/04/25 10:02 BMI result Body Mass Index 18.8 BMI Assessment/Plan discussion: Low Tobacco/Smoking Status: Tobacco use Status Tobacco use date assessed 08/04/25 08/04/25 10:06 Patient Tobacco Use Status Never used Tobacco 08/04/25 10:06 e-Cigarette/Vaping Use Never Used 08/04/25 10:06 PHQ-9: PHQ-9 Score PHQ-9: Total score 0 08/04/25 10:24 Depression Screening Interpretation: Negative Thrive Assessment: Date of Thrive Assessment Date Thrive assessed 06/02/25 08/04/25 10:06 Currently or been in a relationship where the following occur: I choose not to answer Resp Effort & Inspection: normal respiratory effort Auscultation: clear to auscultation bilaterally Cardio Jugular venous distension: no JVD Rate: regular rate Rhythm: regular rhythm Heart sounds: S1 normal heart sound present and S2 normal heart sound present Extrem General: Yes full ROM Coding Level of Care Code Est Pt Level 4 (33067) Complex EM visit Add On G2211 Diagnoses Pure hypercholesterolemia E78.00 Low vitamin D level R79.89 Nephrolithiasis N20.0 Tension headache G44.209 Additional Codes AKANKSHA-7 Assessment Billing - AKANKSHA-7 Assessment Tool: AKANKSHA-7 Assessment 30078 ([id number]) PHQ-9 - 91333 - PHQ-9 Billing: Yes ([id number]) Time Spent (min) 22 Assessment & Plan Assessment & Plan (1) Pure hypercholesterolemia: Code(s): E78.00 - Pure hypercholesterolemia, unspecified Category: Medical (2) Low vitamin D level: Code(s): R79.89 - Other specified abnormal findings of blood chemistry Category: Medical (3) Nephrolithiasis: Code(s): N20.0 - Calculus of kidney Category: Medical (4) Tension headache: Code(s): G44.209 - Tension-type headache, unspecified, not intractable Category: Medical Plan Plan 1. Pure hypercholesterolemia, unspecified E78.00 The patient has made dietary changes, including avoiding salt and beef, which have lowered her cholesterol. No medication is required at this time. She was advised that egg yolks may contribute to high cholesterol. 2. Calculus of kidney N20.0 The patient has a history of kidney stones and should continue to follow up with Urology. She will continue taking Vitamin B6 for stone prevention. 3. Vitamin D deficiency, unspecified E55.9 Continue vitamin D supplements. 4. Tension-type headache, unspecified, not intractable G44.209 Follow up with Neurology.
[2025-08-04 10:02] VITALS: BP 120/78; PULSE 77; TEMP 36.1; O2SAT 94; BMI 18.8
--- OUTSIDE RECORDS SUMMARY | 2025-08-04 11:15 | XMS_ITS | Encounter Summary ---
Author Organization [employer] Address [address] [place] [address] 7 [place] [address] Care Team Providers Care Manager Patient Name Role Phone Unavailable Primary Care Provider Unavailabl e Reason for Visit * Reason Comments Med Refill Encounter Details Date Type Department Care Team (Late st Contact Info) Description 11/13/2023 Refill [facility] ADULT DENTAL [address] [place] [address] Geovany Elder DMD [address] [place] [address] Social History Tobacco Use Types Packs/Day Years [...] 8:00 AM EST Office Visit [facility] ADULT DENTAL [address] [place] [address] TonjaDorothea bragg [address] [place] [address] documented as of this encounter Visit Diagnoses Not on filedocumented in this encounter
--- OUTSIDE RECORDS SUMMARY | 2025-08-04 11:15 | XMS_ITS | Encounter Summary ---
Author Organization [employer] Address [address] [place] [address] [address] [place] [address] Care Team Providers Care Broadcast Field Supervisor Name Role Phone Unavailable Primary Care Provider Unavailabl e Encounter Details Date Type Department Care Team (Late st Contact Info) Description 10/23/2023 Abstract [facility] ADULT DENTAL [address] [place], [place] [phone] Geovany Elder DMD [address] [place], [place] [phone] Social History Tobacco Use Types Packs/Day Years [...] [facility] [address] [place] [address] Dorothea Evangelista [address] [place], [place] [phone] documented as of this encounter Visit Diagnoses Not on filedocumented in this encounter
--- OUTSIDE RECORDS SUMMARY | 2025-08-04 11:15 | XMS_ITS | Encounter Summary ---
Author Organization [employer] Address [address] [place] [address] 7 [place] [address] Care Team Providers Care Orchestra Leader Name Role Phone Unavailable Primary Care Provider Unavailabl e Encounter Details Date Type Department Care Team (Late st Contact Info) Description 10/10/2023 Telephone [facility] ADULT DENTAL [address] [place], [place] [phone] Geovany Elder, DMD [address] [place], [place] [phone] Social History Tobacco Use Types Packs/Day Years [...] 8:00 AM EST Office Visit [facility] ADULT DENTAL [address] [place] [address] Dorothea Evangelista [address] [place] [address] documented as of this encounter Visit Diagnoses Not on filedocumented in this encounter
--- OUTSIDE RECORDS SUMMARY | 2025-08-04 11:15 | XMS_ITS | Clinical Summary ---
Author Organization [employer] Address [address] [place] [address] 7 [place] [address] Care Team Providers Care Journalist Name Role Phone Unavailable Primary Care Provider [...] Travel 06/23/2025 3:30 PM EDT Office Visit [facility] ADULT DENTAL [address] [place] [address] Geovany Elder DMD 06/22/2025 Travel 06/06/2025 Refill [facility] ADULT DENTAL [address] [place] [address] Kennedy Zapata DDS 06/06/2025 Telephone [facility] ADULT DENTAL [address] [place] [address] Yen medication 05/22/2025 9:00 AM EDT Office Visit [facility] ADULT DENTAL [address] [place] [address] Geovany Elder DMD 05/15/2025 Travel from Last 3 Months Social History [...] 8:00 AM EST Office Visit [facility] ADULT DENT[facility] [address] [place], [place] [phone] Tonja, Dorothea [address] [place] [address] Health Maintenance Due Date Last Done Comments [...] 03/11/2026 03/10/20 25, 11/01/2023, 02/23/2023 Tobacco Screening 06/30/2026 06/30/2025 Dental [...] PROBLEM FOCUSED Routine 05/22/2025 9:00 AM EDT PROPHYLAXIS - ADULT Routine 03/10/2025 2 [...] Relevant to Health Maintenance Insurance DENTAL - [facility]
--- OUTSIDE RECORDS SUMMARY | 2025-08-04 11:15 | XMS_ITS | Encounter Summary ---
Author Organization [employer] Address [address] [place] [address] [address] [place] [address] Care Team Providers Care Metal Milling Machine Operator Name Role Phone Unavailable Primary Care Provider Unavailabl e Reason for Visit * Reason Onset Date Comments script for pain infection 06/12/2023 Encounter Details Date Type Department Care Team ([facility] st Contact Info) Description 06/12/2023 Telephone [facility] ADULT D[facility]AL [address] [place] [address] Merrill Aguilar, KUMARS [address] [place] [address] script for pain infection Social History Tobacco [...] Description 10/27/2025 8:00 AM EST Office Visit [facility] [address] [place] [address] Dorothea Evangelista [address] [place] [address] documented as of this encounter Visit Diagnoses Not on filedocumented in this encounter
--- OUTSIDE RECORDS SUMMARY | 2025-08-04 11:15 | XMS_ITS | Encounter Summary ---
Author Organization [employer] Address [address] [place] [address] 7 [place] [address] Care Team Providers Care Nitrating Acid Mixer Name Role Phone Unavailable Primary Care Provider Unavailabl e Encounter Details Date Type Department Care Team (Latest Contact Info) Description 03/03/2021 Abstract [facility] CONVERSIONS Dental, Provider, DDS Social History Tobacco [...] Visit [facility] AD[facility] [address] [place] [address] Larry Evangelistaaris [address] [place] [address] documented as of this encounter Visit Diagnoses Not on filedocumented in this encounter
--- OUTSIDE RECORDS SUMMARY | 2025-08-04 11:15 | XMS_ITS | Encounter Summary ---
Author Organization [employer] Address [address] [place] [address] 7 [place] [address] Care Team Providers Care Anglesmith Name Role Phone Unavailable Primary Care Provider Unavailabl e Reason for Visit * Reason Onset Date Comments Dr. Elder medication 06/06/2025 Encounter Details Date Type Department Care Team (Late Contact Info) Description 06/06/2025 Telephone [facility] [address] [place] [address] Geovany Elder, DMD [address] [place] [address] Dr. Elder medication Social History Tobacco Use [...] [facility] ADULT D[facility] [address] [place] [address] Dorothea Evangelista [address] [place] [address] documented as of this encounter Visit Diagnoses Not on filedocumented in this encounter
--- OUTSIDE RECORDS SUMMARY | 2025-08-04 11:15 | XMS_ITS | Encounter Summary ---
Author Organization [employer] Address [address] [place] [address] 7 [place] [address] Care Team Providers Care Child Care Center Administrator Name Role Phone Unavailable Primary Care Provider Unavailabl e Reason for Visit * Reason Onset Date Comments Appointment 01/16/2023 Encounter Details Date Type Department Care Team ([facility] st Contact Info) Description 01/16/2023 Telephone [facility] ADULT DENTAL [address] [place] [address] Geovany Elder, DMD [address] [place] [address] Appointment Social History Tobacco Use Types Packs/Day [...] 10/27/2025 8:00 AM EST Office Visit [facility] ADULT DENTAL [address] [place] [address] Dorothea Evangelista [address] [place] [address] documented as of this encounter Visit Diagnoses Not on filedocumented in this encounter
--- OUTSIDE RECORDS SUMMARY | 2025-08-04 11:15 | XMS_ITS | Encounter Summary ---
Author Organization [employer] Address [address] [place] [address] [address] [place] [address] Care Team Providers Care Pest Locator Name Role Phone Unavailable Primary Care Provider Unavailabl e Reason for Visit * Reason Comments Med Refill Encounter Details Date Type Department Care Team (Late st Contact Info) Description 06/06/2025 Refill [facility] ADULT DENTAL [address] [place], [place] [phone] Kennedy Zapata DDS [address] [place], [place] [phone] Social History Tobacco Use Types Packs/Day Years [...] Description 10/27/2025 8:00 AM EST Office Visit [facility] ADULT DENT[facility] [address] [place] [address] Dorothea Evangelista [address] [place] [address] documented as of this encounter Visit Diagnoses Not on filedocumented in this encounter
--- OUTSIDE RECORDS SUMMARY | 2025-08-04 11:15 | XMS_ITS | Encounter Summary ---
Author Organization [employer] Address [address] [place] [address] Care Team Providers Care Database Dba Name Role Phone Derick Stern Juna MAIL CARRIER AND CLERK Primary Care Provider [phone] Encounter Details Date Type Department Care Team (Latest Contact Info) Description 07/17/[address] [facility] - Main Lab [address] [facility] [place] [phone] Wander Ponce MD [address] [facility] [address] [place] [phone] Encounter for gynecological examination (general) (routine) without abnormal findings Social History Tobacco Use Types Packs/Day Years [...] PM EDT Sexual Orientation Not on file documented as of this encounter Plan of Treatment Upcoming Encounters Date Type Department Care Team (Late st Contact Info) Description 04/06/2026 1:30 PM EDT Office Visit [facility] - [place] [address] [facility] [address] [place] [address] Dwight Verdugo MD [address] [place], [place] [phone] documented as of this encounter Procedures Procedure Name Priority Date/Time Associated Diagnosis Comments PAP SMEAR Routine 07/16/2025 12:00 AM EDT Encounter for gynecological examination (general) (routine) without abnormal findings documented in this encounter Results * Pap smear (07/16/2025 12:00 AM EDT) Interpretation Negative for intraepithelial lesion or malignancy 07/25/2025 9:01 AM EDT [facility] at 0901 EDT General Categorization Negative 07/25/2025 9:01 AM EDT [facility] Other Findings Atrophy 07/25/2025 9:01 AM EDT [facility] Specimen Adequacy Satisfactory for evaluation 07/25/2025 9:01 AM EDT [facility] Pap Methodology Liquid Based Pap Test 07/25/2025 9:01 AM EDT [facility] Disclaimer The Pap test is a screening test which carries an inherent false negative rate. These test results should be correlated with the patient's clinical findings and history. This Pap test was processed using an automated screening system. Technical cytopathology services provided by [facility], at [address] [place] [id number] (CLIA # [id number]/Turner Dawkins MD, Bosom Presser.) 07/25/2025 9:01 AM T [facility] Console Pap Interpretation Reported 07/25/2025 9:01 AM [facility] Brushing/Spatula Cervix uteri structure / Unknown 07/16/2025 07/17/2025 7:26 AM EDT us Wander Ponce MD LAB CYTOLOGY ORDERABLES Final Result [facility] [address] [place] [address], documented in this encounter Visit Diagnoses Diagnosis Encounter for gynecological examination (general) (routine) without abnormal findings documented in this encounter Care Teams Database Dba Relationship Specialty Start Date End Date Derick Stern, MAIL CARRIER AND CLERK [address] [place] [address] PCP - General Nurse Practitioner 01/07/25 documented as of this encounter
--- OUTSIDE RECORDS SUMMARY | 2025-08-04 11:15 | XMS_ITS | Encounter Summary ---
Author Organization [employer] Address [address] [place] [address] 7 [place] [address] Care Team Providers Care Unhairer Name Role Phone Unavailable Primary Care Provider Unavailabl e Reason for Visit * Reason Onset Date Comments medication 08/14/2023 Encounter Details Date Type Department Care Team ([facility] st Contact Info) Description 08/14/2023 Telephone [facility] [address] [place] [address] Geovany Elder DMD [address] [place] [address] medication Social History Tobacco Use Types Packs/Day [...] Description 10/27/2025 8:00 AM EST Office Visit [facility] [address] [place] [address] Dorothea Evangelista [address] [place] [address] documented as of this encounter Visit Diagnoses Not on filedocumented in this encounter
--- OUTSIDE RECORDS SUMMARY | 2025-08-04 11:15 | XMS_ITS | Clinical Summary ---
Author Organization [facility] Address [address] [place] [address] Phone Care Team Providers Care Copy Coordinator Name Role Phone Derick Stern PRODUCT SAF[employer]Y EXPERT Primary Care Provider [phone] Allergies No known active allergies Medications butalbital-acet [...] Encounters Date Type Department Care Team Description 07/17/2025 Lab Requisition [facility] - Main Lab [address] [facility] [place] [address] Wander Ponce MD Encounter for gynecological examination (general) (routine) without abnormal findings 05/05/2025 1:17 PM EDT - 05/05/2025 11:59 PM EDT Hospital Encounter [facility] [address] [place] [address] Encounter for screening mammogram for breast cancer Discharge Disposition: Home or Self Care from Last 3 Months Medical History Medical History Date Comments Anxiety 02/02/2017 DX:Anxiety 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; COMMENT: Needs ophthalmic assistant HTN (hypertension) 02/02/2017 DX:HTN (hyper tension) Irritable [...] PM EDT Office Visit [facility] [place] [address] [id number] Dwight Verdugo MD [address] [place] [address] Health Maintenance Due Date Last Done Comments Colorectal Cancer Screening: Colonoscopy 1968 DTaP,Tdap,and Td Vaccines (1 - Tdap) 1987 Hepatitis A Vaccines (1 of 2 - Risk 2-dose series) 1987 Hepatitis B Vaccines (1 of 3 - 19+ 3-dose series) 1987 Pneumococcal Vaccine: 50+ Years (1 of 1 - PCV) 2018 RSV Immunization Adult Patients (1 - Risk 50-74 years 1-dose series) 2018 Zoster Vaccines (1 of 2) 2018 Cholesterol Screening (Lipid Panel) 09/04/2022 HIV Screening 09/04/2022 Hepatitis C Screening 09/04/2022 Medicare Annual Wellness Visit 09/04/2022 Social Influencers of Health Screening 09/04/2022 Hypertension/CHF/CAD Annual BMP Blood Test 09/07/2022 Depression Screening 09/25/2024 Influenza Vaccine (#1) 2025 , 06/29/2023, 06/29/2022, Additional history exists Breast Cancer Screening 05/05/2027 05/05/20 25, 05/28/2024, 05/23/2023, Additional history exists Cervical Cancer Screening: Pap Smear 07/16/2028 07/16/2025 COVID-19 Vaccine Completed 10/30/2024, 10/2023, 11/01/2022, Additional [...] gynecological examination (general) (routine) without abnormal findings MG MAMMO DIGITAL SCREENING W SEE BILAT Routine 05/05/2025 1:36 PM EDT Encounter for screening mammogram for breast cancer from Last 3 Months Results * Pap smear (07/16/2025 12:00 AM EDT) Interpretation Negative for intraepithelial lesion or malignancy 07/25/2025 9:01 AM EDT [facility] at 0901 EDT General Categorization Negative 07/25/2025 9:01 AM EDT [facility] Other Findings Atrophy 07/25/2025 9:01 AM EDT [facility] Specimen Adequacy Satisfactory for evaluation 07/25/2025 9:01 AM EDT [facility] Pap Methodology Liquid Based Pap Test 07/25/2025 9:01 AM EDT [facility] Disclaimer The Pap test is a screening test which carries an inherent false negative rate. These test results should be correlated with the patient's clinical findings and history. This Pap test was processed using an automated screening system. Technical cytopathology services provided by [facility], at [address] [place] [address] (CLIA # [id number]/Turner Dawkins MD, Chemist Physical.) 07/25/2025 9:01 AM EDT [facility] Console Pap Interpretation Reported 07/25/2025 9:01 AM T [facility] Brushing/Spatula Cervix uteri structure / Unknown 07/16/2025 07/17/2025 7:26 AM EDT us Wander Ponce MD LAB CYTOLOGY ORDERABLES Final Result [facility]) [facility] [address] [place] [address], * MG Mammo Digital Screening w See bilat (05/05/2025 1:36 PM EDT) Anatomical Region Laterality Modality Breast Bilateral Mammography 05/06/2025 7:26 AM EDT Impressions 05/06/2025 7:30 AM EDT No mammographic evidence of malignancy. TISSUE DENSITY: There are scattered areas of fibroglandular density. (BI-RADS category B) IMPRESSION: Benign. BI-RADS CATEGORY: 1 - NEGATIVE RECOMMENDATION: Screening bilateral mammogram is recommended in 1 year. Mammo Location: [facility], [address] [place] [id number] -------- FINAL REPORT -------- Dictated By: Tim Srivastava Dictated Date: 05/06/2025 07:26 ET Assigned Physician: Tim Srivastava Reviewed and Electronically Signed By: Tim Srivastava Signed Date: 05/06/2025 07:30 ET Workstation ID: [id number] Transcribed By: Self Edit Transcribed Date: 05/06/2025 [...] and CC projection is performed in the [employer] 2000-D unit. Computer aided detection utilizing the [...] MLO and CC projection is performed in the[employer] 2000-D unit. Computer aided detection utilizing the [...] is recommended in 1 year. Mammo Location: [facility], [facility], [address] [place] [id number] -------- FINAL REPORT -------- Dictated By: Tim Srivastava Dictated Date: 05/06/2025 07:26 ET Assigned Physician: Tim Srivastava Reviewed and Electronically Signed By: Tim Srivastava Signed Date: 05/06/2025 07:30 ET Workstation ID: [id number] Transcribed By: Self Edit Transcribed Date: 05/06/2025 07:26 ET us Self Referral Sppl IMG BI PROCEDURES Final Resul t from Last 3 Months Insurance [employer] MEDICARE Member Subscriber Plan / Payer (Ef fective 2021-Present) Name:FREDY TAVERAS Relation to Subscriber:Self Name:Fredy Taveras Payer ID:[id number] Group ID:[id number] Type:Not on file Address: [address] [place] [phone] Care Teams Copy Coordinator Relationship Specialty Start Date End Date Derick Stern NP [address] [address] PCP - General Nurse Practitioner 01/07/25
--- OUTSIDE RECORDS SUMMARY | 2025-08-04 11:15 | XMS_ITS | Encounter Summary ---
Author Organization [employer] Address [address] [place] [address] [address] [place] [address] Care Team Providers Care Back End Engineer Name Role Phone Unavailable Primary Care Provider Unavailabl e Encounter Details Date Type Department Care Team (Latest Contact Info) Description 02/19/2019 Abstract [facility] Dental, Provider, DDS Social History Tobacco [...] Description 10/27/2025 8:00 AM EST Office Visit [facility] [address] [place] [address] Larry Evangelistaaris [address] [place] [address] documented as of this encounter Visit Diagnoses Not on filedocumented in this encounter
--- OUTSIDE RECORDS SUMMARY | 2025-08-04 11:15 | XMS_ITS | Encounter Summary ---
Author Organization [employer] Address [address] [place] [address] 7 [place] [address] Care Team Providers Care Record Tester Name Role Phone Unavailable Primary Care Provider Unavailabl e Reason for Visit * Reason Onset Date Comments medication 09/22/2023 medication 09/22/2023 Encounter Details Date Type Department Care Team ([facility] st Contact Info) Description 09/22/2023 Telephone [facility] [address] [place] [address] Geovany Elder DMD [address] [place] [address] medication; medication Social History Tobacco Use Types [...] Description 10/27/2025 8:00 AM EST Office Visit [facility] [address] [place] [address] Tonja Dorothea [address] [place] [address] documented as of this encounter Visit Diagnoses Not on filedocumented in this encounter
== END 2025-08-04 10:39 | disposition home or self-care (01) ==
LOC: HO.HMCH 09:53
PROVIDERS: PCP Internal Medicine; Visit Provider Internal Medicine
DX: E78.00 Pure hypercholesterolemia, unspecified (principal); R79.89 Other specified abnormal findings of blood chemistry; N20.0 Calculus of kidney; G44.209 Tension-type headache, unspecified, not intractable

== ENCOUNTER → 2025-08-04 09:52 | Outpatient (BNVA) | payer OTHER, SELFPAY | PROVIDERS: PCP Internal Medicine; Visit Provider Internal Medicine | DX: G44.209 Tension-type headache, unspecified, not intractable (principal); N20.0 Calculus of kidney; R79.89 Other specified abnormal findings of blood chemistry; E78.00 Pure hypercholesterolemia, unspecified | CPT/HCPCS: 96127; 99212 ==